=== PATIENT | male | born 1970 | race Caucasian/White ===

== ENCOUNTER 2018-02-02 00:31 | Inpatient (IN) | payer MEDICARE, MEDICAID ==
--- NOTE | 2018-02-02 00:52 | ED Physician Chart ---
ED Chief Complaint/HPI - Patient Information Date Seen:: 02/02/18 Time Seen:: 00:51 Chief Complaint:: Coffee ground emesis History of Present Illness:: 48 yo male with was brought from [facility] to ER for evaluation of coffee ground emesis multiple times today. Patient did not have active vomiting in the ER. Patient's glucose level on arrival was low at 45. About 2 hours later, a repeat finger glucose was 80. ED Review of Systems - Review of Systems General/Constitutional: No fever Skin: Skin lesions Head: No headache Eyes: No pain ENT: No nasal drainage Neck: No neck pain Cardio Vascular: No chest pain GI: Nausea, Vomiting, No hematemesis Musculoskeletal: Bone or joint pain Psychiatric: Depression Neurological: Weakness ED Past Medical History - Past Medical History Past Medical History: HTN, DM, CHF, Asthma/COPD, CVA/TIA, DVT/PE, Other (ETOH ABUSE, AR, PVD, LEFT FOOT ULCER, PNU) Social History: Non Smoker, No Alcohol, No Drug Use Surgical History: other (Right BKA) Psychiatricy History: Depression, Bipolar, Other (Anxiety) Family Medical History - Family Member Mother History Unknown: Yes ED Physical Exam - Physical Examination General/Constitutional: Awake, Alert Other Gen/Cons comments:: Cachectic Head: Atraumatic Eyes: PERRL Other Skin comments:: Left foot decubitus ulcer ENMT: Nasal exam nl Neck: No nuchal rigidity Respiratory: No Wheeze/Rhonchi/Rales Cardio Vascular: RRR, No murmur, gallop, rubs, NL S1 S2 GI: Nondistended Other GI comments:: Epigastric tenderness Extremities: No edema Other Extremities comments:: Right BKA. Left foot decubitus ulcer Neuro/Psych: Alert/oriented (x 2) ED Labs/Radiology/EKG Results - Radiology Results Results: CXR: no focal consolidation KUB: gas patterns in transverse colon and sigmoid colon - EKG Interpretations EKG Time:: 01:02 Rate & Rhythm: 90 bpm, sinus rhythm [place]: normal axis Intervals: Prolonged QT interval ED Assessment - Assessment General Assessment: Hematemesis Hyponatremia Hypokalemia Normocytic anemia Cachexia Hypoglycemia Assessment/Comments:: CBC, CMP, Trop I, BNP, UA CXR, EKG NS 1L IV bolus KCL 40 mEq PO Pantoprazole 40 mg IV Admitted to telemetry ED Septic Shock - . Is Septic Shock (SBP<90, OR Lactate>4 mmol\L) present?: No ED Reassessment (Disposition) - Reassessment Reassessment Condition:: Improved - Patient Disposition Discharge/Transfer:: Acute Care w/in this hosp Admitting Medical Physician:: Joey Lira
[2018-02-02 01:31] LABS: HEMATOCRIT 29.4 % (41.0-60); MEAN CELL VOLUME 90.9 fl (80-99); MEAN CORPUSCULAR HEMOGLOBIN 30.9 pg (26.0-30.0); PLATELET COUNT 414 Th/cmm (150-400); RED BLOOD COUNT 3.23 Mil/cmm (4.30-5.70); WHITE BLOOD COUNT 8.6 Th/cmm (4.8-10.8)
[2018-02-02 01:48] LABS: ALB/GLOB RATIO 1.5 (1.0-1.8); ALBUMIN 3.8 gm/dL (4.2-5.5); ALKALINE PHOSPHATASE 83 U/L (34-104); AMYLASE SERUM 26 U/L (29-103); ANION GAP 15.6 (7.0-16.0); BILIRUBIN,TOTAL 0.3 mg/dL (0.3-1.0); BUN - UREA NITROGEN 12 mg/dL (7-25); CALCIUM SERUM 9.2 mg/dL (8.6-10.3); CARBON DIOXIDE 24.6 mEq/L (21.0-31.0); CHLORIDE 94 mEq/L (98-107); CREATININE - SERUM 1.2 mg/dL (0.7-1.3); GFR AFRICAN-AMERICAN > 60.0 ml/min (>90); GFR NON AFRICAN-AMERICAN > 60.0 ml/min; LIPASE 5 U/L (11-82); POTASSIUM SERUM 3.2 mEq/L (3.5-5.1); SGOT 9 U/L (13-39); SGPT/ALT 8 U/L (7-52); SODIUM SERUM 131 mEq/L (136-145); TOTAL PROTEIN,SERUM 6.3 gm/dL (6.0-8.3)
[2018-02-02] MEDS ORDERED: Sodium Chloride 0.9% 1,000 ML IV ONE (01:58)
[2018-02-02 01:59] LABS: GLUCOSE 45 mg/dL (70-105)
[2018-02-02] MEDS ORDERED: Potassium Chloride 20 mEq ER Tab PO ONE ×2 (02:06→02:14)
[2018-02-02 04:30] LABS: BAND NEUTROPHILE 2 % (0-10); EOSINOPHIL 2 % (0-5); LYMPHOCYTE 6 % (20-50); MONOCYTE 5 % (2-10); NEUTROPHILS 85 % (40-80)
[2018-02-02 04:31] LABS: PLATELET ESTIMATE ADEQUATE (NORMAL)
--- NOTE | 2018-02-02 08:38 | Diagnostic Imaging Report ---
CHEST X-RAY: AP view INDICATION: Shortness of breath COMPARISON: None FINDINGS: Chronic lung changes are seen with probable COPD. There is no focal consolidation or pleural effusions The heart is normal in size. The osseous structures demonstrate no acute abnormalities. IMPRESSION: Chronic lung changes with probable COPD and underlying emphysematous changes. No focal consolidation is identified.
--- NOTE | 2018-02-02 08:43 | Diagnostic Imaging Report ---
KUB single view HISTORY: Emesis COMPARISON: None FINDINGS: There is copious stool throughout the colon. No evidence of gross free air. Nonspecific gas-filled loops of bowel are noted. Pelvic phleboliths are noted. Postsurgical changes of the right femur are partially visualized. IMPRESSION: Copious stool throughout the colon with gas-filled loops of bowel. Please correlate clinically for constipation.
[2018-02-02] MEDS ORDERED: OXYCODONE HCL 10 MG PO PRN (10:11)
[2018-02-02] MEDS ORDERED: Magnesium Hydroxide (MOM) 30 mL UDC PO PRN (10:11)
[2018-02-02] MEDS ORDERED: OXYCODONE HCL 20 MG PO PRN (10:11)
[2018-02-02 11:19] LABS: URINE SOURCE CLEAN C
[2018-02-02] MEDS ORDERED: INSULIN HUMAN REGULAR 100 UNITS/ML UNIT SUBQ SCH (11:30)
[2018-02-02 11:34] LABS: URINE BILIRUBIN SMALL (NEGATIVE); URINE BLOOD TRACE (NEGATIVE); URINE CLARITY CLOUDY (CLEAR); URINE COLOR YELLOW; URINE GLUCOSE (UA) 100 mg/dL (NEGATIVE); URINE KETONE 15 mg/dL (NEGATIVE); URINE MICROSCOPIC INDICATED? YES; URINE NITRATE NEGATIVE (NEGATIVE); URINE PROTEIN TRACE mg/dL (NEGATIVE); URINE UROBILINOGEN 0.2 E.U./dL (0.2 - 1.0)
[2018-02-02 11:35] LABS: URINE LEUKOCYTE ESTERASE SMALL (NEGATIVE)
[2018-02-02 11:36] LABS: URINE EPITHELIAL CELLS FEW /lpf (FEW); URINE WBC 25-50 /hpf (0-5)
[2018-02-02 11:37] LABS: URINE BACTERIA MODERATE /hpf (NONE SEEN)
[2018-02-02] MEDS: Multivitamin Tab PO SCH (11:58)
[2018-02-02] MEDS: Pantoprazole 40 mg/Packet PO SCH (11:59)
[2018-02-02] MEDS: INSULIN ASPART SLIDING SCALE 100 UNITS/ML UNIT SUBQ SCH ×3 (12:24→22:01)
[2018-02-02] MEDS ORDERED: fentaNYL 100 mcg/hr Tdm Patch TD SCH (14:00)
[2018-02-02] MEDS ORDERED: Non-Formulary Item 1 EA (Cranberry Fruit Concentrate [Cranberry] 450 MG) PO SCH (14:00)
[2018-02-02] MEDS: Lidocaine 5% Patch TD SCH (14:33)
[2018-02-02] MEDS ORDERED: MORPHINE SULFATE 10 MG PO SCH (17:00)
[2018-02-02] MEDS: Levofloxacin 750mg/150mL 750 MG/150 ML BAG IV SCH (17:49)
[2018-02-02] MEDS: Sodium Chloride 0.9% 1,000 ML IV SCH (17:52)
[2018-02-02] MEDS: Venelex 60gm Tube TP SCH (18:00)
[2018-02-02 18:54] LABS: A1C % 10.1 % (4.0-6.0)
--- NOTE | 2018-02-02 23:59 | History & Physical ---
ADMIT DATE: 02/02/2018 CHIEF COMPLAINT: Vomiting with questionable coffee-ground materials in the halfway. HISTORY OF PRESENT ILLNESS: The patient is a 48-year-old male admitted from Emergency Room to telemetry floor of [facility] due to multiple complicated medical conditions. The patient has several episodes of small amount of questionable coffee-ground emesis in the halfway; however, the patient's H and H is stable at 10/29.4. Since coming to the Emergency Room, the patient stopped vomiting and only later today has mild nausea. The patient has type 1 diabetes since he was born. He also has coronary heart disease, status post LA and mild diabetic nephropathy, however, the patient refused 1800 ADA cardiac renal diet and he would only eat if its regular diet as I know this patient very well. The patient is status post right BKA in [facility] just a few days ago. He is somewhat depressed with history of mild psychosis and bipolar disorder as well. His UA revealed positive leukocyte esterase, 50 wbc's, and moderate bacteria. Urine culture and blood culture were ordered. Empiric antibiotics started already. The patient's potassium is also low at 3.2, sodium 131, blood sugar only 45 in the Emergency Room. PAST MEDICAL HISTORY: Very poorly controlled diabetes, diabetic nephropathy, coronary heart disease, status post LA x 4, status post CVA x 3 with difficulty walking, COPD, pneumonia, anemia of chronic disease, urinary tract infection, sepsis, left heel diabetic wound. PAST SURGICAL HISTORY: Status post right BKA. NEUROLOGICAL: Unremarkable. LABORATORY DATA: Reviewed as seen from the computer. ASSESSMENT AND PLAN: 1. Status post upper gastrointestinal bleeding: This has stopped and the patient refused n.p.o. and insists on regular diet as I mentioned above. 2. Hypoglycemic episode: The patient has had very brittle diabetes and many endocrine consultation were requested and without any difference. Additionally, the patient is actually very intelligent. He controls how much insulin he needs, which most time works well for him. 3. Urinary tract infection: Urine culture and blood culture was ordered. Empiric antibiotics started, which will be adjusted accordingly. 4. Left heel diabetic wound: Continue wound care and try to control diabetes. 5. Chronic obstructive pulmonary disease: RT protocol ordered. 6. Status post right BKA in [facility]. 7. History of noncompliance: Education provided. 8. Coronary heart disease, status post myocardial infarction x 4. 9. Status post cerebrovascular accident x 3 with difficulty walking. 10. History of mild psychosis and bipolar disorder: Continue medication. 11. Intractable pain/chronic pain syndrome: The patient is on multiple pain medications, which were actually prescribed by the paint maker in the halfway. I pretty much continued the pain medication with some exception of decreasing the dose and frequency. 12. Deep venous thrombosis prophylaxis. 13. Seizure: Continue medication. JOB# [id number]
[2018-02-03 06:06] LABS: HEMATOCRIT 24.6 % (41.0-60); HEMOGLOBIN 8.2 gm/dL (12-16); MEAN CELL VOLUME 89.8 fl (80-99); MEAN CORPUSCULAR HEMOGLOBIN 30.1 pg (26.0-30.0); MEAN CORPUSCULAR HGB CONC 33.5 pg (28.0-36.0); MEAN PLATELET VOLUME 7.2 fl; PLATELET COUNT 299 Th/cmm (150-400); RED BLOOD COUNT 2.74 Mil/cmm (4.30-5.70); RED CELL DISTRIBUTION WIDTH 12.8 % (11.5-20.0); WHITE BLOOD COUNT 4.2 Th/cmm (4.8-10.8)
[2018-02-03] MEDS: Pantoprazole 40 mg/Packet PO SCH (06:42)
[2018-02-03 06:58] LABS: BUN - UREA NITROGEN 10 mg/dL (7-25); CALCIUM SERUM 8.5 mg/dL (8.6-10.3); CARBON DIOXIDE 25.6 mEq/L (21.0-31.0); CHLORIDE 97 mEq/L (98-107); CREATININE - SERUM 1.1 mg/dL (0.7-1.3); GFR AFRICAN-AMERICAN > 60.0 ml/min (>90); GFR NON AFRICAN-AMERICAN > 60.0 ml/min; POTASSIUM SERUM 3.6 mEq/L (3.5-5.1); SODIUM SERUM 133 mEq/L (136-145)
[2018-02-03 07:30] LABS: GLUCOSE 41 mg/dL (70-105)
[2018-02-03] MEDS: INSULIN ASPART SLIDING SCALE 100 UNITS/ML UNIT SUBQ SCH ×4 (07:34→20:56)
[2018-02-03 08:24] LABS: BASOPHIL 1 % (0-3); LYMPHOCYTE 30 % (20-50); MONOCYTE 4 % (2-10); NEUTROPHILS 65 % (40-80)
[2018-02-03 08:25] LABS: PLATELET ESTIMATE ADEQUATE (NORMAL)
[2018-02-03] MEDS: Multivitamin Tab PO SCH (08:40)
[2018-02-03] MEDS: Venelex 60gm Tube TP SCH (08:42)
[2018-02-03] MEDS: Lidocaine 5% Patch TD SCH ×2 (08:44→19:11)
--- NOTE | 2018-02-03 11:20 | Consultation ---
DATE OF CONSULTATION: 02/03/2018 SURGICAL CONSULTATION REFERRING PHYSICIAN: Dr. Lira. REASON FOR CONSULTATION: Follow up on right below knee amputation. Thank you for referring this patient to me. HISTORY OF PRESENT ILLNESS: This is a 48-year-old male who is apparently very poorly compliant on diet. He has diabetes mellitus. He has had a CVA x 3. On 01/2018 he underwent right below knee amputation at [facility]. He is admitted here in addition for followup on GI bleeding. LABORATORY STUDIES: Show the hemoglobin at 8.2. The platelet count is normal. Blood sugar on admission was 271, BUN and creatinine are normal. PHYSICAL EXAMINATION: Now, shows a right below knee amputation stump to be healing well with no evidence of edema or drainage or cellulitis. Continue local wound care and leave this suture for a while before removal. JOB# [id number]
[2018-02-03] MEDS: Levofloxacin 750mg/150mL 750 MG/150 ML BAG IV SCH (16:06)
--- NOTE | 2018-02-04 00:08 | Internal Medicine Prog Note ---
Internal Medicine Subjective - Subjective Service Date: 02/03/18 Patient seen and examined:: without staff Patient is:: asleep Per staff patient has:: no adverse event Internal Medicine Objective - Results Result Diagrams: 02/03/18 04:50 02/03/18 04:50 Recent Labs: Laboratory Last Values WBC 4.2 Th/cmm (4.8-10.8) L 02/03/18 04:50 RBC 2.74 Mil/cmm (4.30-5.70) L 02/03/18 04:50 Hgb 8.2 gm/dL (12-16) L 02/03/18 04:50 Hct 24.6 % (41.0-60) L 02/03/18 04:50 MCV 89.8 fl (80-99) 02/03/18 04:50 MCH 30.1 pg (26.0-30.0) H 02/03/18 04:50 MCHC Differential 33.5 pg (28.0-36.0) 02/03/18 04:50 RDW 12.8 % (11.5-20.0) 02/03/18 04:50 Plt Count 299 Th/cmm (150-400) 02/03/18 04:50 MPV 7.2 fl 02/03/18 04:50 Add Manual Diff YES 02/03/18 04:50 Band Neutrophils % 2 % (0-10) 02/02/18 01:25 Neutrophils (Manual) 65 % (40-80) 02/03/18 04:50 Lymphocytes 30 % (20-50) 02/03/18 04:50 Monocytes 4 % (2-10) 02/03/18 04:50 Eosinophils 2 % (0-5) 02/02/18 01:25 Basophils 1 % (0-3) 02/03/18 04:50 Platelet Estimate ADEQUATE (NORMAL) 02/03/18 04:50 Sodium 133 mEq/L (136-145) L 02/03/18 04:50 Potassium 3.6 mEq/L (3.5-5.1) 02/03/18 04:50 Chloride 97 mEq/L (98-107) L 02/03/18 04:50 Carbon Dioxide 25.6 mEq/L (21.0-31.0) 02/03/18 04:50 Anion Gap 14.0 (7.0-16.0) 02/03/18 04:50 BUN 10 mg/dL (7-25) 02/03/18 04:50 Creatinine 1.1 mg/dL (0.7-1.3) 02/03/18 04:50 Est GFR ( Amer) > 60.0 ml/min (>90) 02/03/18 04:50 Est GFR (Non-Af Amer) > 60.0 ml/min 02/03/18 04:50 BUN/Creatinine Ratio 9.1 02/03/18 04:50 Glucose 41 mg/dL (70-105) L* 02/03/18 04:50 POC Glucose 185 MG/DL (70 - 105) H 02/03/18 20:50 Hemoglobin A1c % 10.1 % (4.0-6.0) H 02/02/18 01:27 Calcium 8.5 mg/dL (8.6-10.3) L 02/03/18 04:50 Total Bilirubin 0.3 mg/dL (0.3-1.0) 02/02/18 01:25 AST 9 U/L (13-39) L 02/02/18 01:25 ALT 8 U/L (7-52) 02/02/18 01:25 Alkaline Phosphatase 83 U/L (34-104) 02/02/18 01:25 Total Protein 6.3 gm/dL (6.0-8.3) 02/02/18 01:25 Albumin 3.8 gm/dL (4.2-5.5) L 02/02/18 01:25 Globulin 2.5 gm/dL 02/02/18 01:25 Albumin/Globulin Ratio 1.5 (1.0-1.8) 02/02/18 01:25 Amylase 26 U/L (29-103) L 02/02/18 01:25 Lipase 5 U/L (11-82) L 02/02/18 01:25 Urine Source CLEAN C 02/02/18 10:25 Urine Color YELLOW 02/02/18 10:25 Urine Clarity CLOUDY (CLEAR) 02/02/18 10:25 Urine pH 6.0 (4.6 - 8.0) 02/02/18 10:25 Ur Specific [place] 1.020 (1.005-1.030) 02/02/18 10:25 Urine Protein TRACE mg/dL (NEGATIVE) 02/02/18 10:25 Urine Glucose (UA) 100 mg/dL (NEGATIVE) H 02/02/18 10:25 Urine Ketones 15 mg/dL (NEGATIVE) H 02/02/18 10:25 Urine Blood TRACE (NEGATIVE) 02/02/18 10:25 Urine Nitrate NEGATIVE (NEGATIVE) 02/02/18 10:25 Urine Bilirubin SMALL (NEGATIVE) H 02/02/18 10:25 Urine Urobilinogen 0.2 E.U./dL (0.2 - 1.0) 02/02/18 10:25 Ur Leukocyte Esterase SMALL (NEGATIVE) H 02/02/18 10:25 Urine RBC 2-5 /hpf (0-5) H 02/02/18 10:25 Urine WBC 25-50 /hpf (0-5) H 02/02/18 10:25 Ur Epithelial Cells FEW /lpf (FEW) 02/02/18 10:25 Urine Bacteria MODERATE /hpf (NONE SEEN) H 02/02/18 10:25 - Physical Exam Vitals and I&O: Vital Signs Temp 98 F 02/03/18 16:00 Pulse 109 02/03/18 22:06 Resp 18 02/03/18 22:06 BP 118/80 02/03/18 16:00 Pulse Ox 99 02/03/18 22:06 Intake & Output 02/03/18 02/03/18 02/04/18 06:59 18:59 06:59 Intake Total 150 350 150 Output Total 600 Balance 150 -250 150 Weight (lbs) 49.895 kg Intake: Intake, IV Amount 150 150 Levofloxacin 750mg/150mL 150 150 750 mg In 150 ml @ 100 mls/hr IV Q24HR [facility] Rx#: [id number] Oral 350 Output: Urine 600 Other: Weight Source Bedscale Active Medications: Current Medications Ascorbic Acid (Vitamin C) 500 mg PO DAILY [facility] Stop: 04/04/18 08:59 Last Admin: 02/03/18 08:40 Dose: 500 mg Bisacodyl (Dulcolax 10 Mg Supp) 10 mg RC DAILY PRN PRN Reason: Constipation Stop: 04/03/18 10:06 Carisoprodol (Soma) 350 mg PO Q8H PRN PRN Reason: MUSCLE SPASM Stop: 04/03/18 10:06 Last Admin: 02/03/18 16:42 Dose: 350 mg [place] Oil/Ugandan Balsam/Trypsin (Venelex) 1 appl TP DAILY [facility] Stop: 04/03/18 17:59 Last Admin: 02/03/18 08:42 Dose: 1 appl Docusate Sodium (Colace) 100 mg PO DAILY [facility] Stop: 04/03/18 13:59 Last Admin: 02/03/18 08:40 Dose: 100 mg Fentanyl (Duragesic 100 Mcg/Hr Tdm Patch) 1 patch TD Q72HR [facility]; Protocol Stop: 04/03/18 13:59 Last Admin: 02/02/18 14:33 Dose: Not Given Folic Acid (Folate) 1 mg PO DAILY [facility] Stop: 04/03/18 11:59 Last Admin: 02/03/18 08:40 Dose: 1 mg Gabapentin (Neurontin) 300 mg PO TID [facility] Stop: 04/03/18 13:59 Last Admin: 02/03/18 20:53 Dose: 300 mg Sodium Chloride (Nacl 0.9%) 1,000 mls @ 70 mls/hr IV .[id number] [facility] Stop: 04/03/18 13:59 Last Admin: 02/02/18 17:52 Dose: 70 mls/hr Levofloxacin (Levaquin Pb) 750 mg in 150 mls @ 100 mls/hr IV Q24HR [facility] Stop: 04/03/18 16:59 Last Infusion: 02/03/18 19:59 Dose: Infused Insulin Aspart (Novolog Insulin Sliding Scale) 0 units SUBQ ACHS [facility]; Protocol Stop: 04/03/18 11:29 Last Admin: 02/03/18 20:56 Dose: 3 units Levetiracetam (Keppra) 500 mg PO BID [facility] Stop: 04/03/18 16:59 Last Admin: 02/03/18 16:34 Dose: 500 mg Lidocaine (Lidoderm 5% Patch) 1 patch TD DAILY [facility] Stop: 04/03/18 13:59 Last Admin: 02/03/18 19:11 Dose: 1 patch Lisinopril (Zestril) 2.5 mg PO DAILY [facility] Stop: 04/04/18 08:59 Last Admin: 02/03/18 08:41 Dose: Not Given Magnesium Hydroxide (Milk Of Magnesia) 30 ml PO DAILY PRN PRN Reason: GI DISTRESS Stop: 04/03/18 10:10 Miscellaneous (Cranberry Fruit Concentrate [Cranberry]) 450 mg PO TID [facility] Stop: 04/03/18 13:59 Last Admin: 02/02/18 15:25 Dose: Not Given Miscellaneous (Magnesium [Magnesium]) 70 mg PO [facility] Stop: 04/03/18 20:59 Miscellaneous (Morphine Sulfate [Morphine Sulfate Er]) 10 mg PO BID [facility] Stop: 04/03/18 16:59 Last Admin: 02/02/18 18:26 Dose: Not Given Miscellaneous (Rosuvastatin Calcium [Rosuvastatin Calcium]) 1 tab PO [facility] Stop: 04/03/18 20:59 Multivitamins/Vitamin C (Theragran) 1 tab PO DAILY [facility] Stop: 04/03/18 11:59 Last Admin: 02/03/18 08:40 Dose: 1 tab Ondansetron HCl (Zofran) 4 mg IV Q4H PRN PRN Reason: Nausea / Vomiting Stop: 04/03/18 19:05 Oxcarbazepine (Trileptal) 300 mg PO BID [facility]; Protocol Stop: 04/03/18 16:59 Last Admin: 02/03/18 16:34 Dose: 300 mg Oxycodone HCl (Oxycontin) 10 mg PO Q6H PRN PRN Reason: Severe Pain Stop: 04/03/18 10:21 Pantoprazole Sodium (Protonix) 40 mg PO QDAC [facility] Stop: 04/03/18 11:39 Last Admin: 02/03/18 06:42 Dose: 40 mg Quetiapine Fumarate (Seroquel) 100 mg PO [facility]; Protocol Stop: 04/03/18 20:59 Last Admin: 02/03/18 20:53 Dose: 100 mg Tamsulosin HCl (Flomax) 0.4 mg PO DAILY [facility] Stop: 04/03/18 12:59 Last Admin: 02/03/18 08:40 Dose: 0.4 mg Trazodone HCl (Desyrel) 50 mg PO [facility]; Protocol Stop: 04/03/18 20:59 Last Admin: 02/03/18 20:53 Dose: 50 mg General: weak HEENT: NC/AT, PERRLA Neck: Supple, No JVD, No LAD Lungs: wheezing, ronchi Cardiovascular: RRR, Normal S1, Normal S2 Abdomen: soft, non-tender, non-distended Extremities: clear, other (s/p rt BKA) Neurological: no change Internal Medicine Assmt/Plan - Assessment Assessment: s/p rt BKA: post operative care. Anemia: repeat CBC in AM s/p UGUB? Left heel diabetix wound: wound care. UTI: empirical ABX. CAD: s/p MIx 4 s/p CVA x 3 OOCDM: SSRI low dose. depression/anxiety h/o mild psychosis. Seizure: continue med. COPD: RT protocol. Nutritional Asmnt/Malnutr-PDOC - Dietary Evaluation Malnutrition Findings (Please click <Entered> for more info): Nutritional Asmnt/Malnutrition Start: 02/03/18 18: 30 Text: Status: Complete Freq: Protocol: Document 02/03/18 18:31 LCHENG (Rec: 02/03/18 18:58 LCHENG [id number]) Nutritional Asmnt/Malnutrition Patient General Information Nutritional Screening High Risk Consult Diagnosis vomiting, possible GI bleed, hypokaliemia Pertinent Medical Hx/Surgical Hx type 1 DM, diabetic nephropathy, CAD, AK, CVA, DVT /PE, ETHOH abuse, left foot ulcer, PNU, right BKA, depression, bipolar, anxiety Subjective Information Pt seen lying in bed at bed at time of visit, awake and alert. Pt appeared skinny, fat wasting. Pt stated he usually does not eat breakfast. Offered different kind of oral supplements to pt, pt did not accept. Pt was not willing to talk more. Current Diet Order/ Nutrition Support NCS, ROLANDA Pertinent Medications colace, folate, novolog insulin, keppra, levaquin, theragran, zofran, protonix, seroquel, nacl 0.9% Pertinent Labs 8/2 Na 133, Cl 97, glucose 41, POC 80-297 8/1 Na 131, K 3.2, Cl 94, glucose 45, POC 80-392, A1c 10 .1 Nutritional Hx/Data Height 1.73 m Height (Calculated Centimeters) 172.7 Current Weight (lbs) 49.895 kg Weight (Calculated Kilograms) 49.9 Weight (Calculated Grams) 40557.2 [place] Body Weight 154 Body Mass Index (BMI) 16.7 Weight Status Underweight GI Symptoms GI Symptoms None Last BM none Difficult in: None Usual diet at home Per H&P pt has been refusing theraputic diet at care facility and only taking regular diet. Skin Integrity/Comment: left foot decubitus ulcer Current %PO Negligible < 25% Estimated Nutritional Goals BEE in Kcals: Using Current wt Calories/Kcals/Kg 30-35 Kcals Calculated 1992-7908 Protein g/k.2-1.4 Protein Calculated 60-70 Fluid: ml 1500-1750ml (1m/kcal) Nutritional Problem 1. Problem Problem altered nutrition related labs Etiology uncontrolled type 1 DM Signs/Symptoms: glucose 41-45, POC 80-392, A1c 10.1 Malnutrition Alert Body Fat Depletion (Severe) Mod to Severe Depletion Muscle Mass (Non-Severe) Mild Depletion Is there a minimum of two criteria Yes selected? Query Text:Check all the applicable criteria. A minimum of two criteria are recommended for diagnosis of either severe or non-severe malnutrition. Malnutrition Related to Morbid Obesity Malnutrition related to morbid obesity No Intervention/Recommendation Comments 1. Continue with NCS ROLANDA diet as ordered. Assist pt to order meals. MD to adjust insulin for optimal glycemic control 2. Monitor PO intake, wt, labs and skin integrity 3. F/U as moderate risk in 3-5 days, 02/06-02/08 Expected Outcomes/Goals Expected Outcomes/Goals 1. PO intake to meet at least 75% of nutritional needs. 2. Wt stability, skin to remain intact, labs to approach WNL.
[2018-02-04] MEDS: Venelex 60gm Tube TP SCH ×2 (04:55→09:18)
[2018-02-04 05:36] LABS: HEMOGLOBIN 8.4 gm/dL (12-16)
[2018-02-04 05:44] LABS: % BASOPHILS 0.6 % (0.0-2.0); % EOSINOPHILS 1.4 % (0.0-5.0); % LYMPHOCYTES 30.9 % (20.0-50.0); % MONOCYTES 6.1 % (2.0-10.0); EOSINOPHILE ABSOLUTE 0.1 Th/cmm (0.1-0.4); HEMATOCRIT 25.1 % (41.0-60); LYMPHOCYTE ABSOLUTE 1.6 Th/cmm (1.5-3.0); MEAN CELL VOLUME 90.7 fl (80-99); MEAN CORPUSCULAR HEMOGLOBIN 30.3 pg (26.0-30.0); MEAN CORPUSCULAR HGB CONC 33.4 pg (28.0-36.0); MEAN PLATELET VOLUME 7.5 fl; MONOCYTE ABSOLUTE 0.3 Th/cmm (0.3-1.0); NEUTROPHILE ABSOLUTE 3.1 Th/cmm (1.8-8.0); PLATELET COUNT 306 Th/cmm (150-400); RED BLOOD COUNT 2.77 Mil/cmm (4.30-5.70); RED CELL DISTRIBUTION WIDTH 12.6 % (11.5-20.0); WHITE BLOOD COUNT 5.1 Th/cmm (4.8-10.8)
--- NOTE | 2018-02-04 06:20 | Consultation ---
DATE OF CONSULTATION: 02/03/2018 ORTHOPEDIC SURGERY CONSULTATION HISTORY OF PRESENT ILLNESS: The patient is a 48-year-old type 1 diabetic, admitted to [facility] via the Emergency Room on 02/02/2018 because of history of hematemesis. He apparently had an amputation on the right below the knee at [facility] and was discharged from there to a fdc facility. It was there that he began with vomiting of probable blood, so he was sent to [facility] Emergency Room and then admitted to the hospital. I was called in orthopedic consultation by the admitting physician regarding his recent amputation. PAST MEDICAL HISTORY: I am not able to get much information directly from the patient. The record indicates he has a prior history of type 1 diabetes, coronary artery disease, history of [place], bipolar disorder with mild psychosis, urinary tract infection, diabetic neuropathy, COPD, history of pneumonia, anemia of chronic disease, sepsis and a diabetic foot ulcer on the left. I inquired of the patient why he had an amputation and he stated he had had multiple fractures on the right leg and they "had to cut it off." He intimated that these fractures were old and chronic, this was not an acute traumatic event. PHYSICAL EXAMINATION: The patient was examined in his hospital room at [facility]. GENERAL: He is thin and cachectic and appears chronically ill and considerably older than his stated age of 48. He is conscious and alert and at times answers questions fairly well. HEENT: The head is atraumatic, normocephalic. EXTREMITIES: Upper extremities unremarkable. Left lower extremity, there is a heel ulcer on the posterolateral corner of the heel measuring 3.5 x 5 cm. There is no exposed bone. On the right, there is a benign appearing below knee amputation stump with a large posterior flap brought around anteriorly. The suture line is dry and it appears to be healing well. IMAGING STUDIES: There are no images of the patient's legs. ORTHOPEDIC DIAGNOSES: 1. Status post right below knee amputation. 2. Diabetic heel ulcer on the left. 3. Status post multiple fractures, right lower extremity - he indicated he has fixation hardware in his femur. ORTHOPEDIC RECOMMENDATIONS: The patient can be on a bed to chair program with assistance. He could have physical therapy and attempt to stand and ambulate with a walker and assistance. He is quite weak and his musculature of the left leg is atrophic and he would probably have difficulty standing or bearing weight without a lot of assistance. He can have Betadine dressing changes on the right BKA stump every other day. [facility] could be contacted and his records obtained -- at least the operative record, history and physical and discharge summary. Sutures are typically left in the BKA stump in a diabetic for approximately 3 weeks and then can be removed if the wound is sufficiently healed. Meanwhile, he also needs decubitus care of the left heel ulcer. I will request x-rays be taken of his right lower extremity to better assess his situation. Thank you for this interesting referral. JOB# [id number]
[2018-02-04] MEDS: Sodium Chloride 0.9% 1,000 ML IV SCH (06:37)
[2018-02-04] MEDS: Pantoprazole 40 mg/Packet PO SCH (08:11)
[2018-02-04] MEDS: INSULIN ASPART SLIDING SCALE 100 UNITS/ML UNIT SUBQ SCH ×4 (08:11→21:57)
[2018-02-04] MEDS: Multivitamin Tab PO SCH (09:17)
[2018-02-04] MEDS: Lidocaine 5% Patch TD SCH (09:22)
--- NOTE | 2018-02-04 09:41 | Diagnostic Imaging Report ---
Right femur 2 views Indication: pain Comparison: Right tib-fib x-rays the same day Findings: There is evidence of previous intramedullary nohelia and screw fixation of proximal femoral fracture. The fracture lines along the intertrochanteric region are faintly seen. No dislocation. Mild degenerative changes of the hip joint are noted. Osteopenia is suspected. Impression: Evidence of previous fracture fixation of the proximal femur. The fracture lines of the intertrochanteric regions are still faintly seen. No evidence of hardware loosening. In the setting of trauma, if clinical symptoms persist and there is continued concern for an occult fracture, follow up exams in 5-7 days is suggested.
--- NOTE | 2018-02-04 09:41 | Diagnostic Imaging Report ---
Right tib-fib 2 views Indication: pain Comparison: Right femur x-rays the same day Findings: Partially visualized femoral fracture fixation hardware is noted. Osteopenia is noted. Below knee amputation is seen along the proximal one third of the tibia and fibula. No x-ray evidence of osteomyelitis. No evidence of an acute fracture. Impression: Below knee amputation. No x-ray evidence of osteomyelitis. osteopenia. Partially visualized postsurgical changes of the femur. In the setting of trauma, if clinical symptoms persist and there is continued concern for an occult fracture, follow up exams in 5-7 days is suggested.
[2018-02-04] MEDS: fentaNYL 100 mcg/hr Tdm Patch TD SCH (11:22)
[2018-02-04] MEDS: Atorvastatin Calcium 10 MG TAB PO SCH ×2 (20:09→21:40)
[2018-02-04] MEDS: Magnesium Chloride EC 64mg Tab PO SCH ×2 (20:09→21:39)
[2018-02-04] MEDS ORDERED: Septra IV Per Pharmacy MC SCH (23:45)
--- NOTE | 2018-02-04 23:53 | Internal Medicine Prog Note ---
Internal Medicine Subjective - Subjective Service Date: 02/04/18 Patient seen and examined:: without staff Patient is:: asleep Per staff patient has:: no adverse event Internal Medicine Objective - Results Result Diagrams: 02/04/18 04:55 02/03/18 04:50 Recent Labs: Laboratory Last Values WBC 5.1 Th/cmm (4.8-10.8) 02/04/18 04:55 RBC 2.77 Mil/cmm (4.30-5.70) L 02/04/18 04:55 Hgb 8.4 gm/dL (12-16) L 02/04/18 04:55 Hct 25.1 % (41.0-60) L 02/04/18 04:55 MCV 90.7 fl (80-99) 02/04/18 04:55 MCH 30.3 pg (26.0-30.0) H 02/04/18 04:55 MCHC Differential 33.4 pg (28.0-36.0) 02/04/18 04:55 RDW 12.6 % (11.5-20.0) 02/04/18 04:55 Plt Count 306 Th/cmm (150-400) 02/04/18 04:55 MPV 7.5 fl 02/04/18 04:55 Add Manual Diff YES 02/03/18 04:50 Neutrophils % 61.0 % (40.0-80.0) 02/04/18 04:55 Band Neutrophils % 2 % (0-10) 02/02/18 01:25 Lymphocytes % 30.9 % (20.0-50.0) 02/04/18 04:55 Monocytes % 6.1 % (2.0-10.0) 02/04/18 04:55 Eosinophils % 1.4 % (0.0-5.0) 02/04/18 04:55 Basophils % 0.6 % (0.0-2.0) 02/04/18 04:55 Neutrophils (Manual) 65 % (40-80) 02/03/18 04:50 Lymphocytes 30 % (20-50) 02/03/18 04:50 Monocytes 4 % (2-10) 02/03/18 04:50 Eosinophils 2 % (0-5) 02/02/18 01:25 Basophils 1 % (0-3) 02/03/18 04:50 Platelet Estimate ADEQUATE (NORMAL) 02/03/18 04:50 Sodium 133 mEq/L (136-145) L 02/03/18 04:50 Potassium 3.6 mEq/L (3.5-5.1) 02/03/18 04:50 Chloride 97 mEq/L (98-107) L 02/03/18 04:50 Carbon Dioxide 25.6 mEq/L (21.0-31.0) 02/03/18 04:50 Anion Gap 14.0 (7.0-16.0) 02/03/18 04:50 BUN 10 mg/dL (7-25) 02/03/18 04:50 Creatinine 1.1 mg/dL (0.7-1.3) 02/03/18 04:50 Est GFR ( Amer) > 60.0 ml/min (>90) 02/03/18 04:50 Est GFR (Non-Af Amer) > 60.0 ml/min 02/03/18 04:50 BUN/Creatinine Ratio 9.1 02/03/18 04:50 Glucose 41 mg/dL (70-105) L* 02/03/18 04:50 POC Glucose 449 MG/DL (70 - 105) H 02/04/18 21:37 Hemoglobin A1c % 10.1 % (4.0-6.0) H 02/02/18 01:27 Calcium 8.5 mg/dL (8.6-10.3) L 02/03/18 04:50 Total Bilirubin 0.3 mg/dL (0.3-1.0) 02/02/18 01:25 AST 9 U/L (13-39) L 02/02/18 01:25 ALT 8 U/L (7-52) 02/02/18 01:25 Alkaline Phosphatase 83 U/L (34-104) 02/02/18 01:25 Total Protein 6.3 gm/dL (6.0-8.3) 02/02/18 01:25 Albumin 3.8 gm/dL (4.2-5.5) L 02/02/18 01:25 Globulin 2.5 gm/dL 02/02/18 01:25 Albumin/Globulin Ratio 1.5 (1.0-1.8) 02/02/18 01:25 Amylase 26 U/L (29-103) L 02/02/18 01:25 Lipase 5 U/L (11-82) L 02/02/18 01:25 Urine Source CLEAN C 02/02/18 10:25 Urine Color YELLOW 02/02/18 10:25 Urine Clarity CLOUDY (CLEAR) 02/02/18 10:25 Urine pH 6.0 (4.6 - 8.0) 02/02/18 10:25 Ur Specific [place] 1.020 (1.005-1.030) 02/02/18 10:25 Urine Protein TRACE mg/dL (NEGATIVE) 02/02/18 10:25 Urine Glucose (UA) 100 mg/dL (NEGATIVE) H 02/02/18 10:25 Urine Ketones 15 mg/dL (NEGATIVE) H 02/02/18 10:25 Urine Blood TRACE (NEGATIVE) 02/02/18 10:25 Urine Nitrate NEGATIVE (NEGATIVE) 02/02/18 10:25 Urine Bilirubin SMALL (NEGATIVE) H 02/02/18 10:25 Urine Urobilinogen 0.2 E.U./dL (0.2 - 1.0) 02/02/18 10:25 Ur Leukocyte Esterase SMALL (NEGATIVE) H 02/02/18 10:25 Urine RBC 2-5 /hpf (0-5) H 02/02/18 10:25 Urine WBC 25-50 /hpf (0-5) H 02/02/18 10:25 Ur Epithelial Cells FEW /lpf (FEW) 02/02/18 10:25 Urine Bacteria MODERATE /hpf (NONE SEEN) H 02/02/18 10:25 - Physical Exam Vitals and I&O: Vital Signs Temp 98.2 F 02/04/18 20:00 Pulse 88 02/04/18 20:00 Resp 18 02/04/18 20:00 BP 127/93 02/04/18 20:00 Pulse Ox 100 02/04/18 20:00 Intake & Output 02/04/18 02/04/18 02/05/18 06:59 18:59 06:59 Intake Total 877 076 5651 Output Total 800 800 Balance -10 -100 1000 Weight (lbs) 49.895 kg 49.895 kg Intake: Intake, IV Amount 150 1000 Levofloxacin 750mg/150mL 150 750 mg In 150 ml @ 100 mls/hr IV Q24HR [facility] Rx#: [id number] Sodium Chloride 0.9% 1, 1000 000 ml @ 70 mls/hr IV . [id number] [facility] Rx#:[id number] Oral 600 700 Other 40 Output: Urine 800 800 Other: # Voids 3 # Bowel Movements 0 1 Weight Source Bedscale Bedscale Active Medications: Current Medications Ascorbic Acid (Vitamin C) 500 mg PO DAILY [facility] Stop: 04/04/18 08:59 Last Admin: 02/04/18 09:17 Dose: 500 mg Atorvastatin Calcium (Lipitor) 20 mg PO HS [facility] Stop: 04/03/18 20:59 Last Admin: 02/04/18 21:40 Dose: 20 mg Bisacodyl (Dulcolax 10 Mg Supp) 10 mg RC DAILY PRN PRN Reason: Constipation Stop: 04/03/18 10:06 Carisoprodol (Soma) 350 mg PO Q8H PRN PRN Reason: MUSCLE SPASM Stop: 04/03/18 10:06 Last Admin: 02/04/18 22:02 Dose: 350 mg [place] Oil/Prydeinig Balsam/Trypsin (Venelex) 1 appl TP DAILY [facility] Stop: 04/03/18 17:59 Last Admin: 02/04/18 09:18 Dose: 1 appl Docusate Sodium (Colace) 100 mg PO DAILY [facility] Stop: 04/03/18 13:59 Last Admin: 02/04/18 09:21 Dose: Not Given Fentanyl (Duragesic 100 Mcg/Hr Tdm Patch) 1 patch TD Q72H [facility] Stop: 04/05/18 10:59 Last Admin: 02/04/18 11:22 Dose: 1 patch Folic Acid (Folate) 1 mg PO DAILY [facility] Stop: 04/03/18 11:59 Last Admin: 02/04/18 09:17 Dose: 1 mg Gabapentin (Neurontin) 300 mg PO TID [facility] Stop: 04/03/18 13:59 Last Admin: 02/04/18 21:40 Dose: 300 mg Sodium Chloride (Nacl 0.9%) 1,000 mls @ 70 mls/hr IV .[id number] [facility] Stop: 04/03/18 13:59 Last Infusion: 02/04/18 22:05 Dose: Infused Levofloxacin (Levaquin Pb) 750 mg in 150 mls @ 100 mls/hr IV Q24HR [facility] Stop: 04/03/18 16:59 Last Infusion: 02/03/18 19:59 Dose: Infused Insulin Aspart (Novolog Insulin Sliding Scale) 0 units SUBQ ACHS [facility]; Protocol Stop: 04/03/18 11:29 Last Admin: 02/04/18 21:57 Dose: 13 units Levetiracetam (Keppra) 500 mg PO BID [facility] Stop: 04/03/18 16:59 Last Admin: 02/04/18 17:41 Dose: 500 mg Lidocaine (Lidoderm 5% Patch) 1 patch TD DAILY [facility] Stop: 04/03/18 13:59 Last Admin: 02/04/18 09:22 Dose: 1 patch Lisinopril (Zestril) 2.5 mg PO DAILY [facility] Stop: 04/04/18 08:59 Last Admin: 02/04/18 09:17 Dose: Not Given Magnesium Chloride (Slow-Mag) 64 ect PO HS [facility] Stop: 04/03/18 20:59 Last Admin: 02/04/18 21:39 Dose: 64 ect Magnesium Hydroxide (Milk Of Magnesia) 30 ml PO DAILY PRN PRN Reason: GI DISTRESS Stop: 04/03/18 10:10 Multivitamins/Vitamin C (Theragran) 1 tab PO DAILY [facility] Stop: 04/03/18 11:59 Last Admin: 02/04/18 09:17 Dose: 1 tab Ondansetron HCl (Zofran) 4 mg IV Q4H PRN PRN Reason: Nausea / Vomiting Stop: 04/03/18 19:05 Oxcarbazepine (Trileptal) 300 mg PO BID [facility]; Protocol Stop: 04/03/18 16:59 Last Admin: 02/04/18 17:41 Dose: 300 mg Oxycodone HCl (Oxycontin) 10 mg PO Q6H PRN PRN Reason: Severe Pain Stop: 04/03/18 10:21 Last Admin: 02/04/18 22:02 Dose: 10 mg Pantoprazole Sodium (Protonix) 40 mg PO QDAC [facility] Stop: 04/03/18 11:39 Last Admin: 02/04/18 08:11 Dose: 40 mg Quetiapine Fumarate (Seroquel) 100 mg PO HS [facility]; Protocol Stop: 04/03/18 20:59 Last Admin: 02/04/18 21:39 Dose: 100 mg Tamsulosin HCl (Flomax) 0.4 mg PO DAILY [facility] Stop: 04/03/18 12:59 Last Admin: 02/04/18 09:16 Dose: 0.4 mg Trazodone HCl (Desyrel) 50 mg PO HS [facility]; Protocol Stop: 04/03/18 20:59 Last Admin: 02/04/18 21:40 Dose: 50 mg Trimethoprim/Sulfamethoxazole (Bactrim Iv Per Pharmacy) 1 ea PRN [facility] Stop: 04/05/18 23:44 Trimethoprim/Sulfamethoxazole (Septra Iv 10mg/Kg/Day (Tmp)) 1 ea PRN [facility] Stop: 04/05/18 23:44 General: weak HEENT: NC/AT, PERRLA Neck: Supple, No JVD, No LAD Lungs: wheezing, ronchi Cardiovascular: RRR, Normal S1, Normal S2 Abdomen: soft, non-tender, non-distended Extremities: clear, other (s/p rt BKA) Neurological: no change Internal Medicine Assmt/Plan - Assessment Assessment: E. Coli UTI: Bactrim IVPB. s/p rt BKA: post operative care. Anemia: repeat CBC in AM s/p UGUB? Left heel diabetix wound: wound care. CAD: s/p MIx 4 s/p CVA x 3 OOCDM: SSRI low dose. depression/anxiety h/o mild psychosis. Seizure: continue med. COPD: RT protocol. Nutritional Asmnt/Malnutr-PDOC - Dietary Evaluation Malnutrition Findings (Please click <Entered> for more info): Nutritional Asmnt/Malnutrition Start: 02/03/18 18: 30 Text: Status: Complete Freq: Protocol: Document 02/03/18 18:31 LCHENG (Rec: 02/03/18 18:58 LCHENG [email or web address]) Nutritional Asmnt/Malnutrition Patient General Information Nutritional Screening High Risk Consult Diagnosis vomiting, possible GI bleed, hypokaliemia Pertinent Medical Hx/Surgical Hx type 1 DM, diabetic nephropathy, CAD, [place], CVA, DVT /PE, ETHOH abuse, left foot ulcer, PNU, right BKA, depression, bipolar, anxiety Subjective Information Pt seen lying in bed at bed at time of visit, awake and alert. Pt appeared skinny, fat wasting. Pt stated he usually does not eat breakfast. Offered different kind of oral supplements to pt, pt did not accept. Pt was not willing to talk more. Current Diet Order/ Nutrition Support NCS, ROLANDA Pertinent Medications colace, folate, novolog insulin, keppra, levaquin, theragran, zofran, protonix, seroquel, nacl 0.9% Pertinent Labs 8/ Na 133, Cl 97, glucose 41, POC 80-297 8/ Na 131, K 3.2, Cl 94, glucose 45, POC 80-392, A1c 10 .1 Nutritional Hx/Data Height 1.73 m Height (Calculated Centimeters) 172.7 Current Weight (lbs) 49.895 kg Weight (Calculated Kilograms) 49.9 Weight (Calculated Grams) 15366.2 [place] Body Weight 154 Body Mass Index (BMI) 16.7 Weight Status Underweight GI Symptoms GI Symptoms None Last BM none Difficult in: None Usual diet at home Per H&P pt has been refusing theraputic diet at care facility and only taking regular diet. Skin Integrity/Comment: left foot decubitus ulcer Current %PO Negligible < 25% Estimated Nutritional Goals BEE in Kcals: Using Current wt Calories/Kcals/Kg 30-35 Kcals Calculated 2756-1943 Protein g/k.2-1.4 Protein Calculated 60-70 Fluid: ml 1500-1750ml (1m/kcal) Nutritional Problem 1. Problem Problem altered nutrition related labs Etiology uncontrolled type 1 DM Signs/Symptoms: glucose 41-45, POC 80-392, A1c 10.1 Malnutrition Alert Body Fat Depletion (Severe) Mod to Severe Depletion Muscle Mass (Non-Severe) Mild Depletion Is there a minimum of two criteria Yes selected? Query Text:Check all the applicable criteria. A minimum of two criteria are recommended for diagnosis of either severe or non-severe malnutrition. Malnutrition Related to Morbid Obesity Malnutrition related to morbid obesity No Intervention/Recommendation Comments 1. Continue with NCS ROLANDA diet as ordered. Assist pt to order meals. MD to adjust insulin for optimal glycemic control 2. Monitor PO intake, wt, labs and skin integrity 3. F/U as moderate risk in 3-5 days, 02/06-02/08 Expected Outcomes/Goals Expected Outcomes/Goals 1. PO intake to meet at least 75% of nutritional needs. 2. Wt stability, skin to remain intact, labs to approach WNL.
[2018-02-05] MEDS: Morphine Sulfate 4 mg/mL 1mL Syr IV PRN ×4 (01:56→20:06)
[2018-02-05] MEDS: Sodium Chloride 0.9% 1,000 ML IV SCH ×2 (05:59→18:42)
[2018-02-05 07:28] LABS: HEMATOCRIT 24.7 % (41.0-60); HEMOGLOBIN 8.3 gm/dL (12-16); MEAN CELL VOLUME 90.2 fl (80-99); MEAN CORPUSCULAR HEMOGLOBIN 30.2 pg (26.0-30.0); MEAN CORPUSCULAR HGB CONC 33.4 pg (28.0-36.0); MEAN PLATELET VOLUME 6.9 fl; PLATELET COUNT 318 Th/cmm (150-400); RED BLOOD COUNT 2.74 Mil/cmm (4.30-5.70); WHITE BLOOD COUNT 4.6 Th/cmm (4.8-10.8)
[2018-02-05 07:37] LABS: % BASOPHILS 0.4 % (0.0-2.0); % EOSINOPHILS 1.6 % (0.0-5.0); % MONOCYTES 5.1 % (2.0-10.0); % NEUTROPHILS 50.9 % (40.0-80.0)
[2018-02-05 07:40] LABS: ALB/GLOB RATIO 1.5 (1.0-1.8); ALBUMIN 3.1 gm/dL (4.2-5.5); ALKALINE PHOSPHATASE 62 U/L (34-104); ANION GAP 9.6 (7.0-16.0); BILIRUBIN,TOTAL 0.3 mg/dL (0.3-1.0); BUN - UREA NITROGEN 19 mg/dL (7-25); CALCIUM SERUM 8.5 mg/dL (8.6-10.3); CARBON DIOXIDE 29.8 mEq/L (21.0-31.0); CHLORIDE 98 mEq/L (98-107); CREATININE - SERUM 1.3 mg/dL (0.7-1.3); EOSINOPHILE ABSOLUTE 0.1 Th/cmm (0.1-0.4); GFR AFRICAN-AMERICAN > 60.0 ml/min (>90); GFR NON AFRICAN-AMERICAN > 60.0 ml/min; GLUCOSE 93 mg/dL (70-105); LYMPHOCYTE ABSOLUTE 1.9 Th/cmm (1.5-3.0); MONOCYTE ABSOLUTE 0.2 Th/cmm (0.3-1.0); NEUTROPHILE ABSOLUTE 2.4 Th/cmm (1.8-8.0); POTASSIUM SERUM 4.4 mEq/L (3.5-5.1); SGOT 10 U/L (13-39); SGPT/ALT 6 U/L (7-52); SODIUM SERUM 133 mEq/L (136-145); TOTAL PROTEIN,SERUM 5.2 gm/dL (6.0-8.3)
[2018-02-05] MEDS: Venelex 60gm Tube TP SCH (08:19)
[2018-02-05] MEDS: Pantoprazole 40 mg/Packet PO SCH ×2 (08:19→08:44)
[2018-02-05] MEDS: Multivitamin Tab PO SCH (08:20)
[2018-02-05] MEDS: INSULIN ASPART SLIDING SCALE 100 UNITS/ML UNIT SUBQ SCH ×4 (08:22→20:07)
[2018-02-05] MEDS: Lidocaine 5% Patch TD SCH (08:40)
[2018-02-05] MEDS ORDERED: DEXTROSE IV SCH (09:00)
[2018-02-05] MEDS ORDERED: TMP IV SCH (09:00)
[2018-02-05] MEDS ORDERED: SULFAMETHOXAZOLE IV SCH (09:00)
[2018-02-05] MEDS: CEFTAZIDIME IV SCH ×2 (12:28→20:05)
[2018-02-05] MEDS: NS 0.9% IV SCH ×2 (12:28→20:05)
--- NOTE | 2018-02-05 13:20 | General Progress Note ---
Subjective - Review of Systems Service Date: 02/05/18 Events since last encounter: Plan: debride left heel ulcer on Wednesday Objective - Results Result Diagrams: 02/05/18 07:15 02/05/18 07:15 Recent Labs: Laboratory Last Values WBC 4.6 Th/cmm (4.8-10.8) L 02/05/18 07:15 RBC 2.74 Mil/cmm (4.30-5.70) L 02/05/18 07:15 Hgb 8.3 gm/dL (12-16) L 02/05/18 07:15 Hct 24.7 % (41.0-60) L 02/05/18 07:15 MCV 90.2 fl (80-99) 02/05/18 07:15 MCH 30.2 pg (26.0-30.0) H 02/05/18 07:15 MCHC Differential 33.4 pg (28.0-36.0) 02/05/18 07:15 RDW 13.0 % (11.5-20.0) 02/05/18 07:15 Plt Count 318 Th/cmm (150-400) 02/05/18 07:15 MPV 6.9 fl 02/05/18 07:15 Add Manual Diff YES 02/03/18 04:50 Neutrophils % 50.9 % (40.0-80.0) 02/05/18 07:15 Band Neutrophils % 2 % (0-10) 02/02/18 01:25 Lymphocytes % 42.0 % (20.0-50.0) 02/05/18 07:15 Monocytes % 5.1 % (2.0-10.0) 02/05/18 07:15 Eosinophils % 1.6 % (0.0-5.0) 02/05/18 07:15 Basophils % 0.4 % (0.0-2.0) 02/05/18 07:15 Neutrophils (Manual) 65 % (40-80) 02/03/18 04:50 Lymphocytes 30 % (20-50) 02/03/18 04:50 Monocytes 4 % (2-10) 02/03/18 04:50 Eosinophils 2 % (0-5) 02/02/18 01:25 Basophils 1 % (0-3) 02/03/18 04:50 Platelet Estimate ADEQUATE (NORMAL) 02/03/18 04:50 Sodium 133 mEq/L (136-145) L 02/05/18 07:15 Potassium 4.4 mEq/L (3.5-5.1) 02/05/18 07:15 Chloride 98 mEq/L (98-107) 02/05/18 07:15 Carbon Dioxide 29.8 mEq/L (21.0-31.0) 02/05/18 07:15 Anion Gap 9.6 (7.0-16.0) 02/05/18 07:15 BUN 19 mg/dL (7-25) 02/05/18 07:15 Creatinine 1.3 mg/dL (0.7-1.3) 02/05/18 07:15 Est GFR ( Amer) > 60.0 ml/min (>90) 02/05/18 07:15 Est GFR (Non-Af Amer) > 60.0 ml/min 02/05/18 07:15 BUN/Creatinine Ratio 14.6 02/05/18 07:15 Glucose 93 mg/dL (70-105) 02/05/18 07:15 POC Glucose 86 MG/DL (70 - 105) 02/05/18 12:26 Hemoglobin A1c % 10.1 % (4.0-6.0) H 02/02/18 01:27 Calcium 8.5 mg/dL (8.6-10.3) L 02/05/18 07:15 Total Bilirubin 0.3 mg/dL (0.3-1.0) 02/05/18 07:15 AST 10 U/L (13-39) L 02/05/18 07:15 ALT 6 U/L (7-52) L 02/05/18 07:15 Alkaline Phosphatase 62 U/L (34-104) 02/05/18 07:15 Total Protein 5.2 gm/dL (6.0-8.3) L 02/05/18 07:15 Albumin 3.1 gm/dL (4.2-5.5) L 02/05/18 07:15 Globulin 2.1 gm/dL 02/05/18 07:15 Albumin/Globulin Ratio 1.5 (1.0-1.8) 02/05/18 07:15 Amylase 26 U/L (29-103) L 02/02/18 01:25 Lipase 5 U/L (11-82) L 02/02/18 01:25 Urine Source CLEAN C 02/02/18 10:25 Urine Color YELLOW 02/02/18 10:25 Urine Clarity CLOUDY (CLEAR) 02/02/18 10:25 Urine pH 6.0 (4.6 - 8.0) 02/02/18 10:25 Ur Specific [place] 1.020 (1.005-1.030) 02/02/18 10:25 Urine Protein TRACE mg/dL (NEGATIVE) 02/02/18 10:25 Urine Glucose (UA) 100 mg/dL (NEGATIVE) H 02/02/18 10:25 Urine Ketones 15 mg/dL (NEGATIVE) H 02/02/18 10:25 Urine Blood TRACE (NEGATIVE) 02/02/18 10:25 Urine Nitrate NEGATIVE (NEGATIVE) 02/02/18 10:25 Urine Bilirubin SMALL (NEGATIVE) H 02/02/18 10:25 Urine Urobilinogen 0.2 E.U./dL (0.2 - 1.0) 02/02/18 10:25 Ur Leukocyte Esterase SMALL (NEGATIVE) H 02/02/18 10:25 Urine RBC 2-5 /hpf (0-5) H 02/02/18 10:25 Urine WBC 25-50 /hpf (0-5) H 02/02/18 10:25 Ur Epithelial Cells FEW /lpf (FEW) 02/02/18 10:25 Urine Bacteria MODERATE /hpf (NONE SEEN) H 02/02/18 10:25 - Physical Exam Vitals and I&O: Vital Signs Temp 97.2 F 02/05/18 12:03 Pulse 79 02/05/18 12:03 Resp 17 02/05/18 12:43 BP 92/68 02/05/18 12:03 Pulse Ox 99 02/05/18 12:03 Intake & Output 02/04/18 02/05/18 02/05/18 18:59 06:59 18:59 Intake Total 700 1560 Output Total 800 1204 Balance -100 356 Weight (lbs) 49.895 kg 49.895 kg Intake: Intake, IV Amount 1000 Sodium Chloride 0.9% 1, 1000 000 ml @ 70 mls/hr IV . [id number] [facility] Rx#:[id number] Oral 700 500 Other 60 Output: Urine 800 1200 Stool 4 Other: # Voids 3 4 # Bowel Movements 1 4 Stool Characteristics Brown Weight Source Bedscale Bedscale Active Medications: Current Medications Ascorbic Acid (Vitamin C) 500 mg PO DAILY [facility] Stop: 04/04/18 08:59 Last Admin: 02/05/18 08:20 Dose: 500 mg Atorvastatin Calcium (Lipitor) 20 mg PO HS [facility] Stop: 04/03/18 20:59 Last Admin: 02/04/18 21:40 Dose: 20 mg Bisacodyl (Dulcolax 10 Mg Supp) 10 mg RC DAILY PRN PRN Reason: Constipation Stop: 04/03/18 10:06 Carisoprodol (Soma) 350 mg PO Q8H PRN PRN Reason: MUSCLE SPASM Stop: 04/03/18 10:06 Last Admin: 02/05/18 05:59 Dose: 350 mg [place] Oil/Cymro Balsam/Trypsin (Venelex) 1 appl TP DAILY [facility] Stop: 04/03/18 17:59 Last Admin: 02/05/18 08:19 Dose: 1 appl Docusate Sodium (Colace) 100 mg PO DAILY [facility] Stop: 04/03/18 13:59 Last Admin: 02/05/18 08:45 Dose: Not Given Fentanyl (Duragesic 100 Mcg/Hr Tdm Patch) 1 patch TD Q72H [facility] Stop: 04/05/18 10:59 Last Admin: 02/04/18 11:22 Dose: 1 patch Folic Acid (Folate) 1 mg PO DAILY [facility] Stop: 04/03/18 11:59 Last Admin: 02/05/18 08:20 Dose: 1 mg Gabapentin (Neurontin) 300 mg PO TID [facility] Stop: 04/03/18 13:59 Last Admin: 02/05/18 13:05 Dose: 300 mg Sodium Chloride (Nacl 0.9%) 1,000 mls @ 70 mls/hr IV .[id number] [facility] Stop: 04/03/18 13:59 Last Admin: 02/05/18 05:59 Dose: 70 mls/hr Ceftazidime 1 gm/ Sodium (Chloride) 50 mls @ 100 mls/hr IV Q8HR [facility] Stop: 04/06/18 12:59 Last Admin: 02/05/18 12:28 Dose: 100 mls/hr Insulin Aspart (Novolog Insulin Sliding Scale) 0 units SUBQ ACHS [facility]; Protocol Stop: 04/03/18 11:29 Last Admin: 02/05/18 11:52 Dose: Not Given Levetiracetam (Keppra) 500 mg PO BID [facility] Stop: 04/03/18 16:59 Last Admin: 02/05/18 08:20 Dose: 500 mg Lidocaine (Lidoderm 5% Patch) 1 patch TD DAILY [facility] Stop: 04/03/18 13:59 Last Admin: 02/05/18 08:40 Dose: 1 patch Lisinopril (Zestril) 2.5 mg PO DAILY [facility] Stop: 04/04/18 08:59 Last Admin: 02/05/18 08:21 Dose: 2.5 mg Magnesium Chloride (Slow-Mag) 64 ect PO HS [facility] Stop: 04/03/18 20:59 Last Admin: 02/04/18 21:39 Dose: 64 ect Magnesium Hydroxide (Milk Of Magnesia) 30 ml PO DAILY PRN PRN Reason: GI DISTRESS Stop: 04/03/18 10:10 Morphine Sulfate (Morphine) 4 mg IV Q4H PRN PRN Reason: Pain (Severe) Stop: 04/06/18 00:01 Last Admin: 02/05/18 08:28 Dose: 4 mg Multivitamins/Vitamin C (Theragran) 1 tab PO DAILY [facility] Stop: 04/03/18 11:59 Last Admin: 02/05/18 08:20 Dose: 1 tab Ondansetron HCl (Zofran) 4 mg IV Q4H PRN PRN Reason: Nausea / Vomiting Stop: 04/03/18 19:05 Oxcarbazepine (Trileptal) 300 mg PO BID [facility]; Protocol Stop: 04/03/18 16:59 Last Admin: 02/05/18 08:20 Dose: 300 mg Pantoprazole Sodium (Protonix) 40 mg PO QDAC [facility] Stop: 04/03/18 11:39 Last Admin: 02/05/18 08:44 Dose: Not Given Quetiapine Fumarate (Seroquel) 100 mg PO HS [facility]; Protocol Stop: 04/03/18 20:59 Last Admin: 02/04/18 21:39 Dose: 100 mg Tamsulosin HCl (Flomax) 0.4 mg PO DAILY [facility] Stop: 04/03/18 12:59 Last Admin: 02/05/18 08:20 Dose: 0.4 mg Trazodone HCl (Desyrel) 50 mg PO HS [facility]; Protocol Stop: 04/03/18 20:59 Last Admin: 02/04/18 21:40 Dose: 50 mg Nutritional Asmnt/Malnutr-PDOC - Dietary Evaluation Malnutrition Findings (Please click <Entered> for more info): Nutritional Asmnt/Malnutrition Start: 02/03/18 18: 30 Text: Status: Complete Freq: Protocol: Document 02/03/18 18:31 LCRAMONG (Rec: 02/03/18 18:58 LCRAMONG [id number]) Nutritional Asmnt/Malnutrition Patient General Information Nutritional Screening High Risk Consult Diagnosis vomiting, possible GI bleed, hypokaliemia Pertinent Medical Hx/Surgical Hx type 1 DM, diabetic nephropathy, CAD, [place], CVA, DVT /PE, ETHOH abuse, left foot ulcer, PNU, right BKA, depression, bipolar, anxiety Subjective Information Pt seen lying in bed at bed at time of visit, awake and alert. Pt appeared skinny, fat wasting. Pt stated he usually does not eat breakfast. Offered different kind of oral supplements to pt, pt did not accept. Pt was not willing to talk more. Current Diet Order/ Nutrition Support NCS, ROLANDA Pertinent Medications colace, folate, novolog insulin, keppra, levaquin, theragran, zofran, protonix, seroquel, nacl 0.9% Pertinent Labs 8/2 Na 133, Cl 97, glucose 41, POC 80-297 8/ Na 131, K 3.2, Cl 94, glucose 45, POC 80-392, A1c 10 .1 Nutritional Hx/Data Height 1.73 m Height (Calculated Centimeters) 172.7 Current Weight (lbs) 49.895 kg Weight (Calculated Kilograms) 49.9 Weight (Calculated Grams) 17531.2 [place] Body Weight 154 Body Mass Index (BMI) 16.7 Weight Status Underweight GI Symptoms GI Symptoms None Last BM none Difficult in: None Usual diet at home Per H&P pt has been refusing theraputic diet at care facility and only taking regular diet. Skin Integrity/Comment: left foot decubitus ulcer Current %PO Negligible < 25% Estimated Nutritional Goals BEE in Kcals: Using Current wt Calories/Kcals/Kg 30-35 Kcals Calculated 1606-1406 Protein g/k.2-1.4 Protein Calculated 60-70 Fluid: ml 1500-1750ml (1m/kcal) Nutritional Problem 1. Problem Problem altered nutrition related labs Etiology uncontrolled type 1 DM Signs/Symptoms: glucose 41-45, POC 80-392, A1c 10.1 Malnutrition Alert Body Fat Depletion (Severe) Mod to Severe Depletion Muscle Mass (Non-Severe) Mild Depletion Is there a minimum of two criteria Yes selected? Query Text:Check all the applicable criteria. A minimum of two criteria are recommended for diagnosis of either severe or non-severe malnutrition. Malnutrition Related to Morbid Obesity Malnutrition related to morbid obesity No Intervention/Recommendation Comments 1. Continue with NCS ROLANDA diet as ordered. Assist pt to order meals. MD to adjust insulin for optimal glycemic control 2. Monitor PO intake, wt, labs and skin integrity 3. F/U as moderate risk in 3-5 days, 02/06-02/08 Expected Outcomes/Goals Expected Outcomes/Goals 1. PO intake to meet at least 75% of nutritional needs. 2. Wt stability, skin to remain intact, labs to approach WNL.
[2018-02-05] MEDS: Magnesium Chloride EC 64mg Tab PO SCH (20:06)
[2018-02-05] MEDS: Atorvastatin Calcium 10 MG TAB PO SCH (20:06)
--- NOTE | 2018-02-05 22:25 | Internal Medicine Prog Note ---
Internal Medicine Subjective - Subjective Service Date: 02/05/18 (pt c/o severe pain.) Patient seen and examined:: without staff Patient is:: asleep Per staff patient has:: no adverse event Internal Medicine Objective - Results Result Diagrams: 02/05/18 07:15 02/05/18 07:15 Recent Labs: Laboratory Last Values WBC 4.6 Th/cmm (4.8-10.8) L 02/05/18 07:15 RBC 2.74 Mil/cmm (4.30-5.70) L 02/05/18 07:15 Hgb 8.3 gm/dL (12-16) L 02/05/18 07:15 Hct 24.7 % (41.0-60) L 02/05/18 07:15 MCV 90.2 fl (80-99) 02/05/18 07:15 MCH 30.2 pg (26.0-30.0) H 02/05/18 07:15 MCHC Differential 33.4 pg (28.0-36.0) 02/05/18 07:15 RDW 13.0 % (11.5-20.0) 02/05/18 07:15 Plt Count 318 Th/cmm (150-400) 02/05/18 07:15 MPV 6.9 fl 02/05/18 07:15 Add Manual Diff YES 02/03/18 04:50 Neutrophils % 50.9 % (40.0-80.0) 02/05/18 07:15 Band Neutrophils % 2 % (0-10) 02/02/18 01:25 Lymphocytes % 42.0 % (20.0-50.0) 02/05/18 07:15 Monocytes % 5.1 % (2.0-10.0) 02/05/18 07:15 Eosinophils % 1.6 % (0.0-5.0) 02/05/18 07:15 Basophils % 0.4 % (0.0-2.0) 02/05/18 07:15 Neutrophils (Manual) 65 % (40-80) 02/03/18 04:50 Lymphocytes 30 % (20-50) 02/03/18 04:50 Monocytes 4 % (2-10) 02/03/18 04:50 Eosinophils 2 % (0-5) 02/02/18 01:25 Basophils 1 % (0-3) 02/03/18 04:50 Platelet Estimate ADEQUATE (NORMAL) 02/03/18 04:50 Sodium 133 mEq/L (136-145) L 02/05/18 07:15 Potassium 4.4 mEq/L (3.5-5.1) 02/05/18 07:15 Chloride 98 mEq/L (98-107) 02/05/18 07:15 Carbon Dioxide 29.8 mEq/L (21.0-31.0) 02/05/18 07:15 Anion Gap 9.6 (7.0-16.0) 02/05/18 07:15 BUN 19 mg/dL (7-25) 02/05/18 07:15 Creatinine 1.3 mg/dL (0.7-1.3) 02/05/18 07:15 Est GFR ( Amer) > 60.0 ml/min (>90) 02/05/18 07:15 Est GFR (Non-Af Amer) > 60.0 ml/min 02/05/18 07:15 BUN/Creatinine Ratio 14.6 02/05/18 07:15 Glucose 93 mg/dL (70-105) 02/05/18 07:15 POC Glucose 394 MG/DL (70 - 105) H 02/05/18 19:59 Hemoglobin A1c % 10.1 % (4.0-6.0) H 02/02/18 01:27 Calcium 8.5 mg/dL (8.6-10.3) L 02/05/18 07:15 Total Bilirubin 0.3 mg/dL (0.3-1.0) 02/05/18 07:15 AST 10 U/L (13-39) L 02/05/18 07:15 ALT 6 U/L (7-52) L 02/05/18 07:15 Alkaline Phosphatase 62 U/L (34-104) 02/05/18 07:15 Total Protein 5.2 gm/dL (6.0-8.3) L 02/05/18 07:15 Albumin 3.1 gm/dL (4.2-5.5) L 02/05/18 07:15 Globulin 2.1 gm/dL 02/05/18 07:15 Albumin/Globulin Ratio 1.5 (1.0-1.8) 02/05/18 07:15 Amylase 26 U/L (29-103) L 02/02/18 01:25 Lipase 5 U/L (11-82) L 02/02/18 01:25 Urine Source CLEAN C 02/02/18 10:25 Urine Color YELLOW 02/02/18 10:25 Urine Clarity CLOUDY (CLEAR) 02/02/18 10:25 Urine pH 6.0 (4.6 - 8.0) 02/02/18 10:25 Ur Specific [place] 1.020 (1.005-1.030) 02/02/18 10:25 Urine Protein TRACE mg/dL (NEGATIVE) 02/02/18 10:25 Urine Glucose (UA) 100 mg/dL (NEGATIVE) H 02/02/18 10:25 Urine Ketones 15 mg/dL (NEGATIVE) H 02/02/18 10:25 Urine Blood TRACE (NEGATIVE) 02/02/18 10:25 Urine Nitrate NEGATIVE (NEGATIVE) 02/02/18 10:25 Urine Bilirubin SMALL (NEGATIVE) H 02/02/18 10:25 Urine Urobilinogen 0.2 E.U./dL (0.2 - 1.0) 02/02/18 10:25 Ur Leukocyte Esterase SMALL (NEGATIVE) H 02/02/18 10:25 Urine RBC 2-5 /hpf (0-5) H 02/02/18 10:25 Urine WBC 25-50 /hpf (0-5) H 02/02/18 10:25 Ur Epithelial Cells FEW /lpf (FEW) 02/02/18 10:25 Urine Bacteria MODERATE /hpf (NONE SEEN) H 02/02/18 10:25 - Physical Exam Vitals and I&O: Vital Signs Temp 97.8 F 02/05/18 20:00 Pulse 82 02/05/18 20:00 Resp 18 02/05/18 20:00 BP 115/82 02/05/18 20:00 Pulse Ox 98 02/05/18 20:00 Intake & Output 02/05/18 02/05/18 02/06/18 06:59 18:59 06:59 Intake Total 1560 940.167 Output Total 1204 Balance 356 940.167 Weight (lbs) 49.895 kg Intake: Intake, IV Amount 1000 940.167 Sodium Chloride 0.9% 1, 1000 890.167 000 ml @ 70 mls/hr IV . [id number] [facility] Rx#:[id number] cefTAZidime 1 gm In 50 Sodium Chloride 0.9% 50 ml @ 100 mls/hr IV Q8HR [facility] Rx#:[id number] Oral 500 Other 60 Output: Urine 1200 Stool 4 Other: # Voids 4 # Bowel Movements 4 Stool Characteristics Brown Weight Source Bedscale Active Medications: Current Medications Ascorbic Acid (Vitamin C) 500 mg PO DAILY [facility] Stop: 04/04/18 08:59 Last Admin: 02/05/18 08:20 Dose: 500 mg Atorvastatin Calcium (Lipitor) 20 mg PO HS [facility] Stop: 04/03/18 20:59 Last Admin: 02/05/18 20:06 Dose: 20 mg Bisacodyl (Dulcolax 10 Mg Supp) 10 mg RC DAILY PRN PRN Reason: Constipation Stop: 04/03/18 10:06 Carisoprodol (Soma) 350 mg PO Q8H PRN PRN Reason: MUSCLE SPASM Stop: 04/03/18 10:06 Last Admin: 02/05/18 05:59 Dose: 350 mg [place] Oil/[place] Balsam/Trypsin (Venelex) 1 appl TP DAILY [facility] Stop: 04/03/18 17:59 Last Admin: 02/05/18 08:19 Dose: 1 appl Docusate Sodium (Colace) 100 mg PO DAILY [facility] Stop: 04/03/18 13:59 Last Admin: 02/05/18 08:45 Dose: Not Given Fentanyl (Duragesic 100 Mcg/Hr Tdm Patch) 1 patch TD Q72H [facility] Stop: 04/05/18 10:59 Last Admin: 02/04/18 11:22 Dose: 1 patch Folic Acid (Folate) 1 mg PO DAILY [facility] Stop: 04/03/18 11:59 Last Admin: 02/05/18 08:20 Dose: 1 mg Gabapentin (Neurontin) 300 mg PO TID [facility] Stop: 04/03/18 13:59 Last Admin: 02/05/18 20:06 Dose: 300 mg Sodium Chloride (Nacl 0.9%) 1,000 mls @ 70 mls/hr IV .[id number] [facility] Stop: 04/03/18 13:59 Last Admin: 02/05/18 18:42 Dose: 70 mls/hr Ceftazidime 1 gm/ Sodium (Chloride) 50 mls @ 100 mls/hr IV Q8HR [facility] Stop: 04/06/18 12:59 Last Admin: 02/05/18 20:05 Dose: 100 mls/hr Insulin Aspart (Novolog Insulin Sliding Scale) 0 units SUBQ ACHS [facility]; Protocol Stop: 04/03/18 11:29 Last Admin: 02/05/18 20:07 Dose: 11 units Levetiracetam (Keppra) 500 mg PO BID [facility] Stop: 04/03/18 16:59 Last Admin: 02/05/18 16:46 Dose: 500 mg Lidocaine (Lidoderm 5% Patch) 1 patch TD DAILY [facility] Stop: 04/03/18 13:59 Last Admin: 02/05/18 08:40 Dose: 1 patch Lisinopril (Zestril) 2.5 mg PO DAILY [facility] Stop: 04/04/18 08:59 Last Admin: 02/05/18 08:21 Dose: 2.5 mg Magnesium Chloride (Slow-Mag) 64 ect PO [facility] Stop: 04/03/18 20:59 Last Admin: 02/05/18 20:06 Dose: 64 ect Magnesium Hydroxide (Milk Of Magnesia) 30 ml PO DAILY PRN PRN Reason: GI DISTRESS Stop: 04/03/18 10:10 Morphine Sulfate (Morphine) 4 mg IV Q4H PRN PRN Reason: Pain (Severe) Stop: 04/06/18 00:01 Last Admin: 02/05/18 20:06 Dose: 4 mg Multivitamins/Vitamin C (Theragran) 1 tab PO DAILY [facility] Stop: 04/03/18 11:59 Last Admin: 02/05/18 08:20 Dose: 1 tab Ondansetron HCl (Zofran) 4 mg IV Q4H PRN PRN Reason: Nausea / Vomiting Stop: 04/03/18 19:05 Oxcarbazepine (Trileptal) 300 mg PO BID [facility]; Protocol Stop: 04/03/18 16:59 Last Admin: 02/05/18 16:46 Dose: 300 mg Pantoprazole Sodium (Protonix) 40 mg PO QDAC [facility] Stop: 04/03/18 11:39 Last Admin: 02/05/18 08:44 Dose: Not Given Quetiapine Fumarate (Seroquel) 100 mg PO HS [facility]; Protocol Stop: 04/03/18 20:59 Last Admin: 02/05/18 20:06 Dose: 100 mg Tamsulosin HCl (Flomax) 0.4 mg PO DAILY [facility] Stop: 04/03/18 12:59 Last Admin: 02/05/18 08:20 Dose: 0.4 mg Trazodone HCl (Desyrel) 50 mg PO HS [facility]; Protocol Stop: 04/03/18 20:59 Last Admin: 02/05/18 20:06 Dose: 50 mg General: weak HEENT: NC/AT, PERRLA Neck: Supple, No JVD, No LAD Lungs: wheezing, ronchi Cardiovascular: RRR, Normal S1, Normal S2 Abdomen: soft, non-tender, non-distended Extremities: clear, other (s/p rt BKA) Neurological: no change Internal Medicine Assmt/Plan - Assessment Assessment: E. Coli UTI: Fortaz 1gm IVPB q8; dced Bactrim as it is on the list of allergy, despite the fact that he used it before without allergic reaction. Intractable pain/chronic pain syndrome: adjusting pain meds. s/p rt BKA: post operative care. Anemia: repeat CBC in AM s/p UGUB? Left heel diabetix wound: wound care. CAD: s/p MIx 4 s/p CVA x 3 OOCDM: SSRI low dose. depression/anxiety h/o mild psychosis. Seizure: continue med. COPD: RT protocol. Nutritional Asmnt/Malnutr-PDOC - Dietary Evaluation Malnutrition Findings (Please click <Entered> for more info): Nutritional Asmnt/Malnutrition Start: 02/03/18 18: 30 Text: Status: Complete Freq: Protocol: Document 02/03/18 18:31 LCHENG (Rec: 02/03/18 18:58 LCHENG [email or web address]) Nutritional Asmnt/Malnutrition Patient General Information Nutritional Screening High Risk Consult Diagnosis vomiting, possible GI bleed, hypokaliemia Pertinent Medical Hx/Surgical Hx type 1 DM, diabetic nephropathy, CAD, PR, CVA, DVT /PE, ETHOH abuse, left foot ulcer, PNU, right BKA, depression, bipolar, anxiety Subjective Information Pt seen lying in bed at bed at time of visit, awake and alert. Pt appeared skinny, fat wasting. Pt stated he usually does not eat breakfast. Offered different kind of oral supplements to pt, pt did not accept. Pt was not willing to talk more. Current Diet Order/ Nutrition Support NCS, ROLANDA Pertinent Medications colace, folate, novolog insulin, keppra, levaquin, theragran, zofran, protonix, seroquel, nacl 0.9% Pertinent Labs 8/ Na 133, Cl 97, glucose 41, POC 80-297 8/ Na 131, K 3.2, Cl 94, glucose 45, POC 80-392, A1c 10 .1 Nutritional Hx/Data Height 1.73 m Height (Calculated Centimeters) 172.7 Current Weight (lbs) 49.895 kg Weight (Calculated Kilograms) 49.9 Weight (Calculated Grams) 65291.2 [place] Body Weight 154 Body Mass Index (BMI) 16.7 Weight Status Underweight GI Symptoms GI Symptoms None Last BM none Difficult in: None Usual diet at home Per H&P pt has been refusing theraputic diet at care facility and only taking regular diet. Skin Integrity/Comment: left foot decubitus ulcer Current %PO Negligible < 25% Estimated Nutritional Goals BEE in Kcals: Using Current wt Calories/Kcals/Kg 30-35 Kcals Calculated 9165-1820 Protein g/k.2-1.4 Protein Calculated 60-70 Fluid: ml 1500-1750ml (1m/kcal) Nutritional Problem 1. Problem Problem altered nutrition related labs Etiology uncontrolled type 1 DM Signs/Symptoms: glucose 41-45, POC 80-392, A1c 10.1 Malnutrition Alert Body Fat Depletion (Severe) Mod to Severe Depletion Muscle Mass (Non-Severe) Mild Depletion Is there a minimum of two criteria Yes selected? Query Text:Check all the applicable criteria. A minimum of two criteria are recommended for diagnosis of either severe or non-severe malnutrition. Malnutrition Related to Morbid Obesity Malnutrition related to morbid obesity No Intervention/Recommendation Comments 1. Continue with NCS ROLANDA diet as ordered. Assist pt to order meals. MD to adjust insulin for optimal glycemic control 2. Monitor PO intake, wt, labs and skin integrity 3. F/U as moderate risk in 3-5 days, 02/06-02/08 Expected Outcomes/Goals Expected Outcomes/Goals 1. PO intake to meet at least 75% of nutritional needs. 2. Wt stability, skin to remain intact, labs to approach WNL.
[2018-02-06] MEDS ORDERED: D5-0.45NS 1,000 ML IV SCH
[2018-02-06] MEDS: Morphine Sulfate 4 mg/mL 1mL Syr IV PRN ×3 (02:13→14:29)
[2018-02-06] MEDS: NS 0.9% IV SCH ×3 (05:31→20:34)
[2018-02-06] MEDS: CEFTAZIDIME IV SCH ×3 (05:31→20:34)
[2018-02-06] MEDS: Pantoprazole 40 mg/Packet PO SCH ×2 (06:40→06:42)
[2018-02-06] MEDS: INSULIN ASPART SLIDING SCALE 100 UNITS/ML UNIT SUBQ SCH ×4 (06:40→20:45)
[2018-02-06] MEDS: Multivitamin Tab PO SCH (08:15)
[2018-02-06] MEDS: Lidocaine 5% Patch TD SCH (08:16)
[2018-02-06] MEDS: Venelex 60gm Tube TP SCH (08:17)
[2018-02-06] MEDS: Sodium Chloride 0.9% 1,000 ML IV SCH (10:00)
--- NOTE | 2018-02-06 10:36 | General Progress Note ---
Subjective - Review of Systems Service Date: 02/06/18 Events since last encounter: for excisional debridement left heel tomorrow Objective - Results Result Diagrams: 02/05/18 07:15 02/05/18 07:15 Recent Labs: Laboratory Last Values WBC 4.6 Th/cmm (4.8-10.8) L 02/05/18 07:15 RBC 2.74 Mil/cmm (4.30-5.70) L 02/05/18 07:15 Hgb 8.3 gm/dL (12-16) L 02/05/18 07:15 Hct 24.7 % (41.0-60) L 02/05/18 07:15 MCV 90.2 fl (80-99) 02/05/18 07:15 MCH 30.2 pg (26.0-30.0) H 02/05/18 07:15 MCHC Differential 33.4 pg (28.0-36.0) 02/05/18 07:15 RDW 13.0 % (11.5-20.0) 02/05/18 07:15 Plt Count 318 Th/cmm (150-400) 02/05/18 07:15 MPV 6.9 fl 02/05/18 07:15 Add Manual Diff YES 02/03/18 04:50 Neutrophils % 50.9 % (40.0-80.0) 02/05/18 07:15 Band Neutrophils % 2 % (0-10) 02/02/18 01:25 Lymphocytes % 42.0 % (20.0-50.0) 02/05/18 07:15 Monocytes % 5.1 % (2.0-10.0) 02/05/18 07:15 Eosinophils % 1.6 % (0.0-5.0) 02/05/18 07:15 Basophils % 0.4 % (0.0-2.0) 02/05/18 07:15 Neutrophils (Manual) 65 % (40-80) 02/03/18 04:50 Lymphocytes 30 % (20-50) 02/03/18 04:50 Monocytes 4 % (2-10) 02/03/18 04:50 Eosinophils 2 % (0-5) 02/02/18 01:25 Basophils 1 % (0-3) 02/03/18 04:50 Platelet Estimate ADEQUATE (NORMAL) 02/03/18 04:50 Sodium 133 mEq/L (136-145) L 02/05/18 07:15 Potassium 4.4 mEq/L (3.5-5.1) 02/05/18 07:15 Chloride 98 mEq/L (98-107) 02/05/18 07:15 Carbon Dioxide 29.8 mEq/L (21.0-31.0) 02/05/18 07:15 Anion Gap 9.6 (7.0-16.0) 02/05/18 07:15 BUN 19 mg/dL (7-25) 02/05/18 07:15 Creatinine 1.3 mg/dL (0.7-1.3) 02/05/18 07:15 Est GFR ( Amer) > 60.0 ml/min (>90) 02/05/18 07:15 Est GFR (Non-Af Amer) > 60.0 ml/min 02/05/18 07:15 BUN/Creatinine Ratio 14.6 02/05/18 07:15 Glucose 93 mg/dL (70-105) 02/05/18 07:15 POC Glucose 343 MG/DL (70 - 105) H 02/06/18 06:03 Hemoglobin A1c % 10.1 % (4.0-6.0) H 02/02/18 01:27 Calcium 8.5 mg/dL (8.6-10.3) L 02/05/18 07:15 Total Bilirubin 0.3 mg/dL (0.3-1.0) 02/05/18 07:15 AST 10 U/L (13-39) L 02/05/18 07:15 ALT 6 U/L (7-52) L 02/05/18 07:15 Alkaline Phosphatase 62 U/L (34-104) 02/05/18 07:15 Total Protein 5.2 gm/dL (6.0-8.3) L 02/05/18 07:15 Albumin 3.1 gm/dL (4.2-5.5) L 02/05/18 07:15 Globulin 2.1 gm/dL 02/05/18 07:15 Albumin/Globulin Ratio 1.5 (1.0-1.8) 02/05/18 07:15 Amylase 26 U/L (29-103) L 02/02/18 01:25 Lipase 5 U/L (11-82) L 02/02/18 01:25 Urine Source CLEAN C 02/02/18 10:25 Urine Color YELLOW 02/02/18 10:25 Urine Clarity CLOUDY (CLEAR) 02/02/18 10:25 Urine pH 6.0 (4.6 - 8.0) 02/02/18 10:25 Ur Specific [place] 1.020 (1.005-1.030) 02/02/18 10:25 Urine Protein TRACE mg/dL (NEGATIVE) 02/02/18 10:25 Urine Glucose (UA) 100 mg/dL (NEGATIVE) H 02/02/18 10:25 Urine Ketones 15 mg/dL (NEGATIVE) H 02/02/18 10:25 Urine Blood TRACE (NEGATIVE) 02/02/18 10:25 Urine Nitrate NEGATIVE (NEGATIVE) 02/02/18 10:25 Urine Bilirubin SMALL (NEGATIVE) H 02/02/18 10:25 Urine Urobilinogen 0.2 E.U./dL (0.2 - 1.0) 02/02/18 10:25 Ur Leukocyte Esterase SMALL (NEGATIVE) H 02/02/18 10:25 Urine RBC 2-5 /hpf (0-5) H 02/02/18 10:25 Urine WBC 25-50 /hpf (0-5) H 02/02/18 10:25 Ur Epithelial Cells FEW /lpf (FEW) 02/02/18 10:25 Urine Bacteria MODERATE /hpf (NONE SEEN) H 02/02/18 10:25 - Physical Exam Vitals and I&O: Vital Signs Temp 97.4 F 02/06/18 08:00 Pulse 79 02/06/18 08:15 Resp 20 02/06/18 08:00 BP 102/69 02/06/18 08:15 Pulse Ox 100 02/06/18 08:00 Intake & Output 02/05/18 02/06/18 02/06/18 18:59 06:59 18:59 Intake Total 940.278 648 4140 Output Total 3 Balance 940.916 397 6288 Weight (lbs) 49.442 kg Intake: Intake, IV Amount 940.719 675 2951 Sodium Chloride 0.9% 1, 224.551 6769 000 ml @ 70 mls/hr IV . [id number] [facility] Rx#:[id number] cefTAZidime 1 gm In 50 100 Sodium Chloride 0.9% 50 ml @ 100 mls/hr IV Q8HR [facility] Rx#:[id number] Oral 560 Output: Stool 3 Other: # Voids 1,450 Stool Characteristics Brown Soft Soft Liquid Liquid Brown Brown Weight Source Bedscale Active Medications: Current Medications Ascorbic Acid (Vitamin C) 500 mg PO DAILY [facility] Stop: 04/04/18 08:59 Last Admin: 02/06/18 08:15 Dose: 500 mg Atorvastatin Calcium (Lipitor) 20 mg PO HS [facility] Stop: 04/03/18 20:59 Last Admin: 02/05/18 20:06 Dose: 20 mg Bisacodyl (Dulcolax 10 Mg Supp) 10 mg RC DAILY PRN PRN Reason: Constipation Stop: 04/03/18 10:06 Carisoprodol (Soma) 350 mg PO Q8H PRN PRN Reason: MUSCLE SPASM Stop: 04/03/18 10:06 Last Admin: 02/06/18 03:21 Dose: 350 mg [place] Oil/[place] Balsam/Trypsin (Venelex) 1 appl TP DAILY [facility] Stop: 04/03/18 17:59 Last Admin: 02/06/18 08:17 Dose: 1 appl Docusate Sodium (Colace) 100 mg PO DAILY [facility] Stop: 04/03/18 13:59 Last Admin: 02/06/18 08:18 Dose: Not Given Fentanyl (Duragesic 100 Mcg/Hr Tdm Patch) 1 patch TD Q72H [facility] Stop: 04/05/18 10:59 Last Admin: 02/04/18 11:22 Dose: 1 patch Folic Acid (Folate) 1 mg PO DAILY [facility] Stop: 04/03/18 11:59 Last Admin: 02/06/18 08:16 Dose: 1 mg Gabapentin (Neurontin) 300 mg PO TID [facility] Stop: 04/03/18 13:59 Last Admin: 02/06/18 08:16 Dose: 300 mg Sodium Chloride (Nacl 0.9%) 1,000 mls @ 70 mls/hr IV .[id number] [facility] Stop: 04/03/18 13:59 Last Admin: 02/06/18 10:00 Dose: 70 mls/hr Ceftazidime 1 gm/ Sodium (Chloride) 50 mls @ 100 mls/hr IV Q8HR [facility] Stop: 04/06/18 12:59 Last Infusion: 02/06/18 06:01 Dose: Infused Insulin Aspart (Novolog Insulin Sliding Scale) 0 units SUBQ ACHS [facility]; Protocol Stop: 04/03/18 11:29 Last Admin: 02/06/18 06:40 Dose: 9 units Levetiracetam (Keppra) 500 mg PO BID [facility] Stop: 04/03/18 16:59 Last Admin: 02/06/18 08:15 Dose: 500 mg Lidocaine (Lidoderm 5% Patch) 1 patch TD DAILY [facility] Stop: 04/03/18 13:59 Last Admin: 02/06/18 08:16 Dose: 1 patch Lisinopril (Zestril) 2.5 mg PO DAILY [facility] Stop: 04/04/18 08:59 Last Admin: 02/06/18 08:15 Dose: 2.5 mg Magnesium Chloride (Slow-Mag) 64 ect PO HS [facility] Stop: 04/03/18 20:59 Last Admin: 02/05/18 20:06 Dose: 64 ect Magnesium Hydroxide (Milk Of Magnesia) 30 ml PO DAILY PRN PRN Reason: GI DISTRESS Stop: 04/03/18 10:10 Metronidazole (Flagyl) 250 mg PO Q6H [facility] Stop: 04/06/18 22:59 Last Admin: 02/06/18 05:30 Dose: 250 mg Morphine Sulfate (Morphine) 4 mg IV Q4H PRN PRN Reason: Pain (Severe) Stop: 04/06/18 00:01 Last Admin: 02/06/18 08:14 Dose: 4 mg Multivitamins/Vitamin C (Theragran) 1 tab PO DAILY [facility] Stop: 04/03/18 11:59 Last Admin: 02/06/18 08:15 Dose: 1 tab Ondansetron HCl (Zofran) 4 mg IV Q4H PRN PRN Reason: Nausea / Vomiting Stop: 04/03/18 19:05 Oxcarbazepine (Trileptal) 300 mg PO BID [facility]; Protocol Stop: 04/03/18 16:59 Last Admin: 02/06/18 08:15 Dose: 300 mg Pantoprazole Sodium (Protonix) 40 mg PO QDAC [facility] Stop: 04/03/18 11:39 Last Admin: 02/06/18 06:42 Dose: Not Given Quetiapine Fumarate (Seroquel) 100 mg PO HS [facility]; Protocol Stop: 04/03/18 20:59 Last Admin: 02/05/18 20:06 Dose: 100 mg Tamsulosin HCl (Flomax) 0.4 mg PO DAILY [facility] Stop: 04/03/18 12:59 Last Admin: 02/06/18 08:15 Dose: 0.4 mg Trazodone HCl (Desyrel) 50 mg PO HS [facility]; Protocol Stop: 04/03/18 20:59 Last Admin: 02/05/18 20:06 Dose: 50 mg Nutritional Asmnt/Malnutr-PDOC - Dietary Evaluation Malnutrition Findings (Please click <Entered> for more info): Nutritional Asmnt/Malnutrition Start: 02/03/18 18: 30 Text: Status: Complete Freq: Protocol: Document 02/03/18 18:31 LCHENG (Rec: 02/03/18 18:58 LCHENG [email or web address]) Nutritional Asmnt/Malnutrition Patient General Information Nutritional Screening High Risk Consult Diagnosis vomiting, possible GI bleed, hypokaliemia Pertinent Medical Hx/Surgical Hx type 1 DM, diabetic nephropathy, CAD, NM, CVA, DVT /PE, ETHOH abuse, left foot ulcer, PNU, right BKA, depression, bipolar, anxiety Subjective Information Pt seen lying in bed at bed at time of visit, awake and alert. Pt appeared skinny, fat wasting. Pt stated he usually does not eat breakfast. Offered different kind of oral supplements to pt, pt did not accept. Pt was not willing to talk more. Current Diet Order/ Nutrition Support NCS, ROLANDA Pertinent Medications colace, folate, novolog insulin, keppra, levaquin, theragran, zofran, protonix, seroquel, nacl 0.9% Pertinent Labs 8/2 Na 133, Cl 97, glucose 41, POC 80-297 8/1 Na 131, K 3.2, Cl 94, glucose 45, POC 80-392, A1c 10 .1 Nutritional Hx/Data Height 1.73 m Height (Calculated Centimeters) 172.7 Current Weight (lbs) 49.895 kg Weight (Calculated Kilograms) 49.9 Weight (Calculated Grams) 28876.2 [place] Body Weight 154 Body Mass Index (BMI) 16.7 Weight Status Underweight GI Symptoms GI Symptoms None Last BM none Difficult in: None Usual diet at home Per H&P pt has been refusing theraputic diet at care facility and only taking regular diet. Skin Integrity/Comment: left foot decubitus ulcer Current %PO Negligible < 25% Estimated Nutritional Goals BEE in Kcals: Using Current wt Calories/Kcals/Kg 30-35 Kcals Calculated 4389-1110 Protein g/k.2-1.4 Protein Calculated 60-70 Fluid: ml 1500-1750ml (1m/kcal) Nutritional Problem 1. Problem Problem altered nutrition related labs Etiology uncontrolled type 1 DM Signs/Symptoms: glucose 41-45, POC 80-392, A1c 10.1 Malnutrition Alert Body Fat Depletion (Severe) Mod to Severe Depletion Muscle Mass (Non-Severe) Mild Depletion Is there a minimum of two criteria Yes selected? Query Text:Check all the applicable criteria. A minimum of two criteria are recommended for diagnosis of either severe or non-severe malnutrition. Malnutrition Related to Morbid Obesity Malnutrition related to morbid obesity No Intervention/Recommendation Comments 1. Continue with NCS ROLANDA diet as ordered. Assist pt to order meals. MD to adjust insulin for optimal glycemic control 2. Monitor PO intake, wt, labs and skin integrity 3. F/U as moderate risk in 3-5 days, 02/06-02/08 Expected Outcomes/Goals Expected Outcomes/Goals 1. PO intake to meet at least 75% of nutritional needs. 2. Wt stability, skin to remain intact, labs to approach WNL.
[2018-02-06] MEDS: HYDROmorphone 2 mg/mL 1mL Vial IVP PRN ×2 (18:11→22:20)
[2018-02-06] MEDS: Atorvastatin Calcium 10 MG TAB PO SCH (20:32)
[2018-02-06] MEDS: Magnesium Chloride EC 64mg Tab PO SCH (20:33)
[2018-02-07] MEDS ORDERED: D5-0.45NS 1,000 ML IV SCH
[2018-02-07] MEDS: HYDROmorphone 2 mg/mL 1mL Vial IVP PRN ×5 (02:39→17:28)
[2018-02-07] MEDS: NS 0.9% IV SCH ×2 (06:01→13:12)
[2018-02-07] MEDS: CEFTAZIDIME IV SCH ×2 (06:01→13:12)
[2018-02-07 06:49] LABS: INR 0.96 (0.5-1.4)
[2018-02-07] MEDS: INSULIN ASPART SLIDING SCALE 100 UNITS/ML UNIT SUBQ SCH ×3 (06:53→17:40)
[2018-02-07] MEDS: Pantoprazole 40 mg/Packet PO SCH (07:43)
[2018-02-07] MEDS ORDERED: Propofol **SURGERY USE ONLY** 20 ML IV ONE (08:03)
[2018-02-07] MEDS ORDERED: LIDOCAINE 1% ONE (08:03)
[2018-02-07] MEDS: Venelex 60gm Tube TP SCH (08:33)
[2018-02-07] MEDS: Multivitamin Tab PO SCH (08:34)
[2018-02-07] MEDS: Lidocaine 5% Patch TD SCH (08:34)
[2018-02-07] MEDS ORDERED: Probiotic Screen MC PRN (09:14)
--- NOTE | 2018-02-07 09:16 | Operative Report ---
DATE OF SURGERY: 02/07/2018 PREOPERATIVE DIAGNOSES: 1. Stage III left heel decubitus ulcer. 2. Status post right below knee amputation. 3. Diabetes mellitus with poor control. 4. Coronary artery disease. 5. Seizure disorder. POSTOPERATIVE DIAGNOSES: 1. Stage III left heel decubitus ulcer. 2. Status post right below knee amputation. 3. Diabetes mellitus with poor control. 4. Coronary artery disease. 5. Seizure disorder. OPERATION DONE: 1. Excisional debridement, left heel ulcer. 2. Removal of sutures, right below knee amputation stump. SURGEON: Rylan Li M.D. ANESTHESIA: General. ANESTHESIOLOGIST: Dr. Landeros. ESTIMATED BLOOD LOSS: None. DESCRIPTION OF PROCEDURE: The patient was given general anesthesia. The left foot was prepped with Betadine, draped in appropriate manner. A knife was used to debride the ulcer including all necrotic tissues. Following satisfactory hemostasis, Santyl ointment was applied and dressings. The right below knee amputation stump suture were removed. The patient is about a month post amputation done at [facility]. The patient tolerated the procedure well. JOB# [id number]
[2018-02-07] MEDS: fentaNYL 100 mcg/hr Tdm Patch TD SCH (10:12)
--- NOTE | 2018-02-07 11:17 | Internal Medicine Prog Note ---
Internal Medicine Subjective - Subjective Service Date: 02/06/18 (late entry due to internet problem at home) Patient seen and examined:: without staff Patient is:: asleep Per staff patient has:: no adverse event Internal Medicine Objective - Results Result Diagrams: 02/05/18 07:15 02/05/18 07:15 Recent Labs: Laboratory Last Values WBC 4.6 Th/cmm (4.8-10.8) L 02/05/18 07:15 RBC 2.74 Mil/cmm (4.30-5.70) L 02/05/18 07:15 Hgb 8.3 gm/dL (12-16) L 02/05/18 07:15 Hct 24.7 % (41.0-60) L 02/05/18 07:15 MCV 90.2 fl (80-99) 02/05/18 07:15 MCH 30.2 pg (26.0-30.0) H 02/05/18 07:15 MCHC Differential 33.4 pg (28.0-36.0) 02/05/18 07:15 RDW 13.0 % (11.5-20.0) 02/05/18 07:15 Plt Count 318 Th/cmm (150-400) 02/05/18 07:15 MPV 6.9 fl 02/05/18 07:15 Add Manual Diff YES 02/03/18 04:50 Neutrophils % 50.9 % (40.0-80.0) 02/05/18 07:15 Band Neutrophils % 2 % (0-10) 02/02/18 01:25 Lymphocytes % 42.0 % (20.0-50.0) 02/05/18 07:15 Monocytes % 5.1 % (2.0-10.0) 02/05/18 07:15 Eosinophils % 1.6 % (0.0-5.0) 02/05/18 07:15 Basophils % 0.4 % (0.0-2.0) 02/05/18 07:15 Neutrophils (Manual) 65 % (40-80) 02/03/18 04:50 Lymphocytes 30 % (20-50) 02/03/18 04:50 Monocytes 4 % (2-10) 02/03/18 04:50 Eosinophils 2 % (0-5) 02/02/18 01:25 Basophils 1 % (0-3) 02/03/18 04:50 Platelet Estimate ADEQUATE (NORMAL) 02/03/18 04:50 PT 10.0 SECONDS (9.5-11.5) 02/07/18 06:05 INR 0.96 (0.5-1.4) 02/07/18 06:05 PTT (Actin FS) 25.6 SECONDS (26.0-38.0) L 02/07/18 06:05 Sodium 133 mEq/L (136-145) L 02/05/18 07:15 Potassium 4.4 mEq/L (3.5-5.1) 02/05/18 07:15 Chloride 98 mEq/L (98-107) 02/05/18 07:15 Carbon Dioxide 29.8 mEq/L (21.0-31.0) 02/05/18 07:15 Anion Gap 9.6 (7.0-16.0) 02/05/18 07:15 BUN 19 mg/dL (7-25) 02/05/18 07:15 Creatinine 1.3 mg/dL (0.7-1.3) 02/05/18 07:15 Est GFR ( Amer) > 60.0 ml/min (>90) 02/05/18 07:15 Est GFR (Non-Af Amer) > 60.0 ml/min 02/05/18 07:15 BUN/Creatinine Ratio 14.6 02/05/18 07:15 Glucose 93 mg/dL (70-105) 02/05/18 07:15 POC Glucose 383 MG/DL (70 - 105) H 02/06/18 18:09 Hemoglobin A1c % 10.1 % (4.0-6.0) H 02/02/18 01:27 Calcium 8.5 mg/dL (8.6-10.3) L 02/05/18 07:15 Total Bilirubin 0.3 mg/dL (0.3-1.0) 02/05/18 07:15 AST 10 U/L (13-39) L 02/05/18 07:15 ALT 6 U/L (7-52) L 02/05/18 07:15 Alkaline Phosphatase 62 U/L (34-104) 02/05/18 07:15 Total Protein 5.2 gm/dL (6.0-8.3) L 02/05/18 07:15 Albumin 3.1 gm/dL (4.2-5.5) L 02/05/18 07:15 Globulin 2.1 gm/dL 02/05/18 07:15 Albumin/Globulin Ratio 1.5 (1.0-1.8) 02/05/18 07:15 Amylase 26 U/L (29-103) L 02/02/18 01:25 Lipase 5 U/L (11-82) L 02/02/18 01:25 Urine Source CLEAN C 02/02/18 10:25 Urine Color YELLOW 02/02/18 10:25 Urine Clarity CLOUDY (CLEAR) 02/02/18 10:25 Urine pH 6.0 (4.6 - 8.0) 02/02/18 10:25 Ur Specific [place] 1.020 (1.005-1.030) 02/02/18 10:25 Urine Protein TRACE mg/dL (NEGATIVE) 02/02/18 10:25 Urine Glucose (UA) 100 mg/dL (NEGATIVE) H 02/02/18 10:25 Urine Ketones 15 mg/dL (NEGATIVE) H 02/02/18 10:25 Urine Blood TRACE (NEGATIVE) 02/02/18 10:25 Urine Nitrate NEGATIVE (NEGATIVE) 02/02/18 10:25 Urine Bilirubin SMALL (NEGATIVE) H 02/02/18 10:25 Urine Urobilinogen 0.2 E.U./dL (0.2 - 1.0) 02/02/18 10:25 Ur Leukocyte Esterase SMALL (NEGATIVE) H 02/02/18 10:25 Urine RBC 2-5 /hpf (0-5) H 02/02/18 10:25 Urine WBC 25-50 /hpf (0-5) H 02/02/18 10:25 Ur Epithelial Cells FEW /lpf (FEW) 02/02/18 10:25 Urine Bacteria MODERATE /hpf (NONE SEEN) H 02/02/18 10:25 - Physical Exam Vitals and I&O: Vital Signs Temp 97 F 02/07/18 07:00 Pulse 73 02/07/18 07:00 Resp 20 02/07/18 08:00 BP 90/50 02/07/18 03:00 Pulse Ox 99 02/07/18 07:00 Intake & Output 02/06/18 02/07/1802/07/18 18:59 06:59 18:59 Intake Total 2049 498.333 Balance 2049 498.333 Weight (lbs) 49.442 kg 49.442 kg 49.895 kg Intake: Intake, IV Amount 1050 98.333 Sodium Chloride 0.9% 1, 1000 000 ml @ 70 mls/hr IV . [id number] [facility] Rx#:[id number] cefTAZidime 1 gm In 50 98.333 Sodium Chloride 0.9% 50 ml @ 100 mls/hr IV Q8HR [facility] Rx#:[id number] Oral 1000 400 Other: # Voids 3 4 # Bowel Movements 2 3 Stool Characteristics Soft Soft Soft Liquid Liquid Liquid Brown Brown Weight Source Bedscale Bedscale Bedscale Active Medications: Current Medications Ascorbic Acid (Vitamin C) 500 mg PO DAILY [facility] Stop: 04/04/18 08:59 Last Admin: 02/07/18 08:33 Dose: Not Given Atorvastatin Calcium (Lipitor) 20 mg PO HS [facility] Stop: 04/03/18 20:59 Last Admin: 02/06/18 20:32 Dose: 20 mg Bisacodyl (Dulcolax 10 Mg Supp) 10 mg RC DAILY PRN PRN Reason: Constipation Stop: 04/03/18 10:06 Carisoprodol (Soma) 350 mg PO Q8H PRN PRN Reason: MUSCLE SPASM Stop: 04/03/18 10:06 Last Admin: 02/06/18 03:21 Dose: 350 mg [place] Oil/[place] Balsam/Trypsin (Venelex) 1 appl TP DAILY [facility] Stop: 04/03/18 17:59 Last Admin: 02/07/18 08:33 Dose: Not Given Docusate Sodium (Colace) 100 mg PO DAILY [facility] Stop: 04/03/18 13:59 Last Admin: 02/07/18 08:33 Dose: Not Given Fentanyl (Duragesic 100 Mcg/Hr Tdm Patch) 1 patch TD Q72H [facility] Stop: 04/05/18 10:59 Last Admin: 02/07/18 10:12 Dose: 1 patch Folic Acid (Folate) 1 mg PO DAILY [facility] Stop: 04/03/18 11:59 Last Admin: 02/07/18 08:33 Dose: Not Given Gabapentin (Neurontin) 300 mg PO TID [facility] Stop: 04/03/18 13:59 Last Admin: 02/07/18 08:34 Dose: Not Given Hydromorphone HCl (Dilaudid) 2 mg IVP Q4HR PRN PRN Reason: Severe Pain Stop: 04/07/18 15:39 Last Admin: 02/07/18 10:12 Dose: 2 mg Sodium Chloride (Nacl 0.9%) 1,000 mls @ 70 mls/hr IV .[id number] [facility] Stop: 04/03/18 13:59 Last Admin: 02/06/18 10:00 Dose: 70 mls/hr Ceftazidime 1 gm/ Sodium (Chloride) 50 mls @ 100 mls/hr IV Q8HR [facility] Stop: 04/06/18 12:59 Last Infusion: 02/07/18 06:30 Dose: 100 mls/hr Dextrose/Sodium Chloride (D5-0.45ns) 1,000 mls @ 50 mls/hr IV .Q20H [facility] Stop: 04/08/18 00:00 Last Admin: 02/07/18 01:00 Dose: 50 mls/hr Insulin Aspart (Novolog Insulin Sliding Scale) 0 units SUBQ ACHS [facility]; Protocol Stop: 04/03/18 11:29 Last Admin: 02/07/18 06:53 Dose: Not Given Lactobacillus Rhamnosus (Culturelle 15b) 1 each PO DAILY [facility] Stop: 04/08/18 13:59 Levetiracetam (Keppra) 500 mg PO BID [facility] Stop: 04/03/18 16:59 Last Admin: 02/07/18 08:34 Dose: Not Given Lidocaine (Lidoderm 5% Patch) 1 patch TD DAILY [facility] Stop: 04/03/18 13:59 Last Admin: 02/07/18 08:34 Dose: Not Given Lisinopril (Zestril) 2.5 mg PO DAILY [facility] Stop: 04/04/18 08:59 Last Admin: 02/07/18 08:34 Dose: Not Given Magnesium Chloride (Slow-Mag) 64 ect PO HS [facility] Stop: 04/03/18 20:59 Last Admin: 02/06/18 20:33 Dose: 1 ect Magnesium Hydroxide (Milk Of Magnesia) 30 ml PO DAILY PRN PRN Reason: GI DISTRESS Stop: 04/03/18 10:10 Metronidazole (Flagyl) 250 mg PO Q6H [facility] Stop: 04/06/18 22:59 Last Admin: 02/07/18 06:52 Dose: Not Given Miscellaneous (Probiotic Screen) 1 ea MC PRN PRN PRN Reason: PROTOCOL Stop: 04/08/18 09:13 Multivitamins/Vitamin C (Theragran) 1 tab PO DAILY [facility] Stop: 04/03/18 11:59 Last Admin: 02/07/18 08:34 Dose: Not Given Ondansetron HCl (Zofran) 4 mg IV Q4H PRN PRN Reason: Nausea / Vomiting Stop: 04/03/18 19:05 Oxcarbazepine (Trileptal) 300 mg PO BID [facility]; Protocol Stop: 04/03/18 16:59 Last Admin: 02/07/18 08:34 Dose: Not Given Pantoprazole Sodium (Protonix) 40 mg PO QDAC [facility] Stop: 04/03/18 11:39 Last Admin: 02/07/18 07:43 Dose: Not Given Quetiapine Fumarate (Seroquel) 100 mg PO HS [facility]; Protocol Stop: 04/03/18 20:59 Last Admin: 02/06/18 20:33 Dose: 100 mg Tamsulosin HCl (Flomax) 0.4 mg PO DAILY [facility] Stop: 04/03/18 12:59 Last Admin: 02/07/18 08:35 Dose: Not Given Trazodone HCl (Desyrel) 50 mg PO HS [facility]; Protocol Stop: 04/03/18 20:59 Last Admin: 02/06/18 20:32 Dose: 50 mg General: weak HEENT: NC/AT, PERRLA Neck: Supple, No JVD, No LAD Lungs: wheezing, ronchi Cardiovascular: RRR, Normal S1, Normal S2 Abdomen: soft, non-tender, non-distended Extremities: clear, other (s/p rt BKA) Neurological: no change Internal Medicine Assmt/Plan - Assessment Assessment: Stage 3 left heel diabetic wound: wound care and surgical debridment planned tomorrow. E. Coli UTI: Fortaz 1gm IVPB q8; dced Bactrim as it is on the list of allergy, despite the fact that he used it before without allergic reaction. Intractable pain/chronic pain syndrome: adjusting pain meds. s/p rt BKA: post operative care. Anemia: repeat CBC in AM s/p UGUB? CAD: s/p MIx 4 s/p CVA x 3 OOCDM: SSRI low dose. depression/anxiety h/o mild psychosis. Seizure: continue med. COPD: RT protocol. Nutritional Asmnt/Malnutr-PDOC - Dietary Evaluation Malnutrition Findings (Please click <Entered> for more info): Nutritional Asmnt/Malnutrition Start: 02/03/18 18: 30 Text: Status: Complete Freq: Protocol: Document 02/03/18 18:31 LCHENG (Rec: 02/03/18 18:58 HENG [id number]) Nutritional Asmnt/Malnutrition Patient General Information Nutritional Screening High Risk Consult Diagnosis vomiting, possible GI bleed, hypokaliemia Pertinent Medical Hx/Surgical Hx type 1 DM, diabetic nephropathy, CAD, IL, CVA, DVT /PE, ETHOH abuse, left foot ulcer, PNU, right BKA, depression, bipolar, anxiety Subjective Information Pt seen lying in bed at bed at time of visit, awake and alert. Pt appeared skinny, fat wasting. Pt stated he usually does not eat breakfast. Offered different kind of oral supplements to pt, pt did not accept. Pt was not willing to talk more. Current Diet Order/ Nutrition Support NCS, ROLANDA Pertinent Medications colace, folate, novolog insulin, keppra, levaquin, theragran, zofran, protonix, seroquel, nacl 0.9% Pertinent Labs 8/2 Na 133, Cl 97, glucose 41, POC 80-297 8/1 Na 131, K 3.2, Cl 94, glucose 45, POC 80-392, A1c 10 .1 Nutritional Hx/Data Height 1.73 m Height (Calculated Centimeters) 172.7 Current Weight (lbs) 49.895 kg Weight (Calculated Kilograms) 49.9 Weight (Calculated Grams) 27134.2 [place] Body Weight 154 Body Mass Index (BMI) 16.7 Weight Status Underweight GI Symptoms GI Symptoms None Last BM none Difficult in: None Usual diet at home Per H&P pt has been refusing theraputic diet at care facility and only taking regular diet. Skin Integrity/Comment: left foot decubitus ulcer Current %PO Negligible < 25% Estimated Nutritional Goals BEE in Kcals: Using Current wt Calories/Kcals/Kg 30-35 Kcals Calculated 7173-0150 Protein g/k.2-1.4 Protein Calculated 60-70 Fluid: ml 1500-1750ml (1m/kcal) Nutritional Problem 1. Problem Problem altered nutrition related labs Etiology uncontrolled type 1 DM Signs/Symptoms: glucose 41-45, POC 80-392, A1c 10.1 Malnutrition Alert Body Fat Depletion (Severe) Mod to Severe Depletion Muscle Mass (Non-Severe) Mild Depletion Is there a minimum of two criteria Yes selected? Query Text:Check all the applicable criteria. A minimum of two criteria are recommended for diagnosis of either severe or non-severe malnutrition. Malnutrition Related to Morbid Obesity Malnutrition related to morbid obesity No Intervention/Recommendation Comments 1. Continue with NCS ROLANDA diet as ordered. Assist pt to order meals. MD to adjust insulin for optimal glycemic control 2. Monitor PO intake, wt, labs and skin integrity 3. F/U as moderate risk in 3-5 days, 02/06-02/08 Expected Outcomes/Goals Expected Outcomes/Goals 1. PO intake to meet at least 75% of nutritional needs. 2. Wt stability, skin to remain intact, labs to approach WNL.
[2018-02-07] MEDS ORDERED: Maalox 30 mL Cup PO PRN (13:33)
[2018-02-07] MEDS ORDERED: Lactobacillus Rhamnosus GG 15 Billion CFU CAP.SPRINK PO SCH (14:00)
--- NOTE | 2018-02-08 00:40 | Discharge Summary ---
DATE OF DISCHARGE: 02/07/2018 FINAL DIAGNOSES: 1. Stage III left heel diabetic wound and received surgical debridement today before discharge. 2. Multidrug resistant E. coli urinary tract infection on IVPB antibiotics. 3. Status post hypoglycemic episodes. 4. Out of control diabetes. 5. Status post questionable upper GI bleeding, stabilized. 6. Intractable pain/chronic pain syndrome: This is multifactorial with pain medication adjusted. 7. Status post right BKA. 8. Coronary artery disease, status post OH x 4. 9. Status post CVA. 10. COPD. 11. Seizure control. HOSPITAL COURSE: The patient is a 48-year-old male admitted due to questionable upper GI bleeding. The patient also has stage III left heel diabetic wound, status post surgical debridement today prior to discharge. His UA grew E. coli with multidrug resistant and antibiotics were adjusted accordingly. The patient is also anemic due to chronic disease. The patient's condition stabilized. Per his request, he is [place] [facility]. DISCHARGE CONDITION: Stable. DISPOSITION: [facility] [place] [place]. DISCHARGE MEDICATION: Continue medication from here. DIET: Supposed to be 1800 ADA cardiac, renal diet; however, the patient is very noncompliant, who would not eat that at all. He will only eat if it is a regular diet and activity, bed rest. Follow up with in [place]. JOB# [id number]
== END 2018-02-07 20:30 | DRG 622 ==
LOC: ER 00:31 → TELE 06:15 → MSI 02-07 18:08
PROVIDERS: ADMIT Internal Medicine; ATTEND Internal Medicine
PROC: 0JBR0ZZ Excision of Left Foot Subcutaneous Tissue and Fascia, Open Approach (ICD-10-PCS; principal; 2018-02-07)
DX: E10.621 Type 1 diabetes mellitus with foot ulcer (principal); L89.623 Pressure ulcer of left heel, stage 3; K92.0 Hematemesis; Z68.1 Body mass index [BMI] 19.9 or less, adult; N39.0 Urinary tract infection, site not specified; E87.1 Hypo-osmolality and hyponatremia; R64 Cachexia; K92.2 Gastrointestinal hemorrhage, unspecified; J44.9 Chronic obstructive pulmonary disease, unspecified; I25.10 Atherosclerotic heart disease of native coronary artery without angina pectoris; F29 Unspecified psychosis not due to a substance or known physiological condition; E87.6 Hypokalemia; I11.0 Hypertensive heart disease with heart failure; G40.909 Epilepsy, unspecified, not intractable, without status epilepticus; I50.9 Heart failure, unspecified; I25.2 Old myocardial infarction; E10.51 Type 1 diabetes mellitus with diabetic peripheral angiopathy without gangrene; E10.21 Type 1 diabetes mellitus with diabetic nephropathy; E10.649 Type 1 diabetes mellitus with hypoglycemia without coma; F31.9 Bipolar disorder, unspecified; D63.8 Anemia in other chronic diseases classified elsewhere; G89.4 Chronic pain syndrome; B96.20 Unspecified Escherichia coli [E. coli] as the cause of diseases classified elsewhere; Z91.14 Patient's other noncompliance with medication regimen; Z86.73 Personal history of transient ischemic attack (TIA), and cerebral infarction without residual deficits; Z86.718 Personal history of other venous thrombosis and embolism; Z89.511 Acquired absence of right leg below knee; Z16.24 Resistance to multiple antibiotics
CPT/HCPCS: 36415-UA; 71045-TC; 73590-TC-RT; 74000-TC; 80048-TC; 80053-TC; 81001-TC; 82150-TC; 82948-90; 83036-90; 83690-TC; 85007-TC; 85025-TC; 85610-TC; 87086-90; 90799; 93005; 94760; 96374; C9113; J0713; J1170; J1815; J1956; J2704; J7030; Z7610

== ENCOUNTER 2018-05-07 22:11 | Inpatient (IN) | payer MEDICARE, MEDICAID ==
--- NOTE | 2018-05-07 22:53 | ED Physician Chart ---
ED Chief Complaint/HPI - Patient Information Date Seen:: 05/07/18 Time Seen:: 22:26 Chief Complaint:: DIARRHEA FOR TWO WEEKS History of Present Illness:: THIS IS A CHRONICALLY ILL 48 YR OLD MALE WHO WAS SENT HERE FROM THE RETIREMENT TO EVALUATE HIS DIARRHEA FOR TWO WEEKS. THE PATIENT DENIES VOMITING AND FEVER. Allergies:: Allergies Allergy/AdvReac Type Severity Reaction Status Date / Time acetaminophen [From Tylenol] Allergy Verified 05/07/18 22:24 adhesive Allergy Verified 05/07/18 22:24 cephalexin Allergy Verified 05/07/18 22:24 egg Allergy Verified 05/07/18 22:24 ketorolac [From Toradol] Allergy Verified 05/07/18 22:24 latex Allergy Verified 05/07/18 22:24 Latex, Natural Rubber Allergy Verified 05/07/18 22:24 milk Allergy Verified 05/07/18 22:24 Penicillins Allergy Verified 05/07/18 22:24 pepper (genus Capsicum) Allergy Verified 05/07/18 22:24 Sulfa (Sulfonamide Allergy Verified 05/07/18 22:24 Antibiotics) sulfamethoxazole Allergy Verified 05/07/18 22:24 sumatriptan Allergy Verified 05/07/18 22:24 vancomycin Allergy Verified 05/07/18 22:24 walnut Allergy Verified 05/07/18 22:24 Vitals:: Vital Signs - 8 hr 05/07/18 22:15 Temp 98.2 F HR 88 RR 18 BP 110/84 O2 Sat % 100 Historian:: Patient, EMS, Medical Records Review:: Nurse's Note Reviewed, Old Chart Reviewed, Transfer documents Reviewed ED Review of Systems - Review of Systems General/Constitutional: No fever, No chills, No weight loss, No weakness, No diaphoresis, No edema, No loss of appetite Skin: No skin lesions, No rash, No bruising Head: No headache, No light-headedness Eyes: No loss of vision, No pain, No diplopia ENT: No earache, No nasal drainage, No sore throat, No tinnitus Neck: No neck pain, No swelling, No thyromegaly, No stiffness, No mass noted Cardio Vascular: No chest pain, No palpitations, No PND, No orthopnea, No edema Pulmonary: No SOB, No cough, No sputum, No wheezing GI: No nausea, No vomiting, Diarrhea, No pain, No melena, No hematochezia, No constipation, No hematemesis G/U: No dysuria, No frequency, No hematuria Musculoskeletal: No bone or joint pain, No back pain, No muscle pain Endocrine: No polyuria, No polydipsia Psychiatric: No prior psych history, No depression, No anxiety, No suicidal ideation Hematopoietic: No bruising, No lymphadenopathy Allergic/Immuno: No urticaria, No angioedema Neurological: No syncope, No focal symptoms, No weakness, No paresthesia, No headache, No seizure, No dizziness, No confusion, No vertigo ED Past Medical History - Past Medical History Obtainable: Yes Past Medical History: HTN, DM, CAD, CHF, Asthma/COPD, CVA/TIA, DVT/PE, Other ( ALCOHOL ABUSE) Family History: None Social History: Non Smoker, No Alcohol, No Drug Use, Care Facility Surgical History: other (BKA, AND LEFT FOOT SURGERY) Psychiatricy History: Depression, Bipolar Family Medical History - Family Member Mother History Unknown: Yes ED Physical Exam - Physical Examination General/Constitutional: Awake, Well-developed, well-nourished (POORLY NOURISHED , LETHARGIC), Alert, No distress, GCS 15, Non-toxic appearing, Ambulatory Head: Atraumatic Eyes: Lids, conjuctiva normal, PERRL, EOMI Skin: Nl inspection, No rash, No skin lesions, No ecchymosis, Well hydrated, No lymphadenopathy ENMT: External ears, nose nl, Nasal exam nl, Lips, teeth, gums nl Neck: Nontender, Full ROM w/o pain, No JVD, No nuchal rigidity, No bruit, No mass, No stridor Respiratory: Nl effort/Exclusion, Clear to Auscultation, No Wheeze/Rhonchi/Rales Cardio Vascular: RRR, No murmur, gallop, rubs, NL S1 S2 GI: No tenderness/rebounding/guarding, No organomegaly, No hernia, Normal BS's, Nondistended, No mass/bruits, No McBurney tenderness : No CVA tenderness Extremities: No tenderness or effusion, Full ROM, normal strength in all extremities, No edema, Normal digits & nails Other Extremities comments:: THERE IS A RIGHT BKA AND AN FOOT ULCER ON THE LEFT FOOT. Neuro/Psych: Alert/oriented, DTR's symmetric, Normal sensory exam, Normal motor strength, Judgement/insight normal, Mood normal, Normal gait, No focal deficits Misc: Normal back, No paraspinal tenderness ED Labs/Radiology/EKG Results - EKG Interpretations EKG Time:: 22:20 Rate & Rhythm: RATE= 87 SINUS, [place]: RIGHT AXIS ED Assessment - Assessment General Assessment: DIARRHEA ED Septic Shock - . Is Septic Shock (SBP<90, OR Lactate>4 mmol\L) present?: No - <6hrs of presentation: Vital Signs: Vital Signs - 8 hr 05/07/18 22:15 Temp 98.2 F HR 88 RR 18 BP 110/84 O2 Sat % 100
[2018-05-07 22:57] LABS: % BASOPHILS 0.6 % (0.0-2.0); % EOSINOPHILS 0.8 % (0.0-5.0); % LYMPHOCYTES 13.3 % (20.0-50.0); % MONOCYTES 2.4 % (2.0-10.0); % NEUTROPHILS 82.9 % (40.0-80.0); EOSINOPHILE ABSOLUTE 0.1 Th/cmm (0.1-0.4); HEMATOCRIT 31.7 % (41.0-60); HEMOGLOBIN 10.6 gm/dL (12-16); LYMPHOCYTE ABSOLUTE 0.9 Th/cmm (1.5-3.0); MEAN CELL VOLUME 96.8 fl (80-99); MEAN CORPUSCULAR HEMOGLOBIN 32.3 pg (26.0-30.0); MEAN CORPUSCULAR HGB CONC 33.3 pg (28.0-36.0); MEAN PLATELET VOLUME 8.2 fl; MONOCYTE ABSOLUTE 0.2 Th/cmm (0.3-1.0); NEUTROPHILE ABSOLUTE 5.9 Th/cmm (1.8-8.0); PLATELET COUNT 228 Th/cmm (150-400); RED BLOOD COUNT 3.28 Mil/cmm (4.30-5.70); RED CELL DISTRIBUTION WIDTH 13.2 % (11.5-20.0); WHITE BLOOD COUNT 7.1 Th/cmm (4.8-10.8)
[2018-05-07] MEDS ORDERED: Sodium Chloride 0.45% 500 ML IV ONE (23:02)
[2018-05-07] MEDS ORDERED: Dicyclomine 10 mg Cap PO STA (23:04)
[2018-05-07 23:05] LABS: URINE SOURCE CLEAN C
[2018-05-07] MEDS ORDERED: Dicyclomine 10 mg Cap ONE (23:07)
[2018-05-07 23:08] LABS: URINE BILIRUBIN NEGATIVE (NEGATIVE); URINE BLOOD NEGATIVE (NEGATIVE); URINE GLUCOSE (UA) >=1000 mg/dL (NEGATIVE); URINE KETONE NEGATIVE (NEGATIVE); URINE LEUKOCYTE ESTERASE NEGATIVE (NEGATIVE); URINE MICROSCOPIC INDICATED? YES; URINE NITRATE NEGATIVE (NEGATIVE); URINE PROTEIN NEGATIVE (NEGATIVE); URINE UROBILINOGEN 0.2 E.U./dL (0.2 - 1.0)
[2018-05-07 23:12] LABS: URINE BACTERIA OCCASIONAL /hpf (NONE SEEN); URINE CLARITY CLEAR (CLEAR); URINE COLOR YELLOW; URINE EPITHELIAL CELLS OCCASIONAL /lpf (FEW); URINE RBC NONE SEEN /hpf (0-5); URINE WBC 0-2 /hpf (0-5)
[2018-05-07 23:14] LABS: ALB/GLOB RATIO 1.4 (1.0-1.8); ALKALINE PHOSPHATASE 147 U/L (34-104); AMYLASE SERUM 18 U/L (29-103); ANION GAP 17.7 (7.0-16.0); BILIRUBIN,TOTAL 0.4 mg/dL (0.3-1.0); BUN - UREA NITROGEN 23 mg/dL (7-25); CALCIUM SERUM 8.8 mg/dL (8.6-10.3); CARBON DIOXIDE 23.1 mEq/L (21.0-31.0); CHLORIDE 87 mEq/L (98-107); CREATININE - SERUM 1.4 mg/dL (0.7-1.3); GFR AFRICAN-AMERICAN > 60.0 ml/min (>90); LIPASE 12 U/L (11-82); POTASSIUM SERUM 3.8 mEq/L (3.5-5.1); SGOT 22 U/L (13-39); SGPT/ALT 35 U/L (7-52); SODIUM SERUM 124 mEq/L (136-145); TOTAL PROTEIN,SERUM 6.8 gm/dL (6.0-8.3)
[2018-05-07 23:22] LABS: GLUCOSE 678 mg/dL (70-105)
[2018-05-07] MEDS ORDERED: Potassium Chloride Elixir 20 mEq /15 mL UDC PO ONE (23:22)
[2018-05-07] MEDS ORDERED: INSULIN HUMAN REGULAR 100 UNITS/ML UNIT SUBQ ONE (23:23)
[2018-05-07] MEDS ORDERED: Potassium Chloride 20 mEq ER Tab PO ONE (23:31)
[2018-05-07] MEDS ORDERED: INSULIN HUMAN REGULAR 100 UNITS/ML UNIT ONE (23:34)
[2018-05-07] MEDS ORDERED: Potassium Chloride Elixir 20 mEq /15 mL UDC ONE (23:39)
[2018-05-07] MEDS ORDERED: fentaNYL 100 mcg/hr Tdm Patch TD SCH (23:45)
[2018-05-07] MEDS ORDERED: Magnesium Hydroxide (MOM) 30 mL UDC PO PRN (23:53)
[2018-05-08 01:29] VITALS: BP 105/76
[2018-05-08] MEDS: HYDROmorphone 2 mg/mL 1mL Vial IVP PRN ×6 (01:55→23:01)
[2018-05-08] MEDS: Sodium Chloride 0.9% 1,000 ML IV SCH ×2 (01:55→13:21)
[2018-05-08] MEDS: INSULIN ASPART SLIDING SCALE 100 UNITS/ML UNIT SUBQ SCH ×4 (06:29→21:14)
[2018-05-08] MEDS: Lactobacillus Rhamnosus GG 15 Billion CFU CAP.SPRINK PO SCH (08:20)
[2018-05-08] MEDS: Pantoprazole 40 mg/Packet PO SCH (08:20)
[2018-05-08] MEDS: Multivitamin Tab PO SCH (08:21)
[2018-05-08] MEDS: Lidocaine 5% Patch TD SCH (08:22)
[2018-05-08] MEDS ORDERED: NUT TX GLUC INTOLER LAC FR SOY PO SCH (09:00)
[2018-05-08] MEDS ORDERED: Non-Formulary Item 1 EA (Amino Acids/Protein Hydrolys [Pro-Stat Sugar Free Liquid] 30 ML) PO SCH (09:00)
[2018-05-08] MEDS: Atorvastatin Calcium 10 MG TAB PO SCH (20:58)
[2018-05-08] MEDS: Magnesium Chloride EC 64mg Tab PO SCH (20:58)
[2018-05-08] MEDS ORDERED: MAGNESIUM 64 MG PO SCH (21:00)
--- NOTE | 2018-05-08 23:49 | Internal Medicine Prog Note ---
Internal Medicine Subjective - Subjective Service Date: 05/08/18 Patient seen and examined:: without staff Patient is:: awake, verbal, in bed Patient Complaints of:: congestion Per staff patient has:: no adverse event Internal Medicine Objective - Results Result Diagrams: 05/07/18 22:45 05/07/18 22:45 Recent Labs: Laboratory Last Values WBC 7.1 Th/cmm (4.8-10.8) 05/07/18 22:45 RBC 3.28 Mil/cmm (4.30-5.70) L 05/07/18 22:45 Hgb 10.6 gm/dL (12-16) L 05/07/18 22:45 Hct 31.7 % (41.0-60) L 05/07/18 22:45 MCV 96.8 fl (80-99) 05/07/18 22:45 MCH 32.3 pg (26.0-30.0) H 05/07/18 22:45 MCHC Differential 33.3 pg (28.0-36.0) 05/07/18 22:45 RDW 13.2 % (11.5-20.0) 05/07/18 22:45 Plt Count 228 Th/cmm (150-400) 05/07/18 22:45 MPV 8.2 fl 05/07/18 22:45 Neutrophils % 82.9 % (40.0-80.0) H 05/07/18 22:45 Lymphocytes % 13.3 % (20.0-50.0) L 05/07/18 22:45 Monocytes % 2.4 % (2.0-10.0) 05/07/18 22:45 Eosinophils % 0.8 % (0.0-5.0) 05/07/18 22:45 Basophils % 0.6 % (0.0-2.0) 05/07/18 22:45 Sodium 124 mEq/L (136-145) L 05/07/18 22:45 Potassium 3.8 mEq/L (3.5-5.1) 05/07/18 22:45 Chloride 87 mEq/L (98-107) L 05/07/18 22:45 Carbon Dioxide 23.1 mEq/L (21.0-31.0) 05/07/18 22:45 Anion Gap 17.7 (7.0-16.0) H 05/07/18 22:45 BUN 23 mg/dL (7-25) 05/07/18 22:45 Creatinine 1.4 mg/dL (0.7-1.3) H 05/07/18 22:45 Est GFR ( Amer) > 60.0 ml/min (>90) 05/07/18 22:45 Est GFR (Non-Af Amer) 58.0 ml/min 05/07/18 22:45 BUN/Creatinine Ratio 16.4 05/07/18 22:45 Glucose 678 mg/dL (70-105) H* 05/07/18 22:45 POC Glucose 196 MG/DL (70 - 105) H 05/08/18 21:10 Calcium 8.8 mg/dL (8.6-10.3) 05/07/18 22:45 Total Bilirubin 0.4 mg/dL (0.3-1.0) 05/07/18 22:45 AST 22 U/L (13-39) 05/07/18 22:45 ALT 35 U/L (7-52) 05/07/18 22:45 Alkaline Phosphatase 147 U/L (34-104) H 05/07/18 22:45 Troponin I < 0.01 ng/mL (0.01-0.05) L 05/07/18 22:45 Total Protein 6.8 gm/dL (6.0-8.3) 05/07/18 22:45 Albumin 4.0 gm/dL (4.2-5.5) L 05/07/18 22:45 Globulin 2.8 gm/dL 05/07/18 22:45 Albumin/Globulin Ratio 1.4 (1.0-1.8) 05/07/18 22:45 Amylase 18 U/L (29-103) L 05/07/18 22:45 Lipase 12 U/L (11-82) 05/07/18 22:45 TSH 1.21 uIU/ml (0.34-5.60) 05/07/18 22:45 Urine Source CLEAN C 05/07/18 22:44 Urine Color YELLOW 05/07/18 22:44 Urine Clarity CLEAR (CLEAR) 05/07/18 22:44 Urine pH 6.0 (4.6 - 8.0) 05/07/18 22:44 Ur Specific [place] <= 1.005 (1.005-1.030) 05/07/18 22:44 Urine Protein NEGATIVE mg/dL (NEGATIVE) 05/07/18 22:44 Urine Glucose (UA) >=1000 mg/dL (NEGATIVE) H 05/07/18 22:44 Urine Ketones NEGATIVE mg/dL (NEGATIVE) 05/07/18 22:44 Urine Blood NEGATIVE (NEGATIVE) 05/07/18 22:44 Urine Nitrate NEGATIVE (NEGATIVE) 05/07/18 22:44 Urine Bilirubin NEGATIVE (NEGATIVE) 05/07/18 22:44 Urine Urobilinogen 0.2 E.U./dL (0.2 - 1.0) 05/07/18 22:44 Ur Leukocyte Esterase NEGATIVE (NEGATIVE) 05/07/18 22:44 Urine RBC NONE SEEN /hpf (0-5) 05/07/18 22:44 Urine WBC 0-2 /hpf (0-5) 05/07/18 22:44 Ur Epithelial Cells OCCASIONAL /lpf (FEW) 05/07/18 22:44 Urine Bacteria OCCASIONAL /hpf (NONE SEEN) 05/07/18 22:44 - Physical Exam Vitals and I&O: Vital Signs Temp 99.2 F 05/08/18 20:00 Pulse 85 05/08/18 20:00 Resp 18 05/08/18 20:00 BP 148/103 05/08/18 20:00 Pulse Ox 97 05/08/18 20:00 Intake & Output 05/08/18 05/08/18 05/09/18 06:59 18:59 06:59 Intake Total 2194.667 Balance 2194.667 Weight (lbs) 48.081 kg Intake: Intake, IV Amount 994.667 Sodium Chloride 0.9% 1, 994.667 000 ml @ 80 mls/hr IV . [id number] [facility] Rx#:[id number] Oral 1200 Other: # Voids 4 # Bowel Movements 1 Weight Source Bedscale Active Medications: Current Medications Acetaminophen (Tylenol) 650 mg PO Q6HR PRN PRN Reason: Pain or Fever >101 Stop: 07/06/18 23:52 Ascorbic Acid (Vitamin C) 500 mg PO DAILY [facility] Stop: 07/07/18 08:59 Last Admin: 11/04/18 08:20 Dose: 500 mg Aspirin (Ecotrin) 81 mg PO DAILY [facility] Stop: 07/07/18 08:59 Last Admin: 05/08/18 08:20 Dose: 81 mg Atorvastatin Calcium (Lipitor) 20 mg PO HS [facility] Stop: 07/07/18 20:59 Last Admin: 05/08/18 20:58 Dose: 20 mg Bisacodyl (Dulcolax 10 Mg Supp) 10 mg RC DAILY PRN PRN Reason: Constipation Stop: 07/06/18 23:52 Carisoprodol (Soma) 350 mg PO Q8HR PRN PRN Reason: MUSCLE SPASM Stop: 07/06/18 23:52 Last Admin: 05/08/18 03:51 Dose: 350 mg Docusate Sodium (Colace) 100 mg PO DAILY [facility] Stop: 07/07/18 08:59 Last Admin: 05/08/18 08:24 Dose: Not Given Fentanyl (Duragesic 100 Mcg/Hr Tdm Patch) patch TD Q72HR [facility]; Protocol Stop: 07/06/18 23:44 Folic Acid (Folate) 1 mg PO DAILY [facility] Stop: 07/07/18 08:59 Last Admin: 05/08/18 08:20 Dose: 1 mg Gabapentin (Neurontin) 600 mg PO TID [facility] Stop: 07/07/18 08:59 Last Admin: 05/08/18 20:58 Dose: 600 mg Hydromorphone HCl (Dilaudid) 2 mg IVP Q4HR PRN PRN Reason: Severe Pain Stop: 07/06/18 23:58 Last Admin: 05/08/18 23:01 Dose: 2 mg Sodium Chloride (Nacl 0.9%) 1,000 mls @ 80 mls/hr IV .[id number] [facility] Stop: 07/06/18 23:44 Last Admin: 05/08/18 13:21 Dose: 80 mls/hr Insulin Aspart (Novolog Insulin Sliding Scale) 0 units SUBQ ACHS [facility]; Protocol Stop: 07/07/18 07:29 Last Admin: 05/08/18 21:14 Dose: Not Given Lactobacillus Rhamnosus (Culturelle 15b) 1 each PO DAILY [facility] Stop: 07/07/18 08:59 Last Admin: 05/08/18 08:20 Dose: 1 each Levetiracetam (Keppra) 500 mg PO BID [facility] Stop: 07/07/18 08:59 Last Admin: 05/08/18 16:31 Dose: 500 mg Lidocaine (Lidoderm 5% Patch) 1 patch TD DAILY [facility] Stop: 07/07/18 08:59 Last Admin: 05/08/18 08:22 Dose: 1 patch Lisinopril (Zestril) 2.5 mg PO DAILY [facility] Stop: 07/07/18 08:59 Last Admin: 05/08/18 08:22 Dose: Not Given Loperamide HCl (Imodium) 2 mg PO DAILY PRN PRN Reason: Diarrhea Stop: 07/06/18 23:52 Magnesium Chloride (Slow-Mag) 1 ect PO HS [facility] Stop: 07/07/18 20:59 Last Admin: 05/08/18 20:58 Dose: 1 ect Magnesium Hydroxide (Milk Of Magnesia) 30 ml PO DAILY PRN PRN Reason: GI DISTRESS Stop: 07/06/18 23:52 Multivitamins/Vitamin C (Theragran) 1 tab PO DAILY [facility] Stop: 07/07/18 08:59 Last Admin: 05/08/18 08:21 Dose: 1 tab Nitroglycerin (Nitrostat) 0.4 mg SL UD [facility] Stop: 07/07/18 08:59 Last Admin: 05/08/18 08:35 Dose: Not Given Oxcarbazepine (Trileptal) 300 mg PO BID [facility]; Protocol Stop: 07/07/18 08:59 Last Admin: 05/08/18 16:31 Dose: 300 mg Pantoprazole Sodium (Protonix) 40 mg PO QDAC [facility] Stop: 07/07/18 07:29 Last Admin: 05/08/18 08:20 Dose: 40 mg Quetiapine Fumarate (Seroquel) 100 mg PO [facility]; Protocol Stop: 07/07/18 20:59 Last Admin: 05/08/18 20:59 Dose: 100 mg Tamsulosin HCl (Flomax) 0.4 mg PO DAILY [facility] Stop: 07/07/18 08:59 Last Admin: 05/08/18 08:20 Dose: 0.4 mg Trazodone HCl (Desyrel) 50 mg PO [facility]; Protocol Stop: 07/07/18 20:59 Last Admin: 05/08/18 20:59 Dose: 50 mg General: weak, lethargic, congested, thin HEENT: NC/AT, PERRLA, EOMI, anicteric sclerae Neck: Supple, No JVD, No thyromegaly, No LAD Lungs: CTAB Cardiovascular: RRR, Normal S1, Normal S2 Abdomen: soft, non-tender, non-distended, positive bowel sound Extremities: other (s/p rt BKA) Neurological: no change - Procedures Procedures: Procedures Procedure Code Date EXCISION OF L FOOT SUBCU/FASCIA, OPEN APPROACH [id number] 02/02/18 Internal Medicine Assmt/Plan - Assessment Assessment: OOC DM: diet control has been very difficult; adjusting meds as needed. Hyponatremia: IVF NS; repeat BMP in AM. Chronic pain syndrome: multifactorial and adjusting pain meds as needed. s/p rt BKA recently. COPD: RT protocol. CAD: s/p ID x4 CHF: due to multiplr ID s/p CVA x 4
--- NOTE | 2018-05-09 00:55 | History & Physical ---
ADMIT DATE: 05/08/2018 CHIEF COMPLAINT: Blood sugar over 600 and severe weakness and pain. HISTORY OF PRESENT ILLNESS: The patient is a 48-year-old male admitted from Emergency Room to telemetry floor of [facility] due to multiple complicated medical conditions. The patient's blood sugar was around 600 in the detention. In the Emergency Room, blood sugar was 678. Sodium 124, BUN 23, creatinine 1.4. Troponin less than 0.01. The patient also complains of pain in multiple joints. PAST MEDICAL HISTORY: Out of control diabetes, COPD, pneumonia, coronary heart disease, post myocardial infarction x 4, status post CVA x 5, status post right BKA and left heel diabetic wound, noncompliance, anemia, urinary tract infection, mild psychosis. PAST SURGICAL HISTORY: Status post recent right BKA. MEDICATIONS: See medication reconciliation list. ALLERGIES: MULTIPLE, but the patient did receive a lot of medications that were listed as allergy without apparent allergic reaction. PHYSICAL EXAMINATION: HEENT: Normocephalic, atraumatic. Pupils equal, round, react to light and accommodation. CHEST: Symmetrical lungs. Few wheezing appreciated. CARDIAC: Normal sinus rhythm. S1, S2. ABDOMEN: Benign, soft, nontender. EXTREMITIES: Status post right BKA. Left foot dorsalis pedis 1+. There is still some left heel diabetic wound. NEUROLOGICAL: Unremarkable. LABORATORY DATA: Reviewed as seen from the computer. ASSESSMENT AND PLAN: 1. Out of control diabetes: This is a very complicated issues as the patient has very brittle diabetes and he is noncompliant with diet (the patient will only eat regular diet and he will not eat 1800 ADA cardiac renal diet at all). 2. Severe hyponatremia: This is probably pseudohyponatremia due to out of control diabetes. Normal saline 80 mL per hour was ordered. We will repeat BMP in the morning and I too expect this to improve. 3. Diabetic nephropathy: Try to avoid nephrotoxic medications if possible. 4. Status post right BKA. 5. Chronic obstructive pulmonary disease: RT protocol. 6. Status post myocardial infarction multiple times with congestive heart failure, mildly. 7. Status post cerebrovascular accident with difficulty walking. 8. Chronic pain syndrome: This has been going on for a long time and the patient's medication were prescribed by the pain specialist who goes to the detention. JOB# [id number]
[2018-05-09] MEDS: HYDROmorphone 2 mg/mL 1mL Vial IVP PRN ×6 (03:08→23:01)
[2018-05-09] MEDS: Sodium Chloride 0.9% 1,000 ML IV SCH ×2 (03:22→13:29)
[2018-05-09 04:56] LABS: % BASOPHILS 1.4 % (0.0-2.0); % EOSINOPHILS 1.8 % (0.0-5.0); % LYMPHOCYTES 27.6 % (20.0-50.0); % MONOCYTES 6.3 % (2.0-10.0); % NEUTROPHILS 62.9 % (40.0-80.0); BASOPHILE ABSOLUTE 0.1 Th/cumm (0-0.2); EOSINOPHILE ABSOLUTE 0.1 Th/cmm (0.1-0.4); HEMOGLOBIN 9.5 gm/dL (12-16); LYMPHOCYTE ABSOLUTE 1.4 Th/cmm (1.5-3.0); MEAN CELL VOLUME 96.6 fl (80-99); MEAN CORPUSCULAR HEMOGLOBIN 31.7 pg (26.0-30.0); MEAN CORPUSCULAR HGB CONC 32.8 pg (28.0-36.0); MONOCYTE ABSOLUTE 0.3 Th/cmm (0.3-1.0); NEUTROPHILE ABSOLUTE 3.3 Th/cmm (1.8-8.0); PLATELET COUNT 218 Th/cmm (150-400); RED BLOOD COUNT 3.01 Mil/cmm (4.30-5.70); RED CELL DISTRIBUTION WIDTH 13.5 % (11.5-20.0); WHITE BLOOD COUNT 5.2 Th/cmm (4.8-10.8)
[2018-05-09 05:18] LABS: BUN - UREA NITROGEN 24 mg/dL (7-25); CALCIUM SERUM 8.1 mg/dL (8.6-10.3); CARBON DIOXIDE 23.2 mEq/L (21.0-31.0); CHLORIDE 95 mEq/L (98-107); CREATININE - SERUM 1.2 mg/dL (0.7-1.3); GFR AFRICAN-AMERICAN > 60.0 ml/min (>90); GFR NON AFRICAN-AMERICAN > 60.0 ml/min; MAGNESIUM 1.7 mg/dL (1.9-2.7); POTASSIUM SERUM 5.2 mEq/L (3.5-5.1); SODIUM SERUM 127 mEq/L (136-145)
[2018-05-09 05:27] LABS: GLUCOSE 558 mg/dL (70-105)
[2018-05-09] MEDS: Pantoprazole 40 mg/Packet PO SCH (07:00)
[2018-05-09] MEDS: INSULIN ASPART SLIDING SCALE 100 UNITS/ML UNIT SUBQ SCH ×4 (07:24→22:18)
[2018-05-09] MEDS: Lidocaine 5% Patch TD SCH (08:54)
[2018-05-09] MEDS: Lactobacillus Rhamnosus GG 15 Billion CFU CAP.SPRINK PO SCH (09:07)
[2018-05-09] MEDS: Multivitamin Tab PO SCH (09:09)
[2018-05-09] MEDS ORDERED: fentaNYL 100 mcg/hr Tdm Patch TD SCH (10:00)
[2018-05-09] MEDS: Venelex 60gm Tube TP SCH (15:19)
--- NOTE | 2018-05-09 19:31 | Internal Medicine Prog Note ---
Internal Medicine Subjective - Subjective Service Date: 05/09/18 Patient seen and examined:: without staff Patient is:: awake, verbal, in bed Patient Complaints of:: congestion Per staff patient has:: no adverse event Internal Medicine Objective - Results Result Diagrams: 05/09/18 04:40 05/09/18 04:40 Recent Labs: Laboratory Last Values WBC 5.2 Th/cmm (4.8-10.8) 05/09/18 04:40 RBC 3.01 Mil/cmm (4.30-5.70) L 05/09/18 04:40 Hgb 9.5 gm/dL (12-16) L 05/09/18 04:40 Hct 29.0 % (41.0-60) L 05/09/18 04:40 MCV 96.6 fl (80-99) 05/09/18 04:40 MCH 31.7 pg (26.0-30.0) H 05/09/18 04:40 MCHC Differential 32.8 pg (28.0-36.0) 05/09/18 04:40 RDW 13.5 % (11.5-20.0) 05/09/18 04:40 Plt Count 218 Th/cmm (150-400) 05/09/18 04:40 MPV 8.0 fl 05/09/18 04:40 Neutrophils % 62.9 % (40.0-80.0) 05/09/18 04:40 Lymphocytes % 27.6 % (20.0-50.0) 05/09/18 04:40 Monocytes % 6.3 % (2.0-10.0) 05/09/18 04:40 Eosinophils % 1.8 % (0.0-5.0) 05/09/18 04:40 Basophils % 1.4 % (0.0-2.0) 05/09/18 04:40 Sodium 127 mEq/L (136-145) L 05/09/18 04:40 Potassium 5.2 mEq/L (3.5-5.1) H 05/09/18 04:40 Chloride 95 mEq/L (98-107) L 05/09/18 04:40 Carbon Dioxide 23.2 mEq/L (21.0-31.0) 05/09/18 04:40 Anion Gap 14.0 (7.0-16.0) 05/09/18 04:40 BUN 24 mg/dL (7-25) 05/09/18 04:40 Creatinine 1.2 mg/dL (0.7-1.3) 05/09/18 04:40 Est GFR ( Amer) > 60.0 ml/min (>90) 05/09/18 04:40 Est GFR (Non-Af Amer) > 60.0 ml/min 05/09/18 04:40 BUN/Creatinine Ratio 20.0 05/09/18 04:40 Glucose 558 mg/dL (70-105) H* 05/09/18 04:40 POC Glucose 207 MG/DL (70 - 105) H 05/09/18 16:53 Calcium 8.1 mg/dL (8.6-10.3) L 05/09/18 04:40 Magnesium 1.7 mg/dL (1.9-2.7) L 05/09/18 04:40 Total Bilirubin 0.4 mg/dL (0.3-1.0) 05/07/18 22:45 AST 22 U/L (13-39) 05/07/18 22:45 ALT 35 U/L (7-52) 05/07/18 22:45 Alkaline Phosphatase 147 U/L (34-104) H 05/07/18 22:45 Troponin I < 0.01 ng/mL (0.01-0.05) L 05/07/18 22:45 Total Protein 6.8 gm/dL (6.0-8.3) 05/07/18 22:45 Albumin 4.0 gm/dL (4.2-5.5) L 05/07/18 22:45 Globulin 2.8 gm/dL 05/07/18 22:45 Albumin/Globulin Ratio 1.4 (1.0-1.8) 05/07/18 22:45 Amylase 18 U/L (29-103) L 05/07/18 22:45 Lipase 12 U/L (11-82) 05/07/18 22:45 TSH 1.21 uIU/ml (0.34-5.60) 05/07/18 22:45 Urine Source CLEAN C 05/07/18 22:44 Urine Color YELLOW 05/07/18 22:44 Urine Clarity CLEAR (CLEAR) 05/07/18 22:44 Urine pH 6.0 (4.6 - 8.0) 05/07/18 22:44 Ur Specific [place] <= 1.005 (1.005-1.030) 05/07/18 22:44 Urine Protein NEGATIVE mg/dL (NEGATIVE) 05/07/18 22:44 Urine Glucose (UA) >=1000 mg/dL (NEGATIVE) H 05/07/18 22:44 Urine Ketones NEGATIVE mg/dL (NEGATIVE) 05/07/18 22:44 Urine Blood NEGATIVE (NEGATIVE) 05/07/18 22:44 Urine Nitrate NEGATIVE (NEGATIVE) 05/07/18 22:44 Urine Bilirubin NEGATIVE (NEGATIVE) 05/07/18 22:44 Urine Urobilinogen 0.2 E.U./dL (0.2 - 1.0) 05/07/18 22:44 Ur Leukocyte Esterase NEGATIVE (NEGATIVE) 05/07/18 22:44 Urine RBC NONE SEEN /hpf (0-5) 05/07/18 22:44 Urine WBC 0-2 /hpf (0-5) 05/07/18 22:44 Ur Epithelial Cells OCCASIONAL /lpf (FEW) 05/07/18 22:44 Urine Bacteria OCCASIONAL /hpf (NONE SEEN) 05/07/18 22:44 - Physical Exam Vitals and I&O: Vital Signs Temp 99.1 F 05/09/18 15:41 Pulse 87 05/09/18 15:41 Resp 18 05/09/18 18:56 BP 111/81 05/09/18 15:41 Pulse Ox 95 05/09/18 15:41 Intake & Output 05/09/18 05/09/18 05/10/18 06:59 18:59 06:59 Intake Total 3575.789 4588.667 Output Total 700 Balance 1210.667 498.667 Weight (lbs) 54.839 kg Intake: Intake, IV Amount 1210.667 598.667 Sodium Chloride 0.9% 1, 1210.667 598.667 000 ml @ 80 mls/hr IV . [id number] [facility] Rx#:[id number] Oral 600 Output: Urine 700 Stool 0 Other: # Voids 3 Stool Characteristics Liquid Weight Source Bedscale Active Medications: Current Medications Acetaminophen (Tylenol) 650 mg PO Q6HR PRN PRN Reason: Pain or Fever >101 Stop: 07/06/18 23:52 Ascorbic Acid (Vitamin C) 500 mg PO DAILY [facility] Stop: 07/07/18 08:59 Last Admin: 05/09/18 09:09 Dose: 500 mg Aspirin (Ecotrin) 81 mg PO DAILY [facility] Stop: 07/07/18 08:59 Last Admin: 05/09/18 09:09 Dose: 81 mg Atorvastatin Calcium (Lipitor) 20 mg PO HS [facility] Stop: 07/07/18 20:59 Last Admin: 05/08/18 20:58 Dose: 20 mg Bisacodyl (Dulcolax 10 Mg Supp) 10 mg RC DAILY PRN PRN Reason: Constipation Stop: 07/06/18 23:52 Carisoprodol (Soma) 350 mg PO Q8HR PRN PRN Reason: MUSCLE SPASM Stop: 07/06/18 23:52 Last Admin: 05/09/18 15:40 Dose: 350 mg [place] Oil/Tajik Balsam/Trypsin (Venelex) 1 appl TP DAILY [facility] Stop: 07/08/18 12:59 Last Admin: 05/09/18 15:19 Dose: 1 appl Docusate Sodium (Colace) 100 mg PO DAILY [facility] Stop: 07/07/18 08:59 Last Admin: 05/09/18 08:42 Dose: Not Given Fentanyl (Duragesic 100 Mcg/Hr Tdm Patch) 1 patch TD Q72HR [facility]; Protocol Stop: 07/08/18 09:59 Last Admin: 05/09/18 09:02 Dose: 1 patch Folic Acid (Folate) 1 mg PO DAILY [facility] Stop: 07/07/18 08:59 Last Admin: 05/09/18 09:09 Dose: 1 mg Gabapentin (Neurontin) 600 mg PO TID [facility] Stop: 07/07/18 08:59 Last Admin: 05/09/18 15:20 Dose: 600 mg Hydromorphone HCl (Dilaudid) 2 mg IVP Q3H PRN PRN Reason: Severe Pain Stop: 07/06/18 23:58 Sodium Chloride (Nacl 0.9%) 1,000 mls @ 80 mls/hr IV .[id number] [facility] Stop: 07/06/18 23:44 Last Admin: 05/09/18 13:29 Dose: 80 mls/hr Magnesium Sulfate (Magnesium Sulfate Premix) 2 gm in 50 mls @ 25 mls/hr IV X1 ONE Stop: 05/09/18 21:27 Insulin Aspart (Novolog Insulin Sliding Scale) 0 units SUBQ ACHS [facility]; Protocol Stop: 07/07/18 07:29 Last Admin: 05/09/18 17:02 Dose: 5 units Lactobacillus Rhamnosus (Culturelle 15b) 1 each PO DAILY [facility] Stop: 07/07/18 08:59 Last Admin: 05/09/18 09:07 Dose: 1 each Levetiracetam (Keppra) 500 mg PO BID [facility] Stop: 07/07/18 08:59 Last Admin: 05/09/18 17:01 Dose: 500 mg Lidocaine (Lidoderm 5% Patch) 1 patch TD DAILY [facility] Stop: 07/07/18 08:59 Last Admin: 05/09/18 08:54 Dose: 1 patch Lisinopril (Zestril) 2.5 mg PO DAILY [facility] Stop: 07/07/18 08:59 Last Admin: 05/09/18 09:08 Dose: 2.5 mg Loperamide HCl (Imodium) 2 mg PO DAILY PRN PRN Reason: Diarrhea Stop: 07/06/18 23:52 Lorazepam (Ativan) 0.5 mg IVP Q6HR PRN; Protocol PRN Reason: Anxiety Stop: 07/08/18 00:02 Magnesium Chloride (Slow-Mag) 1 ect PO HS [facility] Stop: 07/07/18 20:59 Last Admin: 05/08/18 20:58 Dose: 1 ect Magnesium Hydroxide (Milk Of Magnesia) 30 ml PO DAILY PRN PRN Reason: GI DISTRESS Stop: 07/06/18 23:52 Metronidazole (Flagyl) 500 mg PO QID [facility] Stop: 07/08/18 16:59 Last Admin: 05/09/18 17:01 Dose: 500 mg Multivitamins/Vitamin C (Theragran) 1 tab PO DAILY [facility] Stop: 07/07/18 08:59 Last Admin: 05/09/18 09:09 Dose: 1 tab Nitroglycerin (Nitrostat) 0.4 mg SL UD [facility] Stop: 07/07/18 08:59 Last Admin: 05/09/18 08:43 Dose: Not Given Oxcarbazepine (Trileptal) 300 mg PO BID [facility]; Protocol Stop: 07/07/18 08:59 Last Admin: 05/09/18 17:01 Dose: 300 mg Pantoprazole Sodium (Protonix) 40 mg PO QDAC [facility] Stop: 07/07/18 07:29 Last Admin: 05/09/18 07:00 Dose: Not Given Quetiapine Fumarate (Seroquel) 100 mg PO HS [facility]; Protocol Stop: 07/07/18 20:59 Last Admin: 05/08/18 20:59 Dose: 100 mg Tamsulosin HCl (Flomax) 0.4 mg PO DAILY [facility] Stop: 07/07/18 08:59 Last Admin: 05/09/18 09:09 Dose: 0.4 mg Trazodone HCl (Desyrel) 50 mg PO HS [facility]; Protocol Stop: 07/07/18 20:59 Last Admin: 05/08/18 20:59 Dose: 50 mg General: weak, lethargic, congested, thin HEENT: NC/AT, PERRLA, EOMI, anicteric sclerae Neck: Supple, No JVD, No thyromegaly, No LAD Lungs: CTAB Cardiovascular: RRR, Normal S1, Normal S2 Abdomen: soft, non-tender, non-distended, positive bowel sound Extremities: other (s/p rt BKA) Neurological: no change - Procedures Procedures: Procedures Procedure Code Date EXCISION OF L FOOT SUBCU/FASCIA, OPEN APPROACH [id number] 02/02/18 Internal Medicine Assmt/Plan - Assessment Assessment: C. Diff colitis: flagyl 500mg po qid. Hypomagnesium: 2gm Mag sulfate IVPB over 2 h x 1. Intractable pain: adjusting pain med. OOC DM: diet control has been very difficult; adjusting meds as needed. Hyponatremia: IVF NS; repeat BMP in AM. Chronic pain syndrome: multifactorial and adjusting pain meds as needed. s/p rt BKA recently. COPD: RT protocol. CAD: s/p [place] x4 CHF: due to multiplr IL s/p CVA x 4 Nutritional Asmnt/Malnutr-PDOC - Dietary Evaluation Malnutrition Findings (Please click <Entered> for more info): Nutritional Asmnt/Malnutrition Start: 05/09/18 13: 46 Text: Status: Complete Freq: Protocol: Document 05/09/18 13:46 JIM (Rec: 05/09/18 14:21 [email or web address]) Nutritional Asmnt/Malnutrition Patient General Information Nutritional Screening High Risk Consult Diagnosis Uncontrolled Diabetes Mellitus , Electrolyte Imbalance Pertinent Medical Hx/Surgical Hx HTN, DM, CAD, CHF, asthma/COPD , CVA/TIA, DVT/PE, alcohol abuse, depression, bipolar, pneumonia, s/p right bka and left heel diabetic wound, anemia, UTI, mild psychosis, noncompliance (per MD note: pt will not follow 1800 ADA diet at all) Subjective Information Received diet consult for high bs and pt requested consult. Pt states he does not tolerate or digest egg, milk, and cheese well. Pt states he can' t have black pepper or walnuts /pecans. For food preferences, pt states he prefers to have roast beef, mashed potatoes, and gravy for his meals and does not like fish, Mrs. Dash, or breaded foods at all. Spoke wtih RADHA Kelly RN stated only sugar substitute in diet order added in comments. Pt is also not compliance to insulin regimen. Per EMR, PO intake 100% x 3 meals yesterday 05/08. Current Diet Order/ Nutrition Support Low Na 2 gm, NCS Pertinent Medications Vit C, lipitor, dulcolax, colace, novolog, culturelle, imodium, Slow-Mag, MOM, theragran, protonix, seroquel, Nacl 0.9% Pertinent Labs 05/09: Na 127, K 5.2, Cl 95, glucose 558, POC 237-478, Ca 8 .1, Mg 1.7 05/08: POC 78-488 Nutritional Hx/Data Height 1.73 m Height (Calculated Centimeters) 172.7 Current Weight (lbs) 54.839 kg Weight (Calculated Kilograms) 54.8 Weight (Calculated Grams) 05788.3 Artemas Body Weight 145 lb (adj wt for rt BKA) / BMI: 19.6 adj for BKA Body Mass Index (BMI) 18.3 Weight Status Approriate GI Symptoms GI Symptoms Diarrhea Last BM 05/08 x 2 Difficult in: None Skin Integrity/Comment: s/p right BKA, abrasion to upper anterior abdomen, skin tear to left posterior ankle, pressure area to posterior buttocks, aggie 15 Estimated Nutritional Goals BEE in Kcals: Using Current wt Calories/Kcals/Kg 25-30 Kcals Calculated 4834-0321 Protein: Using Current wt Protein g/k-1.2 Protein Calculated 55-66g Fluid: ml 7214-0238 (1 ml/kcal) Nutritional Problem 1. Problem Problem Altered nutrition related lab values Etiology uncontrolled DM and electrolyte imbalance Signs/Symptoms: Na 127, K 5.2, Cl 95, glucose 558, POC 237-478, Ca 8.1, Mg 1 .7 Malnutrition Alert Is there a minimum of two criteria No selected? Query Text:Check all the applicable criteria. A minimum of two criteria are recommended for diagnosis of either severe or non-severe malnutrition. Malnutrition Related to Morbid Obesity Malnutrition related to morbid obesity No Intervention/Recommendation Comments 1. Consider d/c low Na 2 gm diet if pt's blood pressure WNL 2. Consider starting CCHO 45 gm diet if pt's willing to comply. Will attampt to provide diabetic education to pt. 3. Monitor PO intake, wt, labs and skin integrity 4. F/U as high risk in 2-3 days, 05/11-05/12 Expected Outcomes/Goals Expected Outcomes/Goals 1. PO intake to meet at least 75% of all meals 2. Wt stability, skin integrity to improve, and nutrition related labs to approach normal limits Reviewed by Claribel Anand RD
[2018-05-09] MEDS ORDERED: Mag Sulfate 2gm/50mL Premix 2 GM/50 ML BAG IV ONE (19:45)
[2018-05-09] MEDS: Magnesium Chloride EC 64mg Tab PO SCH (21:00)
[2018-05-09] MEDS: Atorvastatin Calcium 10 MG TAB PO SCH (21:01)
[2018-05-10] MEDS: Sodium Chloride 0.9% 1,000 ML IV SCH ×2 (03:31→16:10)
[2018-05-10] MEDS: HYDROmorphone 2 mg/mL 1mL Vial IVP PRN ×7 (03:49→21:55)
[2018-05-10] MEDS: INSULIN ASPART SLIDING SCALE 100 UNITS/ML UNIT SUBQ SCH ×4 (06:49→21:30)
--- NOTE | 2018-05-10 08:19 | Diagnostic Imaging Report ---
CHEST X-RAY: AP view INDICATION: Shortness of breath COMPARISON: 02/02/2018 FINDINGS: There is no focal consolidation or pleural effusions The heart is normal in size. The osseous structures demonstrate no acute abnormalities. There is metallic density projecting along the mid neck region possibly overlying clothing material, correlate clinically. IMPRESSION: No focal airspace consolidation identified. There is suggestion of COPD changes. There is metallic density seen projecting along the mid thoracic region, possibly the clothing material. Please correlate clinically to rule out ingested substance.
[2018-05-10 08:20] LABS: % BASOPHILS 1.2 % (0.0-2.0); % LYMPHOCYTES 27.3 % (20.0-50.0); % MONOCYTES 5.7 % (2.0-10.0); % NEUTROPHILS 63.8 % (40.0-80.0); BASOPHILE ABSOLUTE 0.1 Th/cumm (0-0.2); EOSINOPHILE ABSOLUTE 0.1 Th/cmm (0.1-0.4); HEMATOCRIT 29.1 % (41.0-60); HEMOGLOBIN 9.9 gm/dL (12-16); LYMPHOCYTE ABSOLUTE 1.5 Th/cmm (1.5-3.0); MEAN CELL VOLUME 95.9 fl (80-99); MEAN CORPUSCULAR HEMOGLOBIN 32.7 pg (26.0-30.0); MEAN PLATELET VOLUME 7.5 fl; MONOCYTE ABSOLUTE 0.3 Th/cmm (0.3-1.0); NEUTROPHILE ABSOLUTE 3.4 Th/cmm (1.8-8.0); PLATELET COUNT 226 Th/cmm (150-400); RED BLOOD COUNT 3.04 Mil/cmm (4.30-5.70); WHITE BLOOD COUNT 5.4 Th/cmm (4.8-10.8)
[2018-05-10] MEDS: Pantoprazole 40 mg/Packet PO SCH (08:28)
[2018-05-10 08:44] LABS: ALB/GLOB RATIO 1.6 (1.0-1.8); ALBUMIN 3.4 gm/dL (4.2-5.5); ALKALINE PHOSPHATASE 109 U/L (34-104); ANION GAP 14.8 (7.0-16.0); BILIRUBIN,TOTAL 0.3 mg/dL (0.3-1.0); BUN - UREA NITROGEN 22 mg/dL (7-25); CALCIUM SERUM 8.3 mg/dL (8.6-10.3); CARBON DIOXIDE 24.1 mEq/L (21.0-31.0); CHLORIDE 97 mEq/L (98-107); CREATININE - SERUM 1.2 mg/dL (0.7-1.3); GFR AFRICAN-AMERICAN > 60.0 ml/min (>90); GFR NON AFRICAN-AMERICAN > 60.0 ml/min; GLUCOSE 359 mg/dL (70-105); MAGNESIUM 2.1 mg/dL (1.9-2.7); POTASSIUM SERUM 3.9 mEq/L (3.5-5.1); SGOT 20 U/L (13-39); SGPT/ALT 23 U/L (7-52); SODIUM SERUM 132 mEq/L (136-145); TOTAL PROTEIN,SERUM 5.6 gm/dL (6.0-8.3)
[2018-05-10] MEDS: Lidocaine 5% Patch TD SCH (09:43)
[2018-05-10] MEDS: Venelex 60gm Tube TP SCH (09:44)
[2018-05-10] MEDS: Lactobacillus Rhamnosus GG 15 Billion CFU CAP.SPRINK PO SCH (09:45)
[2018-05-10] MEDS: Multivitamin Tab PO SCH (09:45)
--- NOTE | 2018-05-10 20:03 | Internal Medicine Prog Note ---
Internal Medicine Subjective - Subjective Service Date: 05/10/18 Patient seen and examined:: without staff Patient is:: awake, verbal, in bed Patient Complaints of:: congestion Per staff patient has:: no adverse event Internal Medicine Objective - Results Result Diagrams: 05/10/18 08:00 05/10/18 08:00 Recent Labs: Laboratory Last Values WBC 5.4 Th/cmm (4.8-10.8) 05/10/18 08:00 RBC 3.04 Mil/cmm (4.30-5.70) L 05/10/18 08:00 Hgb 9.9 gm/dL (12-16) L 05/10/18 08:00 Hct 29.1 % (41.0-60) L 05/10/18 08:00 MCV 95.9 fl (80-99) 05/10/18 08:00 MCH 32.7 pg (26.0-30.0) H 05/10/18 08:00 MCHC Differential 34.0 pg (28.0-36.0) 05/10/18 08:00 RDW 13.0 % (11.5-20.0) 05/10/18 08:00 Plt Count 226 Th/cmm (150-400) 05/10/18 08:00 MPV 7.5 fl 05/10/18 08:00 Neutrophils % 63.8 % (40.0-80.0) 05/10/18 08:00 Lymphocytes % 27.3 % (20.0-50.0) 05/10/18 08:00 Monocytes % 5.7 % (2.0-10.0) 05/10/18 08:00 Eosinophils % 2.0 % (0.0-5.0) 05/10/18 08:00 Basophils % 1.2 % (0.0-2.0) 05/10/18 08:00 Sodium 132 mEq/L (136-145) L 05/10/18 08:00 Potassium 3.9 mEq/L (3.5-5.1) 05/10/18 08:00 Chloride 97 mEq/L (98-107) L 05/10/18 08:00 Carbon Dioxide 24.1 mEq/L (21.0-31.0) 05/10/18 08:00 Anion Gap 14.8 (7.0-16.0) 05/10/18 08:00 BUN 22 mg/dL (7-25) 05/10/18 08:00 Creatinine 1.2 mg/dL (0.7-1.3) 05/10/18 08:00 Est GFR ( Amer) > 60.0 ml/min (>90) 05/10/18 08:00 Est GFR (Non-Af Amer) > 60.0 ml/min 05/10/18 08:00 BUN/Creatinine Ratio 18.3 05/10/18 08:00 Glucose 359 mg/dL (70-105) H 05/10/18 08:00 POC Glucose 207 MG/DL (70 - 105) H 05/10/18 16:32 Calcium 8.3 mg/dL (8.6-10.3) L 05/10/18 08:00 Magnesium 2.1 mg/dL (1.9-2.7) 05/10/18 08:00 Total Bilirubin 0.3 mg/dL (0.3-1.0) 05/10/18 08:00 AST 20 U/L (13-39) 05/10/18 08:00 ALT 23 U/L (7-52) 05/10/18 08:00 Alkaline Phosphatase 109 U/L (34-104) H 05/10/18 08:00 Troponin I < 0.01 ng/mL (0.01-0.05) L 05/07/18 22:45 Total Protein 5.6 gm/dL (6.0-8.3) L 05/10/18 08:00 Albumin 3.4 gm/dL (4.2-5.5) L 05/10/18 08:00 Globulin 2.2 gm/dL 05/10/18 08:00 Albumin/Globulin Ratio 1.6 (1.0-1.8) 05/10/18 08:00 Amylase 18 U/L (29-103) L 05/07/18 22:45 Lipase 12 U/L (11-82) 05/07/18 22:45 TSH 1.21 uIU/ml (0.34-5.60) 05/07/18 22:45 Urine Source CLEAN C 05/07/18 22:44 Urine Color YELLOW 05/07/18 22:44 Urine Clarity CLEAR (CLEAR) 05/07/18 22:44 Urine pH 6.0 (4.6 - 8.0) 05/07/18 22:44 Ur Specific [place] <= 1.005 (1.005-1.030) 05/07/18 22:44 Urine Protein NEGATIVE mg/dL (NEGATIVE) 05/07/18 22:44 Urine Glucose (UA) >=1000 mg/dL (NEGATIVE) H 05/07/18 22:44 Urine Ketones NEGATIVE mg/dL (NEGATIVE) 05/07/18 22:44 Urine Blood NEGATIVE (NEGATIVE) 05/07/18 22:44 Urine Nitrate NEGATIVE (NEGATIVE) 05/07/18 22:44 Urine Bilirubin NEGATIVE (NEGATIVE) 05/07/18 22:44 Urine Urobilinogen 0.2 E.U./dL (0.2 - 1.0) 05/07/18 22:44 Ur Leukocyte Esterase NEGATIVE (NEGATIVE) 05/07/18 22:44 Urine RBC NONE SEEN /hpf (0-5) 05/07/18 22:44 Urine WBC 0-2 /hpf (0-5) 05/07/18 22:44 Ur Epithelial Cells OCCASIONAL /lpf (FEW) 05/07/18 22:44 Urine Bacteria OCCASIONAL /hpf (NONE SEEN) 05/07/18 22:44 - Physical Exam Vitals and I&O: Vital Signs Temp 97.9 F 05/10/18 18:08 Pulse 83 05/10/18 18:08 Resp 18 05/10/18 18:08 BP 101/74 05/10/18 18:08 Pulse Ox 98 05/10/18 18:08 Intake & Output 05/10/18 05/10/18 05/11/18 06:59 18:59 06:59 Intake Total 1000 1880 Output Total 600 950 Balance 400 930 Weight (lbs) 44.906 kg 44.906 kg Intake: Intake, IV Amount 1000 1000 Sodium Chloride 0.9% 1, 1000 1000 000 ml @ 80 mls/hr IV . [id number] [facility] Rx#:[id number] Oral 880 Output: Urine 600 950 Other: # Bowel Movements 1 Stool Characteristics Liquid Liquid Weight Source Bedscale Bedscale Active Medications: Current Medications Ascorbic Acid (Vitamin C) 500 mg PO DAILY [facility] Stop: 07/07/18 08:59 Last Admin: 05/10/18 09:45 Dose: 500 mg Aspirin (Ecotrin) 81 mg PO DAILY [facility] Stop: 07/07/18 08:59 Last Admin: 05/10/18 09:45 Dose: 81 mg Atorvastatin Calcium (Lipitor) 20 mg PO HS [facility] Stop: 07/07/18 20:59 Last Admin: 05/09/18 21:01 Dose: 20 mg Bisacodyl (Dulcolax 10 Mg Supp) 10 mg RC DAILY PRN PRN Reason: Constipation Stop: 07/06/18 23:52 Carisoprodol (Soma) 350 mg PO Q8HR PRN PRN Reason: MUSCLE SPASM Stop: 07/06/18 23:52 Last Admin: 05/10/18 16:03 Dose: 350 mg [place] Oil/[place] Balsam/Trypsin (Venelex) 1 appl TP DAILY [facility] Stop: 07/08/18 12:59 Last Admin: 05/10/18 09:44 Dose: 1 appl Docusate Sodium (Colace) 100 mg PO DAILY [facility] Stop: 07/07/18 08:59 Last Admin: 05/10/18 09:46 Dose: Not Given Fentanyl (Duragesic 100 Mcg/Hr Tdm Patch) 1 patch TD Q72HR [facility]; Protocol Stop: 07/08/18 09:59 Last Admin: 05/09/18 09:02 Dose: 1 patch Folic Acid (Folate) 1 mg PO DAILY [facility] Stop: 07/07/18 08:59 Last Admin: 05/10/18 09:45 Dose: 1 mg Gabapentin (Neurontin) 600 mg PO TID [facility] Stop: 07/07/18 08:59 Last Admin: 05/10/18 13:20 Dose: 600 mg Hydromorphone HCl (Dilaudid) 2 mg IVP Q3H PRN PRN Reason: Severe Pain 8-10 Stop: 07/06/18 23:58 Last Admin: 05/10/18 18:45 Dose: 2 mg Sodium Chloride (Nacl 0.9%) 1,000 mls @ 80 mls/hr IV .[id number] [facility] Stop: 07/06/18 23:44 Last Admin: 05/10/18 16:10 Dose: 80 mls/hr Insulin Aspart (Novolog Insulin Sliding Scale) 0 units SUBQ ACHS [facility]; Protocol Stop: 07/07/18 07:29 Last Admin: 05/10/18 17:40 Dose: 5 units Lactobacillus Rhamnosus (Culturelle 15b) 1 each PO DAILY [facility] Stop: 07/07/18 08:59 Last Admin: 05/10/18 09:45 Dose: 1 each Levetiracetam (Keppra) 500 mg PO BID [facility] Stop: 07/07/18 08:59 Last Admin: 05/10/18 16:03 Dose: 500 mg Lidocaine (Lidoderm 5% Patch) 1 patch TD DAILY [facility] Stop: 07/07/18 08:59 Last Admin: 05/10/18 09:43 Dose: 1 patch Lisinopril (Zestril) 2.5 mg PO DAILY [facility] Stop: 07/07/18 08:59 Last Admin: 05/10/18 09:46 Dose: Not Given Loperamide HCl (Imodium) 2 mg PO DAILY PRN PRN Reason: Diarrhea Stop: 07/06/18 23:52 Lorazepam (Ativan) 0.5 mg IVP Q6HR PRN; Protocol PRN Reason: Anxiety Stop: 07/08/18 00:02 Last Admin: 05/10/18 16:10 Dose: 0.5 mg Magnesium Chloride (Slow-Mag) 1 ect PO HS [facility] Stop: 07/07/18 20:59 Last Admin: 05/09/18 21:00 Dose: 1 ect Magnesium Hydroxide (Milk Of Magnesia) 30 ml PO DAILY PRN PRN Reason: GI DISTRESS Stop: 07/06/18 23:52 Metronidazole (Flagyl) 500 mg PO QID [facility] Stop: 07/08/18 16:59 Last Admin: 05/10/18 16:03 Dose: 500 mg Multivitamins/Vitamin C (Theragran) 1 tab PO DAILY [facility] Stop: 07/07/18 08:59 Last Admin: 05/10/18 09:45 Dose: 1 tab Nitroglycerin (Nitrostat) 0.4 mg SL UD [facility] Stop: 07/07/18 08:59 Last Admin: 05/10/18 08:32 Dose: Not Given Oxcarbazepine (Trileptal) 300 mg PO BID [facility]; Protocol Stop: 07/07/18 08:59 Last Admin: 05/10/18 16:03 Dose: 300 mg Pantoprazole Sodium (Protonix) 40 mg PO QDAC [facility] Stop: 07/07/18 07:29 Last Admin: 05/10/18 08:28 Dose: Not Given Quetiapine Fumarate (Seroquel) 100 mg PO HS [facility]; Protocol Stop: 07/07/18 20:59 Last Admin: 05/09/18 21:03 Dose: 100 mg Tamsulosin HCl (Flomax) 0.4 mg PO DAILY [facility] Stop: 07/07/18 08:59 Last Admin: 05/10/18 09:45 Dose: 0.4 mg Trazodone HCl (Desyrel) 50 mg PO HS [facility]; Protocol Stop: 07/07/18 20:59 Last Admin: 05/09/18 21:07 Dose: 50 mg General: weak, lethargic, congested, thin HEENT: NC/AT, PERRLA, EOMI, anicteric sclerae Neck: Supple, No JVD, No thyromegaly, No LAD Lungs: CTAB Cardiovascular: RRR, Normal S1, Normal S2 Abdomen: soft, non-tender, non-distended, positive bowel sound Extremities: other (s/p rt BKA) Neurological: no change - Procedures Procedures: Procedures Procedure Code Date EXCISION OF L FOOT SUBCU/FASCIA, OPEN APPROACH [id number] 02/02/18 Internal Medicine Assmt/Plan - Assessment Assessment: OOC DM: diet control has been very difficult; adjusting meds as needed. C. Diff colitis: flagyl 500mg po qid. Hypomagnesium: 2gm Mag sulfate IVPB over 2 h x 1. Intractable pain: adjusting pain med. Hyponatremia: IVF NS; repeat BMP in AM. Chronic pain syndrome: multifactorial and adjusting pain meds as needed. s/p rt BKA recently. COPD: RT protocol. CAD: s/p NM x4 CHF: due to multiplr NM s/p CVA x 4 Nutritional Asmnt/Malnutr-PDOC - Dietary Evaluation Malnutrition Findings (Please click <Entered> for more info): Nutritional Asmnt/Malnutrition Start: 05/09/18 13: 46 Text: Status: Complete Freq: Protocol: Document 05/09/18 13:46 JIM (Rec: 05/09/18 14:21 [email or web address]) Nutritional Asmnt/Malnutrition Patient General Information Nutritional Screening High Risk Consult Diagnosis Uncontrolled Diabetes Mellitus , Electrolyte Imbalance Pertinent Medical Hx/Surgical Hx HTN, DM, CAD, CHF, asthma/COPD , CVA/TIA, DVT/PE, alcohol abuse, depression, bipolar, pneumonia, s/p right bka and left heel diabetic wound, anemia, UTI, mild psychosis, noncompliance (per MD note: pt will not follow 1800 ADA diet at all) Subjective Information Received diet consult for high bs and pt requested consult. Pt states he does not tolerate or digest egg, milk, and cheese well. Pt states he can' t have black pepper or walnuts /pecans. For food preferences, pt states he prefers to have roast beef, mashed potatoes, and gravy for his meals and does not like fish, Mrs. Tierney, or breaded foods at all. Spoke wtih RADHA Kelly RN stated only sugar substitute in diet order added in comments. Pt is also not compliance to insulin regimen. Per EMR, PO intake 100% x 3 meals yesterday 05/08. Current Diet Order/ Nutrition Support Low Na 2 gm, NCS Pertinent Medications Vit C, lipitor, dulcolax, colace, novolog, culturelle, imodium, Slow-Mag, MOM, theragran, protonix, seroquel, Nacl 0.9% Pertinent Labs 05/09: Na 127, K 5.2, Cl 95, glucose 558, POC 237-478, Ca 8 .1, Mg 1.7 05/08: POC 78-488 Nutritional Hx/Data Height 1.73 m Height (Calculated Centimeters) 172.7 Current Weight (lbs) 54.839 kg Weight (Calculated Kilograms) 54.8 Weight (Calculated Grams) 06537.3 [place] Body Weight 145 lb (adj wt for rt BKA) / BMI: 19.6 adj for BKA Body Mass Index (BMI) 18.3 Weight Status Approriate GI Symptoms GI Symptoms Diarrhea Last BM 05/08 x 2 Difficult in: None Skin Integrity/Comment: s/p right BKA, abrasion to upper anterior abdomen, skin tear to left posterior ankle, pressure area to posterior buttocks, aggie 15 Estimated Nutritional Goals BEE in Kcals: Using Current wt Calories/Kcals/Kg 25-30 Kcals Calculated 9660-2390 Protein: Using Current wt Protein g/k-1.2 Protein Calculated 55-66g Fluid: ml 9760-3614 (1 ml/kcal) Nutritional Problem 1. Problem Problem Altered nutrition related lab values Etiology uncontrolled DM and electrolyte imbalance Signs/Symptoms: Na 127, K 5.2, Cl 95, glucose 558, POC 237-478, Ca 8.1, Mg 1 .7 Malnutrition Alert Is there a minimum of two criteria No selected? Query Text:Check all the applicable criteria. A minimum of two criteria are recommended for diagnosis of either severe or non-severe malnutrition. Malnutrition Related to Morbid Obesity Malnutrition related to morbid obesity No Intervention/Recommendation Comments 1. Consider d/c low Na 2 gm diet if pt's blood pressure WNL 2. Consider starting CCHO 45 gm diet if pt's willing to comply. Will attampt to provide diabetic education to pt. 3. Monitor PO intake, wt, labs and skin integrity 4. F/U as high risk in 2-3 days, 05/11-05/12 Expected Outcomes/Goals Expected Outcomes/Goals 1. PO intake to meet at least 75% of all meals 2. Wt stability, skin integrity to improve, and nutrition related labs to approach normal limits Reviewed by Claribel Anand RD
[2018-05-10] MEDS: Atorvastatin Calcium 10 MG TAB PO SCH (21:35)
[2018-05-10] MEDS: Magnesium Chloride EC 64mg Tab PO SCH (21:36)
[2018-05-11] MEDS: HYDROmorphone 2 mg/mL 1mL Vial IVP PRN ×3 (00:55→09:26)
[2018-05-11] MEDS: Sodium Chloride 0.9% 1,000 ML IV SCH (04:17)
[2018-05-11] MEDS: INSULIN ASPART SLIDING SCALE 100 UNITS/ML UNIT SUBQ SCH (07:34)
[2018-05-11] MEDS: Multivitamin Tab PO SCH (09:24)
[2018-05-11] MEDS: Pantoprazole 40 mg/Packet PO SCH (09:24)
[2018-05-11] MEDS: Lactobacillus Rhamnosus GG 15 Billion CFU CAP.SPRINK PO SCH (09:24)
[2018-05-11] MEDS: Venelex 60gm Tube TP SCH (10:39)
[2018-05-11] MEDS: Lidocaine 5% Patch TD SCH (10:39)
--- NOTE | 2018-05-19 15:48 | Discharge Summary ---
DATE OF DISCHARGE: 05/11/2018 FINAL DIAGNOSES: 1. Out of control diabetes, improved. 2. Noncompliance, improved. 3. Diabetic nephropathy. 4. Status post right BKA. 5. Chronic obstructive pulmonary disease, improved. 6. Coronary artery disease, status post myocardial infarction. 7. Chronic pain syndrome, improved. HOSPITAL COURSE: The patient is a 48-year-old male admitted due to out of control diabetes with blood sugar over 600. This was mostly due to patient's dietary noncompliance as he will not eat unless regular diet. The patient also has had severe hyponatremia with IV fluids, normal saline. His hyponatremia improved. The patient also received RT protocol for COPD exacerbation. He also has severe intractable pain from chronic pain syndrome exacerbation. The patient's medication was adjusted and he tolerated well. [facility] DISCHARGE CONDITION: Stable. DISPOSITION: Regular care. DISCHARGE MEDICATIONS: Continue medication from here. DIET: Supposed to be 1800 ADA cardiac, renal diet, but the patient only eats regular diet. ACTIVITY: As tolerated. FOLLOWUP: One week. JOB# [id number]
== END 2018-05-11 11:15 | DRG 371 ==
LOC: ER 22:11 → TELE 23:35 → MSI 05-10 19:51
PROVIDERS: ADMIT Internal Medicine; ATTEND Internal Medicine
DX: A04.72 Enterocolitis due to Clostridium difficile, not specified as recurrent (principal); E11.00 Type 2 diabetes mellitus with hyperosmolarity without nonketotic hyperglycemic-hyperosmolar coma (NKHHC); E87.1 Hypo-osmolality and hyponatremia; R64 Cachexia; E11.21 Type 2 diabetes mellitus with diabetic nephropathy; I25.2 Old myocardial infarction; I50.9 Heart failure, unspecified; G89.4 Chronic pain syndrome; E83.42 Hypomagnesemia; J44.9 Chronic obstructive pulmonary disease, unspecified; E87.8 Other disorders of electrolyte and fluid balance, not elsewhere classified; F31.9 Bipolar disorder, unspecified; I11.0 Hypertensive heart disease with heart failure; I25.10 Atherosclerotic heart disease of native coronary artery without angina pectoris; Z86.718 Personal history of other venous thrombosis and embolism; Z86.711 Personal history of pulmonary embolism; Z89.519 Acquired absence of unspecified leg below knee; Z86.73 Personal history of transient ischemic attack (TIA), and cerebral infarction without residual deficits; Z91.011 Allergy to milk products; Z91.018 Allergy to other foods; Z88.0 Allergy status to penicillin; Z88.2 Allergy status to sulfonamides; Z88.8 Allergy status to other drugs, medicaments and biological substances; Z91.012 Allergy to eggs; Z91.040 Latex allergy status; Z89.511 Acquired absence of right leg below knee
CPT/HCPCS: 36415-UA; 71045-TC; 80048-TC; 80053-TC; 81001-TC; 82150-TC; 82947-TC; 82948-90; 83036-90; 83690-TC; 83735-TC; 84443-TC; 84484-TC; 85025-TC; 87230-TC; 93005; 94760; 96374; J1170; J1815; J2060; J3475; J7030; J7042; Z7610

== ENCOUNTER 2018-06-22 03:19 | Inpatient (IN) | payer MEDICARE, MEDICAID ==
[2018-06-22] MEDS ORDERED: Sodium Chloride 0.9% 1,000 ML IV ONE ×2 (03:37→06:16)
[2018-06-22 04:19] LABS: BASOPHILE ABSOLUTE 0.1 Th/cumm (0-0.2); HEMATOCRIT 29.6 % (41.0-60); HEMOGLOBIN 10.1 gm/dL (12-16); LYMPHOCYTE ABSOLUTE 1.3 Th/cmm (1.5-3.0); MEAN CELL VOLUME 95.5 fl (80-99); MEAN CORPUSCULAR HEMOGLOBIN 32.6 pg (26.0-30.0); MEAN CORPUSCULAR HGB CONC 34.1 pg (28.0-36.0); MEAN PLATELET VOLUME 7.4 fl; MONOCYTE ABSOLUTE 0.6 Th/cmm (0.3-1.0); PLATELET COUNT 259 Th/cmm (150-400)
[2018-06-22] MEDS ORDERED: Levofloxacin 750mg/150mL 750 MG/150 ML BAG IV ONE ×2 (04:28→04:30)
[2018-06-22 06:02] LABS: URINE BILIRUBIN NEGATIVE (NEGATIVE); URINE BLOOD NEGATIVE (NEGATIVE); URINE GLUCOSE (UA) >=1000 mg/dL (NEGATIVE); URINE KETONE NEGATIVE (NEGATIVE); URINE LEUKOCYTE ESTERASE NEGATIVE (NEGATIVE); URINE MICROSCOPIC INDICATED? YES; URINE NITRATE NEGATIVE (NEGATIVE); URINE PH 5.5 (4.6 - 8.0); URINE PROTEIN NEGATIVE (NEGATIVE); URINE SOURCE RANDOM; URINE UROBILINOGEN 0.2 E.U./dL (0.2 - 1.0)
--- NOTE | 2018-06-22 06:13 | ED Physician Chart ---
ED Chief Complaint/HPI - Patient Information Date Seen:: 06/22/18 Time Seen:: 03:30 Chief Complaint:: Abdominal pain History of Present Illness:: 48 yo male with history of chronic pain syndrome, DM II and diabetic kidney disease was brought by ambulance from [facility] to ER for evaluation of abdominal pain for one day. EMS also noticed fever 103.5 of the patient. The patient had right BKA and a stage III pressure ulcer at left heel. Patient asked for Dilaudid for fever. Allergies:: Allergies Allergy/AdvReac Type Severity Reaction Status Date / Time acetaminophen [From Tylenol] Allergy Verified 05/07/18 22:24 adhesive Allergy Verified 05/07/18 22:24 cephalexin Allergy Verified 05/07/18 22:24 egg Allergy Verified 05/07/18 22:24 ketorolac [From Toradol] Allergy Verified 05/07/18 22:24 latex Allergy Verified 05/07/18 22:24 Latex, Natural Rubber Allergy Verified 05/07/18 22:24 milk Allergy Verified 05/07/18 22:24 Penicillins Allergy Verified 05/07/18 22:24 pepper (genus Capsicum) Allergy Verified 05/07/18 22:24 Sulfa (Sulfonamide Allergy Verified 05/07/18 22:24 Antibiotics) sulfamethoxazole Allergy Verified 05/07/18 22:24 sumatriptan Allergy Verified 05/07/18 22:24 vancomycin Allergy Verified 05/07/18 22:24 walnut Allergy Verified 05/07/18 22:24 Vitals:: Vital Signs - 8 hr 06/22/18 06/22/18 06/22/18 03:20 05:01 05:19 Temp 102.5 F 101.1 F HR 115 114 110 RR 13 18 12 BP 89/61 100/49 100/64 O2 Sat % 97 100 97 ED Review of Systems - Review of Systems General/Constitutional: Fever Skin: Skin lesions Head: No headache Eyes: No pain ENT: No nasal drainage Neck: No neck pain Pulmonary: No SOB GI: No nausea, No vomiting, Pain Musculoskeletal: Bone or joint pain Neurological: No focal symptoms ED Past Medical History - Past Medical History Past Medical History: DM, CAD, CVA/TIA, Other (Chronic pain syndrome) Social History: Smoker, Alcohol, Illicit Drug Use Surgical History: other (right below the knee amputation, right hip surgery) Psychiatricy History: Depression, Bipolar Family Medical History - Family Member Mother History Unknown: Yes ED Physical Exam - Physical Examination General/Constitutional: Awake, Alert Head: Atraumatic Eyes: PERRL, EOMI ENMT: Nasal exam nl Neck: No nuchal rigidity Respiratory: Nl effort/Exclusion, No Wheeze/Rhonchi/Rales Cardio Vascular: RRR, No murmur, gallop, rubs, NL S1 S2 Other GI comments:: Diffuse tenderness, soft, no rebounding Other Extremities comments:: Right below the knee amputation, left heel stage 3 pressure ulcer Neuro/Psych: Alert/oriented ED Labs/Radiology/EKG Results - Lab Results Results: Laboratory Tests 06/22/18 03:55 WBC 21.0 H* D RBC 3.10 L Hgb 10.1 L Hct 29.6 L MCV 95.5 MCH 32.6 H MCHC Differential 34.1 RDW 13.0 Plt Count 259 MPV 7.4 Add Manual Diff YES Laboratory Last Values WBC 21.0 Th/cmm (4.8-10.8) H* D 06/22/18 03:55 RBC 3.10 Mil/cmm (4.30-5.70) L 06/22/18 03:55 Hgb 10.1 gm/dL (12-16) L 06/22/18 03:55 Hct 29.6 % (41.0-60) L 06/22/18 03:55 MCV 95.5 fl (80-99) 06/22/18 03:55 MCH 32.6 pg (26.0-30.0) H 06/22/18 03:55 MCHC Differential 34.1 pg (28.0-36.0) 06/22/18 03:55 RDW 13.0 % (11.5-20.0) 06/22/18 03:55 Plt Count 259 Th/cmm (150-400) 06/22/18 03:55 MPV 7.4 fl 06/22/18 03:55 Add Manual Diff YES 06/22/18 03:55 Band Neutrophils % 4 % (0-10) 06/22/18 03:55 Neutrophils (Manual) 83 % (40-80) H 06/22/18 03:55 Lymphocytes 10 % (20-50) L 06/22/18 03:55 Monocytes 3 % (2-10) 06/22/18 03:55 POC Glucose 231 MG/DL (70 - 105) H 06/22/18 06:39 Urine Source RANDOM 06/22/18 04:10 Urine Color STRAW 06/22/18 04:10 Urine Clarity CLEAR (CLEAR) 06/22/18 04:10 Urine pH 5.5 (4.6 - 8.0) 06/22/18 04:10 Ur Specific [place] 1.010 (1.005-1.030) 06/22/18 04:10 Urine Protein NEGATIVE mg/dL (NEGATIVE) 06/22/18 04:10 Urine Glucose (UA) >=1000 mg/dL (NEGATIVE) H 06/22/18 04:10 Urine Ketones NEGATIVE mg/dL (NEGATIVE) 06/22/18 04:10 Urine Blood NEGATIVE (NEGATIVE) 06/22/18 04:10 Urine Nitrate NEGATIVE (NEGATIVE) 06/22/18 04:10 Urine Bilirubin NEGATIVE (NEGATIVE) 06/22/18 04:10 Urine Urobilinogen 0.2 E.U./dL (0.2 - 1.0) 06/22/18 04:10 Ur Leukocyte Esterase NEGATIVE (NEGATIVE) 06/22/18 04:10 Urine RBC NONE SEEN /hpf (0-5) 06/22/18 04:10 Urine WBC 0-2 /hpf (0-5) 06/22/18 04:10 Ur Epithelial Cells NONE SEEN /lpf (FEW) 06/22/18 04:10 Urine Bacteria NONE SEEN /hpf (NONE SEEN) 06/22/18 04:10 - Radiology Results Results: CT abdomen/pelvis wo contrast: left renal calculi, mild asymmetric right proximal ureteral thickening. Small hiatal hernia. Fluid within the rectum and parts of the colon, correlate for diarrheal illness. - EKG Interpretations EKG Time:: 06:30 Rate & Rhythm: 103 bpm, sinus tachycardia Intervals: Borderline prolonged QT interval Comments:: Nonspecific ST, T wave changes. Abnormal EKG ED Assessment - Assessment General Assessment: Sepsis Leukocytosis Elevated Troponin Abdominal pain DM II Diabetic kidney disease Left heel pressure ulcer, stage 3 Right BKA Assessment/Comments:: CBC, CMP, lipase, amylase, UA CT abdomen/pelvis wo contrast NS 2L IV bolus Levoflaxacin 750mg IV ED Septic Shock - . Is Septic Shock (SBP<90, OR Lactate>4 mmol\L) present?: No - <6hrs of presentation: Vital Signs: Vital Signs - 8 hr 06/22/18 06/22/18 06/22/18 03:20 05:01 05:19 Temp 102.5 F 101.1 F HR 115 114 110 RR 13 18 12 BP 89/61 100/49 100/64 O2 Sat % 97 100 97 ED Reassessment (Disposition) - Reassessment Reassessment:: Dr. Oliver assumed care at 07:00 Reassessment Condition:: Improved
[2018-06-22 06:28] LABS: URINE CLARITY CLEAR (CLEAR); URINE COLOR STRAW
[2018-06-22 06:34] LABS: URINE EPITHELIAL CELLS NONE SEEN /lpf (FEW); URINE RBC NONE SEEN /hpf (0-5); URINE WBC 0-2 /hpf (0-5)
[2018-06-22 06:35] LABS: URINE BACTERIA NONE SEEN /hpf (NONE SEEN)
[2018-06-22 06:58] LABS: BAND NEUTROPHILE 4 % (0-10); LYMPHOCYTE 10 % (20-50); MONOCYTE 3 % (2-10); NEUTROPHILS 83 % (40-80)
[2018-06-22 07:18] LABS: INR 0.98 (0.5-1.4); PROTHROMBIN TIME (TEST) 10.2 SECONDS (9.5-11.5)
[2018-06-22 07:38] LABS: ALB/GLOB RATIO 1.4 (1.0-1.8); ALBUMIN 3.7 gm/dL (4.2-5.5); ALKALINE PHOSPHATASE 124 U/L (34-104); AMYLASE SERUM 16 U/L (29-103); BILIRUBIN,TOTAL 0.3 mg/dL (0.3-1.0); BUN - UREA NITROGEN 28 mg/dL (7-25); CALCIUM SERUM 9.1 mg/dL (8.6-10.3); CARBON DIOXIDE 26.1 mEq/L (21.0-31.0); CHLORIDE 97 mEq/L (98-107); CREATININE - SERUM 1.5 mg/dL (0.7-1.3); GFR AFRICAN-AMERICAN > 60.0 ml/min (>90); GFR NON AFRICAN-AMERICAN 53.5 ml/min; GLUCOSE 132 mg/dL (70-105); POTASSIUM SERUM 4.1 mEq/L (3.5-5.1); SGOT 47 U/L (13-39); SGPT/ALT 61 U/L (7-52); SODIUM SERUM 133 mEq/L (136-145); TOTAL PROTEIN,SERUM 6.3 gm/dL (6.0-8.3)
[2018-06-22 07:43] LABS: LIPASE < 3 U/L (11-82)
--- NOTE | 2018-06-22 09:09 | Diagnostic Imaging Report ---
CHEST X-RAY: AP view INDICATION: Shortness of breath COMPARISON: Chest x-ray 05/09/2018 FINDINGS: Faint increased bibasal densities are noted. Minimal mild Chronic changes are noted. There is probable minimal left-sided lateral pleural thickening. Heart size is normal. Degenerative changes spine are noted with scoliosis. IMPRESSION: Faint increased bibasal densities are noted which may be due to atelectasis or infiltrate. Clinical correlation and follow-up is needed.
[2018-06-22] MEDS ORDERED: Magnesium Hydroxide (MOM) 30 mL UDC PO PRN (09:18)
[2018-06-22] MEDS ORDERED: Aspirin 325 mg EC PO ONE (09:20)
[2018-06-22] MEDS ORDERED: Aspirin 81mg Chewable Tab ONE (09:29)
--- NOTE | 2018-06-22 09:38 | Diagnostic Imaging Report ---
CT abdomen and pelvis without intravenous contrast Indication: Abdominal pain Comparison: None, Technique: Axial images were obtained from the lung bases to the bilateral proximal femurs without IV contrast. Coronal reconstructions were made. total DLP: 450, [id number] FINDINGS: Hypoventilatory and atelectatic changes of the lungs are noted. Evaluation of the solid organs is limited due to lack of IV contrast. No evidence of focal hepatic lesions. No focal splenic lesions. Assessment of the pancreas is limited due to body habitus and gas distended bowel loops. Pancreatic gland atrophy is noted. No discrete focal lesions. No focal adrenal lesions. Small hiatal hernia is noted. Nonspecific bilateral perinephric inflammatory changes are noted. Inferior pole left renal calculi are noted measuring up to 5 mm. There is mild right hydronephrosis and right hydroureter with mild surrounding inflammatory changes. There is a distended urinary bladder. Note that punctate stones of the right distal ureter cannot be excluded. Urinary bladder wall thickening is noted. Multiple gas and fluid-filled loops of bowel are noted. The appendix is not well-visualized. Trace free fluid is seen within the pelvis. No free air. Postsurgical changes of right femur partially visualized. There 5 mm sclerotic density of the left iliac bone, probably a bone island. Osteopenia is noted. IMPRESSION: Mild right hydronephrosis and mild right perinephric and periureteral inflammatory changes. Note tiny stones at the right distal ureter cannot be excluded. There is also distended urinary bladder with mild urinary bladder wall thickening. There may be superimposed infectious/inflammatory process and possible pyelonephritis. Please correlate clinically Nonobstructive left renal calculi. Generalized gas and fluid-filled loops of bowel nonspecific and may be due to underlying inflammatory process. Trace free fluid in the pelvis. Small hiatal hernia Postsurgical changes of right femur.
[2018-06-22] MEDS: INSULIN ASPART SLIDING SCALE 100 UNITS/ML UNIT SUBQ SCH ×3 (12:15→21:02)
[2018-06-22 12:21] LABS: AMPHETAMINE URINE NEGATIVE (NEGATIVE); BARBITURATES URINE NEGATIVE (NEGATIVE); BENZODIAZEPINES QUAL URINE NEGATIVE (NEGATIVE); CANNABINOID THC POSITIVE (NEGATIVE); COCAINE METABOLITE QUAL URINE NEGATIVE (NEGATIVE); METHADONE URINE NEGATIVE (NEGATIVE); METHAMPHETAMINES QUAL URINE NEGATIVE (NEGATIVE); OPIATES (MORPHINE) QUAL. URINE POSITIVE (NEGATIVE); PHENCYCLIDINE (PCP) URINE NEGATIVE (NEGATIVE); TRICYCLICS (TCA) QUAL. URINE POSITIVE (NEGATIVE)
[2018-06-22] MEDS ORDERED: Non-Formulary Item 1 EA (Amino Acids/Protein Hydrolys [Pro-Stat Sugar Free Liquid] 30 ML) PO SCH (14:00)
[2018-06-22 14:40] VITALS: BP 119/86
[2018-06-22] MEDS: HYDROmorphone 2 mg/mL 1mL Vial IVP PRN ×3 (16:20→22:30)
[2018-06-22] MEDS: Levofloxacin 500mg/100mL 500 MG/100 ML BAG IV SCH (17:15)
[2018-06-22] MEDS: Magnesium Chloride EC 64mg Tab PO SCH (21:12)
[2018-06-22] MEDS: Atorvastatin Calcium 10 MG TAB PO SCH (21:13)
[2018-06-22] MEDS: Linezolid 600mg/300mL 600 MG/300 ML BAG IV SCH (21:14)
--- NOTE | 2018-06-22 22:07 | Consultation ---
DATE OF CONSULTATION: 06/22/2018 HISTORY OF PRESENT ILLNESS: The patient is a 48-year-old male with history of chronic pain syndrome, diabetes type 2, diabetic kidney disease, was brought in by ambulance from [facility] facility to the ER for evaluation of abdominal pain for 1 day. Time fever of 103.5, has a history of right BKA and thus stage 3 pressure ulcer at the left heel is painful and tender and says that the pain radiates to his calf area. PAST MEDICAL HISTORY: Diabetes, coronary artery disease, CVA, TIA, and chronic pain syndrome. SOCIAL HISTORY: Smoker, alcohol and illicit drug use. PAST SURGICAL HISTORY: Right [id number]-hbqd amputation, right hip surgery, depression, and bipolar disease. ALLERGIES: 1. ACETAMINOPHEN. 2. ADHESIVE, 3. CEPHALEXIN. 4. EGG. 5. KETOROLAC. 6. LATEX. His BMI is 18, he is 53 kilograms. PHYSICAL EXAMINATION: VITAL SIGNS: He is afebrile. Vital signs otherwise stable. Last blood pressure 93/57, heart rate of 69. HEENT AND NECK: Within normal limits. GENERAL: He is awake, follows commands, in no acute distress. HEENT: He has no JVD, neck mass, lymphadenopathy or carotid bruits. CHEST: Clear to auscultation bilaterally. CARDIOVASCULAR: Regular rate. ABDOMEN: Soft, nontender, nondistended. EXTREMITIES: He has a right atuia-jwg-ljjd amputation stump, which is well healed. His left leg is warm. He has about a 3 x 3 cm area of denuded skin, a stage 3 decubitus ulcer with some cellulitis around the site. There is some yellow slough and ischemic areas, some fluctuance of the wound, but no drainage when expressed. There is 1 cm rim of cellulitis around this site that is unstageable at this time. He does have palpable pedal pulse 1+, dorsalis pedis pulse. LABORATORY DATA: Show white blood cell count 21, H and H is 10 and 29.6, platelet count 259. He has 4 bands which is normal at 83, left shift, neutrophils. PT, INR, PTT normal. Sodium is 133, chloride is 97, BUN and creatinine 28 and 1.5, glucose 132. His AST, ALT, alkaline phosphatase have been elevated, troponin levels are high 0.08. BNP is 366. Positive opiates. Positive tricyclics and positive cannabinoids, marijuana. MEDICATIONS: He is on Tylenol, Lipitor, Dulcolax, Soma, Klonopin, gabapentin, hydromorphone for pain, insulin, Keppra, Levaquin, linezolid, Protonix, and Flomax. Aspirin has been stopped. IMAGING: CT abdomen and pelvis done on admission 06/22/2018 shows mild right hydronephrosis and mild right perinephric and periureteral inflammatory changes. No tiny stones at the right distal ureter cannot be excluded, distended urinary bladder with mild urinary bladder wall thickening, there may be superimposed infectious inflammatory process and possible pyelonephritis, nonobstructive left renal calculi, generalized gas and fluid filled loops of bowel, nonspecific and may be due to underlying inflammatory process. Trace free fluid in the pelvis, small hiatal hernia, post-surgical changes of right femur. The chest x-ray shows faint increased bibasilar densities are noted, which may be due to atelectasis or infiltrate. Clinical correlation followups as needed. IMPRESSION AND PLAN: The patient with abdominal pain, initially his abdominal pain has resolved. CT abdomen and pelvis revealed no obvious GI inflammatory process, but he may have some urologic findings as described above. He has a significant leukocytosis, but is afebrile at this time. Concerned that the left heel decubiti wound with cellulitis may be a source of the patient's sepsis. I have offered a surgical debridement of this wound as is unstageable at this time as there is yellow slough and ischemic changes. The patient may have a component of osteomyelitis here as well. The patient agrees to the procedure. Also, of consideration is the patient has urologic findings with hydronephrosis and some thickening of the bladder. It may have urinary tract infection findings as well too. The patient is on IV antibiotics, continue this. Plan for debridement tomorrow late afternoon night. JOB# [id number]
--- NOTE | 2018-06-23 01:09 | History & Physical ---
ADMIT DATE: 06/22/2018 CHIEF COMPLAINT: Right-sided abdominal and flank pain. HISTORY OF PRESENT ILLNESS: The patient is a 48-year-old male admitted from Emergency Room to telemetry floor of [facility] due to multiple complex medical conditions. The patient was complaining of right-sided abdominal and right flank pain in the [facility]. He also had some fever and diarrhea. In the Emergency Room, the patient's white count is elevated significantly to 21,000. An abdominal and pelvic CT scan revealed mild right hydronephrosis and mild right perinephric and periureteral inflammatory changes. There is also distended urinary bladder. Urology consultation requested and appreciated. A chest x-ray revealed probable bilateral basal infiltrate versus atelectasis. Dhillon culture was ordered and empiric antibiotics started. Infectious disease consultation also requested and appreciated. The patient complained of severe pain. Of mention, the patient does have chronic pain syndrome, but now it appears the pain is worse than his baseline. PAST MEDICAL HISTORY: Out of control diabetes, diabetic nephropathy, anemia, urinary tract infection, sepsis, COPD, pneumonia, status post CVA, coronary heart disease. PAST SURGICAL HISTORY: Status post recent right BKA. MEDICATIONS: See medication reconciliation list. ALLERGIES: MULTIPLE; HOWEVER, THE PATIENT DID TAKE SOME OF THE MEDICATION WITHOUT ANY SIDE EFFECT. FAMILY HISTORY: Noncontributory. SOCIAL HISTORY: The patient is not or , longer without any children, and the only family is a sister with some contact sometimes. The patient smoked before, still smoking occasionally. Denies alcohol or IV drug abuse. REVIEW OF SYSTEMS: As per HPI. PHYSICAL EXAMINATION GENERAL: Well-developed, cachectic male, in no acute distress. SKIN: There is left heel diabetic wound. HEENT: Normocephalic, atraumatic. Pupils equal, round, reactive to light and accommodation. CHEST: Symmetrical. LUNGS: Few rhonchi appreciated. CARDIAC: Normal sinus rhythm. S1, S2. ABDOMEN: Benign, soft, nontender. EXTREMITIES: No clubbing, cyanosis, status post right BKA. NEUROLOGICAL: Unremarkable. LABORATORY DATA: Reviewed as mentioned above. ASSESSMENT AND PLAN: 1. Early sepsis: Dhillon culture ordered. Empiric antibiotics started, which will be adjusted accordingly. 2. Possible early pneumonia: IV antibiotics started, which will be adjusted accordingly. 3. Marked leukocytosis, multifactorial. Dhillon culture pending. 4. Possible pyelonephritis, ureteral stone: Urology consultation requested and appreciated. 5. Left heel diabetic wound: Continue wound care. 6. Out of control diabetes: This has been very difficult to control, which is partially due to patient noncompliance with diet. The patient will not eat 1800 ADA cardiac and renal diet as he is supposed to. He will only eat regular diet. 7. Status post cerebrovascular accident. 8. Status post recent right BKA. JOB# [id number]
[2018-06-23] MEDS: HYDROmorphone 2 mg/mL 1mL Vial IVP PRN ×8 (01:35→22:39)
--- NOTE | 2018-06-23 02:57 | Consultation ---
DATE OF CONSULTATION: 06/22/2018 INFECTIOUS DISEASE CONSULTATION REFERRING PHYSICIAN: Joey Lira MD (Nancy). REASON FOR CONSULTATION: Left heel foot ulcer, infected. Sepsis. HISTORY OF PRESENT ILLNESS: The patient is a 48-year-old male with a past medical history of diabetes mellitus type 2, COPD, pneumonia, coronary artery disease, myocardial infarction x 4, status post CVA x 5, status post right BKA and left heel diabetic wound, which was debrided in 02/2018, by Dr. Li, noncompliance, anemia, urinary tract infection, mild psychosis, brought into the ER for fever and chills, it was associated with cough and increase in WBC count. The patient was found to have on initial evaluation, the patient's temperature was 102.5 degree Fahrenheit and WBC count was 21,000. Levofloxacin IV was given in the ER and the patient was admitted for further evaluation and management. ID consult was called for antibiotic management. PAST MEDICAL HISTORY: Includes as mentioned above, diabetes mellitus type 2, uncontrolled, COPD, pneumonia, coronary artery disease, post-myocardial infarction x 4, status post CVA x 5, status post right BKA and left heel diabetic wound debrided in 02/2018 Dr. Li, noncompliance, anemia, UTI and mild psychosis. PAST SURGICAL HISTORY: Includes right BKA and debridement of the left heel diabetic ulcer. MEDICATIONS: As per medication reconciliation sheet. Antibiotic mcbride, the patient received Levaquin only. ALLERGIES: THE PATIENT IS ALLERGIC TO MULTIPLE MEDICATIONS include VANCOMYCIN, WALNUT, SUMATRIPTAN, SULFA, PAPER, PENICILLIN, MILK, LATEX, CEPHALEXIN AND ACETAMINOPHEN. MEDICATIONS: Per medication reconciliation sheet. SOCIAL HISTORY: The patient has history of smoking, alcohol, and drug use. PAST SURGICAL HISTORY: Includes right below knee amputation, right hip surgery and the left heel wound debridement. PSYCHIATRIC HISTORY: Bipolar and depression. REVIEW OF SYSTEMS: GENERAL: The patient has fever, chills and generalized weakness. HEENT: No diplopia, no photophobia, no sore throat. RESPIRATORY: No cough, no shortness of breath. CARDIOVASCULAR: No chest pain. GASTROINTESTINAL: No nausea, no vomiting, no diarrhea, and no constipation. GENITOURINARY: No dysuria. NEUROLOGIC: No headache, no dizziness, no focal weakness. The patient is slow to respond. MUSCULOSKELETAL: The patient had right BKA and left heel ulcer with erythema and pain. PHYSICAL EXAMINATION: VITAL SIGNS: Shows temperature is 98.6 degrees Fahrenheit, pulse 82, respiration 18, blood pressure 93/57. GENERAL: The patient is comfortable, lying in the bed, not in acute distress. HEENT: Head is normocephalic, atraumatic. Oral cavity moist, pink tongue. Eyes: Pallor is present, no icterus. PERRLA, EOMI. NECK: Supple, no JVD, no bruit. Trachea midline. CHEST: Bilateral breath sounds. No crackles or wheezing. HEART: S1, S2 within normal limits. Regular rhythm. No murmur, no gallop. ABDOMEN: Soft, nontender, nondistended. Bowel sounds present. EXTREMITIES: No cyanosis, no clubbing, no edema. The patient has right BKA and left heel has stage IV ulcer with maceration of the wound and surrounding tissues. There is significant erythema and tenderness surrounding the large ulcer. The redness has extended to the left lower leg posteriorly and hindfoot. LABORATORY DATA: Current lab shows WBC count 21,000, hemoglobin 10.1, hematocrit 29.6, platelets are 259,000. Neutrophil 83%. Sodium is 133, potassium 4.1, chloride 97, bicarbonate is 26, BUN is 28, creatinine 1.5, and glucose is 132. Troponin 0.09 and 0.08, AST ____, ALT is 61, alkaline phosphatase is 124. Urinalysis is negative, negative leukoesterase. Drug screen is positive for opiates, tricyclics and cannabinoids. CT scan of the abdomen and pelvis has revealed right-sided hydronephrosis with a possible mild right hydronephrosis and mild right-sided perinephric and periureteral inflammatory changes, tiny stones at the right distal ureter cannot be excluded. There is also distended urinary bladder with mild urinary bladder wall thickening. Superimposed infection, inflammatory process and possible pyelonephritis. Generalized gas and fluid filled bowel, nonspecific. There is free fluid in the pelvis. RADIOLOGY DATA: Chest x-ray shows questionable atelectasis versus infiltrate in the bases. IMPRESSION: 1. Sepsis. 2. Left heel diabetic wound with a left heel cellulitis. 3. Possible pneumonia. 4. Right-sided pyelonephritis complicated by right-sided hydronephrosis and possible obstructing stone. 5. Diabetes mellitus type 2. 6. Noncompliance. 7. Coronary artery disease with [place] 4 times. 8. History of CVA x 5. 9. Right BKA. 10. Anemia. 11. Psychosis, 12. Depression. 13. Bipolar disorder. RECOMMENDATION AND PLAN: We will start the patient on Zyvox and Levaquin. Surgical consultation with Dr. Mckenzie was called for the debridement. Check 3-phase bone scan, ESR, CRP and wound culture, follow the blood cultures and also consider calling Urology consultation for right-sided hydronephrosis, hydroureter and pyelonephritis. Thank you, Dr. Lira, for involving me in taking care of this patient. JOB# [id number] DANIEL
[2018-06-23] MEDS: INSULIN ASPART SLIDING SCALE 100 UNITS/ML UNIT SUBQ SCH ×4 (06:59→21:04)
[2018-06-23 07:28] LABS: % BASOPHILS 1.3 % (0.0-2.0); % EOSINOPHILS 1.4 % (0.0-5.0); % LYMPHOCYTES 11.1 % (20.0-50.0); % MONOCYTES 4.6 % (2.0-10.0); % NEUTROPHILS 81.6 % (40.0-80.0); BASOPHILE ABSOLUTE 0.2 Th/cumm (0-0.2); EOSINOPHILE ABSOLUTE 0.2 Th/cmm (0.1-0.4); HEMATOCRIT 26.2 % (41.0-60); HEMOGLOBIN 8.6 gm/dL (12-16); LYMPHOCYTE ABSOLUTE 1.4 Th/cmm (1.5-3.0); MEAN CELL VOLUME 96.9 fl (80-99); MEAN CORPUSCULAR HEMOGLOBIN 31.7 pg (26.0-30.0); MEAN CORPUSCULAR HGB CONC 32.8 pg (28.0-36.0); MONOCYTE ABSOLUTE 0.6 Th/cmm (0.3-1.0); NEUTROPHILE ABSOLUTE 10.1 Th/cmm (1.8-8.0); PLATELET COUNT 255 Th/cmm (150-400); RED CELL DISTRIBUTION WIDTH 13.4 % (11.5-20.0); WHITE BLOOD COUNT 12.5 Th/cmm (4.8-10.8)
[2018-06-23 08:19] LABS: ALB/GLOB RATIO 1.4 (1.0-1.8); ALBUMIN 3.1 gm/dL (4.2-5.5); ALKALINE PHOSPHATASE 125 U/L (34-104); ANION GAP 12.5 (7.0-16.0); BILIRUBIN,TOTAL 0.3 mg/dL (0.3-1.0); BUN - UREA NITROGEN 23 mg/dL (7-25); CALCIUM SERUM 8.5 mg/dL (8.6-10.3); CARBON DIOXIDE 23.9 mEq/L (21.0-31.0); CHLORIDE 97 mEq/L (98-107); CREATININE - SERUM 1.2 mg/dL (0.7-1.3); GFR AFRICAN-AMERICAN > 60.0 ml/min (>90); GFR NON AFRICAN-AMERICAN > 60.0 ml/min; GLUCOSE 388 mg/dL (70-105); POTASSIUM SERUM 4.4 mEq/L (3.5-5.1); SGOT 37 U/L (13-39); SGPT/ALT 45 U/L (7-52); SODIUM SERUM 129 mEq/L (136-145); TOTAL PROTEIN,SERUM 5.3 gm/dL (6.0-8.3)
[2018-06-23] MEDS ORDERED: FENTANYL TD SCH (09:00)
[2018-06-23] MEDS: Lactobacillus Rhamnosus GG 15 Billion CFU CAP.SPRINK PO SCH (09:07)
[2018-06-23] MEDS: Linezolid 600mg/300mL 600 MG/300 ML BAG IV SCH ×2 (09:08→21:14)
[2018-06-23] MEDS: Pantoprazole 40 mg EC Tab PO SCH (09:09)
[2018-06-23] MEDS: Multivitamin Tab PO SCH (09:10)
[2018-06-23] MEDS ORDERED: fentaNYL 25 mcg/hr Tdm Patch TD SCH (10:00)
[2018-06-23] MEDS: Venelex 60gm Tube TP SCH (10:44)
[2018-06-23] MEDS: Lidocaine 5% Patch TD SCH (12:04)
--- NOTE | 2018-06-23 12:55 | Infectious Disease Prog Note ---
Infectious Disease Subjective - Review of Systems Service Date: 06/23/18 Subjective: There is no new change, no fever. Infectious Disease Objective - Results Result Diagrams: 06/23/18 06:42 06/23/18 06:42 Recent Labs: Laboratory Last Values WBC 12.5 Th/cmm (4.8-10.8) H 06/23/18 06:42 RBC 2.70 Mil/cmm (4.30-5.70) L 06/23/18 06:42 Hgb 8.6 gm/dL (12-16) L 06/23/18 06:42 Hct 26.2 % (41.0-60) L 06/23/18 06:42 MCV 96.9 fl (80-99) 06/23/18 06:42 MCH 31.7 pg (26.0-30.0) H 06/23/18 06:42 MCHC Differential 32.8 pg (28.0-36.0) 06/23/18 06:42 RDW 13.4 % (11.5-20.0) 06/23/18 06:42 Plt Count 255 Th/cmm (150-400) 06/23/18 06:42 MPV 8.0 fl 06/23/18 06:42 Add Manual Diff YES 06/22/18 03:55 Neutrophils % 81.6 % (40.0-80.0) H 06/23/18 06:42 Band Neutrophils % 4 % (0-10) 06/22/18 03:55 Lymphocytes % 11.1 % (20.0-50.0) L 06/23/18 06:42 Monocytes % 4.6 % (2.0-10.0) 06/23/18 06:42 Eosinophils % 1.4 % (0.0-5.0) 06/23/18 06:42 Basophils % 1.3 % (0.0-2.0) 06/23/18 06:42 Neutrophils (Manual) 83 % (40-80) H 06/22/18 03:55 Lymphocytes 10 % (20-50) L 06/22/18 03:55 Monocytes 3 % (2-10) 06/22/18 03:55 ESR 60 mm/hr (0-20) H 06/23/18 06:42 PT 10.2 SECONDS (9.5-11.5) 06/22/18 03:55 INR 0.98 (0.5-1.4) 06/22/18 03:55 PTT (Actin FS) 27.7 SECONDS (26.0-38.0) 06/22/18 03:55 Sodium 129 mEq/L (136-145) L 06/23/18 06:42 Potassium 4.4 mEq/L (3.5-5.1) 06/23/18 06:42 Chloride 97 mEq/L (98-107) L 06/23/18 06:42 Carbon Dioxide 23.9 mEq/L (21.0-31.0) 06/23/18 06:42 Anion Gap 12.5 (7.0-16.0) 06/23/18 06:42 BUN 23 mg/dL (7-25) 06/23/18 06:42 Creatinine 1.2 mg/dL (0.7-1.3) 06/23/18 06:42 Est GFR ( Amer) > 60.0 ml/min (>90) 06/23/18 06:42 Est GFR (Non-Af Amer) > 60.0 ml/min 06/23/18 06:42 BUN/Creatinine Ratio 19.2 06/23/18 06:42 Glucose 388 mg/dL (70-105) H 06/23/18 06:42 POC Glucose 311 MG/DL (70 - 105) H 06/23/18 11:59 Whole Bld Lactic Acid 0.59 mmol/L (0.60-1.99) L 06/22/18 17:03 Calcium 8.5 mg/dL (8.6-10.3) L 06/23/18 06:42 Total Bilirubin 0.3 mg/dL (0.3-1.0) 06/23/18 06:42 AST 37 U/L (13-39) 06/23/18 06:42 ALT 45 U/L (7-52) 06/23/18 06:42 Alkaline Phosphatase 125 U/L (34-104) H 06/23/18 06:42 Troponin I 0.07 ng/mL (0.01-0.05) H* D 06/22/18 09:37 C-Reactive Protein 7.3 mg/dL (0.0-0.9) H 06/23/18 06:42 B-Natriuretic Peptide 366.0 pg/mL (5.0-100.0) H 06/22/18 03:55 Total Protein 5.3 gm/dL (6.0-8.3) L 06/23/18 06:42 Albumin 3.1 gm/dL (4.2-5.5) L 06/23/18 06:42 Globulin 2.2 gm/dL 06/23/18 06:42 Albumin/Globulin Ratio 1.4 (1.0-1.8) 06/23/18 06:42 Amylase 16 U/L (29-103) L 06/22/18 03:55 Lipase < 3 U/L (11-82) L 06/22/18 03:55 Urine Source RANDOM 06/22/18 04:10 Urine Color STRAW 06/22/18 04:10 Urine Clarity CLEAR (CLEAR) 06/22/18 04:10 Urine pH 5.5 (4.6 - 8.0) 06/22/18 04:10 Ur Specific [place] 1.010 (1.005-1.030) 06/22/18 04:10 Urine Protein NEGATIVE mg/dL (NEGATIVE) 06/22/18 04:10 Urine Glucose (UA) >=1000 mg/dL (NEGATIVE) H 06/22/18 04:10 Urine Ketones NEGATIVE mg/dL (NEGATIVE) 06/22/18 04:10 Urine Blood NEGATIVE (NEGATIVE) 06/22/18 04:10 Urine Nitrate NEGATIVE (NEGATIVE) 06/22/18 04:10 Urine Bilirubin NEGATIVE (NEGATIVE) 06/22/18 04:10 Urine Urobilinogen 0.2 E.U./dL (0.2 - 1.0) 06/22/18 04:10 Ur Leukocyte Esterase NEGATIVE (NEGATIVE) 06/22/18 04:10 Urine RBC NONE SEEN /hpf (0-5) 06/22/18 04:10 Urine WBC 0-2 /hpf (0-5) 06/22/18 04:10 Ur Epithelial Cells NONE SEEN /lpf (FEW) 06/22/18 04:10 Urine Bacteria NONE SEEN /hpf (NONE SEEN) 06/22/18 04:10 Urine Opiates Screen POSITIVE (NEGATIVE) H 06/22/18 04:40 Urine Methadone Screen NEGATIVE (NEGATIVE) 06/22/18 04:40 Ur Barbiturates Screen NEGATIVE (NEGATIVE) 06/22/18 04:40 Ur Tricyclics Screen POSITIVE (NEGATIVE) H 06/22/18 04:40 Ur Phencyclidine Scrn NEGATIVE (NEGATIVE) 06/22/18 04:40 Amphetamines Screen NEGATIVE (NEGATIVE) 06/22/18 04:40 U Methamphetamines Scrn NEGATIVE (NEGATIVE) 06/22/18 04:40 U Benzodiazepines Scrn NEGATIVE (NEGATIVE) 06/22/18 04:40 U Cocaine Metab Screen NEGATIVE (NEGATIVE) 06/22/18 04:40 U Cannabinoids Screen POSITIVE (NEGATIVE) H 06/22/18 04:40 - Physical Exam Vitals and I&O: Vital Signs Temp 98.7 F 06/23/18 12:03 Pulse 77 06/23/18 12:03 Resp 18 06/23/18 12:03 BP 133/79 06/23/18 12:03 Pulse Ox 100 06/23/18 12:03 Intake & Output 06/22/18 06/23/18 06/23/18 18:59 06:59 18:59 Intake Total 900 200 Output Total 450 Balance 450 200 Weight (lbs) 53.977 kg 56.387 kg 56.472 kg Intake: Intake, IV Amount 300 Linezolid 600mg/300mL 600 300 mg In 300 ml @ 300 mls/ hr IV Q12HR [facility] Rx#: [id number] Oral 600 200 Output: Urine 450 Other: # Bowel Movements 0 Stool Characteristics Soft Soft Soft Weight Source Bedscale Bedscale Bedscale Active Medications: Current Medications Acetaminophen (Tylenol) 650 mg PO Q6H PRN PRN Reason: Pain or Fever >101F Stop: 08/21/18 09:15 Atorvastatin Calcium (Lipitor) 20 mg PO HS [facility] Stop: 08/21/18 20:59 Last Admin: 06/22/18 21:13 Dose: 20 mg Bisacodyl (Dulcolax 10 Mg Supp) 10 mg RC DAILY PRN PRN Reason: Constipation Stop: 08/21/18 09:15 Carisoprodol (Soma) 350 mg PO Q8H PRN PRN Reason: Pain(Moderate)-muscle relaxant Stop: 08/21/18 09:15 [place] Oil/[place]estinian Balsam/Trypsin (Venelex) 1 appl TP DAILY [facility] Stop: 08/22/18 08:59 Last Admin: 06/23/18 10:44 Dose: Not Given Clonazepam (Klonopin) 0.5 mg PO Q8H PRN; Protocol PRN Reason: Anxiety Stop: 08/21/18 09:15 Docusate Sodium (Colace) 100 mg PO DAILY [facility] Stop: 08/22/18 08:59 Last Admin: 06/23/18 09:06 Dose: Not Given Fentanyl (Duragesic 25 Mcg/Hr Tdm Patch) 1 patch TD Q72H [facility] Stop: 08/22/18 09:59 Last Admin: 06/23/18 10:17 Dose: 1 patch Folic Acid (Folate) 1 mg PO DAILY [facility] Stop: 08/22/18 08:59 Last Admin: 06/23/18 09:06 Dose: Not Given Gabapentin (Neurontin) 600 mg PO TID [facility] Stop: 08/21/18 13:59 Last Admin: 06/23/18 09:05 Dose: 600 mg Hydromorphone HCl (Dilaudid) 2 mg IVP Q3H PRN PRN Reason: Severe Pain Stop: 08/21/18 15:59 Last Admin: 06/23/18 10:42 Dose: 2 mg Linezolid (Zyvox) 600 mg in 300 mls @ 300 mls/hr IV Q12HR [facility] Stop: 08/21/18 20:59 Last Admin: 06/23/18 09:08 Dose: 300 mls/hr Levofloxacin (Levaquin Pb) 500 mg in 100 mls @ 100 mls/hr IV Q24HR [facility] Stop: 08/21/18 16:59 Last Admin: 06/22/18 17:15 Dose: 100 mls/hr Insulin Aspart (Novolog Insulin Sliding Scale) 0 units SUBQ ACHS [facility]; Protocol Stop: 08/21/18 11:29 Last Admin: 06/23/18 12:05 Dose: 7 units Lactobacillus Rhamnosus (Culturelle 15b) 1 each PO DAILY [facility] Stop: 08/22/18 08:59 Last Admin: 06/23/18 09:07 Dose: Not Given Levetiracetam (Keppra) 500 mg PO Q12H [facility] Stop: 08/21/18 09:29 Last Admin: 06/23/18 09:09 Dose: Not Given Lidocaine (Lidoderm 5% Patch) 1 patch TD DAILY [facility] Stop: 08/22/18 08:59 Last Admin: 06/23/18 12:04 Dose: 1 patch Lisinopril (Zestril) 2.5 mg PO DAILY [facility] Stop: 08/22/18 08:59 Last Admin: 06/23/18 09:09 Dose: Not Given Loperamide HCl (Imodium) 2 mg PO DAILY PRN PRN Reason: Diarrhea Stop: 08/21/18 09:15 Magnesium Chloride (Slow-Mag) 64 ect PO HS [facility] Stop: 08/21/18 20:59 Last Admin: 06/22/18 21:12 Dose: 64 ect Magnesium Hydroxide (Milk Of Magnesia) 30 ml PO DAILY PRN PRN Reason: Constipation Stop: 08/21/18 09:17 Multivitamins/Vitamin C (Theragran) 1 tab PO DAILY [facility] Stop: 08/22/18 08:59 Last Admin: 06/23/18 09:10 Dose: Not Given Nitroglycerin (Nitrostat) 0.4 mg SL Q5MIN PRN PRN Reason: Chest Pain Stop: 08/21/18 09:17 Oxcarbazepine (Trileptal) 300 mg PO BID [facility]; Protocol Stop: 08/21/18 16:59 Last Admin: 06/23/18 09:06 Dose: 300 mg Pantoprazole Sodium (Protonix) 40 mg PO DAILY [facility] Stop: 08/22/18 08:59 Last Admin: 06/23/18 09:09 Dose: 40 mg Quetiapine Fumarate (Seroquel) 100 mg PO HS [facility]; Protocol Stop: 08/21/18 20:59 Last Admin: 06/22/18 23:15 Dose: 100 mg Tamsulosin HCl (Flomax) 0.4 mg PO HS [facility] Stop: 08/21/18 20:59 Last Admin: 06/22/18 21:11 Dose: 0.4 mg Trazodone HCl (Desyrel) 100 mg PO HS PRN; Protocol PRN Reason: Insomnia Stop: 08/22/18 20:59 General: no acute distress, well developed, well nourished HEENT: atraumatic, normocephalic, PERRLA, EOMI Neck: supple, no thyromegaly Cardiovascular: S1S2, regular Lungs: clear to auscultation bilaterally, clear to percussion Abdomen: soft, no tender, no distended Extremities: other (right BKA, Left heel wound ), no cyanosis, no clubbing, no edema Neurological: awake, alert, oriented Skin: intact - Procedures Procedures: Procedures Procedure Code Date EXCISION OF L FOOT SUBCU/FASCIA, OPEN APPROACH [id number] 02/02/18 Infectious Disease Assmt/Plan - Assessment Assessment: 1. Sepsis. 2. Left heel diabetic wound with a left heel cellulitis. 3. Possible pneumonia. 4. Right-sided pyelonephritis complicated by right-sided hydronephrosis and possible obstructing stone. 5. Diabetes mellitus type 2. 6. Noncompliance. 7. Coronary artery disease with [place] 4 times. 8. History of CVA x 5. 9. Right BKA. 10. Anemia. 11. Psychosis, 12. Depression. 13. Bipolar disorder. - Plan Plan: Continue same treatment. Antibiotics: Zyvox and levaquin. Wound care. Urology consultation, may be considered.
--- NOTE | 2018-06-23 14:18 | Diagnostic Imaging Report ---
Radionuclide 3 phase bone scan left foot HISTORY: Osteomyelitis 25.4 mCi technetium MDP using the exam. Initial perfusion and subsequent blood pool and delayed images obtained. Initial perfusion images are unremarkable with no abnormal foci or regions of increased activity. Blood pool images are also unremarkable. On delayed images, focal increased activity involves the posterior aspect of the calcaneus. In the absence of any significant abnormal plain radiographic findings or abnormal changes on the earlier perfusion and blood pool images, the finding is of questionable significance. If needed, an MRI exam may provide additional assessment and evaluation. IMPRESSION: 1. Increased activity involving the posterior aspect of the calcaneus in the lateral projection. In the absence of abnormal plain radiographic findings and absence of abnormal changes on earlier perfusion/flow images and blood pool images, the finding is of questionable significance. If needed, an MRI examination would provide additional characterization and assessment. No other focal abnormalities.
[2018-06-23] MEDS: Levofloxacin 500mg/100mL 500 MG/100 ML BAG IV SCH (16:49)
[2018-06-23] MEDS: Magnesium Chloride EC 64mg Tab PO SCH (20:50)
[2018-06-23] MEDS: Atorvastatin Calcium 10 MG TAB PO SCH (20:50)
--- NOTE | 2018-06-23 22:41 | Consultation ---
DATE OF CONSULTATION: NEUROLOGY CONSULTATION REASON FOR CONSULTATION: Seen for stone disease as well as mild hydronephrosis. HISTORY OF PRESENT ILLNESS: This is a 48-year-old gentleman with multiple medical problems and was a resident of a long-term care facility. He gives me a history of having had kidney stones for many, many years and codes a number of 47 stones so far. He then said that he had 2 or 3 lithotripsy procedures, during one of them 37 stones were removed. He is not able to describe these in more details and claims these were done up in [facility]. At this time, he came in for fever, diarrhea, abdominal pain, and worsening of his irritable bowel syndrome. He additionally claims that he does have the pain from the stone and that he recognizes it from past experiences although he is not able to differentiate the quality of pain from the irritable bowel versus stone. He has been using a significant amount of pain medication since admission and he is asking for lithotripsy to treat the present stones, even though they seem to be very small and not very impressive on the x-rays. MEDICAL HISTORY: Significant for, 1. Stone disease of many years duration. 2. 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 3. History of stroke more than once. 4. History of COPD with pneumonia. 5. History of coronary artery disease. 6. History of urinary tract infection and need for intermittent Snyder catheterization or in and out catheterization. SURGICAL HISTORY: Right below-knee amputation. HOME MEDICATIONS: Fentanyl patch, Tylenol, aspirin, Lipitor, Dulcolax, carisoprodol, Klonopin, folic acid, stool softeners, gabapentin, hydromorphone or Dilaudid, insulin, lactobacillus, Keppra, lisinopril, Imodium, magnesium supplement, vitamins, Trileptal, Protonix, Seroquel, and Flomax. ALLERGIES: TYLENOL, KEFLEX, EGG, TORADOL, LATEX AND SEVERAL OTHERS. REVIEW OF SYSTEMS: He did have diarrhea and abdominal pain on admission. No chest pain. Apparently he had some coughing. No shortness of breath or sore throat. Denied headache or seizures. He reported fever to 103 and also reported chronic ulcer in the left heel. PHYSICAL EXAMINATION: GENERAL: On exam, he is awake and alert, seems to be addicted to pain medication. VITAL SIGNS: Temperature 98.4, heart rate 87, blood pressure 125/69. HEAD AND NECK: Normocephalic. Trachea central. Pupils equal and reactive. No jaundice. Thyroid and lymph nodes not palpable. Carotid bruit absent. CHEST: Symmetrical. LUNGS: Clear. No rales or rhonchi. HEART: Sounds normal in sinus rhythm, no murmur. ABDOMEN: Soft, nonspecific tenderness, generalized not conclusive or impressive. No guarding or rigidity. EXTREMITIES: Right below-knee amputation and left heel ulcer. NEUROLOGIC: Generalized left-sided weakness. LABORATORY DATA: White count 21 on admission and today 12.5, hemoglobin 8.6, platelets adequate. PT, PTT are normal. Sodium 129, chloride 97, BUN 23, creatinine 1.2, glucose is very high at 322, 311, 388 and 345. Liver functions unremarkable. Urinalysis completely normal except glucose and urine toxicology positive for opiates, tricyclics and cannabis. Blood cultures negative. Urine culture, no growth as well and a CT of the abdomen and pelvis shows mild right hydronephrosis and perinephric stranding and tiny stones at the right distal ureter, but not definitively. Bladder is distended with wall thickening. He has also nonobstructive left renal calculi, number and size is not described, but the biggest one is 5 mm. IMPRESSION: 1. Possible right lower ureteral stones with mild hydronephrosis. Recommend review of CT with the radiologist to determine the size and number of stones in the ureter, meanwhile attempt hydration and expulsive therapy. May require an ureteroscopy or stent placement if we can document presence of the stones definitively. 2. Brittle diabetes. 3. Left heel ulcer, scheduled for debridement tomorrow. 4. Chronic pain syndrome and opioid and other pain medication addiction. 5. History of stroke and possibly neurogenic bladder leading to frequent urinary tract infections and possibly need for adequate bladder drainage. 6. History of irritable bowel syndrome. JOB# [id number]
[2018-06-24] MEDS: HYDROmorphone 2 mg/mL 1mL Vial IVP PRN ×8 (01:38→23:06)
[2018-06-24] MEDS: INSULIN ASPART SLIDING SCALE 100 UNITS/ML UNIT SUBQ SCH ×4 (06:29→21:30)
--- NOTE | 2018-06-24 08:54 | Diagnostic Imaging Report ---
Left foot (3 views) HISTORY: Swelling, correlation with radionuclide bone scan Generalized osteopenia. No acute abnormalities. No fractures. No plain radiographic evidence of osteomyelitis. Joint spaces appear maintained. Vascular calcification noted. IMPRESSION: 1. No acute abnormalities
[2018-06-24] MEDS: Linezolid 600mg/300mL 600 MG/300 ML BAG IV SCH ×2 (09:16→20:38)
[2018-06-24] MEDS: Lidocaine 5% Patch TD SCH (09:17)
[2018-06-24 09:23] LABS: INR 0.88 (0.5-1.4); PROTHROMBIN TIME (TEST) 9.3 SECONDS (9.5-11.5)
[2018-06-24] MEDS: Venelex 60gm Tube TP SCH (10:36)
[2018-06-24] MEDS ORDERED: fentaNYL Citrate 100 mcg/2mL Vial ONE (10:43)
[2018-06-24] MEDS ORDERED: Propofol **SURGERY USE ONLY** 20 ML IV ONE (10:44)
[2018-06-24] MEDS: Lactobacillus Rhamnosus GG 15 Billion CFU CAP.SPRINK PO SCH (12:07)
[2018-06-24] MEDS: Multivitamin Tab PO SCH (12:07)
[2018-06-24] MEDS: Pantoprazole 40 mg EC Tab PO SCH (12:07)
--- NOTE | 2018-06-24 16:30 | Operative Report ---
DATE OF SURGERY: 06/24/2018 ENDING TIME: 11:30 a.m. PREOPERATIVE DIAGNOSIS: Left heel gangrene infected decubitus ulcer. POSTOPERATIVE DIAGNOSIS: Left heel gangrene infected decubitus ulcer. OPERATION PERFORMED: Sharp excisional debridement of 4 x 5 cm left heel decubitus ulcer gangrene infection involving skin and subcutaneous tissue. SPECIMENS: Debris. ANESTHESIA: MAC and local anesthesia. ANESTHESIOLOGIST: Dr. Krystyna Herrera. ESTIMATED BLOOD LOSS: 10 mL. SURGEON: Daniel Mckenzie M.D. EBD SPECIAL EDUCATION TEACHER: None. PROSTHETIC DEVICES: None. COMPLICATIONS: None. DESCRIPTION OF PROCEDURE: After confirming patient identification and procedure to be done, the patient was placed in supine position. The patient administered IV sedation. The left heel area and left lower leg were then prepped and draped in usual sterile fashion. Timeout was performed. Local anesthesia was then administered. After confirming anesthesia, a sharp excisional debridement was performed with the scalpel, Metzenbaum scissors, and cutting mode of cautery. The gangrenous areas were then cleaned away as well as infected areas down to healthy viable tissue. This was down to the level of skin and subcutaneous tissue. The wound was then cauterized for hemostasis. Dressings were applied. The patient tolerated the procedure well. JOB# [id number]
[2018-06-24] MEDS: Atorvastatin Calcium 10 MG TAB PO SCH (20:24)
[2018-06-24] MEDS: Magnesium Chloride EC 64mg Tab PO SCH (20:26)
--- NOTE | 2018-06-24 23:56 | Progress Notes ---
DATE: SUBJECTIVE: The patient had his debridement done. He continues to have right-sided abdominal pain and demands uninterrupted pain medications, once again confirming my suspicion that he is definitely addicted to narcotics. OBJECTIVE: VITAL SIGNS: His temperature is 97.6, heart rate 89, blood pressure 135/85. ABDOMEN: Soft, nondistended. Right flank tender to percussion. EXTREMITIES: Right-sided below knee amputation and left-sided, post-surgical. CARDIOVASCULAR: Heart sounds, sinus rhythm. LABORATORY DATA: Glucose 298, then 494 and then 225. IMPRESSION: 1. Right ureteral stones by CT scan, not very well defined. The patient does have symptoms and may require a stent or a CT with contrast. I will wait some more time and see if this improves with conservative treatment. 2. History of bilateral stone disease, stable. 3. History of chronic pain syndrome, drug addiction and fibromyalgia. 4. History of previous stroke and coronary artery disease, no change. JOB# [id number]
[2018-06-25] MEDS: HYDROmorphone 2 mg/mL 1mL Vial IVP PRN ×6 (03:42→18:30)
[2018-06-25] MEDS: INSULIN ASPART SLIDING SCALE 100 UNITS/ML UNIT SUBQ SCH ×3 (06:32→16:53)
--- NOTE | 2018-06-25 07:24 | Progress Notes ---
DATE: 06/25/2018 INFECTIOUS DISEASE PROGRESS NOTE: SUBJECTIVE: The patient has debridement of the left ____ performed and the procedure went uneventful. A 3-phase bone scan also suggested osteomyelitis of calcaneum. Otherwise, the patient has no fever. OBJECTIVE: VITAL SIGNS: Current vital signs shows temperature is 97.6, pulse 89, respirations 18, blood pressure 135/85. GENERAL: The patient is comfortable lying in bed, in no acute distress. HEENT: Head is normocephalic, atraumatic. Oral cavity moist, pink tongue. Eyes: Pallor is present, no icterus. PERRLA, EOMI. NECK: Supple, no JVD, no carotid bruit. Trachea midline. CHEST: Bilateral breath sounds. No crackles or wheezing. HEART: S1, S2 within normal limits. Regular rhythm. No murmur, no gallop. ABDOMEN: Soft, nontender, nondistended. Bowel sounds present. EXTREMITIES: No cyanosis, no clubbing, no edema. NEUROLOGIC: The patient has left heel ulcer. LABORATORY DATA: Current lab shows WBC count is 12,500, hemoglobin 8.6, hematocrit 26.2, platelets are 255,000, neutrophils 82%. Sodium is 129, potassium 4.4., chloride 97, bicarbonate is 24, BUN is 23, creatinine 1.2 and glucose is 388. Blood culture grew gram-positive cocci in clusters and wound culture grew MRSA and Streptococcus group B. Recommend to continue same treatment. Continue antibiotics Zyvox and Levaquin. ASSESSMENT: 1. Staphylococcal sepsis secondary to left heel osteomyelitis to the left heel cellulitis and osteomyelitis. 2. Left heel cellulitis wound and osteomyelitis. 3. Pneumonia. 4. Right side pyelonephritis, complicated right-sided hydronephrosis, possible obstructive stone. 5. Diabetes mellitus type 2. 6. Noncompliance. 7. Coronary artery disease with NM 4 times. 8. History of cerebrovascular accident. 9. Right below knee amputation. 10. Anemia. 11. Psychosis. 12. Depression. 13. Bipolar disorder. RECOMMENDATIONS AND PLAN: Continue same treatment. Antibiotic mcbirde, continue Zyvox and Levaquin at this time. Wound care. When there is no intervention offered and transferred the patient to [facility] for 6 weeks of IV antibiotic. JOB# [id number]
[2018-06-25] MEDS: Venelex 60gm Tube TP SCH (08:16)
[2018-06-25] MEDS: Lidocaine 5% Patch TD SCH (08:16)
[2018-06-25] MEDS: Linezolid 600mg/300mL 600 MG/300 ML BAG IV SCH (08:17)
[2018-06-25] MEDS: Pantoprazole 40 mg EC Tab PO SCH (08:20)
[2018-06-25] MEDS: Lactobacillus Rhamnosus GG 15 Billion CFU CAP.SPRINK PO SCH (08:21)
[2018-06-25] MEDS: Multivitamin Tab PO SCH (08:22)
--- NOTE | 2018-06-29 16:47 | Pathology Report ---
[id number] Collection Date: 06/24/2018 Surgeon: Dr. Jaswinder Mckenzie. Specimen Description: Debrided tissue, left heel decubitus ulcer. Gross Description: Received in formalin are multiple thin strips of cortes-pink skin with areas of grayish discoloration, ranging from 0.5 to 1.7 cm in greatest dimension. Mail Agent sections are submitted in 1 cassette. Microscopic Description: The histologic sections show superficial strips of skin with areas of acute on chronic inflammation consisting of increased numbers of lymphocytes and plasma cells. Areas of necrosis are identified consistent with debrided tissue. Diagnosis: Superficial skin showing necrotic changes consistent with debrided tissue, left heel decubitus ulcer. [facility]# [id number]
== END 2018-06-25 20:28 | DRG 853 ==
LOC: ER 03:19 → TELE 09:52
PROVIDERS: ADMIT Internal Medicine; ATTEND Internal Medicine
PROC: 0JBR0ZZ Excision of Left Foot Subcutaneous Tissue and Fascia, Open Approach (ICD-10-PCS; principal; 2018-06-24)
DX: A41.2 Sepsis due to unspecified staphylococcus (principal); L89.623 Pressure ulcer of left heel, stage 3; J18.9 Pneumonia, unspecified organism; E87.1 Hypo-osmolality and hyponatremia; J44.0 Chronic obstructive pulmonary disease with (acute) lower respiratory infection; L03.116 Cellulitis of left lower limb; N13.6 Pyonephrosis; M86.172 Other acute osteomyelitis, left ankle and foot; I25.10 Atherosclerotic heart disease of native coronary artery without angina pectoris; D64.9 Anemia, unspecified; E86.0 Dehydration; G89.4 Chronic pain syndrome; E11.22 Type 2 diabetes mellitus with diabetic chronic kidney disease; N18.9 Chronic kidney disease, unspecified; F17.210 Nicotine dependence, cigarettes, uncomplicated; F31.9 Bipolar disorder, unspecified; F29 Unspecified psychosis not due to a substance or known physiological condition; E11.21 Type 2 diabetes mellitus with diabetic nephropathy; E11.69 Type 2 diabetes mellitus with other specified complication; I25.2 Old myocardial infarction; Z88.1 Allergy status to other antibiotic agents; Z91.14 Patient's other noncompliance with medication regimen; Z91.012 Allergy to eggs; Z91.040 Latex allergy status; Z91.011 Allergy to milk products; Z89.511 Acquired absence of right leg below knee; Z86.73 Personal history of transient ischemic attack (TIA), and cerebral infarction without residual deficits; Z91.018 Allergy to other foods; Z88.0 Allergy status to penicillin; Z88.2 Allergy status to sulfonamides; Z88.8 Allergy status to other drugs, medicaments and biological substances; Z91.048 Other nonmedicinal substance allergy status
CPT/HCPCS: 36415-UA; 71045-TC; 73630-TC-LT; 78315-TC; 80053-TC; 80307; 81001-TC; 82150-TC; 82948-90; 83036-90; 83605; 83690-TC; 83880-TC; 84484-TC; 85007-TC; 85025-TC; 85610-TC; 85652-TC; 86141-TC; 87070-90; 87086-90; 93005; A9503; J1170; J1815; J1956; J2020; J2704; J3010; V2790; Z7610

== ENCOUNTER 2018-07-25 00:05 | Inpatient (IN) | payer MEDICARE, MEDICAID ==
[2018-07-25 00:50] LABS: URINE SOURCE CATH
[2018-07-25 00:53] LABS: % BASOPHILS 1.2 % (0.0-2.0); % EOSINOPHILS 2.2 % (0.0-5.0); % LYMPHOCYTES 18.3 % (20.0-50.0); % MONOCYTES 6.6 % (2.0-10.0); % NEUTROPHILS 71.7 % (40.0-80.0); BASOPHILE ABSOLUTE 0.1 Th/cumm (0-0.2); EOSINOPHILE ABSOLUTE 0.2 Th/cmm (0.1-0.4); HEMATOCRIT 24.6 % (41.0-60); HEMOGLOBIN 8.5 gm/dL (12-16); LYMPHOCYTE ABSOLUTE 1.3 Th/cmm (1.5-3.0); MEAN CELL VOLUME 94.4 fl (80-99); MEAN CORPUSCULAR HEMOGLOBIN 32.5 pg (26.0-30.0); MEAN CORPUSCULAR HGB CONC 34.5 pg (28.0-36.0); MEAN PLATELET VOLUME 7.2 fl; MONOCYTE ABSOLUTE 0.5 Th/cmm (0.3-1.0); PLATELET COUNT 367 Th/cmm (150-400); RED CELL DISTRIBUTION WIDTH 13.6 % (11.5-20.0); WHITE BLOOD COUNT 7.1 Th/cmm (4.8-10.8)
--- NOTE | 2018-07-25 00:54 | ED Physician Chart ---
ED Chief Complaint/HPI - Patient Information Date Seen:: 07/25/18 Time Seen:: 00:49 Chief Complaint:: fall rt shoulder pain History of Present Illness:: 48 yr old male rt [facility] here for evaluation Allergies:: Allergies Allergy/AdvReac Type Severity Reaction Status Date / Time acetaminophen [From Tylenol] Allergy Verified 05/07/18 22:24 adhesive Allergy Verified 05/07/18 22:24 cephalexin Allergy Verified 05/07/18 22:24 egg Allergy Verified 05/07/18 22:24 ketorolac [From Toradol] Allergy Verified 05/07/18 22:24 latex Allergy Verified 05/07/18 22:24 Latex, Natural Rubber Allergy Verified 05/07/18 22:24 milk Allergy Verified 05/07/18 22:24 Penicillins Allergy Verified 05/07/18 22:24 pepper (genus Capsicum) Allergy Verified 05/07/18 22:24 Sulfa (Sulfonamide Allergy Verified 05/07/18 22:24 Antibiotics) sulfamethoxazole Allergy Verified 05/07/18 22:24 sumatriptan Allergy Verified 05/07/18 22:24 vancomycin Allergy Verified 05/07/18 22:24 walnut Allergy Verified 05/07/18 22:24 Vitals:: Vital Signs - 8 hr 07/25/18 00:10 Temp 98.3 F HR 92 RR 17 BP 142/96 O2 Sat % 95 ED Review of Systems - Review of Systems General/Constitutional: No fever, No chills, No weight loss, No weakness, No diaphoresis, No edema, No loss of appetite Skin: No skin lesions, No rash, No bruising Head: No headache, No light-headedness Eyes: No loss of vision, No pain, No diplopia ENT: No earache, No nasal drainage, No sore throat, No tinnitus Neck: No neck pain, No swelling, No thyromegaly, No stiffness, No mass noted Cardio Vascular: No chest pain, No palpitations, No PND, No orthopnea, No edema Pulmonary: No SOB, No cough, No sputum, No wheezing GI: No nausea, No vomiting, No diarrhea, No pain, No melena, No hematochezia, No constipation, No hematemesis G/U: No dysuria, No frequency, No hematuria Musculoskeletal: Bone or joint pain, Other (rt bka) Endocrine: No polyuria, No polydipsia Psychiatric: No prior psych history, No depression, No anxiety, No suicidal ideation Hematopoietic: No bruising, No lymphadenopathy Allergic/Immuno: No urticaria, No angioedema Neurological: No syncope, No focal symptoms, No weakness, No paresthesia, No headache, No seizure, No dizziness, No confusion, No vertigo ED Past Medical History - Past Medical History Past Medical History: HTN, DM, CAD, Asthma/COPD, Seizures, Other (DM,SEIZURE BIPOLAR DEPRESSION COPD TX GI BLEED MRSA L HEEL WOUND POLY NEUROPATHY CHRONIC PAIN RT BKA) Family Medical History - Family Member Mother History Unknown: Yes ED Physical Exam - Physical Examination Other Extremities comments:: RT BKA ED Assessment - Assessment General Assessment: FALL RT SHOULDER PAIN ED Septic Shock - . Is Septic Shock (SBP<90, OR Lactate>4 mmol\L) present?: No - <6hrs of presentation: Vital Signs: Vital Signs - 8 hr 07/25/18 00:10 Temp 98.3 F HR 92 RR 17 BP 142/96 O2 Sat % 95 ED Reassessment (Disposition) - Diagnosis Diagnosis:: FALL RT SHOULDEER PAIN
[2018-07-25 00:59] LABS: URINE BILIRUBIN NEGATIVE (NEGATIVE); URINE BLOOD NEGATIVE (NEGATIVE); URINE GLUCOSE (UA) >=1000 mg/dL (NEGATIVE); URINE KETONE NEGATIVE (NEGATIVE); URINE LEUKOCYTE ESTERASE NEGATIVE (NEGATIVE); URINE MICROSCOPIC INDICATED? YES; URINE NITRATE NEGATIVE (NEGATIVE); URINE PROTEIN TRACE mg/dL (NEGATIVE); URINE UROBILINOGEN 0.2 E.U./dL (0.2 - 1.0)
[2018-07-25 01:08] LABS: INR 0.93 (0.5-1.4); PROTHROMBIN TIME (TEST) 9.7 SECONDS (9.5-11.5)
[2018-07-25 01:09] LABS: URINE CLARITY CLEAR (CLEAR); URINE COLOR YELLOW
[2018-07-25 01:11] LABS: ALB/GLOB RATIO 1.8 (1.0-1.8); ALBUMIN 3.7 gm/dL (4.2-5.5); ALKALINE PHOSPHATASE 75 U/L (34-104); ANION GAP 14.7 (7.0-16.0); BILIRUBIN,TOTAL 0.3 mg/dL (0.3-1.0); BUN - UREA NITROGEN 24 mg/dL (7-25); CALCIUM SERUM 8.5 mg/dL (8.6-10.3); CARBON DIOXIDE 26.2 mEq/L (21.0-31.0); CHLORIDE 96 mEq/L (98-107); CREATININE - SERUM 1.4 mg/dL (0.7-1.3); GFR AFRICAN-AMERICAN > 60.0 ml/min (>90); GLUCOSE 351 mg/dL (70-105); POTASSIUM SERUM 4.9 mEq/L (3.5-5.1); SGOT 15 U/L (13-39); SGPT/ALT 13 U/L (7-52); SODIUM SERUM 132 mEq/L (136-145); TOTAL PROTEIN,SERUM 5.8 gm/dL (6.0-8.3)
[2018-07-25 01:21] LABS: URINE BACTERIA OCCASIONAL /hpf (NONE SEEN); URINE EPITHELIAL CELLS OCCASIONAL /lpf (FEW); URINE RBC NONE SEEN /hpf (0-5); URINE WBC 0-2 /hpf (0-5)
[2018-07-25] MEDS: HYDROmorphone 2 mg/mL 1mL Vial IVP PRN ×7 (01:50→22:44)
[2018-07-25 02:26] VITALS: BP 144/90
--- NOTE | 2018-07-25 09:13 | Diagnostic Imaging Report ---
Right shoulder (3 views) HISTORY: Pain, trauma There is a mildly displaced impacted fracture through the right humeral neck. No dislocation. IMPRESSION: Mildly displaced impacted right humeral neck fracture
--- NOTE | 2018-07-25 09:14 | Diagnostic Imaging Report ---
Right clavicle (2 views) HISTORY: Pain, trauma No focal or acute bony abnormalities involve the right clavicle. The acromioclavicular joint is normal. There is deformity about the right humeral neck consistent with a fracture (see separate right shoulder 4). IMPRESSION: 1. No focal abnormality seen within the right clavicle 2. Deformity right humeral neck consistent with a fracture (see separate right shoulder report).
[2018-07-25] MEDS ORDERED: GLUCAGON HCl 1 MG KIT SUBQ PRN (11:17)
[2018-07-25] MEDS ORDERED: Magnesium Hydroxide (MOM) 30 mL UDC PO PRN (11:20)
[2018-07-25] MEDS: INSULIN ASPART SLIDING SCALE 100 UNITS/ML UNIT SUBQ SCH ×3 (12:43→21:52)
[2018-07-25] MEDS ORDERED: INSULIN ASPART, RECOMBINANT 100 UNITS/ML SUBQ SCH (14:00)
[2018-07-25] MEDS: NUT TX IMPAIRED DIGEST FXN PO SCH (19:45)
[2018-07-25] MEDS: metroNIDAZOLE 500mg/NS 100mL 500 MG/100 ML BAG IV SCH (21:54)
[2018-07-25] MEDS: Magnesium Chloride EC 64mg Tab PO SCH (22:13)
[2018-07-25] MEDS: Insulin Detemir 100 units/mL 10mL Vial SUBQ SCH (23:01)
--- NOTE | 2018-07-26 00:24 | History & Physical ---
ADMIT DATE: 07/25/2018 CHIEF COMPLAINT: Fell with severe right shoulder pain. HISTORY OF PRESENT ILLNESS: The patient is a 48-year-old male admitted from Emergency Room due to multiple complicated medical conditions. The patient fell in the snf due to severe weakness. He experienced severe right shoulder and right proximal humeral area pain. X-ray was done, which revealed displaced impacted right femoral neck fracture. Orthopedic consultation was requested and greatly appreciated. Additionally, the patient was having severe diarrhea, nausea, vomiting. I ordered to collect stool for C. diff and empirically start the patient on Flagyl 500 mg p.o. every 6 hours. As the patient also has severe vomiting, Zofran helps somewhat. The patient's blood sugar was over 500 (540). As I mentioned, the patient has had a very brittle diabetes since he was a child. He is also very noncompliant with diet and he would only eat regular diet. I had tried many times to convince him to eat a right diet, which should be 1800 ADA cardiac, renal diet, but the patient would not eat unless it is regular diet. His sodium is low at 132. The patient is also anemic with hemoglobin 8.5, hematocrit 24. PAST MEDICAL HISTORY: Including COPD, pneumonia, coronary heart disease, status post UT x 4, congestive heart failure ____, status post CVA x 5, urinary tract infection, sepsis, anemia, out of control diabetes and peripheral vascular disease, left heel diabetic wound. PAST SURGICAL HISTORY: Status post right BKA and multiple left heel wound debridement. MEDICATIONS: See medication reconciliation list. ALLERGIES: Multiple. FAMILY HISTORY: Noncontributory. SOCIAL HISTORY: The patient is not without any children. He does have a mother and a sister in [facility]. The patient smoked before, still smoking moderately. Denies alcohol or IV drug use. REVIEW OF SYSTEMS: As per HPI. PHYSICAL EXAMINATION: GENERAL: Well-developed, cachectic male in no acute distress. SKIN: There is diabetic wound in the left heel. VITAL SIGNS: Basically stable. HEENT: Normocephalic, atraumatic. Pupils equal, round, react to light and accommodation. CHEST: Symmetrical lungs. Few wheezing appreciated. CARDIAC: Normal sinus rhythm, S1, S2. ABDOMEN: Benign, soft, nontender. EXTREMITIES: Status post right BKA. NEUROLOGICAL: Unremarkable. LABORATORY DATA: Reviewed as mentioned above and as seen from the computer. ASSESSMENT AND PLAN: 1. Status post fall with nondisplaced fracture in the right proximal humeral area: Orthopedic consultation requested and greatly appreciated. 2. Out of control diabetes: This has been very difficult to control and we will closely monitor. 3. Intractable pain/chronic pain syndrome exacerbation: This is partially worsened by the fall which resulted in fracture. 4. Severe diarrhea: I have ordered to rule out Clostridium difficile colitis. In the meanwhile, start the patient on Flagyl 500 mg p.o. every 6 hours. 5. Severe nausea, vomiting: Zofran p.r.n. 6. Anemia: Probably due to anemia of chronic disease. We will repeat CBC in the morning. 7. Chronic obstructive pulmonary disease: RT protocol. 8. Coronary heart disease status post UT x 4. 9. Status post cerebrovascular accident. 10. Left heel diabetic wound: Continue wound care and try to control diabetes. 10. Status post right below-knee amputation. 11. DVT prophylaxis. JOB# [id number]
[2018-07-26] MEDS: metroNIDAZOLE 500mg/NS 100mL 500 MG/100 ML BAG IV SCH ×4 (00:26→17:41)
[2018-07-26] MEDS: HYDROmorphone 2 mg/mL 1mL Vial IVP PRN ×7 (02:11→21:31)
--- NOTE | 2018-07-26 04:10 | Consultation ---
DATE OF CONSULTATION: 07/25/2018 HISTORY OF PRESENT ILLNESS: The patient is a 48-year-old man admitted to [facility] via the Emergency Room on 07/25/2018 because of an injury to his right shoulder. The patient who has a right BK amputee, stated he has difficulty with balance and getting around and falls at times. He fell today and injured his shoulder. X-rays taken in the Emergency Room at [facility] show a fracture of the neck of the right humerus with slight angulation. PAST MEDICAL HISTORY: The patient denies previous injury or problems with his right shoulder. He carries diagnoses of diabetes mellitus, polyneuropathy, chronic pain syndrome, GI bleed, hypertension, coronary artery disease, myocardial infarction, seizures, asthma, COPD, bipolar disorder and depression, history of MRSA, left heel. ADDITIONAL PAST HISTORY: The patient stated he had a [id number] amputation on the right at [facility] in 01/2018. PHYSICAL EXAMINATION: The patient was examined in his hospital room at [facility]. The right shoulder slightly swollen, painful and tender. Active motion, minimal and painful. Passively, I can range it 25% -- I did not go farther because of the presence of the fracture, neurovascular of the upper extremities within normal limits. Lower extremities: There is a below-knee amputation on the right. The stump was in good shape with no skin breakdown or ulcers. Left lower extremity unremarkable. IMAGING STUDIES: I viewed x-rays in the PACS, right shoulder, two views, there is a fracture of the surgical neck of the right humerus with slight angulation in one of the views. No displacement or separation of the fracture fragments. ORTHOPEDIC DIAGNOSES: 1. Fracture surgical neck, right humerus. 2. Status post right BKA. 3. Diabetes, neuropathy and additional medical diagnoses as above. RECOMMENDATIONS: The patient could be fitted with a shoulder immobilizer to be applied loosely allowing slight movement of the shoulder rather than strapping it tightly against his side. He cannot be moved or lifted by his right arm. He cannot place pressure on the arm and has been using a walker or crutches. Follow up x-rays of the shoulder 10-14 days should be done if the fracture significantly angulates or displaces, we would consider surgery with internal fixation. Thank you for this interesting referral. [facility]# [id number]
[2018-07-26 06:19] LABS: % BASOPHILS 1.1 % (0.0-2.0); % EOSINOPHILS 0.6 % (0.0-5.0); % LYMPHOCYTES 21.9 % (20.0-50.0); % MONOCYTES 9.3 % (2.0-10.0); % NEUTROPHILS 67.1 % (40.0-80.0); BASOPHILE ABSOLUTE 0.1 Th/cumm (0-0.2); HEMATOCRIT 27.4 % (41.0-60); HEMOGLOBIN 9.2 gm/dL (12-16); LYMPHOCYTE ABSOLUTE 1.5 Th/cmm (1.5-3.0); MEAN CELL VOLUME 94.9 fl (80-99); MEAN CORPUSCULAR HEMOGLOBIN 31.8 pg (26.0-30.0); MEAN CORPUSCULAR HGB CONC 33.5 pg (28.0-36.0); MEAN PLATELET VOLUME 7.8 fl; MONOCYTE ABSOLUTE 0.7 Th/cmm (0.3-1.0); NEUTROPHILE ABSOLUTE 4.7 Th/cmm (1.8-8.0); PLATELET COUNT 399 Th/cmm (150-400); RED BLOOD COUNT 2.89 Mil/cmm (4.30-5.70); RED CELL DISTRIBUTION WIDTH 13.6 % (11.5-20.0)
[2018-07-26 06:39] LABS: ANION GAP 12.7 (7.0-16.0); BUN - UREA NITROGEN 22 mg/dL (7-25); CALCIUM SERUM 9.2 mg/dL (8.6-10.3); CARBON DIOXIDE 28.8 mEq/L (21.0-31.0); CHLORIDE 96 mEq/L (98-107); CREATININE - SERUM 1.2 mg/dL (0.7-1.3); GFR AFRICAN-AMERICAN > 60.0 ml/min (>90); GFR NON AFRICAN-AMERICAN > 60.0 ml/min; POTASSIUM SERUM 4.5 mEq/L (3.5-5.1); SODIUM SERUM 133 mEq/L (136-145)
[2018-07-26 06:50] LABS: GLUCOSE 47 mg/dL (70-105)
[2018-07-26] MEDS ORDERED: Dextrose 50% 50 mL Abboject IVP ONE (08:13)
[2018-07-26] MEDS: INSULIN ASPART SLIDING SCALE 100 UNITS/ML UNIT SUBQ SCH ×4 (08:22→20:43)
[2018-07-26] MEDS: D5-0.9%NS 1,000 ML IV SCH (08:30)
[2018-07-26] MEDS: Lactobacillus Rhamnosus GG 15 Billion CFU CAP.SPRINK PO SCH (09:12)
[2018-07-26] MEDS: Multivitamin Tab PO SCH (09:13)
[2018-07-26] MEDS: Pantoprazole 40 mg EC Tab PO SCH (09:18)
[2018-07-26] MEDS: NUT TX IMPAIRED DIGEST FXN PO SCH (09:36)
[2018-07-26] MEDS: Insulin Detemir 100 units/mL 10mL Vial SUBQ SCH (20:46)
[2018-07-26] MEDS: Magnesium Chloride EC 64mg Tab PO SCH (20:46)
--- NOTE | 2018-07-26 22:22 | Internal Medicine Prog Note ---
Internal Medicine Subjective - Subjective Service Date: 07/26/18 Patient seen and examined:: without staff Patient is:: awake, interactive, in bed Patient Complaints of:: congestion, vomitting, diarrhea Per staff patient has:: no adverse event Internal Medicine Objective - Results Result Diagrams: 07/26/18 05:45 07/26/18 05:45 Recent Labs: Laboratory Last Values WBC 7.0 Th/cmm (4.8-10.8) 07/26/18 05:45 RBC 2.89 Mil/cmm (4.30-5.70) L 07/26/18 05:45 Hgb 9.2 gm/dL (12-16) L 07/26/18 05:45 Hct 27.4 % (41.0-60) L 07/26/18 05:45 MCV 94.9 fl (80-99) 07/26/18 05:45 MCH 31.8 pg (26.0-30.0) H 07/26/18 05:45 MCHC Differential 33.5 pg (28.0-36.0) 07/26/18 05:45 RDW 13.6 % (11.5-20.0) 07/26/18 05:45 Plt Count 399 Th/cmm (150-400) 07/26/18 05:45 MPV 7.8 fl 07/26/18 05:45 Neutrophils % 67.1 % (40.0-80.0) 07/26/18 05:45 Lymphocytes % 21.9 % (20.0-50.0) 07/26/18 05:45 Monocytes % 9.3 % (2.0-10.0) 07/26/18 05:45 Eosinophils % 0.6 % (0.0-5.0) 07/26/18 05:45 Basophils % 1.1 % (0.0-2.0) 07/26/18 05:45 PT 9.7 SECONDS (9.5-11.5) 07/25/18 00:40 INR 0.93 (0.5-1.4) 07/25/18 00:40 PTT (Actin FS) 22.9 SECONDS (26.0-38.0) L 07/25/18 00:40 Sodium 133 mEq/L (136-145) L 07/26/18 05:45 Potassium 4.5 mEq/L (3.5-5.1) 07/26/18 05:45 Chloride 96 mEq/L (98-107) L 07/26/18 05:45 Carbon Dioxide 28.8 mEq/L (21.0-31.0) 07/26/18 05:45 Anion Gap 12.7 (7.0-16.0) 07/26/18 05:45 BUN 22 mg/dL (7-25) 07/26/18 05:45 Creatinine 1.2 mg/dL (0.7-1.3) 07/26/18 05:45 Est GFR ( Amer) > 60.0 ml/min (>90) 07/26/18 05:45 Est GFR (Non-Af Amer) > 60.0 ml/min 07/26/18 05:45 BUN/Creatinine Ratio 18.3 07/26/18 05:45 Glucose 47 mg/dL (70-105) L* 07/26/18 05:45 POC Glucose 135 MG/DL (70 - 105) H 07/26/18 20:42 Calcium 9.2 mg/dL (8.6-10.3) 07/26/18 05:45 Total Bilirubin 0.3 mg/dL (0.3-1.0) 07/25/18 00:40 AST 15 U/L (13-39) 07/25/18 00:40 ALT 13 U/L (7-52) 07/25/18 00:40 Alkaline Phosphatase 75 U/L (34-104) 07/25/18 00:40 Troponin I 0.01 ng/mL (0.01-0.05) 07/25/18 00:40 Total Protein 5.8 gm/dL (6.0-8.3) L 07/25/18 00:40 Albumin 3.7 gm/dL (4.2-5.5) L 07/25/18 00:40 Globulin 2.1 gm/dL 07/25/18 00:40 Albumin/Globulin Ratio 1.8 (1.0-1.8) 07/25/18 00:40 Urine Source CATH 07/25/18 00:40 Urine Color YELLOW 07/25/18 00:40 Urine Clarity CLEAR (CLEAR) 07/25/18 00:40 Urine pH 6.0 (4.6 - 8.0) 07/25/18 00:40 Ur Specific [place] 1.010 (1.005-1.030) 07/25/18 00:40 Urine Protein TRACE mg/dL (NEGATIVE) 07/25/18 00:40 Urine Glucose (UA) >=1000 mg/dL (NEGATIVE) H 07/25/18 00:40 Urine Ketones NEGATIVE mg/dL (NEGATIVE) 07/25/18 00:40 Urine Blood NEGATIVE (NEGATIVE) 07/25/18 00:40 Urine Nitrate NEGATIVE (NEGATIVE) 07/25/18 00:40 Urine Bilirubin NEGATIVE (NEGATIVE) 07/25/18 00:40 Urine Urobilinogen 0.2 E.U./dL (0.2 - 1.0) 07/25/18 00:40 Ur Leukocyte Esterase NEGATIVE (NEGATIVE) 07/25/18 00:40 Urine RBC NONE SEEN /hpf (0-5) 07/25/18 00:40 Urine WBC 0-2 /hpf (0-5) 07/25/18 00:40 Ur Epithelial Cells OCCASIONAL /lpf (FEW) 07/25/18 00:40 Urine Bacteria OCCASIONAL /hpf (NONE SEEN) 07/25/18 00:40 - Physical Exam Vitals and I&O: Vital Signs Temp 98.7 F 07/26/18 20:00 Pulse 85 07/26/18 20:00 Resp 20 07/26/18 20:00 BP 168/98 07/26/18 20:00 Pulse Ox 95 07/26/18 20:00 Intake & Output 07/26/18 07/26/18 07/27/18 06:59 18:59 06:59 Intake Total 920 500 Output Total 200 900 Balance 720 -400 Weight (lbs) 51.936 kg 51.71 kg Intake: Intake, IV Amount 200 200 metroNIDAZOLE 500mg/NS 200 200 100mL 500 mg In 100 ml @ 100 mls/hr IV Q6HR [facility] Rx #:[id number] Oral 720 300 Output: Urine 200 900 Other: # Voids 0 # Bowel Movements 0 Weight Source Bedscale Bedscale Active Medications: Current Medications Acetaminophen (Tylenol) 650 mg PO Q6H PRN PRN Reason: Pain or Fever >101 Stop: 09/23/18 11:16 Bisacodyl (Dulcolax 10 Mg Supp) 10 mg RC DAILY PRN PRN Reason: Constipation Stop: 09/23/18 11:16 Carisoprodol (Soma) 350 mg PO Q8H PRN PRN Reason: MUSCLE RELAXANT Stop: 09/23/18 11:16 Clonazepam (Klonopin) 0.5 mg PO Q8H PRN; Protocol PRN Reason: Anxiety Stop: 09/23/18 11:16 Docusate Sodium (Colace) 100 mg PO DAILY [facility] Stop: 09/24/18 08:59 Last Admin: 07/26/18 09:13 Dose: Not Given Folic Acid (Folate) 1 mg PO DAILY [facility] Stop: 09/24/18 08:59 Last Admin: 07/26/18 09:13 Dose: 1 mg Gabapentin (Neurontin) 600 mg PO TID [facility] Stop: 09/23/18 13:59 Last Admin: 07/26/18 20:45 Dose: Not Given Glucagon (Glucagen) 1 mg SUBQ PRN PRN PRN Reason: BS BELOW 60 & NOT TOLERATE PO Hydromorphone HCl (Dilaudid) 2 mg IVP Q3H PRN PRN Reason: Pain (Severe) Stop: 09/23/18 01:14 Last Admin: 07/26/18 21:31 Dose: 2 mg Metronidazole (Flagyl) 500 mg in 100 mls @ 100 mls/hr IV Q6HR [facility] Stop: 09/23/18 19:59 Last Admin: 07/26/18 17:41 Dose: 100 mls/hr Dextrose/Sodium Chloride (D5-0.9%Ns) 1,000 mls @ 60 mls/hr IV .[id number] [facility] Stop: 09/24/18 08:29 Last Admin: 07/26/18 08:30 Dose: 60 mls/hr Insulin Aspart (Novolog Insulin Sliding Scale) 0 units SUBQ ACHS [facility]; Protocol Stop: 09/23/18 11:29 Last Admin: 07/26/18 20:43 Dose: Not Given Insulin Detemir (Levemir Insulin) 6 units SUBQ HS [facility]; Protocol Stop: 09/23/18 20:59 Last Admin: 07/26/18 20:46 Dose: Not Given Lactobacillus Rhamnosus (Culturelle 15b) 1 each PO DAILY [facility] Stop: 09/24/18 08:59 Last Admin: 07/26/18 09:12 Dose: 1 each Levetiracetam (Keppra) 500 mg PO Q12H [facility] Stop: 09/23/18 11:29 Last Admin: 07/26/18 10:51 Dose: Not Given Lisinopril (Zestril) 2.5 mg PO DAILY [facility] Stop: 09/24/18 08:59 Last Admin: 07/26/18 09:11 Dose: 2.5 mg Loperamide HCl (Imodium) 2 mg PO DAILY PRN PRN Reason: Diarrhea Stop: 09/23/18 11:19 Magnesium Chloride (Slow-Mag) 64 ect PO HS [facility] Stop: 09/23/18 20:59 Last Admin: 07/26/18 20:46 Dose: Not Given Magnesium Hydroxide (Milk Of Magnesia) 30 ml PO DAILY PRN PRN Reason: Constipation Stop: 09/23/18 11:19 Multivitamins/Vitamin C (Theragran) 1 tab PO DAILY [facility] Stop: 09/24/18 08:59 Last Admin: 07/26/18 09:13 Dose: 1 tab Nitroglycerin (Nitrostat) 0.4 mg SL Q5MIN PRN PRN Reason: Chest Pain Stop: 09/23/18 11:19 Ondansetron HCl (Zofran) 4 mg IV Q4H PRN PRN Reason: Nausea / Vomiting Stop: 09/23/18 13:30 Last Admin: 07/26/18 21:36 Dose: 4 mg Oxcarbazepine (Trileptal) 300 mg PO BID [facility]; Protocol Stop: 09/23/18 16:59 Pantoprazole Sodium (Protonix) 40 mg PO DAILY [facility] Stop: 09/24/18 08:59 Last Admin: 07/26/18 09:18 Dose: 40 mg Quetiapine Fumarate (Seroquel) 100 mg PO HS [facility]; Protocol Stop: 09/23/18 20:59 Tamsulosin HCl (Flomax) 0.4 mg PO HS [facility] Stop: 09/23/18 20:59 Last Admin: 07/26/18 20:46 Dose: Not Given Trazodone HCl (Desyrel) 100 mg PO HS PRN; Protocol PRN Reason: Insomnia Stop: 09/23/18 11:20 General: weak, lethargic, congested HEENT: PERRLA, EOMI Neck: Supple, No JVD, No thyromegaly Lungs: wheezing Abdomen: soft, non-distended - Procedures Procedures: Procedures Procedure Code Date EXCISION OF L FOOT SUBCU/FASCIA, OPEN APPROACH [id number] 06/22/18 Internal Medicine Assmt/Plan - Assessment Assessment: Severe N&V: Zofranprn Diarrhea: r/oed c. diff. dc flagyl. Hypoglycemic episodes: partly due to above; IVF D%NS s/p Fall: rt proximal humeral fracture. COPD: RT CAD: s/p SD Seizure: close monitoring. Intractable pain/chronic pain syndrome exacerbation: adjusting pain med. Nutritional Asmnt/Malnutr-PDOC - Dietary Evaluation Malnutrition Findings (Please click <Entered> for more info): Nutritional Asmnt/Malnutrition Start: 07/25/18 15: 07 Text: Status: Active Freq: Protocol: Document 07/25/18 15:09 [email or web address] (Rec: 07/25/18 15:24 [email or web address]) Nutritional Asmnt/Malnutrition Patient General Information Nutritional Screening High Risk Diagnosis intractable shoulder pain, possible right shoulder Pertinent Medical Hx/Surgical Hx HTN, DM, asthma/COPD, CAD, seizures, RT BKA Subjective Information Pt was resting in bed, alert, but did not want to speak with RD at time of visit. Elevated glucose 351 noted. Current Diet Order/ Nutrition Support CCHO, cardiac, ensure clear BID Pertinent Medications colace, folate, glucagen, novolog, levemir, culturelle, slow-mag, theragran, protonix, seroquel Pertinent Labs Na 132, Cl 96, cr 1.4, glucose 351, ca 8.5, POC 404-540 Nutritional Hx/Data Height 1.73 m Height (Calculated Centimeters) 172.7 Current Weight (lbs) 50.802 kg Weight (Calculated Kilograms) 50.8 Weight (Calculated Grams) 05425.3 [place] Body Weight 154 Body Mass Index (BMI) 17.0 Weight Status Underweight GI Symptoms GI Symptoms None Last BM 07/25 Difficult in: None Skin Integrity/Comment: right BKA, left foot ulceration Estimated Nutritional Goals BEE in Kcals: Using Current wt Calories/Kcals/Kg 30-35 Kcals Calculated 3868-1195 Protein: Using Current wt Protein g/k.2 Protein Calculated 61 Fluid: ml 2504-3162 (1ml/kcal) Nutritional Problem 1. Problem Problem altered nutrition related labs Etiology hyperglycemia Signs/Symptoms: glucose 351, POC 404-540 Malnutrition Alert Is there a minimum of two criteria No selected? Query Text:Check all the applicable criteria. A minimum of two criteria are recommended for diagnosis of either severe or non-severe malnutrition. Malnutrition Related to Morbid Obesity Malnutrition related to morbid obesity No Intervention/Recommendation Comments 1. Continue with CCHO, cardiac diet with ensure clear BID as ordered. Will adjust protein needs after wound assessed. 2. MD to adjust insulin regimen for optimal glycemic control 2. Monitor PO intake, wt, labs and skin integrity 3. F/U as high risk in 2-3 days Expected Outcomes/Goals Expected Outcomes/Goals 1. PO intake to meet at least 75% of nutritional needs. 2. Wt stability, skin to remain intact, labs to approach WNL. Reviewed by Claribel Anand RD
[2018-07-27] MEDS: HYDROmorphone 2 mg/mL 1mL Vial IVP PRN ×8 (00:35→21:49)
[2018-07-27] MEDS: D5-0.9%NS 1,000 ML IV SCH (03:24)
[2018-07-27 06:42] LABS: ANION GAP 16.5 (7.0-16.0); BUN - UREA NITROGEN 16 mg/dL (7-25); CALCIUM SERUM 9.1 mg/dL (8.6-10.3); CARBON DIOXIDE 22.5 mEq/L (21.0-31.0); CHLORIDE 96 mEq/L (98-107); CREATININE - SERUM 1.1 mg/dL (0.7-1.3); GFR AFRICAN-AMERICAN > 60.0 ml/min (>90); GFR NON AFRICAN-AMERICAN > 60.0 ml/min; GLUCOSE 402 mg/dL (70-105); SODIUM SERUM 130 mEq/L (136-145)
[2018-07-27] MEDS: INSULIN ASPART SLIDING SCALE 100 UNITS/ML UNIT SUBQ SCH ×4 (06:49→20:48)
[2018-07-27 07:38] LABS: % BASOPHILS 0.9 % (0.0-2.0); % EOSINOPHILS 0.9 % (0.0-5.0); % LYMPHOCYTES 10.3 % (20.0-50.0); % MONOCYTES 2.8 % (2.0-10.0); % NEUTROPHILS 85.1 % (40.0-80.0); BASOPHILE ABSOLUTE 0.1 Th/cumm (0-0.2); EOSINOPHILE ABSOLUTE 0.1 Th/cmm (0.1-0.4); HEMATOCRIT 31.6 % (41.0-60); HEMOGLOBIN 10.4 gm/dL (12-16); LYMPHOCYTE ABSOLUTE 0.7 Th/cmm (1.5-3.0); MEAN CELL VOLUME 95.4 fl (80-99); MEAN CORPUSCULAR HEMOGLOBIN 31.6 pg (26.0-30.0); MEAN CORPUSCULAR HGB CONC 33.1 pg (28.0-36.0); MEAN PLATELET VOLUME 7.5 fl; MONOCYTE ABSOLUTE 0.2 Th/cmm (0.3-1.0); NEUTROPHILE ABSOLUTE 5.3 Th/cmm (1.8-8.0); PLATELET COUNT 356 Th/cmm (150-400); RED BLOOD COUNT 3.31 Mil/cmm (4.30-5.70); RED CELL DISTRIBUTION WIDTH 13.6 % (11.5-20.0); WHITE BLOOD COUNT 6.4 Th/cmm (4.8-10.8)
[2018-07-27] MEDS: Lactobacillus Rhamnosus GG 15 Billion CFU CAP.SPRINK PO SCH (09:29)
[2018-07-27] MEDS: Multivitamin Tab PO SCH (09:29)
[2018-07-27] MEDS: Pantoprazole 40 mg EC Tab PO SCH (09:29)
[2018-07-27] MEDS: Sodium Chloride 0.9% 1,000 ML IV SCH (17:18)
[2018-07-27] MEDS: Insulin Detemir 100 units/mL 10mL Vial SUBQ SCH (20:42)
[2018-07-27] MEDS: Magnesium Chloride EC 64mg Tab PO SCH (20:45)
[2018-07-28] MEDS: HYDROmorphone 2 mg/mL 1mL Vial IVP PRN ×6 (00:57→20:50)
[2018-07-28] MEDS: INSULIN ASPART SLIDING SCALE 100 UNITS/ML UNIT SUBQ SCH ×4 (06:47→21:08)
[2018-07-28 06:49] LABS: % EOSINOPHILS 2.6 % (0.0-5.0); % LYMPHOCYTES 26.6 % (20.0-50.0); % MONOCYTES 9.6 % (2.0-10.0); % NEUTROPHILS 60.2 % (40.0-80.0); BASOPHILE ABSOLUTE 0.1 Th/cumm (0-0.2); EOSINOPHILE ABSOLUTE 0.2 Th/cmm (0.1-0.4); HEMATOCRIT 26.4 % (41.0-60); HEMOGLOBIN 8.8 gm/dL (12-16); LYMPHOCYTE ABSOLUTE 1.8 Th/cmm (1.5-3.0); MEAN CELL VOLUME 94.6 fl (80-99); MEAN CORPUSCULAR HEMOGLOBIN 31.6 pg (26.0-30.0); MEAN CORPUSCULAR HGB CONC 33.4 pg (28.0-36.0); MEAN PLATELET VOLUME 7.6 fl; MONOCYTE ABSOLUTE 0.6 Th/cmm (0.3-1.0); PLATELET COUNT 358 Th/cmm (150-400); RED BLOOD COUNT 2.79 Mil/cmm (4.30-5.70); RED CELL DISTRIBUTION WIDTH 13.4 % (11.5-20.0); WHITE BLOOD COUNT 6.7 Th/cmm (4.8-10.8)
[2018-07-28 06:55] LABS: ALB/GLOB RATIO 1.8 (1.0-1.8); ALBUMIN 3.6 gm/dL (4.2-5.5); ALKALINE PHOSPHATASE 73 U/L (34-104); ANION GAP 13.3 (7.0-16.0); BILIRUBIN,TOTAL 0.5 mg/dL (0.3-1.0); BUN - UREA NITROGEN 15 mg/dL (7-25); CALCIUM SERUM 8.9 mg/dL (8.6-10.3); CARBON DIOXIDE 26.4 mEq/L (21.0-31.0); CHLORIDE 94 mEq/L (98-107); GFR AFRICAN-AMERICAN > 60.0 ml/min (>90); GFR NON AFRICAN-AMERICAN > 60.0 ml/min; POTASSIUM SERUM 4.7 mEq/L (3.5-5.1); SGOT 13 U/L (13-39); SGPT/ALT 10 U/L (7-52); SODIUM SERUM 129 mEq/L (136-145); TOTAL PROTEIN,SERUM 5.6 gm/dL (6.0-8.3)
[2018-07-28 07:02] LABS: GLUCOSE 229 mg/dL (70-105)
[2018-07-28] MEDS: Lactobacillus Rhamnosus GG 15 Billion CFU CAP.SPRINK PO SCH (08:43)
[2018-07-28] MEDS: Pantoprazole 40 mg EC Tab PO SCH (08:43)
[2018-07-28] MEDS: Multivitamin Tab PO SCH (08:43)
--- NOTE | 2018-07-28 09:18 | Internal Medicine Prog Note ---
Internal Medicine Subjective - Subjective Service Date: 07/28/18 Patient seen and examined:: without staff Patient is:: awake, interactive, in bed Patient Complaints of:: congestion, vomitting, diarrhea Per staff patient has:: no adverse event Internal Medicine Objective - Results Result Diagrams: 07/28/18 06:00 07/28/18 06:00 Recent Labs: Laboratory Last Values WBC 6.7 Th/cmm (4.8-10.8) 07/28/18 06:00 RBC 2.79 Mil/cmm (4.30-5.70) L 07/28/18 06:00 Hgb 8.8 gm/dL (12-16) L 07/28/18 06:00 Hct 26.4 % (41.0-60) L D 07/28/18 06:00 MCV 94.6 fl (80-99) 07/28/18 06:00 MCH 31.6 pg (26.0-30.0) H 07/28/18 06:00 MCHC Differential 33.4 pg (28.0-36.0) 07/28/18 06:00 RDW 13.4 % (11.5-20.0) 07/28/18 06:00 Plt Count 358 Th/cmm (150-400) 07/28/18 06:00 MPV 7.6 fl 07/28/18 06:00 Neutrophils % 60.2 % (40.0-80.0) 07/28/18 06:00 Lymphocytes % 26.6 % (20.0-50.0) 07/28/18 06:00 Monocytes % 9.6 % (2.0-10.0) 07/28/18 06:00 Eosinophils % 2.6 % (0.0-5.0) 07/28/18 06:00 Basophils % 1.0 % (0.0-2.0) 07/28/18 06:00 PT 9.7 SECONDS (9.5-11.5) 07/25/18 00:40 INR 0.93 (0.5-1.4) 07/25/18 00:40 PTT (Actin FS) 22.9 SECONDS (26.0-38.0) L 07/25/18 00:40 Sodium 129 mEq/L (136-145) L 07/28/18 06:00 Potassium 4.7 mEq/L (3.5-5.1) 07/28/18 06:00 Chloride 94 mEq/L (98-107) L 07/28/18 06:00 Carbon Dioxide 26.4 mEq/L (21.0-31.0) 07/28/18 06:00 Anion Gap 13.3 (7.0-16.0) 07/28/18 06:00 BUN 15 mg/dL (7-25) 07/28/18 06:00 Creatinine 1.0 mg/dL (0.7-1.3) 07/28/18 06:00 Est GFR ( Amer) > 60.0 ml/min (>90) 07/28/18 06:00 Est GFR (Non-Af Amer) > 60.0 ml/min 07/28/18 06:00 BUN/Creatinine Ratio 15.0 07/28/18 06:00 Glucose 229 mg/dL (70-105) H D 07/28/18 06:00 POC Glucose 281 MG/DL (70 - 105) H 07/28/18 06:31 Calcium 8.9 mg/dL (8.6-10.3) 07/28/18 06:00 Total Bilirubin 0.5 mg/dL (0.3-1.0) 07/28/18 06:00 AST 13 U/L (13-39) 07/28/18 06:00 ALT 10 U/L (7-52) 07/28/18 06:00 Alkaline Phosphatase 73 U/L (34-104) 07/28/18 06:00 Troponin I 0.01 ng/mL (0.01-0.05) 07/25/18 00:40 Total Protein 5.6 gm/dL (6.0-8.3) L 07/28/18 06:00 Albumin 3.6 gm/dL (4.2-5.5) L 07/28/18 06:00 Globulin 2.0 gm/dL 07/28/18 06:00 Albumin/Globulin Ratio 1.8 (1.0-1.8) 07/28/18 06:00 Urine Source CATH 07/25/18 00:40 Urine Color YELLOW 07/25/18 00:40 Urine Clarity CLEAR (CLEAR) 07/25/18 00:40 Urine pH 6.0 (4.6 - 8.0) 07/25/18 00:40 Ur Specific [place] 1.010 (1.005-1.030) 07/25/18 00:40 Urine Protein TRACE mg/dL (NEGATIVE) 07/25/18 00:40 Urine Glucose (UA) >=1000 mg/dL (NEGATIVE) H 07/25/18 00:40 Urine Ketones NEGATIVE mg/dL (NEGATIVE) 07/25/18 00:40 Urine Blood NEGATIVE (NEGATIVE) 07/25/18 00:40 Urine Nitrate NEGATIVE (NEGATIVE) 07/25/18 00:40 Urine Bilirubin NEGATIVE (NEGATIVE) 07/25/18 00:40 Urine Urobilinogen 0.2 E.U./dL (0.2 - 1.0) 07/25/18 00:40 Ur Leukocyte Esterase NEGATIVE (NEGATIVE) 07/25/18 00:40 Urine RBC NONE SEEN /hpf (0-5) 07/25/18 00:40 Urine WBC 0-2 /hpf (0-5) 07/25/18 00:40 Ur Epithelial Cells OCCASIONAL /lpf (FEW) 07/25/18 00:40 Urine Bacteria OCCASIONAL /hpf (NONE SEEN) 07/25/18 00:40 - Physical Exam Vitals and I&O: Vital Signs Temp 98.0 F 07/28/18 08:00 Pulse 95 07/28/18 08:43 Resp 18 07/28/18 08:00 BP 136/89 07/28/18 08:43 Pulse Ox 100 07/28/18 08:00 Intake & Output 07/27/18 07/28/18 07/28/18 18:59 06:59 18:59 Intake Total 600 Output Total 1200 350 Balance -600 -350 Weight (lbs) 47.627 kg 52.707 kg Intake: Oral 600 Output: Urine 1200 350 Other: # Bowel Movements 0 0 Weight Source Bedscale Bedscale Active Medications: Current Medications Acetaminophen (Tylenol) 650 mg PO Q6H PRN PRN Reason: Pain or Fever >101 Stop: 09/23/18 11:16 Amlodipine Besylate (Norvasc) 10 mg PO DAILY PRN PRN Reason: SBP ABOVE 160 Stop: 09/25/18 08:59 Last Admin: 07/26/18 23:52 Dose: 10 mg Bisacodyl (Dulcolax 10 Mg Supp) 10 mg RC DAILY PRN PRN Reason: Constipation Stop: 09/23/18 11:16 Carisoprodol (Soma) 350 mg PO Q8H PRN PRN Reason: MUSCLE RELAXANT Stop: 09/23/18 11:16 Clonazepam (Klonopin) 0.5 mg PO Q8H PRN; Protocol PRN Reason: Anxiety Stop: 09/23/18 11:16 Docusate Sodium (Colace) 100 mg PO DAILY [facility] Stop: 09/24/18 08:59 Last Admin: 07/28/18 08:44 Dose: Not Given Folic Acid (Folate) 1 mg PO DAILY [facility] Stop: 09/24/18 08:59 Last Admin: 07/28/18 08:43 Dose: 1 mg Gabapentin (Neurontin) 600 mg PO TID [facility] Stop: 09/23/18 13:59 Last Admin: 07/28/18 08:43 Dose: 600 mg Glucagon (Glucagen) 1 mg SUBQ PRN PRN PRN Reason: BS BELOW 60 & NOT TOLERATE PO Hydromorphone HCl (Dilaudid) 2 mg IVP Q3H PRN PRN Reason: Pain (Severe) Stop: 09/23/18 01:14 Last Admin: 07/28/18 06:36 Dose: 2 mg Sodium Chloride (Nacl 0.9%) 1,000 mls @ 60 mls/hr IV .[id number] [facility] Stop: 09/25/18 16:37 Last Admin: 07/27/18 17:18 Dose: 60 mls/hr Insulin Aspart (Novolog Insulin Sliding Scale) 0 units SUBQ ACHS [facility]; Protocol Stop: 09/23/18 11:29 Last Admin: 07/28/18 06:47 Dose: 3 units Insulin Detemir (Levemir Insulin) 6 units SUBQ HS [facility]; Protocol Stop: 09/23/18 20:59 Last Admin: 07/27/18 20:42 Dose: Not Given Lactobacillus Rhamnosus (Culturelle 15b) 1 each PO DAILY [facility] Stop: 09/24/18 08:59 Last Admin: 07/28/18 08:43 Dose: 1 each Levetiracetam (Keppra) 500 mg PO Q12H [facility] Stop: 09/23/18 11:29 Last Admin: 07/28/18 00:28 Dose: Not Given Lisinopril (Zestril) 2.5 mg PO DAILY [facility] Stop: 09/24/18 08:59 Last Admin: 07/28/18 08:43 Dose: 2.5 mg Loperamide HCl (Imodium) 2 mg PO DAILY PRN PRN Reason: Diarrhea Stop: 09/23/18 11:19 Magnesium Chloride (Slow-Mag) 64 ect PO HS [facility] Stop: 09/23/18 20:59 Last Admin: 07/27/18 20:45 Dose: 64 ect Magnesium Hydroxide (Milk Of Magnesia) 30 ml PO DAILY PRN PRN Reason: Constipation Stop: 09/23/18 11:19 Multivitamins/Vitamin C (Theragran) 1 tab PO DAILY [facility] Stop: 09/24/18 08:59 Last Admin: 07/28/18 08:43 Dose: 1 tab Nitroglycerin (Nitrostat) 0.4 mg SL Q5MIN PRN PRN Reason: Chest Pain Stop: 09/23/18 11:19 Ondansetron HCl (Zofran) 4 mg IV Q4H PRN PRN Reason: Nausea / Vomiting Stop: 09/23/18 13:30 Last Admin: 07/28/18 06:38 Dose: 4 mg Oxcarbazepine (Trileptal) 300 mg PO BID [facility]; Protocol Stop: 09/23/18 16:59 Last Admin: 07/28/18 08:44 Dose: 300 mg Pantoprazole Sodium (Protonix) 40 mg PO DAILY [facility] Stop: 09/24/18 08:59 Last Admin: 07/28/18 08:43 Dose: 40 mg Quetiapine Fumarate (Seroquel) 100 mg PO HS [facility]; Protocol Stop: 09/23/18 20:59 Tamsulosin HCl (Flomax) 0.4 mg PO HS [facility] Stop: 09/23/18 20:59 Last Admin: 07/27/18 20:45 Dose: 0.4 mg Trazodone HCl (Desyrel) 100 mg PO HS PRN; Protocol PRN Reason: Insomnia Stop: 09/23/18 11:20 General: weak, lethargic, congested HEENT: PERRLA, EOMI Neck: Supple, No JVD, No thyromegaly Lungs: wheezing Abdomen: soft, non-distended - Procedures Procedures: Procedures Procedure Code Date EXCISION OF L FOOT SUBCU/FASCIA, OPEN APPROACH [id number] 06/22/18 Internal Medicine Assmt/Plan - Assessment Assessment: Intractable pain/chronic pain syndrome exacerbation: understandable and multifactorial. adjusting pain med. Severe N&V: change to Reglan. Diarrhea: r/oed c. diff. dc flagyl. Hypoglycemic episodes: partly due to above; IVF D%NS s/p Fall: rt proximal humeral fracture. COPD: RT CAD: s/p [place] Seizure: close monitoring. Nutritional Asmnt/Malnutr-PDOC - Dietary Evaluation Malnutrition Findings (Please click <Entered> for more info): Nutritional Asmnt/Malnutrition Start: 07/25/18 15: 07 Text: Status: Active Freq: Protocol: Document 07/25/18 15:09 [email or web address] (Rec: 07/25/18 15:24 [email or web address]) Nutritional Asmnt/Malnutrition Patient General Information Nutritional Screening High Risk Diagnosis intractable shoulder pain, possible right shoulder Pertinent Medical Hx/Surgical Hx HTN, DM, asthma/COPD, CAD, seizures, RT BKA Subjective Information Pt was resting in bed, alert, but did not want to speak with RD at time of visit. Elevated glucose 351 noted. Current Diet Order/ Nutrition Support CCHO, cardiac, ensure clear BID Pertinent Medications colace, folate, glucagen, novolog, levemir, culturelle, slow-mag, theragran, protonix, seroquel Pertinent Labs Na 132, Cl 96, cr 1.4, glucose 351, ca 8.5, POC 404-540 Nutritional Hx/Data Height 1.73 m Height (Calculated Centimeters) 172.7 Current Weight (lbs) 50.802 kg Weight (Calculated Kilograms) 50.8 Weight (Calculated Grams) 62949.3 [place] Body Weight 154 Body Mass Index (BMI) 17.0 Weight Status Underweight GI Symptoms GI Symptoms None Last BM 07/25 Difficult in: None Skin Integrity/Comment: right BKA, left foot ulceration Estimated Nutritional Goals BEE in Kcals: Using Current wt Calories/Kcals/Kg 30-35 Kcals Calculated 7527-3987 Protein: Using Current wt Protein g/k.2 Protein Calculated 61 Fluid: ml 7920-6254 (1ml/kcal) Nutritional Problem 1. Problem Problem altered nutrition related labs Etiology hyperglycemia Signs/Symptoms: glucose 351, POC 404-540 Malnutrition Alert Is there a minimum of two criteria No selected? Query Text:Check all the applicable criteria. A minimum of two criteria are recommended for diagnosis of either severe or non-severe malnutrition. Malnutrition Related to Morbid Obesity Malnutrition related to morbid obesity No Intervention/Recommendation Comments 1. Continue with CCHO, cardiac diet with ensure clear BID as ordered. Will adjust protein needs after wound assessed. 2. MD to adjust insulin regimen for optimal glycemic control 2. Monitor PO intake, wt, labs and skin integrity 3. F/U as high risk in 2-3 days Expected Outcomes/Goals Expected Outcomes/Goals 1. PO intake to meet at least 75% of nutritional needs. 2. Wt stability, skin to remain intact, labs to approach WNL. Reviewed by Claribel Anand RD
[2018-07-28] MEDS ORDERED: HYDROmorphone 2 mg/mL 1mL Vial IM ONE (11:08)
[2018-07-28] MEDS: Sodium Chloride 0.9% 1,000 ML IV SCH (12:26)
[2018-07-28] MEDS: Venelex 60gm Tube TP SCH (17:35)
[2018-07-28] MEDS: Insulin Detemir 100 units/mL 10mL Vial SUBQ SCH (23:25)
[2018-07-28] MEDS: Magnesium Chloride EC 64mg Tab PO SCH (23:25)
[2018-07-29] MEDS: HYDROmorphone 2 mg/mL 1mL Vial IVP PRN ×7 (05:05→23:33)
[2018-07-29] MEDS: INSULIN ASPART SLIDING SCALE 100 UNITS/ML UNIT SUBQ SCH ×4 (06:33→20:52)
[2018-07-29] MEDS: Pantoprazole 40 mg EC Tab PO SCH (08:23)
[2018-07-29] MEDS: Lactobacillus Rhamnosus GG 15 Billion CFU CAP.SPRINK PO SCH (08:24)
[2018-07-29] MEDS: Multivitamin Tab PO SCH ×2 (08:24→08:30)
[2018-07-29] MEDS: Venelex 60gm Tube TP SCH (08:25)
[2018-07-29] MEDS: Magnesium Chloride EC 64mg Tab PO SCH ×2 (20:49→21:00)
[2018-07-29] MEDS: Insulin Detemir 100 units/mL 10mL Vial SUBQ SCH (20:53)
[2018-07-29] MEDS: Sodium Chloride 0.9% 1,000 ML IV SCH (22:13)
[2018-07-30] MEDS: HYDROmorphone 2 mg/mL 1mL Vial IVP PRN ×7 (02:54→23:46)
[2018-07-30] MEDS: Pantoprazole 40 mg EC Tab PO SCH (08:34)
[2018-07-30] MEDS: Venelex 60gm Tube TP SCH (08:34)
[2018-07-30] MEDS: INSULIN ASPART SLIDING SCALE 100 UNITS/ML UNIT SUBQ SCH ×4 (08:36→21:01)
[2018-07-30] MEDS: Multivitamin Tab PO SCH (08:41)
[2018-07-30] MEDS: Lactobacillus Rhamnosus GG 15 Billion CFU CAP.SPRINK PO SCH (08:41)
[2018-07-30] MEDS: Sodium Chloride 0.9% 1,000 ML IV SCH (14:59)
[2018-07-30] MEDS: Metoclopramide 5 mg/mL 2mL Vial IVP PRN (18:02)
--- NOTE | 2018-07-30 18:47 | Consultation ---
DATE OF CONSULTATION: 07/30/2018 TIME OF CONSULTAION: 08:24 a.m. HISTORY OF PRESENT ILLNESS: The patient is a 48-year-old male admitted from the ER due to multiple complicated medical conditions, fell in the shelter due to severe weakness, experienced severe right shoulder and right proximal humerus area pain. X-ray was done, which revealed displaced impacted right femoral neck fracture. Orthopedic consultation was requested. Severe diarrhea, nausea, vomiting; stool C. diff sent for excessive vomiting. PAST MEDICAL HISTORY: COPD, pneumonia, coronary artery disease, status post CT x 4, congestive heart failure, status post CVA x 5, UTI infection, sepsis, anemia, diabetes, peripheral vascular disease, left heel diabetic wound. Surgical consultation regarding the left heel. The patient has a history of right below-knee amputation. REVIEW OF SYSTEMS: Denies any chest pain, shortness of breath at this time or urinary type symptoms. He denies any pain to his left heel at this point. ALLERGIES: ACETAMINOPHEN, ADHESIVE, CEPHALEXIN, EGGS, KETOROLAC, LATEX. PHYSICAL EXAMINATION: VITAL SIGNS: He is 51 kilograms. BMI 17.3. He is afebrile, vital signs stable. GENERAL: He is awake, follows commands, in no acute distress. CHEST: Clear to auscultation bilaterally. CARDIOVASCULAR: Regular rate. ABDOMEN: Soft, nontender, nondistended. EXTREMITIES: His left heel wound, he has a 1 x 2 cm superficial ulcer, which is clean, dry and intact. His foot is warm. I do not feel any obvious pedal pulses. PERTINENT LABORATORY DATA: His last white blood cell count 6.7, H and H is 8.8 and 26, and platelet count is 358. His coags are essentially normal. His Chem-7 is fairly unremarkable as well too. Sodium is 129 yesterday, chloride 94, glucose 229, lactic acid level 0.59. He has had no leg x-rays. IMPRESSION/PLAN: Stable healing left heel wound, superficial, clean and dry. No debridement required. Recommend routine wound care followup. No debridement required. JOB# [id number]
[2018-07-30] MEDS: Magnesium Chloride EC 64mg Tab PO SCH (21:00)
[2018-07-30] MEDS: Insulin Detemir 100 units/mL 10mL Vial SUBQ SCH (21:05)
[2018-07-31] MEDS: HYDROmorphone 2 mg/mL 1mL Vial IVP PRN ×7 (03:26→21:52)
[2018-07-31] MEDS: INSULIN ASPART SLIDING SCALE 100 UNITS/ML UNIT SUBQ SCH ×4 (07:58→21:08)
[2018-07-31] MEDS: Sodium Chloride 0.9% 1,000 ML IV SCH ×2 (08:01→21:56)
[2018-07-31] MEDS: Pantoprazole 40 mg EC Tab PO SCH (08:14)
[2018-07-31] MEDS: Venelex 60gm Tube TP SCH (08:22)
[2018-07-31] MEDS: Lactobacillus Rhamnosus GG 15 Billion CFU CAP.SPRINK PO SCH (10:15)
[2018-07-31] MEDS: Multivitamin Tab PO SCH (10:16)
[2018-07-31] MEDS: Magnesium Chloride EC 64mg Tab PO SCH (21:07)
[2018-07-31] MEDS: Insulin Detemir 100 units/mL 10mL Vial SUBQ SCH (21:08)
--- NOTE | 2018-07-31 22:55 | Internal Medicine Prog Note ---
Internal Medicine Subjective - Subjective Service Date: 07/31/18 Patient seen and examined:: without staff Patient is:: awake, interactive, in bed Patient Complaints of:: congestion, vomitting, diarrhea Per staff patient has:: no adverse event Internal Medicine Objective - Results Result Diagrams: 07/28/18 06:00 07/28/18 06:00 Recent Labs: Laboratory Last Values WBC 6.7 Th/cmm (4.8-10.8) 07/28/18 06:00 RBC 2.79 Mil/cmm (4.30-5.70) L 07/28/18 06:00 Hgb 8.8 gm/dL (12-16) L 07/28/18 06:00 Hct 26.4 % (41.0-60) L D 07/28/18 06:00 MCV 94.6 fl (80-99) 07/28/18 06:00 MCH 31.6 pg (26.0-30.0) H 07/28/18 06:00 MCHC Differential 33.4 pg (28.0-36.0) 07/28/18 06:00 RDW 13.4 % (11.5-20.0) 07/28/18 06:00 Plt Count 358 Th/cmm (150-400) 07/28/18 06:00 MPV 7.6 fl 07/28/18 06:00 Neutrophils % 60.2 % (40.0-80.0) 07/28/18 06:00 Lymphocytes % 26.6 % (20.0-50.0) 07/28/18 06:00 Monocytes % 9.6 % (2.0-10.0) 07/28/18 06:00 Eosinophils % 2.6 % (0.0-5.0) 07/28/18 06:00 Basophils % 1.0 % (0.0-2.0) 07/28/18 06:00 PT 9.7 SECONDS (9.5-11.5) 07/25/18 00:40 INR 0.93 (0.5-1.4) 07/25/18 00:40 PTT (Actin FS) 22.9 SECONDS (26.0-38.0) L 07/25/18 00:40 Sodium 129 mEq/L (136-145) L 07/28/18 06:00 Potassium 4.7 mEq/L (3.5-5.1) 07/28/18 06:00 Chloride 94 mEq/L (98-107) L 07/28/18 06:00 Carbon Dioxide 26.4 mEq/L (21.0-31.0) 07/28/18 06:00 Anion Gap 13.3 (7.0-16.0) 07/28/18 06:00 BUN 15 mg/dL (7-25) 07/28/18 06:00 Creatinine 1.0 mg/dL (0.7-1.3) 07/28/18 06:00 Est GFR ( Amer) > 60.0 ml/min (>90) 07/28/18 06:00 Est GFR (Non-Af Amer) > 60.0 ml/min 07/28/18 06:00 BUN/Creatinine Ratio 15.0 07/28/18 06:00 Glucose 229 mg/dL (70-105) H D 07/28/18 06:00 POC Glucose 168 MG/DL (70 - 105) H 07/31/18 20:07 Calcium 8.9 mg/dL (8.6-10.3) 07/28/18 06:00 Total Bilirubin 0.5 mg/dL (0.3-1.0) 07/28/18 06:00 AST 13 U/L (13-39) 07/28/18 06:00 ALT 10 U/L (7-52) 07/28/18 06:00 Alkaline Phosphatase 73 U/L (34-104) 07/28/18 06:00 Troponin I 0.01 ng/mL (0.01-0.05) 07/25/18 00:40 Total Protein 5.6 gm/dL (6.0-8.3) L 07/28/18 06:00 Albumin 3.6 gm/dL (4.2-5.5) L 07/28/18 06:00 Globulin 2.0 gm/dL 07/28/18 06:00 Albumin/Globulin Ratio 1.8 (1.0-1.8) 07/28/18 06:00 Urine Source CATH 07/25/18 00:40 Urine Color YELLOW 07/25/18 00:40 Urine Clarity CLEAR (CLEAR) 07/25/18 00:40 Urine pH 6.0 (4.6 - 8.0) 07/25/18 00:40 Ur Specific [place] 1.010 (1.005-1.030) 07/25/18 00:40 Urine Protein TRACE mg/dL (NEGATIVE) 07/25/18 00:40 Urine Glucose (UA) >=1000 mg/dL (NEGATIVE) H 07/25/18 00:40 Urine Ketones NEGATIVE mg/dL (NEGATIVE) 07/25/18 00:40 Urine Blood NEGATIVE (NEGATIVE) 07/25/18 00:40 Urine Nitrate NEGATIVE (NEGATIVE) 07/25/18 00:40 Urine Bilirubin NEGATIVE (NEGATIVE) 07/25/18 00:40 Urine Urobilinogen 0.2 E.U./dL (0.2 - 1.0) 07/25/18 00:40 Ur Leukocyte Esterase NEGATIVE (NEGATIVE) 07/25/18 00:40 Urine RBC NONE SEEN /hpf (0-5) 07/25/18 00:40 Urine WBC 0-2 /hpf (0-5) 07/25/18 00:40 Ur Epithelial Cells OCCASIONAL /lpf (FEW) 07/25/18 00:40 Urine Bacteria OCCASIONAL /hpf (NONE SEEN) 07/25/18 00:40 - Physical Exam Vitals and I&O: Vital Signs Temp 98.5 F 07/31/18 20:00 Pulse 83 07/31/18 20:00 Resp 17 07/31/18 20:00 BP 131/69 07/31/18 20:00 Pulse Ox 98 07/31/18 20:00 Intake & Output 07/31/18 07/31/18 08/01/18 06:59 18:59 06:59 Intake Total 1000 1835 Output Total 1600 Balance 1000 235 Weight (lbs) 54.431 kg 54.431 kg Intake: Intake, IV Amount 1000 835 Sodium Chloride 0.9% 1, 1000 835 000 ml @ 60 mls/hr IV . [id number] [facility] Rx#:[id number] Oral 1000 Output: Urine 1600 Other: Weight Source Bedscale Bedscale Active Medications: Current Medications Acetaminophen (Tylenol) 650 mg PO Q6H PRN PRN Reason: Pain or Fever >101 Stop: 09/23/18 11:16 Amlodipine Besylate (Norvasc) 10 mg PO DAILY PRN PRN Reason: SBP ABOVE 160 Stop: 09/25/18 08:59 Last Admin: 07/26/18 23:52 Dose: 10 mg Bisacodyl (Dulcolax 10 Mg Supp) 10 mg RC DAILY PRN PRN Reason: Constipation Stop: 09/23/18 11:16 Carisoprodol (Soma) 350 mg PO Q8H PRN PRN Reason: MUSCLE RELAXANT Stop: 09/23/18 11:16 [place] Oil/[place] Balsam/Trypsin (Venelex) 1 appl TP DAILY [facility] Stop: 09/26/18 15:44 Last Admin: 07/31/18 08:22 Dose: 1 appl Clonazepam (Klonopin) 0.5 mg PO Q8H PRN; Protocol PRN Reason: Anxiety Stop: 09/23/18 11:16 Last Admin: 07/30/18 15:16 Dose: 0.5 mg Docusate Sodium (Colace) 100 mg PO DAILY [facility] Stop: 09/24/18 08:59 Last Admin: 07/31/18 10:15 Dose: Not Given Folic Acid (Folate) 1 mg PO DAILY [facility] Stop: 09/24/18 08:59 Last Admin: 07/31/18 08:14 Dose: 1 mg Gabapentin (Neurontin) 600 mg PO TID [facility] Stop: 09/23/18 13:59 Last Admin: 07/31/18 21:06 Dose: 600 mg Glucagon (Glucagen) 1 mg SUBQ PRN PRN PRN Reason: BS BELOW 60 & NOT TOLERATE PO Hydromorphone HCl (Dilaudid) 2 mg IVP Q3H PRN PRN Reason: Pain (Severe) Stop: 09/23/18 01:14 Last Admin: 07/31/18 21:52 Dose: 2 mg Sodium Chloride (Nacl 0.9%) 1,000 mls @ 60 mls/hr IV .[id number] [facility] Stop: 09/25/18 16:37 Last Admin: 07/31/18 21:56 Dose: 60 mls/hr Insulin Aspart (Novolog Insulin Sliding Scale) 0 units SUBQ ACHS [facility]; Protocol Stop: 09/23/18 11:29 Last Admin: 07/31/18 21:08 Dose: Not Given Insulin Detemir (Levemir Insulin) 6 units SUBQ HS [facility]; Protocol Stop: 09/23/18 20:59 Last Admin: 07/31/18 21:08 Dose: Not Given Lactobacillus Rhamnosus (Culturelle 15b) 1 each PO DAILY [facility] Stop: 09/24/18 08:59 Last Admin: 07/31/18 10:15 Dose: Not Given Levetiracetam (Keppra) 500 mg PO Q12H [facility] Stop: 09/23/18 11:29 Last Admin: 07/31/18 11:41 Dose: Not Given Lisinopril (Zestril) 2.5 mg PO DAILY [facility] Stop: 09/24/18 08:59 Last Admin: 07/31/18 08:14 Dose: 2.5 mg Loperamide HCl (Imodium) 2 mg PO Q6HR PRN PRN Reason: Diarrhea Stop: 09/29/18 16:06 Last Admin: 07/31/18 18:52 Dose: 2 mg Magnesium Chloride (Slow-Mag) 64 ect PO [facility] Stop: 09/23/18 20:59 Last Admin: 07/31/18 21:07 Dose: Not Given Magnesium Hydroxide (Milk Of Magnesia) 30 ml PO DAILY PRN PRN Reason: Constipation Stop: 09/23/18 11:19 Metoclopramide HCl (Reglan) 10 mg IVP Q8HR PRN PRN Reason: Nausea / Vomiting Stop: 09/26/18 09:21 Last Admin: 07/30/18 18:02 Dose: 10 mg Multivitamins/Vitamin C (Theragran) 1 tab PO DAILY [facility] Stop: 09/24/18 08:59 Last Admin: 07/31/18 10:16 Dose: Not Given Nitroglycerin (Nitrostat) 0.4 mg SL Q5MIN PRN PRN Reason: Chest Pain Stop: 09/23/18 11:19 Oxcarbazepine (Trileptal) 300 mg PO BID [facility]; Protocol Stop: 09/23/18 16:59 Last Admin: 07/31/18 16:02 Dose: 300 mg Pantoprazole Sodium (Protonix) 40 mg PO DAILY [facility] Stop: 09/24/18 08:59 Last Admin: 07/31/18 08:14 Dose: 40 mg Quetiapine Fumarate (Seroquel) 100 mg PO [facility]; Protocol Stop: 09/23/18 20:59 Last Admin: 07/31/18 21:06 Dose: 100 mg Tamsulosin HCl (Flomax) 0.4 mg PO HS [facility] Stop: 09/23/18 20:59 Last Admin: 07/31/18 21:07 Dose: 0.4 mg Trazodone HCl (Desyrel) 100 mg PO HS PRN; Protocol PRN Reason: Insomnia Stop: 09/23/18 11:20 Last Admin: 07/31/18 21:07 Dose: 100 mg General: weak, lethargic, congested HEENT: PERRLA, EOMI Neck: Supple, No JVD, No thyromegaly Lungs: wheezing Abdomen: soft, non-distended - Procedures Procedures: Procedures Procedure Code Date EXCISION OF L FOOT SUBCU/FASCIA, OPEN APPROACH [id number] 06/22/18 Internal Medicine Assmt/Plan - Assessment Assessment: Severe diarrhea today: stool for C. Diff; GI consult. Intractable pain/chronic pain syndrome exacerbation: understandable and multifactorial. adjusting pain med. Severe N&V: change to Reglan. Hypoglycemic episodes: partly due to above; IVF D%NS s/p Fall: rt proximal humeral fracture. COPD: RT CAD: s/p CT Seizure: close monitoring. Nutritional Asmnt/Malnutr-PDOC - Dietary Evaluation Malnutrition Findings (Please click <Entered> for more info): Nutritional Asmnt/Malnutrition Start: 07/25/18 15: 07 Text: Status: Complete Freq: Protocol: Document 07/25/18 15:09 [email or web address] (Rec: 07/25/18 15:24 [email or web address]) Nutritional Asmnt/Malnutrition Patient General Information Nutritional Screening High Risk Diagnosis intractable shoulder pain, possible right shoulder Pertinent Medical Hx/Surgical Hx HTN, DM, asthma/COPD, CAD, seizures, RT BKA Subjective Information Pt was resting in bed, alert, but did not want to speak with RD at time of visit. Elevated glucose 351 noted. Current Diet Order/ Nutrition Support CCHO, cardiac, ensure clear BID Pertinent Medications colace, folate, glucagen, novolog, levemir, culturelle, slow-mag, theragran, protonix, seroquel Pertinent Labs Na 132, Cl 96, cr 1.4, glucose 351, ca 8.5, POC [phone] Nutritional Hx/Data Height 1.73 m Height (Calculated Centimeters) 172.7 Current Weight (lbs) 50.802 kg Weight (Calculated Kilograms) 50.8 Weight (Calculated Grams) 58083.3 [place] Body Weight 154 Body Mass Index (BMI) 17.0 Weight Status Underweight GI Symptoms GI Symptoms None Last BM 07/25 Difficult in: None Skin Integrity/Comment: right BKA, left foot ulceration Estimated Nutritional Goals BEE in Kcals: Using Current wt Calories/Kcals/Kg 30-35 Kcals Calculated 6267-4378 Protein: Using Current wt Protein g/k.2 Protein Calculated 61 Fluid: ml 1129-2912 (1ml/kcal) Nutritional Problem 1. Problem Problem altered nutrition related labs Etiology hyperglycemia Signs/Symptoms: glucose 351, POC [phone] Malnutrition Alert Is there a minimum of two criteria No selected? Query Text:Check all the applicable criteria. A minimum of two criteria are recommended for diagnosis of either severe or non-severe malnutrition. Malnutrition Related to Morbid Obesity Malnutrition related to morbid obesity No Intervention/Recommendation Comments 1. Continue with CCHO, cardiac diet with ensure clear BID as ordered. Will adjust protein needs after wound assessed. 2. MD to adjust insulin regimen for optimal glycemic control 2. Monitor PO intake, wt, labs and skin integrity 3. F/U as high risk in 2-3 days Expected Outcomes/Goals Expected Outcomes/Goals 1. PO intake to meet at least 75% of nutritional needs. 2. Wt stability, skin to remain intact, labs to approach WNL. Reviewed by Claribel Anand RD
[2018-08-01] MEDS: HYDROmorphone 2 mg/mL 1mL Vial IVP PRN ×8 (00:53→22:54)
[2018-08-01] MEDS: INSULIN ASPART SLIDING SCALE 100 UNITS/ML UNIT SUBQ SCH ×4 (06:49→20:30)
[2018-08-01 07:55] LABS: BUN - UREA NITROGEN 19 mg/dL (7-25); CALCIUM SERUM 8.2 mg/dL (8.6-10.3); CARBON DIOXIDE 17.5 mEq/L (21.0-31.0); CHLORIDE 104 mEq/L (98-107); CREATININE - SERUM 1.1 mg/dL (0.7-1.3); GFR AFRICAN-AMERICAN > 60.0 ml/min (>90); GFR NON AFRICAN-AMERICAN > 60.0 ml/min; POTASSIUM SERUM 5.5 mEq/L (3.5-5.1); SODIUM SERUM 129 mEq/L (136-145)
[2018-08-01 08:01] LABS: % BASOPHILS 1.5 % (0.0-2.0); % EOSINOPHILS 5.7 % (0.0-5.0); % LYMPHOCYTES 31.7 % (20.0-50.0); % NEUTROPHILS 54.1 % (40.0-80.0); BASOPHILE ABSOLUTE 0.1 Th/cumm (0-0.2); EOSINOPHILE ABSOLUTE 0.2 Th/cmm (0.1-0.4); HEMATOCRIT 27.8 % (41.0-60); LYMPHOCYTE ABSOLUTE 1.2 Th/cmm (1.5-3.0); MEAN CELL VOLUME 96.4 fl (80-99); MEAN CORPUSCULAR HEMOGLOBIN 31.3 pg (26.0-30.0); MEAN CORPUSCULAR HGB CONC 32.5 pg (28.0-36.0); MEAN PLATELET VOLUME 7.7 fl; MONOCYTE ABSOLUTE 0.3 Th/cmm (0.3-1.0); PLATELET COUNT 281 Th/cmm (150-400); RED BLOOD COUNT 2.88 Mil/cmm (4.30-5.70)
[2018-08-01 08:04] LABS: GLUCOSE 599 mg/dL (70-105)
[2018-08-01 08:19] LABS: WHITE BLOOD COUNT 3.8 Th/cmm (4.8-10.8)
[2018-08-01] MEDS: Multivitamin Tab PO SCH ×2 (08:41→19:30)
[2018-08-01] MEDS: Lactobacillus Rhamnosus GG 15 Billion CFU CAP.SPRINK PO SCH ×2 (08:42→19:28)
[2018-08-01] MEDS: Pantoprazole 40 mg EC Tab PO SCH ×2 (08:42→19:31)
[2018-08-01] MEDS: Venelex 60gm Tube TP SCH (08:43)
[2018-08-01] MEDS: Metoclopramide 5 mg/mL 2mL Vial IVP PRN (08:51)
[2018-08-01] MEDS: Sodium Chloride 0.9% 1,000 ML IV SCH (18:55)
--- NOTE | 2018-08-01 21:38 | Internal Medicine Prog Note ---
Internal Medicine Subjective - Subjective Service Date: 08/01/18 Patient seen and examined:: without staff Patient is:: awake, interactive, in bed Patient Complaints of:: congestion, vomitting, diarrhea Per staff patient has:: no adverse event Internal Medicine Objective - Results Result Diagrams: 08/01/18 07:15 08/01/18 07:15 Recent Labs: Laboratory Last Values WBC 3.8 Th/cmm (4.8-10.8) L 08/01/18 07:15 RBC 2.88 Mil/cmm (4.30-5.70) L 08/01/18 07:15 Hgb 9.0 gm/dL (12-16) L 08/01/18 07:15 Hct 27.8 % (41.0-60) L 08/01/18 07:15 MCV 96.4 fl (80-99) 08/01/18 07:15 MCH 31.3 pg (26.0-30.0) H 08/01/18 07:15 MCHC Differential 32.5 pg (28.0-36.0) 08/01/18 07:15 RDW 14.0 % (11.5-20.0) 08/01/18 07:15 Plt Count 281 Th/cmm (150-400) 08/01/18 07:15 MPV 7.7 fl 08/01/18 07:15 Neutrophils % 54.1 % (40.0-80.0) 08/01/18 07:15 Lymphocytes % 31.7 % (20.0-50.0) 08/01/18 07:15 Monocytes % 7.0 % (2.0-10.0) 08/01/18 07:15 Eosinophils % 5.7 % (0.0-5.0) H 08/01/18 07:15 Basophils % 1.5 % (0.0-2.0) 08/01/18 07:15 PT 9.7 SECONDS (9.5-11.5) 07/25/18 00:40 INR 0.93 (0.5-1.4) 07/25/18 00:40 PTT (Actin FS) 22.9 SECONDS (26.0-38.0) L 07/25/18 00:40 Sodium 129 mEq/L (136-145) L 08/01/18 07:15 Potassium 5.5 mEq/L (3.5-5.1) H 08/01/18 07:15 Chloride 104 mEq/L (98-107) 08/01/18 07:15 Carbon Dioxide 17.5 mEq/L (21.0-31.0) L 08/01/18 07:15 Anion Gap 13.0 (7.0-16.0) 08/01/18 07:15 BUN 19 mg/dL (7-25) 08/01/18 07:15 Creatinine 1.1 mg/dL (0.7-1.3) 08/01/18 07:15 Est GFR ( Amer) > 60.0 ml/min (>90) 08/01/18 07:15 Est GFR (Non-Af Amer) > 60.0 ml/min 08/01/18 07:15 BUN/Creatinine Ratio 17.3 08/01/18 07:15 Glucose 599 mg/dL (70-105) H* 08/01/18 07:15 POC Glucose 189 MG/DL (70 - 105) H 08/01/18 20:16 Calcium 8.2 mg/dL (8.6-10.3) L 08/01/18 07:15 Total Bilirubin 0.5 mg/dL (0.3-1.0) 07/28/18 06:00 AST 13 U/L (13-39) 07/28/18 06:00 ALT 10 U/L (7-52) 07/28/18 06:00 Alkaline Phosphatase 73 U/L (34-104) 07/28/18 06:00 Troponin I 0.01 ng/mL (0.01-0.05) 07/25/18 00:40 Total Protein 5.6 gm/dL (6.0-8.3) L 07/28/18 06:00 Albumin 3.6 gm/dL (4.2-5.5) L 07/28/18 06:00 Globulin 2.0 gm/dL 07/28/18 06:00 Albumin/Globulin Ratio 1.8 (1.0-1.8) 07/28/18 06:00 Urine Source CATH 07/25/18 00:40 Urine Color YELLOW 07/25/18 00:40 Urine Clarity CLEAR (CLEAR) 07/25/18 00:40 Urine pH 6.0 (4.6 - 8.0) 07/25/18 00:40 Ur Specific [place] 1.010 (1.005-1.030) 07/25/18 00:40 Urine Protein TRACE mg/dL (NEGATIVE) 07/25/18 00:40 Urine Glucose (UA) >=1000 mg/dL (NEGATIVE) H 07/25/18 00:40 Urine Ketones NEGATIVE mg/dL (NEGATIVE) 07/25/18 00:40 Urine Blood NEGATIVE (NEGATIVE) 07/25/18 00:40 Urine Nitrate NEGATIVE (NEGATIVE) 07/25/18 00:40 Urine Bilirubin NEGATIVE (NEGATIVE) 07/25/18 00:40 Urine Urobilinogen 0.2 E.U./dL (0.2 - 1.0) 07/25/18 00:40 Ur Leukocyte Esterase NEGATIVE (NEGATIVE) 07/25/18 00:40 Urine RBC NONE SEEN /hpf (0-5) 07/25/18 00:40 Urine WBC 0-2 /hpf (0-5) 07/25/18 00:40 Ur Epithelial Cells OCCASIONAL /lpf (FEW) 07/25/18 00:40 Urine Bacteria OCCASIONAL /hpf (NONE SEEN) 07/25/18 00:40 - Physical Exam Vitals and I&O: Vital Signs Temp 97.4 F 08/01/18 20:00 Pulse 92 08/01/18 20:00 Resp 19 08/01/18 20:00 BP 163/88 08/01/18 20:00 Pulse Ox 100 08/01/18 20:00 Intake & Output 08/01/18 08/01/18 08/02/18 06:59 18:59 06:59 Intake Total 1835 1500 Output Total 1600 Balance 235 1500 Weight (lbs) 54.431 kg 54.431 kg Intake: Intake, IV Amount 835 1000 Sodium Chloride 0.9% 1, 835 1000 000 ml @ 60 mls/hr IV . [id number] [facility] Rx#:[id number] Oral 1000 500 Output: Urine 1600 Other: # Voids 3 # Bowel Movements 3 Stool Characteristics Liquid Liquid Brown Brown Weight Source Bedscale Bedscale Active Medications: Current Medications Acetaminophen (Tylenol) 650 mg PO Q6H PRN PRN Reason: Pain or Fever >101 Stop: 09/23/18 11:16 Amlodipine Besylate (Norvasc) 10 mg PO DAILY PRN PRN Reason: SBP ABOVE 160 Stop: 09/25/18 08:59 Last Admin: 07/26/18 23:52 Dose: 10 mg Lipase/Protease/Amylase (Zenpep 5,000 U) 1 cap PO TIDWM [facility] Stop: 09/30/18 16:59 Last Admin: 08/01/18 16:37 Dose: 1 cap Bisacodyl (Dulcolax 10 Mg Supp) 10 mg RC DAILY PRN PRN Reason: Constipation Stop: 09/23/18 11:16 Carisoprodol (Soma) 350 mg PO Q8H PRN PRN Reason: MUSCLE RELAXANT Stop: 09/23/18 11:16 [place] Oil/[place] Balsam/Trypsin (Venelex) 1 appl TP DAILY [facility] Stop: 09/26/18 15:44 Last Admin: 08/01/18 08:43 Dose: 1 appl Clonazepam (Klonopin) 0.5 mg PO Q8H PRN; Protocol PRN Reason: Anxiety Stop: 09/23/18 11:16 Last Admin: 08/01/18 20:32 Dose: 0.5 mg Docusate Sodium (Colace) 100 mg PO DAILY [facility] Stop: 09/24/18 08:59 Last Admin: 08/01/18 08:42 Dose: 100 mg Folic Acid (Folate) 1 mg PO DAILY [facility] Stop: 09/24/18 08:59 Last Admin: 08/01/18 08:42 Dose: 1 mg Gabapentin (Neurontin) 600 mg PO TID [facility] Stop: 09/23/18 13:59 Last Admin: 08/01/18 20:32 Dose: 600 mg Glucagon (Glucagen) 1 mg SUBQ PRN PRN PRN Reason: BS BELOW 60 & NOT TOLERATE PO Hydromorphone HCl (Dilaudid) 2 mg IVP Q3H PRN PRN Reason: Pain (Severe) Stop: 09/23/18 01:14 Last Admin: 08/01/18 19:51 Dose: 2 mg Sodium Chloride (Nacl 0.9%) 1,000 mls @ 60 mls/hr IV .[id number] [facility] Stop: 09/25/18 16:37 Last Admin: 08/01/18 18:55 Dose: 60 mls/hr Insulin Aspart (Novolog Insulin Sliding Scale) 0 units SUBQ ACHS [facility]; Protocol Stop: 09/23/18 11:29 Last Admin: 08/01/18 20:30 Dose: 3 units Insulin Detemir (Levemir Insulin) 6 units SUBQ HS [facility]; Protocol Stop: 09/23/18 20:59 Last Admin: 07/31/18 21:08 Dose: Not Given Lactobacillus Rhamnosus (Culturelle 15b) 1 each PO DAILY [facility] Stop: 09/24/18 08:59 Last Admin: 08/01/18 19:28 Dose: Not Given Levetiracetam (Keppra) 500 mg PO Q12H [facility] Stop: 09/23/18 11:29 Last Admin: 08/01/18 11:27 Dose: Not Given Lisinopril (Zestril) 2.5 mg PO DAILY [facility] Stop: 09/24/18 08:59 Last Admin: 08/01/18 19:30 Dose: Not Given Loperamide HCl (Imodium) 2 mg PO Q6HR PRN PRN Reason: Diarrhea Stop: 09/29/18 16:06 Last Admin: 08/01/18 16:43 Dose: 2 mg Magnesium Chloride (Slow-Mag) 64 ect PO [facility] Stop: 09/23/18 20:59 Last Admin: 07/31/18 21:07 Dose: Not Given Magnesium Hydroxide (Milk Of Magnesia) 30 ml PO DAILY PRN PRN Reason: Constipation Stop: 09/23/18 11:19 Metoclopramide HCl (Reglan) 10 mg IVP Q8HR PRN PRN Reason: Nausea / Vomiting Stop: 09/26/18 09:21 Last Admin: 08/01/18 08:51 Dose: 10 mg Multivitamins/Vitamin C (Theragran) 1 tab PO DAILY [facility] Stop: 09/24/18 08:59 Last Admin: 08/01/18 19:30 Dose: Not Given Nitroglycerin (Nitrostat) 0.4 mg SL Q5MIN PRN PRN Reason: Chest Pain Stop: 09/23/18 11:19 Oxcarbazepine (Trileptal) 300 mg PO BID [facility]; Protocol Stop: 09/23/18 16:59 Last Admin: 08/01/18 16:37 Dose: 300 mg Pantoprazole Sodium (Protonix) 40 mg PO DAILY [facility] Stop: 09/24/18 08:59 Last Admin: 08/01/18 19:31 Dose: Not Given Quetiapine Fumarate (Seroquel) 100 mg PO HS [facility]; Protocol Stop: 09/23/18 20:59 Last Admin: 08/01/18 20:33 Dose: 100 mg Rifaximin (Xifaxan) 550 mg PO TID [facility] Stop: 09/30/18 20:59 Last Admin: 08/01/18 20:31 Dose: 550 mg Sodium Polystyrene Sulfonate (Kayexalate) 45 gm PO X1 ONE Stop: 08/01/18 21:35 Tamsulosin HCl (Flomax) 0.4 mg PO HS [facility] Stop: 09/23/18 20:59 Last Admin: 07/31/18 21:07 Dose: 0.4 mg Trazodone HCl (Desyrel) 100 mg PO HS PRN; Protocol PRN Reason: Insomnia Stop: 09/23/18 11:20 Last Admin: 08/01/18 20:32 Dose: 100 mg General: weak, lethargic, congested HEENT: PERRLA, EOMI Neck: Supple, No JVD, No thyromegaly Lungs: wheezing Abdomen: soft, non-distended - Procedures Procedures: Procedures Procedure Code Date EXCISION OF L FOOT SUBCU/FASCIA, OPEN APPROACH [id number] 06/22/18 Internal Medicine Assmt/Plan - Assessment Assessment: Leukopenia? repeat cbc Ar[place]. Hyperkalemia: 45gm Kayexalate po x1 now. OOC DM: pt is noncompliant with diet. Severe diarrhea today: stool for C. Diff; GI consult. Intractable pain/chronic pain syndrome exacerbation: understandable and multifactorial. adjusting pain med. Severe N&V: change to Reglan. s/p Fall: rt proximal humeral fracture. COPD: RT CAD: s/p [place] Seizure: close monitoring. Nutritional Asmnt/Malnutr-PDOC - Dietary Evaluation Malnutrition Findings (Please click <Entered> for more info): Nutritional Asmnt/Malnutrition Start: 07/25/18 15: 07 Text: Status: Complete Freq: Protocol: Document 07/25/18 15:09 [email or web address] (Rec: 07/25/18 15:24 [email or web address]) Nutritional Asmnt/Malnutrition Patient General Information Nutritional Screening High Risk Diagnosis intractable shoulder pain, possible right shoulder Pertinent Medical Hx/Surgical Hx HTN, DM, asthma/COPD, CAD, seizures, RT BKA Subjective Information Pt was resting in bed, alert, but did not want to speak with RD at time of visit. Elevated glucose 351 noted. Current Diet Order/ Nutrition Support CCHO, cardiac, ensure clear BID Pertinent Medications colace, folate, glucagen, novolog, levemir, culturelle, slow-mag, theragran, protonix, seroquel Pertinent Labs Na 132, Cl 96, cr 1.4, glucose 351, ca 8.5, POC 404-540 Nutritional Hx/Data Height 1.73 m Height (Calculated Centimeters) 172.7 Current Weight (lbs) 50.802 kg Weight (Calculated Kilograms) 50.8 Weight (Calculated Grams) 71813.3 [place] Body Weight 154 Body Mass Index (BMI) 17.0 Weight Status Underweight GI Symptoms GI Symptoms None Last BM 07/25 Difficult in: None Skin Integrity/Comment: right BKA, left foot ulceration Estimated Nutritional Goals BEE in Kcals: Using Current wt Calories/Kcals/Kg 30-35 Kcals Calculated 4891-1358 Protein: Using Current wt Protein g/k.2 Protein Calculated 61 Fluid: ml 9607-6216 (1ml/kcal) Nutritional Problem 1. Problem Problem altered nutrition related labs Etiology hyperglycemia Signs/Symptoms: glucose 351, POC 404-540 Malnutrition Alert Is there a minimum of two criteria No selected? Query Text:Check all the applicable criteria. A minimum of two criteria are recommended for diagnosis of either severe or non-severe malnutrition. Malnutrition Related to Morbid Obesity Malnutrition related to morbid obesity No Intervention/Recommendation Comments 1. Continue with CCHO, cardiac diet with ensure clear BID as ordered. Will adjust protein needs after wound assessed. 2. MD to adjust insulin regimen for optimal glycemic control 2. Monitor PO intake, wt, labs and skin integrity 3. F/U as high risk in 2-3 days Expected Outcomes/Goals Expected Outcomes/Goals 1. PO intake to meet at least 75% of nutritional needs. 2. Wt stability, skin to remain intact, labs to approach WNL. Reviewed by Claribel Anand RD
[2018-08-01] MEDS: Magnesium Chloride EC 64mg Tab PO SCH (21:54)
[2018-08-01] MEDS: Insulin Detemir 100 units/mL 10mL Vial SUBQ SCH (21:54)
[2018-08-02] MEDS: HYDROmorphone 2 mg/mL 1mL Vial IVP PRN ×6 (01:56→20:01)
[2018-08-02 06:46] LABS: % BASOPHILS 1.3 % (0.0-2.0); % EOSINOPHILS 4.2 % (0.0-5.0); % LYMPHOCYTES 25.9 % (20.0-50.0); % MONOCYTES 6.1 % (2.0-10.0); % NEUTROPHILS 62.5 % (40.0-80.0); BASOPHILE ABSOLUTE 0.1 Th/cumm (0-0.2); EOSINOPHILE ABSOLUTE 0.3 Th/cmm (0.1-0.4); HEMATOCRIT 25.3 % (41.0-60); HEMOGLOBIN 8.4 gm/dL (12-16); LYMPHOCYTE ABSOLUTE 1.7 Th/cmm (1.5-3.0); MEAN CELL VOLUME 95.8 fl (80-99); MEAN CORPUSCULAR HEMOGLOBIN 31.8 pg (26.0-30.0); MEAN CORPUSCULAR HGB CONC 33.1 pg (28.0-36.0); MEAN PLATELET VOLUME 7.9 fl; MONOCYTE ABSOLUTE 0.4 Th/cmm (0.3-1.0); NEUTROPHILE ABSOLUTE 4.1 Th/cmm (1.8-8.0); PLATELET COUNT 268 Th/cmm (150-400); RED BLOOD COUNT 2.64 Mil/cmm (4.30-5.70); RED CELL DISTRIBUTION WIDTH 14.3 % (11.5-20.0); WHITE BLOOD COUNT 6.6 Th/cmm (4.8-10.8)
[2018-08-02] MEDS: INSULIN ASPART SLIDING SCALE 100 UNITS/ML UNIT SUBQ SCH ×4 (06:51→20:33)
[2018-08-02 07:02] LABS: ANION GAP 10.7 (7.0-16.0); BUN - UREA NITROGEN 23 mg/dL (7-25); CARBON DIOXIDE 18.7 mEq/L (21.0-31.0); CHLORIDE 110 mEq/L (98-107); CREATININE - SERUM 1.2 mg/dL (0.7-1.3); GFR AFRICAN-AMERICAN > 60.0 ml/min (>90); GFR NON AFRICAN-AMERICAN > 60.0 ml/min; SODIUM SERUM 133 mEq/L (136-145)
[2018-08-02 07:29] LABS: GLUCOSE 300 mg/dL (70-105); POTASSIUM SERUM 6.4 mEq/L (3.5-5.1)
--- NOTE | 2018-08-02 08:05 | Diagnostic Imaging Report ---
CT scan abdomen and pelvis without intravenous contrast HISTORY: Diarrhea, pain Total DLP equals 456 CTDI equals 8.4 Axial sections were obtained from the xiphoid process down to the pubic symphysis. The liver appears somewhat increased in size. No focal lesions. The spleen appears normal. There is a distended debris filled stomach. No focal abnormalities seen within the pancreas. No focal renal lesions on the right side. 2 calculi noted in the lower medullary region of the left kidney. The largest measures proximally 4 mm. No hydronephrosis. Evaluation of the bowel limited due to the absence of oral/bowel contrast. There appears to be mild generalized small bowel dilatation which is predominantly fluid-filled. No significant colonic dilatation. Evaluation of the bowel wall limited. Minimal ascites is noted. Evaluation of the pelvis demonstrates a contracted urinary bladder with an indwelling catheter. No abnormal soft tissue masses are seen. Surgical changes noted about the right hip. IMPRESSION: 1. Somewhat limited exam due to the absence of oral/bowel contrast. 2. Small amount of ascites 3. Multiple loops of slightly dilated fluid-filled small bowel. Finding should be correlated clinically. 3. Distended debris-filled stomach 4. Nonobstructing left renal calculi 5. Small bilateral pleural effusions
[2018-08-02] MEDS: Multivitamin Tab PO SCH (08:48)
[2018-08-02] MEDS: Lactobacillus Rhamnosus GG 15 Billion CFU CAP.SPRINK PO SCH (08:49)
[2018-08-02] MEDS: Pantoprazole 40 mg EC Tab PO SCH (08:49)
[2018-08-02] MEDS: Sodium Chloride 0.9% 1,000 ML IV SCH (13:12)
[2018-08-02] MEDS: Venelex 60gm Tube TP SCH ×2 (13:14→13:21)
--- NOTE | 2018-08-02 13:59 | GI Progress Note ---
Subjective - Review of Systems Subjective: STILL HAS DIARRHEA Objective - Results Result Diagrams: 08/02/18 05:05 08/02/18 05:05 Recent Labs: Laboratory Last Values WBC 6.6 Th/cmm (4.8-10.8) 08/02/18 05:05 RBC 2.64 Mil/cmm (4.30-5.70) L 08/02/18 05:05 Hgb 8.4 gm/dL (12-16) L 08/02/18 05:05 Hct 25.3 % (41.0-60) L 08/02/18 05:05 MCV 95.8 fl (80-99) 08/02/18 05:05 MCH 31.8 pg (26.0-30.0) H 08/02/18 05:05 MCHC Differential 33.1 pg (28.0-36.0) 08/02/18 05:05 RDW 14.3 % (11.5-20.0) 08/02/18 05:05 Plt Count 268 Th/cmm (150-400) 08/02/18 05:05 MPV 7.9 fl 08/02/18 05:05 Neutrophils % 62.5 % (40.0-80.0) 08/02/18 05:05 Lymphocytes % 25.9 % (20.0-50.0) 08/02/18 05:05 Monocytes % 6.1 % (2.0-10.0) 08/02/18 05:05 Eosinophils % 4.2 % (0.0-5.0) 08/02/18 05:05 Basophils % 1.3 % (0.0-2.0) 08/02/18 05:05 PT 9.7 SECONDS (9.5-11.5) 07/25/18 00:40 INR 0.93 (0.5-1.4) 07/25/18 00:40 PTT (Actin FS) 22.9 SECONDS (26.0-38.0) L 07/25/18 00:40 Sodium 133 mEq/L (136-145) L 08/02/18 05:05 Potassium 6.4 mEq/L (3.5-5.1) H* 08/02/18 05:05 Chloride 110 mEq/L (98-107) H 08/02/18 05:05 Carbon Dioxide 18.7 mEq/L (21.0-31.0) L 08/02/18 05:05 Anion Gap 10.7 (7.0-16.0) 08/02/18 05:05 BUN 23 mg/dL (7-25) 08/02/18 05:05 Creatinine 1.2 mg/dL (0.7-1.3) 08/02/18 05:05 Est GFR ( Amer) > 60.0 ml/min (>90) 08/02/18 05:05 Est GFR (Non-Af Amer) > 60.0 ml/min 08/02/18 05:05 BUN/Creatinine Ratio 19.2 08/02/18 05:05 Glucose 300 mg/dL (70-105) H D 08/02/18 05:05 POC Glucose 160 MG/DL (70 - 105) H 08/02/18 11:19 Calcium 8.0 mg/dL (8.6-10.3) L 08/02/18 05:05 Total Bilirubin 0.5 mg/dL (0.3-1.0) 07/28/18 06:00 AST 13 U/L (13-39) 07/28/18 06:00 ALT 10 U/L (7-52) 07/28/18 06:00 Alkaline Phosphatase 73 U/L (34-104) 07/28/18 06:00 Troponin I 0.01 ng/mL (0.01-0.05) 07/25/18 00:40 Total Protein 5.6 gm/dL (6.0-8.3) L 07/28/18 06:00 Albumin 3.6 gm/dL (4.2-5.5) L 07/28/18 06:00 Globulin 2.0 gm/dL 07/28/18 06:00 Albumin/Globulin Ratio 1.8 (1.0-1.8) 07/28/18 06:00 Urine Source CATH 07/25/18 00:40 Urine Color YELLOW 07/25/18 00:40 Urine Clarity CLEAR (CLEAR) 07/25/18 00:40 Urine pH 6.0 (4.6 - 8.0) 07/25/18 00:40 Ur Specific [place] 1.010 (1.005-1.030) 07/25/18 00:40 Urine Protein TRACE mg/dL (NEGATIVE) 07/25/18 00:40 Urine Glucose (UA) >=1000 mg/dL (NEGATIVE) H 07/25/18 00:40 Urine Ketones NEGATIVE mg/dL (NEGATIVE) 07/25/18 00:40 Urine Blood NEGATIVE (NEGATIVE) 07/25/18 00:40 Urine Nitrate NEGATIVE (NEGATIVE) 07/25/18 00:40 Urine Bilirubin NEGATIVE (NEGATIVE) 07/25/18 00:40 Urine Urobilinogen 0.2 E.U./dL (0.2 - 1.0) 07/25/18 00:40 Ur Leukocyte Esterase NEGATIVE (NEGATIVE) 07/25/18 00:40 Urine RBC NONE SEEN /hpf (0-5) 07/25/18 00:40 Urine WBC 0-2 /hpf (0-5) 07/25/18 00:40 Ur Epithelial Cells OCCASIONAL /lpf (FEW) 07/25/18 00:40 Urine Bacteria OCCASIONAL /hpf (NONE SEEN) 07/25/18 00:40 - Physical Exam Vitals and I&O: Vital Signs Temp 98.7 F 08/02/18 12:00 Pulse 87 08/02/18 12:00 Resp 18 08/02/18 12:00 BP 125/75 08/02/18 12:00 Pulse Ox 98 08/02/18 12:00 Intake & Output 08/01/18 08/02/18 08/02/18 18:59 06:59 18:59 Intake Total 9591 405 1683 Output Total 950 Balance 1500 -650 1000 Weight (lbs) 54.431 kg 54.431 kg Intake: Intake, IV Amount 1000 1000 Sodium Chloride 0.9% 1, 1000 1000 000 ml @ 60 mls/hr IV . [id number] [facility] Rx#:[id number] Oral 500 300 Output: Urine 950 Other: # Voids 3 # Bowel Movements 3 Stool Characteristics Liquid Liquid Liquid Brown Brown Brown Weight Source Bedscale Bedscale Active Medications: Current Medications Acetaminophen (Tylenol) 650 mg PO Q6H PRN PRN Reason: Pain or Fever >101 Stop: 09/23/18 11:16 Amlodipine Besylate (Norvasc) 10 mg PO DAILY PRN PRN Reason: SBP ABOVE 160 Stop: 09/25/18 08:59 Last Admin: 07/26/18 23:52 Dose: 10 mg Lipase/Protease/Amylase (Zenpep 5,000 U) 1 cap PO TIDWM [facility] Stop: 09/30/18 16:59 Last Admin: 08/02/18 12:13 Dose: 1 cap Bisacodyl (Dulcolax 10 Mg Supp) 10 mg RC DAILY PRN PRN Reason: Constipation Stop: 09/23/18 11:16 Carisoprodol (Soma) 350 mg PO Q8H PRN PRN Reason: MUSCLE RELAXANT Stop: 09/23/18 11:16 [place] Oil/[place] Balsam/Trypsin (Venelex) 1 appl TP DAILY [facility] Stop: 09/26/18 15:44 Last Admin: 08/02/18 13:14 Dose: Not Given Clonazepam (Klonopin) 0.5 mg PO Q8H PRN; Protocol PRN Reason: Anxiety Stop: 09/23/18 11:16 Last Admin: 08/02/18 09:06 Dose: 0.5 mg Docusate Sodium (Colace) 100 mg PO DAILY [facility] Stop: 09/24/18 08:59 Last Admin: 08/02/18 12:17 Dose: Not Given Folic Acid (Folate) 1 mg PO DAILY [facility] Stop: 09/24/18 08:59 Last Admin: 08/02/18 08:47 Dose: 1 mg Gabapentin (Neurontin) 600 mg PO TID [facility] Stop: 09/23/18 13:59 Last Admin: 08/02/18 13:13 Dose: Not Given Glucagon (Glucagen) 1 mg SUBQ PRN PRN PRN Reason: BS BELOW 60 & NOT TOLERATE PO Hydromorphone HCl (Dilaudid) 2 mg IVP Q3H PRN PRN Reason: Pain (Severe) Stop: 09/23/18 01:14 Last Admin: 08/02/18 12:13 Dose: 2 mg Sodium Chloride (Nacl 0.9%) 1,000 mls @ 60 mls/hr IV .[id number] [facility] Stop: 09/25/18 16:37 Last Admin: 08/02/18 13:12 Dose: 60 mls/hr Insulin Aspart (Novolog Insulin Sliding Scale) 0 units SUBQ ACHS [facility]; Protocol Stop: 09/23/18 11:29 Last Admin: 08/02/18 12:15 Dose: 3 units Insulin Detemir (Levemir Insulin) 6 units SUBQ HS [facility]; Protocol Stop: 09/23/18 20:59 Last Admin: 08/01/18 21:54 Dose: Not Given Lactobacillus Rhamnosus (Culturelle 15b) 1 each PO DAILY [facility] Stop: 09/24/18 08:59 Last Admin: 08/02/18 08:49 Dose: 1 each Levetiracetam (Keppra) 500 mg PO Q12H [facility] Stop: 09/23/18 11:29 Last Admin: 08/02/18 12:17 Dose: Not Given Lisinopril (Zestril) 2.5 mg PO DAILY [facility] Stop: 09/24/18 08:59 Last Admin: 08/02/18 08:45 Dose: 2.5 mg Loperamide HCl (Imodium) 2 mg PO Q6HR PRN PRN Reason: Diarrhea Stop: 09/29/18 16:06 Last Admin: 08/01/18 16:43 Dose: 2 mg Magnesium Chloride (Slow-Mag) 64 ect PO [facility] Stop: 09/23/18 20:59 Last Admin: 08/01/18 21:54 Dose: Not Given Magnesium Hydroxide (Milk Of Magnesia) 30 ml PO DAILY PRN PRN Reason: Constipation Stop: 09/23/18 11:19 Metoclopramide HCl (Reglan) 10 mg IVP Q8HR PRN PRN Reason: Nausea / Vomiting Stop: 09/26/18 09:21 Last Admin: 08/01/18 08:51 Dose: 10 mg Multivitamins/Vitamin C (Theragran) 1 tab PO DAILY [facility] Stop: 09/24/18 08:59 Last Admin: 08/02/18 08:48 Dose: 1 tab Nitroglycerin (Nitrostat) 0.4 mg SL Q5MIN PRN PRN Reason: Chest Pain Stop: 09/23/18 11:19 Oxcarbazepine (Trileptal) 300 mg PO BID [facility]; Protocol Stop: 09/23/18 16:59 Last Admin: 08/02/18 08:47 Dose: 300 mg Pantoprazole Sodium (Protonix) 40 mg PO DAILY [facility] Stop: 09/24/18 08:59 Last Admin: 08/02/18 08:49 Dose: 40 mg Quetiapine Fumarate (Seroquel) 100 mg PO [facility]; Protocol Stop: 09/23/18 20:59 Last Admin: 08/01/18 20:33 Dose: 100 mg Rifaximin (Xifaxan) 550 mg PO TID [facility] Stop: 09/30/18 20:59 Last Admin: 08/02/18 08:48 Dose: 550 mg Tamsulosin HCl (Flomax) 0.4 mg PO HS [facility] Stop: 09/23/18 20:59 Last Admin: 08/01/18 21:54 Dose: Not Given Trazodone HCl (Desyrel) 100 mg PO HS PRN; Protocol PRN Reason: Insomnia Stop: 09/23/18 11:20 Last Admin: 08/01/18 20:32 Dose: 100 mg - Procedures Procedures: Procedures Procedure Code Date EXCISION OF L FOOT SUBCU/FASCIA, OPEN APPROACH [id number] 06/22/18 Assessment/Plan - Assessment Assessment: 48 YO MALE WITH CHRONIC DIARRHEA CT SHOWED FLUID IN THE SMALL BOWEL CDIFF NEG 1.CONT SUPP CARE 2.COLO TOMORROW
--- NOTE | 2018-08-02 16:16 | Consultation ---
DATE OF CONSULTATION: 08/01/2018 INPATIENT GASTROENTEROLOGY CONSULTATION REFERRING PHYSICIAN: Dr. Lira. REASON FOR CONSULTATION: Diarrhea. HISTORY OF PRESENT ILLNESS: This is a 48-year-old male with chronic diarrhea, IBS. The patient states that his diarrhea has gotten worse and therefore he had to come to the hospital. He had a C. diff of the stool that was negative. He has lower abdominal pain. Denies any melena or hematochezia. PAST MEDICAL HISTORY: Diabetes, osteoporosis, rheumatoid arthritis. PAST SURGICAL HISTORY: Right BKA. FAMILY HISTORY: Noncontributory. SOCIAL HISTORY: Denies tobacco, alcohol or drug usage. ALLERGIES: TYLENOL, KEFLEX, KETOROLAC, LATEX, EGGS. CURRENT MEDICATIONS: Tylenol, Norvasc, Dulcolax, Soma, castor oil, Klonopin, Colace, folic acid, gabapentin, Dilaudid, insulin, Keppra, Zestril, Imodium, Slow-Mag, milk of magnesia, Reglan, Nitrostat, Trileptal, Protonix, Seroquel, Flomax, Desyrel. REVIEW OF SYSTEMS: Ten point review of system was performed and the pertinent positives are diabetes or diarrhea. All systems were otherwise negative. PHYSICAL EXAMINATION: VITAL SIGNS: Temperature 97.3, breathing 18, pulse of 81, blood pressure 132/71, satting 98%. GENERAL: In no apparent distress. EYES: Anicteric. Normal conjunctivae. HEENT: Normocephalic, atraumatic. Moist mucous membranes. NECK: Soft, supple. CHEST: Clear. No effort. CARDIOVASCULAR: Regular rate and rhythm. ABDOMEN: Soft, nondistended, tender lower abdomen. No rebound or guarding. SKIN: Warm, dry. EXTREMITIES: No cyanosis. LABORATORY DATA: Show white count 3.8, hemoglobin 9, platelets of 281. Creatinine 1.1. IMPRESSION: This is a 48-year-old male with chronic diarrhea, change in bowel habits. Cause could be from underlying diabetes, also could be from his underlying IBS. Other things to consider could be pancreatic exocrine insufficiency, infectious colitis versus inflammatory bowel disease versus medication effect. PLAN: 1. Check CT abdomen and pelvis. 2. May need a colonoscopy. 3. Trial of Xifaxan for IBS-D. 4. Viberzi can be attempted in some cases with IBS-D, however, that medication is not available here. 5. May try some pancreatic enzymes. Thank you for allowing me to participate. Please call me with any questions. JOB# [id number]
[2018-08-02] MEDS: Metoclopramide 5 mg/mL 2mL Vial IVP PRN (20:41)
--- NOTE | 2018-08-02 20:46 | Internal Medicine Prog Note ---
Internal Medicine Subjective - Subjective Service Date: 08/02/18 Patient seen and examined:: without staff Patient is:: awake, interactive, in bed Patient Complaints of:: congestion, vomitting, diarrhea Per staff patient has:: no adverse event Internal Medicine Objective - Results Result Diagrams: 08/02/18 05:05 08/02/18 05:05 Recent Labs: Laboratory Last Values WBC 6.6 Th/cmm (4.8-10.8) 08/02/18 05:05 RBC 2.64 Mil/cmm (4.30-5.70) L 08/02/18 05:05 Hgb 8.4 gm/dL (12-16) L 08/02/18 05:05 Hct 25.3 % (41.0-60) L 08/02/18 05:05 MCV 95.8 fl (80-99) 08/02/18 05:05 MCH 31.8 pg (26.0-30.0) H 08/02/18 05:05 MCHC Differential 33.1 pg (28.0-36.0) 08/02/18 05:05 RDW 14.3 % (11.5-20.0) 08/02/18 05:05 Plt Count 268 Th/cmm (150-400) 08/02/18 05:05 MPV 7.9 fl 08/02/18 05:05 Neutrophils % 62.5 % (40.0-80.0) 08/02/18 05:05 Lymphocytes % 25.9 % (20.0-50.0) 08/02/18 05:05 Monocytes % 6.1 % (2.0-10.0) 08/02/18 05:05 Eosinophils % 4.2 % (0.0-5.0) 08/02/18 05:05 Basophils % 1.3 % (0.0-2.0) 08/02/18 05:05 PT 9.7 SECONDS (9.5-11.5) 07/25/18 00:40 INR 0.93 (0.5-1.4) 07/25/18 00:40 PTT (Actin FS) 22.9 SECONDS (26.0-38.0) L 07/25/18 00:40 Sodium 133 mEq/L (136-145) L 08/02/18 05:05 Potassium 6.4 mEq/L (3.5-5.1) H* 08/02/18 05:05 Chloride 110 mEq/L (98-107) H 08/02/18 05:05 Carbon Dioxide 18.7 mEq/L (21.0-31.0) L 08/02/18 05:05 Anion Gap 10.7 (7.0-16.0) 08/02/18 05:05 BUN 23 mg/dL (7-25) 08/02/18 05:05 Creatinine 1.2 mg/dL (0.7-1.3) 08/02/18 05:05 Est GFR ( Amer) > 60.0 ml/min (>90) 08/02/18 05:05 Est GFR (Non-Af Amer) > 60.0 ml/min 08/02/18 05:05 BUN/Creatinine Ratio 19.2 08/02/18 05:05 Glucose 300 mg/dL (70-105) H D 08/02/18 05:05 POC Glucose 160 MG/DL (70 - 105) H 08/02/18 11:19 Calcium 8.0 mg/dL (8.6-10.3) L 08/02/18 05:05 Total Bilirubin 0.5 mg/dL (0.3-1.0) 07/28/18 06:00 AST 13 U/L (13-39) 07/28/18 06:00 ALT 10 U/L (7-52) 07/28/18 06:00 Alkaline Phosphatase 73 U/L (34-104) 07/28/18 06:00 Troponin I 0.01 ng/mL (0.01-0.05) 07/25/18 00:40 Total Protein 5.6 gm/dL (6.0-8.3) L 07/28/18 06:00 Albumin 3.6 gm/dL (4.2-5.5) L 07/28/18 06:00 Globulin 2.0 gm/dL 07/28/18 06:00 Albumin/Globulin Ratio 1.8 (1.0-1.8) 07/28/18 06:00 Urine Source CATH 07/25/18 00:40 Urine Color YELLOW 07/25/18 00:40 Urine Clarity CLEAR (CLEAR) 07/25/18 00:40 Urine pH 6.0 (4.6 - 8.0) 07/25/18 00:40 Ur Specific [place] 1.010 (1.005-1.030) 07/25/18 00:40 Urine Protein TRACE mg/dL (NEGATIVE) 07/25/18 00:40 Urine Glucose (UA) >=1000 mg/dL (NEGATIVE) H 07/25/18 00:40 Urine Ketones NEGATIVE mg/dL (NEGATIVE) 07/25/18 00:40 Urine Blood NEGATIVE (NEGATIVE) 07/25/18 00:40 Urine Nitrate NEGATIVE (NEGATIVE) 07/25/18 00:40 Urine Bilirubin NEGATIVE (NEGATIVE) 07/25/18 00:40 Urine Urobilinogen 0.2 E.U./dL (0.2 - 1.0) 07/25/18 00:40 Ur Leukocyte Esterase NEGATIVE (NEGATIVE) 07/25/18 00:40 Urine RBC NONE SEEN /hpf (0-5) 07/25/18 00:40 Urine WBC 0-2 /hpf (0-5) 07/25/18 00:40 Ur Epithelial Cells OCCASIONAL /lpf (FEW) 07/25/18 00:40 Urine Bacteria OCCASIONAL /hpf (NONE SEEN) 07/25/18 00:40 - Physical Exam Vitals and I&O: Vital Signs Temp 98.7 F 08/02/18 16:00 Pulse 104 08/02/18 16:00 Resp 18 08/02/18 16:00 BP 184/103 08/02/18 16:00 Pulse Ox 97 08/02/18 16:00 Intake & Output 08/02/18 08/02/18 08/03/18 06:59 18:59 06:59 Intake Total 300 1000 Output Total 950 Balance -650 1000 Weight (lbs) 54.431 kg Intake: Intake, IV Amount 1000 Sodium Chloride 0.9% 1, 1000 000 ml @ 60 mls/hr IV . [id number] [facility] Rx#:[id number] Oral 300 Output: Urine 950 Other: Stool Characteristics Liquid Liquid Brown Brown Weight Source Bedscale Active Medications: Current Medications Acetaminophen (Tylenol) 650 mg PO Q6H PRN PRN Reason: Pain or Fever >101 Stop: 09/23/18 11:16 Amlodipine Besylate (Norvasc) 10 mg PO DAILY PRN PRN Reason: SBP ABOVE 160 Stop: 09/25/18 08:59 Last Admin: 07/26/18 23:52 Dose: 10 mg Lipase/Protease/Amylase (Zenpep 5,000 U) 1 cap PO TIDWM [facility] Stop: 09/30/18 16:59 Last Admin: 08/02/18 16:12 Dose: 1 cap Bisacodyl (Dulcolax 10 Mg Supp) 10 mg RC DAILY PRN PRN Reason: Constipation Stop: 09/23/18 11:16 Carisoprodol (Soma) 350 mg PO Q8H PRN PRN Reason: MUSCLE RELAXANT Stop: 09/23/18 11:16 [place] Oil/[place] Balsam/Trypsin (Venelex) 1 appl TP DAILY [facility] Stop: 09/26/18 15:44 Last Admin: 08/02/18 13:21 Dose: 1 appl Clonazepam (Klonopin) 0.5 mg PO Q8H PRN; Protocol PRN Reason: Anxiety Stop: 09/23/18 11:16 Last Admin: 08/02/18 20:38 Dose: 0.5 mg Docusate Sodium (Colace) 100 mg PO DAILY [facility] Stop: 09/24/18 08:59 Last Admin: 08/02/18 12:17 Dose: Not Given Folic Acid (Folate) 1 mg PO DAILY [facility] Stop: 09/24/18 08:59 Last Admin: 08/02/18 08:47 Dose: 1 mg Gabapentin (Neurontin) 600 mg PO TID [facility] Stop: 09/23/18 13:59 Last Admin: 08/02/18 20:39 Dose: 600 mg Glucagon (Glucagen) 1 mg SUBQ PRN PRN PRN Reason: BS BELOW 60 & NOT TOLERATE PO Hydromorphone HCl (Dilaudid) 2 mg IVP Q3H PRN PRN Reason: Pain (Severe) Stop: 09/23/18 01:14 Last Admin: 08/02/18 20:01 Dose: 2 mg Sodium Chloride (Nacl 0.9%) 1,000 mls @ 60 mls/hr IV .[id number] [facility] Stop: 09/25/18 16:37 Last Admin: 08/02/18 13:12 Dose: 60 mls/hr Insulin Aspart (Novolog Insulin Sliding Scale) 0 units SUBQ ACHS [facility]; Protocol Stop: 09/23/18 11:29 Last Admin: 08/02/18 20:33 Dose: 14 units Insulin Detemir (Levemir Insulin) 6 units SUBQ [facility]; Protocol Stop: 09/23/18 20:59 Last Admin: 08/01/18 21:54 Dose: Not Given Lactobacillus Rhamnosus (Culturelle 15b) 1 each PO DAILY [facility] Stop: 09/24/18 08:59 Last Admin: 08/02/18 08:49 Dose: 1 each Levetiracetam (Keppra) 500 mg PO Q12H [facility] Stop: 09/23/18 11:29 Last Admin: 08/02/18 12:17 Dose: Not Given Lisinopril (Zestril) 2.5 mg PO DAILY [facility] Stop: 09/24/18 08:59 Last Admin: 08/02/18 08:45 Dose: 2.5 mg Loperamide HCl (Imodium) 2 mg PO Q6HR PRN PRN Reason: Diarrhea Stop: 09/29/18 16:06 Last Admin: 08/01/18 16:43 Dose: 2 mg Magnesium Chloride (Slow-Mag) 64 ect PO [facility] Stop: 09/23/18 20:59 Last Admin: 08/01/18 21:54 Dose: Not Given Magnesium Hydroxide (Milk Of Magnesia) 30 ml PO DAILY PRN PRN Reason: Constipation Stop: 09/23/18 11:19 Metoclopramide HCl (Reglan) 10 mg IVP Q8HR PRN PRN Reason: Nausea / Vomiting Stop: 09/26/18 09:21 Last Admin: 08/02/18 20:41 Dose: 10 mg Multivitamins/Vitamin C (Theragran) 1 tab PO DAILY [facility] Stop: 09/24/18 08:59 Last Admin: 08/02/18 08:48 Dose: 1 tab Nitroglycerin (Nitrostat) 0.4 mg SL Q5MIN PRN PRN Reason: Chest Pain Stop: 09/23/18 11:19 Oxcarbazepine (Trileptal) 300 mg PO BID [facility]; Protocol Stop: 09/23/18 16:59 Last Admin: 08/02/18 16:12 Dose: 300 mg Pantoprazole Sodium (Protonix) 40 mg PO DAILY [facility] Stop: 09/24/18 08:59 Last Admin: 08/02/18 08:49 Dose: 40 mg Quetiapine Fumarate (Seroquel) 100 mg PO HS [facility]; Protocol Stop: 09/23/18 20:59 Last Admin: 08/02/18 20:39 Dose: 100 mg Rifaximin (Xifaxan) 550 mg PO TID [facility] Stop: 09/30/18 20:59 Last Admin: 08/02/18 20:36 Dose: 550 mg Tamsulosin HCl (Flomax) 0.4 mg PO HS [facility] Stop: 09/23/18 20:59 Last Admin: 08/02/18 20:39 Dose: 0.4 mg Trazodone HCl (Desyrel) 100 mg PO HS PRN; Protocol PRN Reason: Insomnia Stop: 09/23/18 11:20 Last Admin: 08/01/18 20:32 Dose: 100 mg General: weak, lethargic, congested HEENT: PERRLA, EOMI Neck: Supple, No JVD, No thyromegaly Lungs: wheezing Abdomen: soft, non-distended - Procedures Procedures: Procedures Procedure Code Date EXCISION OF L FOOT SUBCU/FASCIA, OPEN APPROACH [id number] 06/22/18 Internal Medicine Assmt/Plan - Assessment Assessment: Severe diarrhea: stool for C. Diff; GI consult: colonoscopy. Hyperkalemia: 60gm Kayexalate po x1 ordered; repeat BMP 4h after. Leukopenia: resolved. OOC DM: pt is noncompliant with diet. Intractable pain/chronic pain syndrome exacerbation: understandable and multifactorial. adjusting pain med. Severe N&V: change to Reglan. s/p Fall: rt proximal humeral fracture. COPD: RT CAD: s/p UT Seizure: close monitoring. Nutritional Asmnt/Malnutr-PDOC - Dietary Evaluation Malnutrition Findings (Please click <Entered> for more info): Nutritional Asmnt/Malnutrition Start: 07/25/18 15: 07 Text: Status: Complete Freq: Protocol: Document 07/25/18 15:09 [email or web address] (Rec: 07/25/18 15:24 [email or web address]) Nutritional Asmnt/Malnutrition Patient General Information Nutritional Screening High Risk Diagnosis intractable shoulder pain, possible right shoulder Pertinent Medical Hx/Surgical Hx HTN, DM, asthma/COPD, CAD, seizures, RT BKA Subjective Information Pt was resting in bed, alert, but did not want to speak with RD at time of visit. Elevated glucose 351 noted. Current Diet Order/ Nutrition Support CCHO, cardiac, ensure clear BID Pertinent Medications colace, folate, glucagen, novolog, levemir, culturelle, slow-mag, theragran, protonix, seroquel Pertinent Labs Na 132, Cl 96, cr 1.4, glucose 351, ca 8.5, POC [phone] Nutritional Hx/Data Height 1.73 m Height (Calculated Centimeters) 172.7 Current Weight (lbs) 50.802 kg Weight (Calculated Kilograms) 50.8 Weight (Calculated Grams) 38921.3 [place] Body Weight 154 Body Mass Index (BMI) 17.0 Weight Status Underweight GI Symptoms GI Symptoms None Last BM 07/25 Difficult in: None Skin Integrity/Comment: right BKA, left foot ulceration Estimated Nutritional Goals BEE in Kcals: Using Current wt Calories/Kcals/Kg 30-35 Kcals Calculated [id number] Protein: Using Current wt Protein g/k.2 Protein Calculated 61 Fluid: ml [id number] (1ml/kcal) Nutritional Problem 1. Problem Problem altered nutrition related labs Etiology hyperglycemia Signs/Symptoms: glucose 351, POC [phone] Malnutrition Alert Is there a minimum of two criteria No selected? Query Text:Check all the applicable criteria. A minimum of two criteria are recommended for diagnosis of either severe or non-severe malnutrition. Malnutrition Related to Morbid Obesity Malnutrition related to morbid obesity No Intervention/Recommendation Comments 1. Continue with CCHO, cardiac diet with ensure clear BID as ordered. Will adjust protein needs after wound assessed. 2. MD to adjust insulin regimen for optimal glycemic control 2. Monitor PO intake, wt, labs and skin integrity 3. F/U as high risk in 2-3 days Expected Outcomes/Goals Expected Outcomes/Goals 1. PO intake to meet at least 75% of nutritional needs. 2. Wt stability, skin to remain intact, labs to approach WNL. Reviewed by Claribel Anand RD
[2018-08-02] MEDS: Insulin Detemir 100 units/mL 10mL Vial SUBQ SCH (20:50)
[2018-08-02] MEDS: Magnesium Chloride EC 64mg Tab PO SCH (22:33)
[2018-08-03] MEDS: HYDROmorphone 2 mg/mL 1mL Vial IVP PRN ×9 (00:31→23:15)
[2018-08-03] MEDS: Sodium Chloride 0.9% 1,000 ML IV SCH (06:37)
[2018-08-03 06:41] LABS: INR 0.92 (0.5-1.4); PROTHROMBIN TIME (TEST) 9.6 SECONDS (9.5-11.5)
[2018-08-03 06:43] LABS: % BASOPHILS 0.9 % (0.0-2.0); % EOSINOPHILS 2.1 % (0.0-5.0); % MONOCYTES 7.2 % (2.0-10.0); % NEUTROPHILS 73.8 % (40.0-80.0); BASOPHILE ABSOLUTE 0.1 Th/cumm (0-0.2); EOSINOPHILE ABSOLUTE 0.2 Th/cmm (0.1-0.4); HEMATOCRIT 24.5 % (41.0-60); HEMOGLOBIN 8.2 gm/dL (12-16); LYMPHOCYTE ABSOLUTE 1.3 Th/cmm (1.5-3.0); MEAN CELL VOLUME 94.3 fl (80-99); MEAN CORPUSCULAR HEMOGLOBIN 31.4 pg (26.0-30.0); MEAN CORPUSCULAR HGB CONC 33.3 pg (28.0-36.0); MEAN PLATELET VOLUME 7.5 fl; MONOCYTE ABSOLUTE 0.6 Th/cmm (0.3-1.0); NEUTROPHILE ABSOLUTE 5.9 Th/cmm (1.8-8.0); PLATELET COUNT 281 Th/cmm (150-400); RED CELL DISTRIBUTION WIDTH 14.6 % (11.5-20.0); WHITE BLOOD COUNT 8.1 Th/cmm (4.8-10.8)
[2018-08-03 06:59] LABS: ANION GAP 14.6 (7.0-16.0); BUN - UREA NITROGEN 16 mg/dL (7-25); CALCIUM SERUM 8.4 mg/dL (8.6-10.3); CARBON DIOXIDE 19.6 mEq/L (21.0-31.0); CHLORIDE 108 mEq/L (98-107); GFR AFRICAN-AMERICAN > 60.0 ml/min (>90); GFR NON AFRICAN-AMERICAN > 60.0 ml/min; GLUCOSE 84 mg/dL (70-105); SODIUM SERUM 138 mEq/L (136-145)
[2018-08-03 07:12] LABS: POTASSIUM SERUM 4.2 mEq/L (3.5-5.1)
[2018-08-03] MEDS: INSULIN ASPART SLIDING SCALE 100 UNITS/ML UNIT SUBQ SCH ×5 (08:52→22:01)
[2018-08-03] MEDS: Pantoprazole 40 mg EC Tab PO SCH (08:54)
[2018-08-03] MEDS: Multivitamin Tab PO SCH (08:54)
[2018-08-03] MEDS: Lactobacillus Rhamnosus GG 15 Billion CFU CAP.SPRINK PO SCH (08:54)
[2018-08-03] MEDS: Metoclopramide 5 mg/mL 2mL Vial IVP PRN ×3 (09:37→20:19)
[2018-08-03] MEDS: Venelex 60gm Tube TP SCH (11:27)
[2018-08-03] MEDS ORDERED: Propofol 10 mg/mL 20mL Vial **SURGERY USE ONLY IV ONE (12:35)
[2018-08-03] MEDS ORDERED: Lidocaine 2% Gel 5 mL TP ONE (12:35)
--- NOTE | 2018-08-03 13:03 | Internal Medicine Prog Note ---
Internal Medicine Subjective - Subjective Service Date: 08/03/18 Patient seen and examined:: without staff Patient is:: awake, interactive, in bed Patient Complaints of:: congestion, vomitting, diarrhea Per staff patient has:: no adverse event Internal Medicine Objective - Results Result Diagrams: 08/03/18 05:45 08/03/18 05:45 Recent Labs: Laboratory Last Values WBC 8.1 Th/cmm (4.8-10.8) 08/03/18 05:45 RBC 2.60 Mil/cmm (4.30-5.70) L 08/03/18 05:45 Hgb 8.2 gm/dL (12-16) L 08/03/18 05:45 Hct 24.5 % (41.0-60) L 08/03/18 05:45 MCV 94.3 fl (80-99) 08/03/18 05:45 MCH 31.4 pg (26.0-30.0) H 08/03/18 05:45 MCHC Differential 33.3 pg (28.0-36.0) 08/03/18 05:45 RDW 14.6 % (11.5-20.0) 08/03/18 05:45 Plt Count 281 Th/cmm (150-400) 08/03/18 05:45 MPV 7.5 fl 08/03/18 05:45 Neutrophils % 73.8 % (40.0-80.0) 08/03/18 05:45 Lymphocytes % 16.0 % (20.0-50.0) L 08/03/18 05:45 Monocytes % 7.2 % (2.0-10.0) 08/03/18 05:45 Eosinophils % 2.1 % (0.0-5.0) 08/03/18 05:45 Basophils % 0.9 % (0.0-2.0) 08/03/18 05:45 PT 9.6 SECONDS (9.5-11.5) 08/03/18 05:45 INR 0.92 (0.5-1.4) 08/03/18 05:45 PTT (Actin FS) 22.9 SECONDS (26.0-38.0) L 07/25/18 00:40 Sodium 138 mEq/L (136-145) 08/03/18 05:45 Potassium 4.2 mEq/L (3.5-5.1) D 08/03/18 05:45 Chloride 108 mEq/L (98-107) H 08/03/18 05:45 Carbon Dioxide 19.6 mEq/L (21.0-31.0) L 08/03/18 05:45 Anion Gap 14.6 (7.0-16.0) 08/03/18 05:45 BUN 16 mg/dL (7-25) 08/03/18 05:45 Creatinine 1.0 mg/dL (0.7-1.3) 08/03/18 05:45 Est GFR ( Amer) > 60.0 ml/min (>90) 08/03/18 05:45 Est GFR (Non-Af Amer) > 60.0 ml/min 08/03/18 05:45 BUN/Creatinine Ratio 16.0 08/03/18 05:45 Glucose 84 mg/dL (70-105) 08/03/18 05:45 POC Glucose 381 MG/DL (70 - 105) H 08/03/18 12:21 Calcium 8.4 mg/dL (8.6-10.3) L 08/03/18 05:45 Total Bilirubin 0.5 mg/dL (0.3-1.0) 07/28/18 06:00 AST 13 U/L (13-39) 07/28/18 06:00 ALT 10 U/L (7-52) 07/28/18 06:00 Alkaline Phosphatase 73 U/L (34-104) 07/28/18 06:00 Troponin I 0.01 ng/mL (0.01-0.05) 07/25/18 00:40 Total Protein 5.6 gm/dL (6.0-8.3) L 07/28/18 06:00 Albumin 3.6 gm/dL (4.2-5.5) L 07/28/18 06:00 Globulin 2.0 gm/dL 07/28/18 06:00 Albumin/Globulin Ratio 1.8 (1.0-1.8) 07/28/18 06:00 Urine Source CATH 07/25/18 00:40 Urine Color YELLOW 07/25/18 00:40 Urine Clarity CLEAR (CLEAR) 07/25/18 00:40 Urine pH 6.0 (4.6 - 8.0) 07/25/18 00:40 Ur Specific [place] 1.010 (1.005-1.030) 07/25/18 00:40 Urine Protein TRACE mg/dL (NEGATIVE) 07/25/18 00:40 Urine Glucose (UA) >=1000 mg/dL (NEGATIVE) H 07/25/18 00:40 Urine Ketones NEGATIVE mg/dL (NEGATIVE) 07/25/18 00:40 Urine Blood NEGATIVE (NEGATIVE) 07/25/18 00:40 Urine Nitrate NEGATIVE (NEGATIVE) 07/25/18 00:40 Urine Bilirubin NEGATIVE (NEGATIVE) 07/25/18 00:40 Urine Urobilinogen 0.2 E.U./dL (0.2 - 1.0) 07/25/18 00:40 Ur Leukocyte Esterase NEGATIVE (NEGATIVE) 07/25/18 00:40 Urine RBC NONE SEEN /hpf (0-5) 07/25/18 00:40 Urine WBC 0-2 /hpf (0-5) 07/25/18 00:40 Ur Epithelial Cells OCCASIONAL /lpf (FEW) 07/25/18 00:40 Urine Bacteria OCCASIONAL /hpf (NONE SEEN) 07/25/18 00:40 - Physical Exam Vitals and I&O: Vital Signs Temp 97.3 F 08/03/18 11:40 Pulse 83 08/03/18 11:40 Resp 18 08/03/18 11:40 BP 122/74 08/03/18 11:40 Pulse Ox 98 08/03/18 11:40 Intake & Output 08/02/18 08/03/18 08/03/18 18:59 06:59 18:59 Intake Total 1000 1000 Balance 1000 1000 Intake: Intake, IV Amount 1000 1000 Sodium Chloride 0.9% 1, 1000 1000 000 ml @ 60 mls/hr IV . [id number] [facility] Rx#:[id number] Other: Stool Characteristics Liquid Liquid Liquid Brown Brown Brown Active Medications: Current Medications Acetaminophen (Tylenol) 650 mg PO Q6H PRN PRN Reason: Pain or Fever >101 Stop: 09/23/18 11:16 Amlodipine Besylate (Norvasc) 10 mg PO DAILY PRN PRN Reason: SBP ABOVE 160 Stop: 09/25/18 08:59 Last Admin: 07/26/18 23:52 Dose: 10 mg Lipase/Protease/Amylase (Zenpep 5,000 U) 1 cap PO TIDWM [facility] Stop: 09/30/18 16:59 Last Admin: 08/03/18 13:01 Dose: Not Given Bisacodyl (Dulcolax 10 Mg Supp) 10 mg RC DAILY PRN PRN Reason: Constipation Stop: 09/23/18 11:16 Carisoprodol (Soma) 350 mg PO Q8H PRN PRN Reason: MUSCLE RELAXANT Stop: 09/23/18 11:16 [place] Oil/[place] Balsam/Trypsin (Venelex) 1 appl TP DAILY [facility] Stop: 09/26/18 15:44 Last Admin: 08/03/18 11:27 Dose: Not Given Clonazepam (Klonopin) 0.5 mg PO Q8H PRN; Protocol PRN Reason: Anxiety Stop: 09/23/18 11:16 Last Admin: 08/02/18 20:38 Dose: 0.5 mg Docusate Sodium (Colace) 100 mg PO DAILY [facility] Stop: 09/24/18 08:59 Last Admin: 08/03/18 08:53 Dose: Not Given Folic Acid (Folate) 1 mg PO DAILY [facility] Stop: 09/24/18 08:59 Last Admin: 08/03/18 08:53 Dose: Not Given Gabapentin (Neurontin) 600 mg PO TID [facility] Stop: 09/23/18 13:59 Last Admin: 08/03/18 08:54 Dose: Not Given Glucagon (Glucagen) 1 mg SUBQ PRN PRN PRN Reason: BS BELOW 60 & NOT TOLERATE PO Hydromorphone HCl (Dilaudid) 2 mg IVP Q3H PRN PRN Reason: Pain (Severe) Stop: 09/23/18 01:14 Last Admin: 08/03/18 09:37 Dose: 2 mg Sodium Chloride (Nacl 0.9%) 1,000 mls @ 60 mls/hr IV .[id number] [facility] Stop: 09/25/18 16:37 Last Admin: 08/03/18 06:37 Dose: 60 mls/hr Insulin Aspart (Novolog Insulin Sliding Scale) 0 units SUBQ ACHS [facility]; Protocol Stop: 09/23/18 11:29 Last Admin: 08/03/18 12:59 Dose: Not Given Insulin Detemir (Levemir Insulin) 6 units SUBQ HS [facility]; Protocol Stop: 09/23/18 20:59 Last Admin: 08/02/18 20:50 Dose: Not Given Lactobacillus Rhamnosus (Culturelle 15b) 1 each PO DAILY [facility] Stop: 09/24/18 08:59 Last Admin: 08/03/18 08:54 Dose: Not Given Levetiracetam (Keppra) 500 mg PO Q12H [facility] Stop: 09/23/18 11:29 Last Admin: 08/03/18 11:27 Dose: Not Given Lisinopril (Zestril) 2.5 mg PO DAILY [facility] Stop: 09/24/18 08:59 Last Admin: 08/03/18 08:54 Dose: Not Given Loperamide HCl (Imodium) 2 mg PO Q6HR PRN PRN Reason: Diarrhea Stop: 09/29/18 16:06 Last Admin: 08/01/18 16:43 Dose: 2 mg Magnesium Chloride (Slow-Mag) 64 ect PO [facility] Stop: 09/23/18 20:59 Last Admin: 08/02/18 22:33 Dose: 64 ect Magnesium Hydroxide (Milk Of Magnesia) 30 ml PO DAILY PRN PRN Reason: Constipation Stop: 09/23/18 11:19 Metoclopramide HCl (Reglan) 10 mg IVP Q8HR PRN PRN Reason: Nausea / Vomiting Stop: 09/26/18 09:21 Last Admin: 08/03/18 09:37 Dose: 10 mg Multivitamins/Vitamin C (Theragran) 1 tab PO DAILY [facility] Stop: 09/24/18 08:59 Last Admin: 08/03/18 08:54 Dose: Not Given Nitroglycerin (Nitrostat) 0.4 mg SL Q5MIN PRN PRN Reason: Chest Pain Stop: 09/23/18 11:19 Oxcarbazepine (Trileptal) 300 mg PO BID [facility]; Protocol Stop: 09/23/18 16:59 Last Admin: 08/03/18 08:54 Dose: Not Given Pantoprazole Sodium (Protonix) 40 mg PO DAILY [facility] Stop: 09/24/18 08:59 Last Admin: 08/03/18 08:54 Dose: Not Given Quetiapine Fumarate (Seroquel) 100 mg PO [facility]; Protocol Stop: 09/23/18 20:59 Last Admin: 08/02/18 20:39 Dose: 100 mg Rifaximin (Xifaxan) 550 mg PO TID [facility] Stop: 09/30/18 20:59 Last Admin: 08/03/18 08:54 Dose: Not Given Tamsulosin HCl (Flomax) 0.4 mg PO HS [facility] Stop: 09/23/18 20:59 Last Admin: 08/02/18 20:39 Dose: 0.4 mg Trazodone HCl (Desyrel) 100 mg PO HS PRN; Protocol PRN Reason: Insomnia Stop: 09/23/18 11:20 Last Admin: 08/02/18 22:33 Dose: 100 mg General: weak, lethargic, congested HEENT: PERRLA, EOMI Neck: Supple, No JVD, No thyromegaly Lungs: wheezing Abdomen: soft, non-distended - Procedures Procedures: Procedures Procedure Code Date EXCISION OF L FOOT SUBCU/FASCIA, OPEN APPROACH [id number] 06/22/18 Internal Medicine Assmt/Plan - Assessment Assessment: Severe N&V: change to Reglan. Severe diarrhea: stool for C. Diff; GI consult: colonoscopy later today. Hyperkalemia: s/p 60gm Kayexalate po x1 ordered; repeat BMP 4h after. Leukopenia: resolved. OOC DM: pt is noncompliant with diet. Intractable pain/chronic pain syndrome exacerbation: understandable and multifactorial. adjusting pain med. s/p Fall: rt proximal humeral fracture. COPD: RT CAD: s/p OK Seizure: close monitoring. Nutritional Asmnt/Malnutr-PDOC - Dietary Evaluation Malnutrition Findings (Please click <Entered> for more info): Nutritional Asmnt/Malnutrition Start: 07/25/18 15: 07 Text: Status: Complete Freq: Protocol: Document 07/25/18 15:09 [email or web address] (Rec: 07/25/18 15:24 [email or web address] MONY) Nutritional Asmnt/Malnutrition Patient General Information Nutritional Screening High Risk Diagnosis intractable shoulder pain, possible right shoulder Pertinent Medical Hx/Surgical Hx HTN, DM, asthma/COPD, CAD, seizures, RT BKA Subjective Information Pt was resting in bed, alert, but did not want to speak with RD at time of visit. Elevated glucose 351 noted. Current Diet Order/ Nutrition Support CCHO, cardiac, ensure clear BID Pertinent Medications colace, folate, glucagen, novolog, levemir, culturelle, slow-mag, theragran, protonix, seroquel Pertinent Labs Na 132, Cl 96, cr 1.4, glucose 351, ca 8.5, POC [phone] Nutritional Hx/Data Height 1.73 m Height (Calculated Centimeters) 172.7 Current Weight (lbs) 50.802 kg Weight (Calculated Kilograms) 50.8 Weight (Calculated Grams) 50769.3 [place] Body Weight 154 Body Mass Index (BMI) 17.0 Weight Status Underweight GI Symptoms GI Symptoms None Last BM 07/25 Difficult in: None Skin Integrity/Comment: right BKA, left foot ulceration Estimated Nutritional Goals BEE in Kcals: Using Current wt Calories/Kcals/Kg 30-35 Kcals Calculated 6029-8787 Protein: Using Current wt Protein g/k.2 Protein Calculated 61 Fluid: ml 6421-8727 (1ml/kcal) Nutritional Problem 1. Problem Problem altered nutrition related labs Etiology hyperglycemia Signs/Symptoms: glucose 351, POC [phone] Malnutrition Alert Is there a minimum of two criteria No selected? Query Text:Check all the applicable criteria. A minimum of two criteria are recommended for diagnosis of either severe or non-severe malnutrition. Malnutrition Related to Morbid Obesity Malnutrition related to morbid obesity No Intervention/Recommendation Comments 1. Continue with CCHO, cardiac diet with ensure clear BID as ordered. Will adjust protein needs after wound assessed. 2. MD to adjust insulin regimen for optimal glycemic control 2. Monitor PO intake, wt, labs and skin integrity 3. F/U as high risk in 2-3 days Expected Outcomes/Goals Expected Outcomes/Goals 1. PO intake to meet at least 75% of nutritional needs. 2. Wt stability, skin to remain intact, labs to approach WNL. Reviewed by Claribel Anand RD
--- NOTE | 2018-08-03 19:37 | Operative Report ---
DATE OF SURGERY: 08/03/2018 INPATIENT GASTROINTESTINAL PROCEDURE PROCEDURE: Colonoscopy with biopsy. REFERRING PHYSICIAN: Dr. Lira. REASON FOR PROCEDURE: Diarrhea. CONSENT: Risks, benefits, alternatives, nature, indication, possible outcomes were discussed. Mentioned bleeding, infection, perforation, , disability, cardiopulmonary distress and arrest, missed lesion and cancers, need for surgery. The patient expressed understanding and provided informed consent. PREOPERATIVE DIAGNOSIS: Diarrhea. POSTOPERATIVE DIAGNOSES: Diarrhea, also change in bowel habits. MEDICATIONS: MAC provided by anesthesiologist. DESCRIPTION OF PROCEDURE: The patient was placed in left side. Rectal exam was performed and normal. Pediatric colonoscope was advanced from the anus to the cecum confirmed by appendiceal orifice and ileocecal valve. Terminal ileum was intubated and appeared to be normal. Biopsies were taken of the terminal ileum as well as randomly throughout the colon. Once in the rectum, retroflexion was performed, scope straightening and removed along with air. COMPLICATIONS: None. FINDINGS: 1. Normal terminal ileum, status post biopsy. 2. Normal colonic mucosa, status post biopsy. 3. Areas of stool debris, smaller lesions could be missed. RECOMMENDATIONS: 1. Follow up on biopsy. 2. Consider repeating colonoscopy in 3 years or when it is age appropriate for screening. Thank you for allowing me to participate. Please call me if any questions. [facility]# [id number]
[2018-08-03] MEDS: Magnesium Chloride EC 64mg Tab PO SCH (20:13)
[2018-08-03] MEDS: Insulin Detemir 100 units/mL 10mL Vial SUBQ SCH (23:44)
[2018-08-04] MEDS: Sodium Chloride 0.9% 1,000 ML IV SCH ×2 (00:14→13:37)
[2018-08-04] MEDS: HYDROmorphone 2 mg/mL 1mL Vial IVP PRN ×7 (02:15→21:18)
[2018-08-04] MEDS: Metoclopramide 5 mg/mL 2mL Vial IVP PRN (02:17)
[2018-08-04 06:44] LABS: % BASOPHILS 1.1 % (0.0-2.0); % EOSINOPHILS 4.8 % (0.0-5.0); % LYMPHOCYTES 27.1 % (20.0-50.0); % MONOCYTES 6.9 % (2.0-10.0); % NEUTROPHILS 60.1 % (40.0-80.0); BASOPHILE ABSOLUTE 0.1 Th/cumm (0-0.2); EOSINOPHILE ABSOLUTE 0.3 Th/cmm (0.1-0.4); LYMPHOCYTE ABSOLUTE 1.5 Th/cmm (1.5-3.0); MEAN CELL VOLUME 95.5 fl (80-99); MEAN CORPUSCULAR HEMOGLOBIN 31.4 pg (26.0-30.0); MEAN CORPUSCULAR HGB CONC 32.8 pg (28.0-36.0); MEAN PLATELET VOLUME 7.7 fl; MONOCYTE ABSOLUTE 0.4 Th/cmm (0.3-1.0); NEUTROPHILE ABSOLUTE 3.4 Th/cmm (1.8-8.0); PLATELET COUNT 259 Th/cmm (150-400); RED BLOOD COUNT 2.49 Mil/cmm (4.30-5.70); RED CELL DISTRIBUTION WIDTH 14.8 % (11.5-20.0); WHITE BLOOD COUNT 5.7 Th/cmm (4.8-10.8)
[2018-08-04 06:49] LABS: HEMOGLOBIN 7.8 gm/dL (12-16)
[2018-08-04 06:50] LABS: HEMATOCRIT 23.8 % (41.0-60)
[2018-08-04] MEDS: INSULIN ASPART SLIDING SCALE 100 UNITS/ML UNIT SUBQ SCH ×4 (06:55→21:16)
[2018-08-04 07:09] LABS: ANION GAP 12.7 (7.0-16.0); BUN - UREA NITROGEN 15 mg/dL (7-25); CALCIUM SERUM 7.8 mg/dL (8.6-10.3); CARBON DIOXIDE 16.3 mEq/L (21.0-31.0); CHLORIDE 110 mEq/L (98-107); GFR AFRICAN-AMERICAN > 60.0 ml/min (>90); GFR NON AFRICAN-AMERICAN > 60.0 ml/min; SODIUM SERUM 134 mEq/L (136-145)
[2018-08-04 07:15] LABS: GLUCOSE 331 mg/dL (70-105)
[2018-08-04] MEDS: Lactobacillus Rhamnosus GG 15 Billion CFU CAP.SPRINK PO SCH (08:50)
[2018-08-04] MEDS: Multivitamin Tab PO SCH (08:50)
[2018-08-04] MEDS: Pantoprazole 40 mg EC Tab PO SCH (08:51)
[2018-08-04] MEDS: Venelex 60gm Tube TP SCH (08:52)
--- NOTE | 2018-08-04 12:36 | GI Progress Note ---
Subjective - Review of Systems Subjective: STILL HAS DIARRHEA Objective - Results Result Diagrams: 08/04/18 05:40 08/04/18 05:40 Recent Labs: Laboratory Last Values WBC 5.7 Th/cmm (4.8-10.8) 08/04/18 05:40 RBC 2.49 Mil/cmm (4.30-5.70) L 08/04/18 05:40 Hgb 7.8 gm/dL (12-16) L* 08/04/18 05:40 Hct 23.8 % (41.0-60) L 08/04/18 05:40 MCV 95.5 fl (80-99) 08/04/18 05:40 MCH 31.4 pg (26.0-30.0) H 08/04/18 05:40 MCHC Differential 32.8 pg (28.0-36.0) 08/04/18 05:40 RDW 14.8 % (11.5-20.0) 08/04/18 05:40 Plt Count 259 Th/cmm (150-400) 08/04/18 05:40 MPV 7.7 fl 08/04/18 05:40 Neutrophils % 60.1 % (40.0-80.0) 08/04/18 05:40 Lymphocytes % 27.1 % (20.0-50.0) 08/04/18 05:40 Monocytes % 6.9 % (2.0-10.0) 08/04/18 05:40 Eosinophils % 4.8 % (0.0-5.0) 08/04/18 05:40 Basophils % 1.1 % (0.0-2.0) 08/04/18 05:40 PT 9.6 SECONDS (9.5-11.5) 08/03/18 05:45 INR 0.92 (0.5-1.4) 08/03/18 05:45 PTT (Actin FS) 22.9 SECONDS (26.0-38.0) L 07/25/18 00:40 Sodium 134 mEq/L (136-145) L 08/04/18 05:40 Potassium 5.0 mEq/L (3.5-5.1) 08/04/18 05:40 Chloride 110 mEq/L (98-107) H 08/04/18 05:40 Carbon Dioxide 16.3 mEq/L (21.0-31.0) L 08/04/18 05:40 Anion Gap 12.7 (7.0-16.0) 08/04/18 05:40 BUN 15 mg/dL (7-25) 08/04/18 05:40 Creatinine 1.0 mg/dL (0.7-1.3) 08/04/18 05:40 Est GFR ( Amer) > 60.0 ml/min (>90) 08/04/18 05:40 Est GFR (Non-Af Amer) > 60.0 ml/min 08/04/18 05:40 BUN/Creatinine Ratio 15.0 08/04/18 05:40 Glucose 331 mg/dL (70-105) H D 08/04/18 05:40 POC Glucose 53 MG/DL (70 - 105) L 08/04/18 11:29 Calcium 7.8 mg/dL (8.6-10.3) L 08/04/18 05:40 Total Bilirubin 0.5 mg/dL (0.3-1.0) 07/28/18 06:00 AST 13 U/L (13-39) 07/28/18 06:00 ALT 10 U/L (7-52) 07/28/18 06:00 Alkaline Phosphatase 73 U/L (34-104) 07/28/18 06:00 Troponin I 0.01 ng/mL (0.01-0.05) 07/25/18 00:40 Total Protein 5.6 gm/dL (6.0-8.3) L 07/28/18 06:00 Albumin 3.6 gm/dL (4.2-5.5) L 07/28/18 06:00 Globulin 2.0 gm/dL 07/28/18 06:00 Albumin/Globulin Ratio 1.8 (1.0-1.8) 07/28/18 06:00 Urine Source CATH 07/25/18 00:40 Urine Color YELLOW 07/25/18 00:40 Urine Clarity CLEAR (CLEAR) 07/25/18 00:40 Urine pH 6.0 (4.6 - 8.0) 07/25/18 00:40 Ur Specific [place] 1.010 (1.005-1.030) 07/25/18 00:40 Urine Protein TRACE mg/dL (NEGATIVE) 07/25/18 00:40 Urine Glucose (UA) >=1000 mg/dL (NEGATIVE) H 07/25/18 00:40 Urine Ketones NEGATIVE mg/dL (NEGATIVE) 07/25/18 00:40 Urine Blood NEGATIVE (NEGATIVE) 07/25/18 00:40 Urine Nitrate NEGATIVE (NEGATIVE) 07/25/18 00:40 Urine Bilirubin NEGATIVE (NEGATIVE) 07/25/18 00:40 Urine Urobilinogen 0.2 E.U./dL (0.2 - 1.0) 07/25/18 00:40 Ur Leukocyte Esterase NEGATIVE (NEGATIVE) 07/25/18 00:40 Urine RBC NONE SEEN /hpf (0-5) 07/25/18 00:40 Urine WBC 0-2 /hpf (0-5) 07/25/18 00:40 Ur Epithelial Cells OCCASIONAL /lpf (FEW) 07/25/18 00:40 Urine Bacteria OCCASIONAL /hpf (NONE SEEN) 07/25/18 00:40 Blood Type O NEGATIVE 08/04/18 08:40 Antibody Screen NEGATIVE 08/04/18 08:40 Crossmatch See Detail 08/04/18 08:40 - Physical Exam Vitals and I&O: Vital Signs Temp 98.1 F 08/04/18 12:00 Pulse 86 08/04/18 12:00 Resp 18 08/04/18 12:00 BP 161/100 08/04/18 12:00 Pulse Ox 100 08/04/18 12:00 Intake & Output 08/03/18 08/04/18 08/04/18 18:59 06:59 18:59 Intake Total 500 1000 Output Total 1300 975 Balance -800 25 Weight (lbs) 52.163 kg 52.617 kg Intake: Intake, IV Amount 1000 Sodium Chloride 0.9% 1, 1000 000 ml @ 60 mls/hr IV . [id number] [facility] Rx#:[id number] Oral 500 Output: Urine 1300 975 Other: # Bowel Movements 0 8 Stool Characteristics Liquid Liquid Brown Brown Weight Source Bedscale Bedscale Active Medications: Current Medications Acetaminophen (Tylenol) 650 mg PO Q6H PRN PRN Reason: Pain or Fever >101 Stop: 09/23/18 11:16 Amlodipine Besylate (Norvasc) 10 mg PO DAILY PRN PRN Reason: SBP ABOVE 160 Stop: 09/25/18 08:59 Last Admin: 07/26/18 23:52 Dose: 10 mg Lipase/Protease/Amylase (Zenpep 5,000 U) 1 cap PO TIDWM [facility] Stop: 09/30/18 16:59 Last Admin: 08/04/18 12:02 Dose: 1 cap Bisacodyl (Dulcolax 10 Mg Supp) 10 mg RC DAILY PRN PRN Reason: Constipation Stop: 09/23/18 11:16 Carisoprodol (Soma) 350 mg PO Q8H PRN PRN Reason: MUSCLE RELAXANT Stop: 09/23/18 11:16 [place] Oil/[place] Balsam/Trypsin (Venelex) 1 appl TP DAILY [facility] Stop: 09/26/18 15:44 Last Admin: 08/04/18 08:52 Dose: Not Given Clonazepam (Klonopin) 0.5 mg PO Q8H PRN; Protocol PRN Reason: Anxiety Stop: 09/23/18 11:16 Last Admin: 08/03/18 23:15 Dose: 0.5 mg Docusate Sodium (Colace) 100 mg PO DAILY [facility] Stop: 09/24/18 08:59 Last Admin: 08/04/18 08:51 Dose: Not Given Folic Acid (Folate) 1 mg PO DAILY [facility] Stop: 09/24/18 08:59 Last Admin: 08/04/18 08:50 Dose: 1 mg Gabapentin (Neurontin) 600 mg PO TID [facility] Stop: 09/23/18 13:59 Last Admin: 08/04/18 08:50 Dose: 600 mg Glucagon (Glucagen) 1 mg SUBQ PRN PRN PRN Reason: BS BELOW 60 & NOT TOLERATE PO Hydromorphone HCl (Dilaudid) 2 mg IVP Q3H PRN PRN Reason: Pain (Severe) Stop: 09/23/18 01:14 Last Admin: 08/04/18 12:02 Dose: 2 mg Sodium Chloride (Nacl 0.9%) 1,000 mls @ 60 mls/hr IV .[id number] [facility] Stop: 09/25/18 16:37 Last Admin: 08/04/18 00:14 Dose: 60 mls/hr Insulin Aspart (Novolog Insulin Sliding Scale) 0 units SUBQ ACHS [facility]; Protocol Stop: 09/23/18 11:29 Last Admin: 08/04/18 11:36 Dose: Not Given Insulin Detemir (Levemir Insulin) 6 units SUBQ HS [facility]; Protocol Stop: 09/23/18 20:59 Last Admin: 08/03/18 23:44 Dose: Not Given Lactobacillus Rhamnosus (Culturelle 15b) 1 each PO DAILY [facility] Stop: 09/24/18 08:59 Last Admin: 08/04/18 08:50 Dose: 1 each Levetiracetam (Keppra) 500 mg PO Q12H [facility] Stop: 09/23/18 11:29 Last Admin: 08/04/18 10:42 Dose: Not Given Lisinopril (Zestril) 2.5 mg PO DAILY [facility] Stop: 09/24/18 08:59 Last Admin: 08/04/18 08:50 Dose: 2.5 mg Loperamide HCl (Imodium) 2 mg PO Q6HR PRN PRN Reason: Diarrhea Stop: 09/29/18 16:06 Last Admin: 08/01/18 16:43 Dose: 2 mg Magnesium Chloride (Slow-Mag) 64 ect PO HS [facility] Stop: 09/23/18 20:59 Last Admin: 08/03/18 20:13 Dose: 1 ect Magnesium Hydroxide (Milk Of Magnesia) 30 ml PO DAILY PRN PRN Reason: Constipation Stop: 09/23/18 11:19 Metoclopramide HCl (Reglan) 10 mg IVP Q8HR PRN PRN Reason: Nausea / Vomiting Stop: 09/26/18 09:21 Last Admin: 08/04/18 02:17 Dose: 10 mg Multivitamins/Vitamin C (Theragran) 1 tab PO DAILY [facility] Stop: 09/24/18 08:59 Last Admin: 08/04/18 08:50 Dose: 1 tab Nitroglycerin (Nitrostat) 0.4 mg SL Q5MIN PRN PRN Reason: Chest Pain Stop: 09/23/18 11:19 Oxcarbazepine (Trileptal) 300 mg PO BID [facility]; Protocol Stop: 09/23/18 16:59 Last Admin: 08/04/18 08:50 Dose: 300 mg Pantoprazole Sodium (Protonix) 40 mg PO DAILY [facility] Stop: 09/24/18 08:59 Last Admin: 08/04/18 08:51 Dose: Not Given Quetiapine Fumarate (Seroquel) 100 mg PO HS [facility]; Protocol Stop: 09/23/18 20:59 Last Admin: 08/03/18 20:13 Dose: 100 mg Rifaximin (Xifaxan) 600 mg PO TID [facility] Stop: 09/30/18 20:59 Last Admin: 08/04/18 08:55 Dose: Not Given Tamsulosin HCl (Flomax) 0.4 mg PO HS [facility] Stop: 09/23/18 20:59 Last Admin: 08/03/18 20:12 Dose: 0.4 mg Trazodone HCl (Desyrel) 100 mg PO HS PRN; Protocol PRN Reason: Insomnia Stop: 09/23/18 11:20 Last Admin: 08/02/18 22:33 Dose: 100 mg - Procedures Procedures: Procedures Procedure Code Date EXCISION OF ILEUM, ENDO, DIAGN 9SIM2PM 07/25/18 EXCISION OF L FOOT SUBCU/FASCIA, OPEN APPROACH [id number] 06/22/18 EXCISION OF LEFT LARGE INTESTINE, ENDO, DIAGN [id number] 07/25/18 EXCISION OF RIGHT LARGE INTESTINE, ENDO, DIAGN [id number] 07/25/18 Assessment/Plan - Assessment Assessment: 48 YO MALE WITH CHRONIC DIARRHEA CT SHOWED FLUID IN THE SMALL BOWEL CDIFF NEG COLO SHOWED NORMAL COLON AND TERMINAL ILEUM 1.CONT SUPP CARE 2.AWAIT BX 3.CONSIDER OUTPATIENT CAPSULE ENDOSCOPY 4.CONSIDER SMALL BOWEL SERIES TO R/O HIGH OUTPUT FISTULA AND OTHER SMALL BOWEL DZ 5.CONT PANC ENZYMES AND XIFAXAN FOR PANC EXOCRINE INSUFF AND IBS-D RESPECTIVELY
--- NOTE | 2018-08-04 14:47 | Pathology Report ---
[id number] Collection Date: 08/03/2018 Surgeon: Dr. Stephanie Scherer Specimen Description: 1. Random colon biopsy. 2. Terminal ileum biopsy. Gross Description: Part I: Received in formalin are two cortes soft tissue fragments ranging from 0.1 to 0.2 cm in greatest dimension. Totally submitted in one cassette labeled A. Gross Description: Part II: Received in formalin is a single cortes soft tissue fragment measuring 0.2 cm in greatest dimension. Totally submitted in one cassette labeled B. Microscopic Description: Part I: The histologic sections show benign colon mucosa with no significant inflammatory changes present. The number of intraepithelial inflammatory cells is less than 20%. The thickness of the subepithelial collagen layer does not appear to be increased. Diagnosis: Part I: No significant pathologic findings (random colon biopsy). Comment: There is no evidence for microscopic colitis. Microscopic Description: Part II: The histologic sections show benign intestinal mucosa with intact villous architecture, showing no significant pathologic changes. There is no evidence for increased inflammatory cells. Diagnosis: Part II: No significant pathologic findings (terminal ileum biopsy) . [facility]# [id number] DANIEL
--- NOTE | 2018-08-04 19:43 | Internal Medicine Prog Note ---
Internal Medicine Subjective - Subjective Service Date: 08/04/18 Patient seen and examined:: without staff Patient is:: awake, interactive, in bed Patient Complaints of:: congestion, vomitting, diarrhea Per staff patient has:: no adverse event Internal Medicine Objective - Results Result Diagrams: 08/04/18 05:40 08/04/18 05:40 Recent Labs: Laboratory Last Values WBC 5.7 Th/cmm (4.8-10.8) 08/04/18 05:40 RBC 2.49 Mil/cmm (4.30-5.70) L 08/04/18 05:40 Hgb 7.8 gm/dL (12-16) L* 08/04/18 05:40 Hct 23.8 % (41.0-60) L 08/04/18 05:40 MCV 95.5 fl (80-99) 08/04/18 05:40 MCH 31.4 pg (26.0-30.0) H 08/04/18 05:40 MCHC Differential 32.8 pg (28.0-36.0) 08/04/18 05:40 RDW 14.8 % (11.5-20.0) 08/04/18 05:40 Plt Count 259 Th/cmm (150-400) 08/04/18 05:40 MPV 7.7 fl 08/04/18 05:40 Neutrophils % 60.1 % (40.0-80.0) 08/04/18 05:40 Lymphocytes % 27.1 % (20.0-50.0) 08/04/18 05:40 Monocytes % 6.9 % (2.0-10.0) 08/04/18 05:40 Eosinophils % 4.8 % (0.0-5.0) 08/04/18 05:40 Basophils % 1.1 % (0.0-2.0) 08/04/18 05:40 PT 9.6 SECONDS (9.5-11.5) 08/03/18 05:45 INR 0.92 (0.5-1.4) 08/03/18 05:45 PTT (Actin FS) 22.9 SECONDS (26.0-38.0) L 07/25/18 00:40 Sodium 134 mEq/L (136-145) L 08/04/18 05:40 Potassium 5.0 mEq/L (3.5-5.1) 08/04/18 05:40 Chloride 110 mEq/L (98-107) H 08/04/18 05:40 Carbon Dioxide 16.3 mEq/L (21.0-31.0) L 08/04/18 05:40 Anion Gap 12.7 (7.0-16.0) 08/04/18 05:40 BUN 15 mg/dL (7-25) 08/04/18 05:40 Creatinine 1.0 mg/dL (0.7-1.3) 08/04/18 05:40 Est GFR ( Amer) > 60.0 ml/min (>90) 08/04/18 05:40 Est GFR (Non-Af Amer) > 60.0 ml/min 08/04/18 05:40 BUN/Creatinine Ratio 15.0 08/04/18 05:40 Glucose 331 mg/dL (70-105) H D 08/04/18 05:40 POC Glucose 379 MG/DL (70 - 105) H 08/04/18 16:40 Calcium 7.8 mg/dL (8.6-10.3) L 08/04/18 05:40 Total Bilirubin 0.5 mg/dL (0.3-1.0) 07/28/18 06:00 AST 13 U/L (13-39) 07/28/18 06:00 ALT 10 U/L (7-52) 07/28/18 06:00 Alkaline Phosphatase 73 U/L (34-104) 07/28/18 06:00 Troponin I 0.01 ng/mL (0.01-0.05) 07/25/18 00:40 Total Protein 5.6 gm/dL (6.0-8.3) L 07/28/18 06:00 Albumin 3.6 gm/dL (4.2-5.5) L 07/28/18 06:00 Globulin 2.0 gm/dL 07/28/18 06:00 Albumin/Globulin Ratio 1.8 (1.0-1.8) 07/28/18 06:00 Urine Source CATH 07/25/18 00:40 Urine Color YELLOW 07/25/18 00:40 Urine Clarity CLEAR (CLEAR) 07/25/18 00:40 Urine pH 6.0 (4.6 - 8.0) 07/25/18 00:40 Ur Specific [place] 1.010 (1.005-1.030) 07/25/18 00:40 Urine Protein TRACE mg/dL (NEGATIVE) 07/25/18 00:40 Urine Glucose (UA) >=1000 mg/dL (NEGATIVE) H 07/25/18 00:40 Urine Ketones NEGATIVE mg/dL (NEGATIVE) 07/25/18 00:40 Urine Blood NEGATIVE (NEGATIVE) 07/25/18 00:40 Urine Nitrate NEGATIVE (NEGATIVE) 07/25/18 00:40 Urine Bilirubin NEGATIVE (NEGATIVE) 07/25/18 00:40 Urine Urobilinogen 0.2 E.U./dL (0.2 - 1.0) 07/25/18 00:40 Ur Leukocyte Esterase NEGATIVE (NEGATIVE) 07/25/18 00:40 Urine RBC NONE SEEN /hpf (0-5) 07/25/18 00:40 Urine WBC 0-2 /hpf (0-5) 07/25/18 00:40 Ur Epithelial Cells OCCASIONAL /lpf (FEW) 07/25/18 00:40 Urine Bacteria OCCASIONAL /hpf (NONE SEEN) 07/25/18 00:40 Blood Type O NEGATIVE 08/04/18 08:40 Antibody Screen NEGATIVE 08/04/18 08:40 Crossmatch See Detail 08/04/18 08:40 - Physical Exam Vitals and I&O: Vital Signs Temp 98.1 F 08/04/18 15:44 Pulse 81 08/04/18 15:44 Resp 18 08/04/18 15:44 BP 159/94 08/04/18 15:44 Pulse Ox 98 08/04/18 15:44 Intake & Output 08/04/18 08/04/18 08/05/18 06:59 18:59 06:59 Intake Total 1000 2453 Output Total 975 2700 Balance 25 -247 Weight (lbs) 52.617 kg 54.431 kg Intake: Intake, IV Amount 1000 803 Sodium Chloride 0.9% 1, 1000 803 000 ml @ 60 mls/hr IV . [id number] [facility] Rx#:[id number] Oral 1400 Blood Product 250 Output: Urine 975 2700 Other: # Bowel Movements 8 1 Stool Characteristics Liquid Brown Weight Source Bedscale Bedscale Active Medications: Current Medications Acetaminophen (Tylenol) 650 mg PO Q6H PRN PRN Reason: Pain or Fever >101 Stop: 09/23/18 11:16 Amlodipine Besylate (Norvasc) 10 mg PO DAILY PRN PRN Reason: SBP ABOVE 160 Stop: 09/25/18 08:59 Last Admin: 07/26/18 23:52 Dose: 10 mg Lipase/Protease/Amylase (Zenpep 5,000 U) 1 cap PO TIDWM [facility] Stop: 09/30/18 16:59 Last Admin: 08/04/18 16:09 Dose: 1 cap Bisacodyl (Dulcolax 10 Mg Supp) 10 mg RC DAILY PRN PRN Reason: Constipation Stop: 09/23/18 11:16 Carisoprodol (Soma) 350 mg PO Q8H PRN PRN Reason: MUSCLE RELAXANT Stop: 09/23/18 11:16 [place] Oil/[place] Balsam/Trypsin (Venelex) 1 appl TP DAILY [facility] Stop: 09/26/18 15:44 Last Admin: 08/04/18 08:52 Dose: Not Given Clonazepam (Klonopin) 0.5 mg PO Q8H PRN; Protocol PRN Reason: Anxiety Stop: 09/23/18 11:16 Last Admin: 08/04/18 16:09 Dose: 0.5 mg Docusate Sodium (Colace) 100 mg PO DAILY [facility] Stop: 09/24/18 08:59 Last Admin: 08/04/18 08:51 Dose: Not Given Folic Acid (Folate) 1 mg PO DAILY [facility] Stop: 09/24/18 08:59 Last Admin: 08/04/18 08:50 Dose: 1 mg Gabapentin (Neurontin) 600 mg PO TID [facility] Stop: 09/23/18 13:59 Last Admin: 08/04/18 13:37 Dose: 600 mg Glucagon (Glucagen) 1 mg SUBQ PRN PRN PRN Reason: BS BELOW 60 & NOT TOLERATE PO Hydromorphone HCl (Dilaudid) 2 mg IVP Q3H PRN PRN Reason: Pain (Severe) Stop: 09/23/18 01:14 Last Admin: 08/04/18 18:18 Dose: 2 mg Sodium Chloride (Nacl 0.9%) 1,000 mls @ 60 mls/hr IV .[id number] [facility] Stop: 09/25/18 16:37 Last Admin: 08/04/18 13:37 Dose: 60 mls/hr Insulin Aspart (Novolog Insulin Sliding Scale) 0 units SUBQ ACHS [facility]; Protocol Stop: 09/23/18 11:29 Last Admin: 08/04/18 16:45 Dose: 10 units Insulin Detemir (Levemir Insulin) 6 units SUBQ HS [facility]; Protocol Stop: 09/23/18 20:59 Last Admin: 08/03/18 23:44 Dose: Not Given Lactobacillus Rhamnosus (Culturelle 15b) 1 each PO DAILY [facility] Stop: 09/24/18 08:59 Last Admin: 08/04/18 08:50 Dose: 1 each Levetiracetam (Keppra) 500 mg PO Q12H [facility] Stop: 09/23/18 11:29 Last Admin: 08/04/18 10:42 Dose: Not Given Lisinopril (Zestril) 2.5 mg PO DAILY [facility] Stop: 09/24/18 08:59 Last Admin: 08/04/18 08:50 Dose: 2.5 mg Loperamide HCl (Imodium) 2 mg PO Q6HR PRN PRN Reason: Diarrhea Stop: 09/29/18 16:06 Last Admin: 08/01/18 16:43 Dose: 2 mg Magnesium Chloride (Slow-Mag) 64 ect PO HS [facility] Stop: 09/23/18 20:59 Last Admin: 08/03/18 20:13 Dose: 1 ect Magnesium Hydroxide (Milk Of Magnesia) 30 ml PO DAILY PRN PRN Reason: Constipation Stop: 09/23/18 11:19 Metoclopramide HCl (Reglan) 10 mg IVP Q8HR PRN PRN Reason: Nausea / Vomiting Stop: 09/26/18 09:21 Last Admin: 08/04/18 02:17 Dose: 10 mg Multivitamins/Vitamin C (Theragran) 1 tab PO DAILY [facility] Stop: 09/24/18 08:59 Last Admin: 08/04/18 08:50 Dose: 1 tab Nitroglycerin (Nitrostat) 0.4 mg SL Q5MIN PRN PRN Reason: Chest Pain Stop: 09/23/18 11:19 Oxcarbazepine (Trileptal) 300 mg PO BID [facility]; Protocol Stop: 09/23/18 16:59 Last Admin: 08/04/18 16:09 Dose: 300 mg Pantoprazole Sodium (Protonix) 40 mg PO DAILY [facility] Stop: 09/24/18 08:59 Last Admin: 08/04/18 08:51 Dose: Not Given Quetiapine Fumarate (Seroquel) 100 mg PO HS [facility]; Protocol Stop: 09/23/18 20:59 Last Admin: 08/03/18 20:13 Dose: 100 mg Rifaximin (Xifaxan) 600 mg PO TID [facility] Stop: 09/30/18 20:59 Last Admin: 08/04/18 13:37 Dose: 600 mg Tamsulosin HCl (Flomax) 0.4 mg PO HS [facility] Stop: 09/23/18 20:59 Last Admin: 08/03/18 20:12 Dose: 0.4 mg Trazodone HCl (Desyrel) 100 mg PO HS PRN; Protocol PRN Reason: Insomnia Stop: 09/23/18 11:20 Last Admin: 08/02/18 22:33 Dose: 100 mg General: weak, lethargic, congested HEENT: PERRLA, EOMI Neck: Supple, No JVD, No thyromegaly Lungs: wheezing Abdomen: soft, non-distended - Procedures Procedures: Procedures Procedure Code Date EXCISION OF ILEUM, ENDO, DIAGN [id number] 07/25/18 EXCISION OF L FOOT SUBCU/FASCIA, OPEN APPROACH [id number] 06/22/18 EXCISION OF LEFT LARGE INTESTINE, ENDO, DIAGN [id number] 07/25/18 EXCISION OF RIGHT LARGE INTESTINE, ENDO, DIAGN [id number] 07/25/18 Internal Medicine Assmt/Plan - Assessment Assessment: Severe anemia: T&C, transfused 1 u PRBC; cbc in AM. Severe diarrhea: stool for C. Diff; GI consult: s/p colonoscopy: pending biopsy result. Hyperkalemia: s/p 60gm Kayexalate po x1 ordered; repeat BMP 4h after. Leukopenia: resolved. OOC DM: pt is noncompliant with diet. Intractable pain/chronic pain syndrome exacerbation: understandable and multifactorial. adjusting pain med. s/p Fall: rt proximal humeral fracture. COPD: RT CAD: s/p [place] Seizure: close monitoring. Nutritional Asmnt/Malnutr-PDOC - Dietary Evaluation Malnutrition Findings (Please click <Entered> for more info): Nutritional Asmnt/Malnutrition Start: 07/25/18 15: 07 Text: Status: Complete Freq: Protocol: Document 07/25/18 15:09 [email or web address] (Rec: 07/25/18 15:24 [email or web address]) Nutritional Asmnt/Malnutrition Patient General Information Nutritional Screening High Risk Diagnosis intractable shoulder pain, possible right shoulder Pertinent Medical Hx/Surgical Hx HTN, DM, asthma/COPD, CAD, seizures, RT BKA Subjective Information Pt was resting in bed, alert, but did not want to speak with RD at time of visit. Elevated glucose 351 noted. Current Diet Order/ Nutrition Support CCHO, cardiac, ensure clear BID Pertinent Medications colace, folate, glucagen, novolog, levemir, culturelle, slow-mag, theragran, protonix, seroquel Pertinent Labs Na 132, Cl 96, cr 1.4, glucose 351, ca 8.5, POC [phone] Nutritional Hx/Data Height 1.73 m Height (Calculated Centimeters) 172.7 Current Weight (lbs) 50.802 kg Weight (Calculated Kilograms) 50.8 Weight (Calculated Grams) 51685.3 [place] Body Weight 154 Body Mass Index (BMI) 17.0 Weight Status Underweight GI Symptoms GI Symptoms None Last BM 07/25 Difficult in: None Skin Integrity/Comment: right BKA, left foot ulceration Estimated Nutritional Goals BEE in Kcals: Using Current wt Calories/Kcals/Kg 30-35 Kcals Calculated 5556-5153 Protein: Using Current wt Protein g/k.2 Protein Calculated 61 Fluid: ml 0712-1349 (1ml/kcal) Nutritional Problem 1. Problem Problem altered nutrition related labs Etiology hyperglycemia Signs/Symptoms: glucose 351, POC [phone] Malnutrition Alert Is there a minimum of two criteria No selected? Query Text:Check all the applicable criteria. A minimum of two criteria are recommended for diagnosis of either severe or non-severe malnutrition. Malnutrition Related to Morbid Obesity Malnutrition related to morbid obesity No Intervention/Recommendation Comments 1. Continue with CCHO, cardiac diet with ensure clear BID as ordered. Will adjust protein needs after wound assessed. 2. MD to adjust insulin regimen for optimal glycemic control 2. Monitor PO intake, wt, labs and skin integrity 3. F/U as high risk in 2-3 days Expected Outcomes/Goals Expected Outcomes/Goals 1. PO intake to meet at least 75% of nutritional needs. 2. Wt stability, skin to remain intact, labs to approach WNL. Reviewed by Claribel Anand RD
[2018-08-04] MEDS: Insulin Detemir 100 units/mL 10mL Vial SUBQ SCH (21:15)
[2018-08-04] MEDS: Magnesium Chloride EC 64mg Tab PO SCH (21:15)
[2018-08-05] MEDS: HYDROmorphone 2 mg/mL 1mL Vial IVP PRN ×8 (00:18→21:44)
[2018-08-05 06:21] LABS: % BASOPHILS 1.4 % (0.0-2.0); % EOSINOPHILS 5.2 % (0.0-5.0); % LYMPHOCYTES 25.6 % (20.0-50.0); % MONOCYTES 7.1 % (2.0-10.0); % NEUTROPHILS 60.7 % (40.0-80.0); BASOPHILE ABSOLUTE 0.1 Th/cumm (0-0.2); EOSINOPHILE ABSOLUTE 0.3 Th/cmm (0.1-0.4); HEMATOCRIT 28.2 % (41.0-60); HEMOGLOBIN 9.5 gm/dL (12-16); LYMPHOCYTE ABSOLUTE 1.6 Th/cmm (1.5-3.0); MEAN CORPUSCULAR HEMOGLOBIN 31.8 pg (26.0-30.0); MEAN CORPUSCULAR HGB CONC 33.5 pg (28.0-36.0); MEAN PLATELET VOLUME 7.6 fl; MONOCYTE ABSOLUTE 0.4 Th/cmm (0.3-1.0); NEUTROPHILE ABSOLUTE 3.7 Th/cmm (1.8-8.0); PLATELET COUNT 242 Th/cmm (150-400); RED BLOOD COUNT 2.97 Mil/cmm (4.30-5.70); RED CELL DISTRIBUTION WIDTH 14.3 % (11.5-20.0); WHITE BLOOD COUNT 6.1 Th/cmm (4.8-10.8)
--- NOTE | 2018-08-05 07:50 | GI Progress Note ---
Subjective - Review of Systems Service Date: 08/05/18 Subjective: Pt continues to complain of diarrhea Objective - Results Result Diagrams: 08/05/18 05:50 08/04/18 05:40 Recent Labs: Laboratory Last Values WBC 6.1 Th/cmm (4.8-10.8) 08/05/18 05:50 RBC 2.97 Mil/cmm (4.30-5.70) L 08/05/18 05:50 Hgb 9.5 gm/dL (12-16) L 08/05/18 05:50 Hct 28.2 % (41.0-60) L 08/05/18 05:50 MCV 95.0 fl (80-99) 08/05/18 05:50 MCH 31.8 pg (26.0-30.0) H 08/05/18 05:50 MCHC Differential 33.5 pg (28.0-36.0) 08/05/18 05:50 RDW 14.3 % (11.5-20.0) 08/05/18 05:50 Plt Count 242 Th/cmm (150-400) 08/05/18 05:50 MPV 7.6 fl 08/05/18 05:50 Neutrophils % 60.7 % (40.0-80.0) 08/05/18 05:50 Lymphocytes % 25.6 % (20.0-50.0) 08/05/18 05:50 Monocytes % 7.1 % (2.0-10.0) 08/05/18 05:50 Eosinophils % 5.2 % (0.0-5.0) H 08/05/18 05:50 Basophils % 1.4 % (0.0-2.0) 08/05/18 05:50 PT 9.6 SECONDS (9.5-11.5) 08/03/18 05:45 INR 0.92 (0.5-1.4) 08/03/18 05:45 PTT (Actin FS) 22.9 SECONDS (26.0-38.0) L 07/25/18 00:40 Sodium 134 mEq/L (136-145) L 08/04/18 05:40 Potassium 5.0 mEq/L (3.5-5.1) 08/04/18 05:40 Chloride 110 mEq/L (98-107) H 08/04/18 05:40 Carbon Dioxide 16.3 mEq/L (21.0-31.0) L 08/04/18 05:40 Anion Gap 12.7 (7.0-16.0) 08/04/18 05:40 BUN 15 mg/dL (7-25) 08/04/18 05:40 Creatinine 1.0 mg/dL (0.7-1.3) 08/04/18 05:40 Est GFR ( Amer) > 60.0 ml/min (>90) 08/04/18 05:40 Est GFR (Non-Af Amer) > 60.0 ml/min 08/04/18 05:40 BUN/Creatinine Ratio 15.0 08/04/18 05:40 Glucose 331 mg/dL (70-105) H D 08/04/18 05:40 POC Glucose 299 MG/DL (70 - 105) H 08/05/18 06:27 Calcium 7.8 mg/dL (8.6-10.3) L 08/04/18 05:40 Total Bilirubin 0.5 mg/dL (0.3-1.0) 07/28/18 06:00 AST 13 U/L (13-39) 07/28/18 06:00 ALT 10 U/L (7-52) 07/28/18 06:00 Alkaline Phosphatase 73 U/L (34-104) 07/28/18 06:00 Troponin I 0.01 ng/mL (0.01-0.05) 07/25/18 00:40 Total Protein 5.6 gm/dL (6.0-8.3) L 07/28/18 06:00 Albumin 3.6 gm/dL (4.2-5.5) L 07/28/18 06:00 Globulin 2.0 gm/dL 07/28/18 06:00 Albumin/Globulin Ratio 1.8 (1.0-1.8) 07/28/18 06:00 Urine Source CATH 07/25/18 00:40 Urine Color YELLOW 07/25/18 00:40 Urine Clarity CLEAR (CLEAR) 07/25/18 00:40 Urine pH 6.0 (4.6 - 8.0) 07/25/18 00:40 Ur Specific [place] 1.010 (1.005-1.030) 07/25/18 00:40 Urine Protein TRACE mg/dL (NEGATIVE) 07/25/18 00:40 Urine Glucose (UA) >=1000 mg/dL (NEGATIVE) H 07/25/18 00:40 Urine Ketones NEGATIVE mg/dL (NEGATIVE) 07/25/18 00:40 Urine Blood NEGATIVE (NEGATIVE) 07/25/18 00:40 Urine Nitrate NEGATIVE (NEGATIVE) 07/25/18 00:40 Urine Bilirubin NEGATIVE (NEGATIVE) 07/25/18 00:40 Urine Urobilinogen 0.2 E.U./dL (0.2 - 1.0) 07/25/18 00:40 Ur Leukocyte Esterase NEGATIVE (NEGATIVE) 07/25/18 00:40 Urine RBC NONE SEEN /hpf (0-5) 07/25/18 00:40 Urine WBC 0-2 /hpf (0-5) 07/25/18 00:40 Ur Epithelial Cells OCCASIONAL /lpf (FEW) 07/25/18 00:40 Urine Bacteria OCCASIONAL /hpf (NONE SEEN) 07/25/18 00:40 Blood Type O NEGATIVE 08/04/18 08:40 Antibody Screen NEGATIVE 08/04/18 08:40 Crossmatch See Detail 08/04/18 08:40 - Physical Exam Vitals and I&O: Vital Signs Temp 98.4 F 08/05/18 04:00 Pulse 69 08/05/18 04:00 Resp 17 08/05/18 04:00 BP 132/81 08/05/18 04:00 Pulse Ox 97 08/05/18 04:00 Intake & Output 08/04/18 08/05/18 08/05/18 18:59 06:59 18:59 Intake Total 2453 600 Output Total 2700 900 Balance -247 -300 Weight (lbs) 54.431 kg 54.431 kg Intake: Intake, IV Amount 803 Sodium Chloride 0.9% 1, 803 000 ml @ 60 mls/hr IV . [id number] [facility] Rx#:[id number] Oral 1400 600 Blood Product 250 Output: Urine 2700 900 Other: # Bowel Movements 1 3 Weight Source Bedscale Bedscale Active Medications: Current Medications Acetaminophen (Tylenol) 650 mg PO Q6H PRN PRN Reason: Pain or Fever >101 Stop: 09/23/18 11:16 Amlodipine Besylate (Norvasc) 10 mg PO DAILY PRN PRN Reason: SBP ABOVE 160 Stop: 09/25/18 08:59 Last Admin: 07/26/18 23:52 Dose: 10 mg Lipase/Protease/Amylase (Zenpep 5,000 U) 1 cap PO TIDWM [facility] Stop: 09/30/18 16:59 Last Admin: 08/04/18 16:09 Dose: 1 cap Bisacodyl (Dulcolax 10 Mg Supp) 10 mg RC DAILY PRN PRN Reason: Constipation Stop: 09/23/18 11:16 Carisoprodol (Soma) 350 mg PO Q8H PRN PRN Reason: MUSCLE RELAXANT Stop: 09/23/18 11:16 [place] Oil/[place] Balsam/Trypsin (Venelex) 1 appl TP DAILY [facility] Stop: 09/26/18 15:44 Last Admin: 08/04/18 08:52 Dose: Not Given Clonazepam (Klonopin) 0.5 mg PO Q8H PRN; Protocol PRN Reason: Anxiety Stop: 09/23/18 11:16 Last Admin: 08/05/18 00:14 Dose: 0.5 mg Docusate Sodium (Colace) 100 mg PO DAILY [facility] Stop: 09/24/18 08:59 Last Admin: 08/04/18 08:51 Dose: Not Given Folic Acid (Folate) 1 mg PO DAILY [facility] Stop: 09/24/18 08:59 Last Admin: 08/04/18 08:50 Dose: 1 mg Gabapentin (Neurontin) 600 mg PO TID [facility] Stop: 09/23/18 13:59 Last Admin: 08/04/18 21:15 Dose: 600 mg Glucagon (Glucagen) 1 mg SUBQ PRN PRN PRN Reason: BS BELOW 60 & NOT TOLERATE PO Hydromorphone HCl (Dilaudid) 2 mg IVP Q3H PRN PRN Reason: Pain (Severe) Stop: 09/23/18 01:14 Last Admin: 08/05/18 06:18 Dose: 2 mg Sodium Chloride (Nacl 0.9%) 1,000 mls @ 60 mls/hr IV .[id number] [facility] Stop: 09/25/18 16:37 Last Admin: 08/04/18 13:37 Dose: 60 mls/hr Insulin Aspart (Novolog Insulin Sliding Scale) 0 units SUBQ ACHS [facility]; Protocol Stop: 09/23/18 11:29 Last Admin: 08/04/18 21:16 Dose: Not Given Insulin Detemir (Levemir Insulin) 6 units SUBQ HS [facility]; Protocol Stop: 09/23/18 20:59 Last Admin: 08/04/18 21:15 Dose: Not Given Lactobacillus Rhamnosus (Culturelle 15b) 1 each PO DAILY [facility] Stop: 09/24/18 08:59 Last Admin: 08/04/18 08:50 Dose: 1 each Levetiracetam (Keppra) 500 mg PO Q12H [facility] Stop: 09/23/18 11:29 Last Admin: 08/04/18 23:08 Dose: Not Given Lisinopril (Zestril) 2.5 mg PO DAILY [facility] Stop: 09/24/18 08:59 Last Admin: 08/04/18 08:50 Dose: 2.5 mg Loperamide HCl (Imodium) 2 mg PO Q6HR PRN PRN Reason: Diarrhea Stop: 09/29/18 16:06 Last Admin: 08/01/18 16:43 Dose: 2 mg Magnesium Chloride (Slow-Mag) 64 ect PO HS [facility] Stop: 09/23/18 20:59 Last Admin: 08/04/18 21:15 Dose: Not Given Magnesium Hydroxide (Milk Of Magnesia) 30 ml PO DAILY PRN PRN Reason: Constipation Stop: 09/23/18 11:19 Metoclopramide HCl (Reglan) 10 mg IVP Q8HR PRN PRN Reason: Nausea / Vomiting Stop: 09/26/18 09:21 Last Admin: 08/04/18 02:17 Dose: 10 mg Multivitamins/Vitamin C (Theragran) 1 tab PO DAILY [facility] Stop: 09/24/18 08:59 Last Admin: 08/04/18 08:50 Dose: 1 tab Nitroglycerin (Nitrostat) 0.4 mg SL Q5MIN PRN PRN Reason: Chest Pain Stop: 09/23/18 11:19 Oxcarbazepine (Trileptal) 300 mg PO BID [facility]; Protocol Stop: 09/23/18 16:59 Last Admin: 08/04/18 16:09 Dose: 300 mg Pantoprazole Sodium (Protonix) 40 mg PO DAILY [facility] Stop: 09/24/18 08:59 Last Admin: 08/04/18 08:51 Dose: Not Given Quetiapine Fumarate (Seroquel) 100 mg PO HS [facility]; Protocol Stop: 09/23/18 20:59 Last Admin: 08/04/18 21:15 Dose: 100 mg Rifaximin (Xifaxan) 600 mg PO TID [facility] Stop: 09/30/18 20:59 Last Admin: 08/04/18 21:14 Dose: 600 mg Tamsulosin HCl (Flomax) 0.4 mg PO HS [facility] Stop: 09/23/18 20:59 Last Admin: 08/04/18 21:15 Dose: 0.4 mg Trazodone HCl (Desyrel) 100 mg PO HS PRN; Protocol PRN Reason: Insomnia Stop: 09/23/18 11:20 Last Admin: 08/04/18 21:14 Dose: 100 mg General: Alert, Oriented x3 HEENT: Atraumatic Cardiovascular: Regular rate Abdomen: Bowel sounds, Soft, no Tender, no Hepatomegaly, no Splenomegaly, no Distended, no Rebound, no Mass, no Guarding Psych/Mental Status: Mental status NL - Procedures Procedures: Procedures Procedure Code Date EXCISION OF ILEUM, ENDO, DIAGN [id number] 07/25/18 EXCISION OF L FOOT SUBCU/FASCIA, OPEN APPROACH [id number] 06/22/18 EXCISION OF LEFT LARGE INTESTINE, ENDO, DIAGN [id number] 07/25/18 EXCISION OF RIGHT LARGE INTESTINE, ENDO, DIAGN [id number] 07/25/18 Assessment/Plan - Assessment Assessment: 48 YO MALE WITH CHRONIC DIARRHEA CT SHOWED FLUID IN THE SMALL BOWEL CDIFF NEG COLO SHOWED NORMAL COLON AND TERMINAL ILEUM At this point, I suspect either IBS-D or diabetic mediated diarrhea (ie neuropathy associated), or a combination of both. We will need to follow the colonoscopy pathology to rule out microscopic colitis, and we will get a small bowel follow through study to ensure there is no high output fistula (ie small bowel to colon). The pt is not cooperative, is not taking his insulin and not taking imodium. He is unlikely to improve if his blood sugars remain uncontrolled. Plan 1.CONT SUPP CARE 2.AWAIT BX from the colon 3.CONSIDER OUTPATIENT CAPSULE ENDOSCOPY 4.small series ordered to eval for high output fistua 5.CONT PANC ENZYMES AND XIFAXAN FOR PANC EXOCRINE INSUFF AND IBS-D RESPECTIVELY 6. Stop reglan, this can cause diarrhea 7. Pt needs to take imodium as this is a safe treatment for chronic diarrhea without infection 8. Pt needs to comply with his diabetes management, unlikely to improve with blood sugars constantly above 300
[2018-08-05] MEDS ORDERED: Diatrizoate Meglumine/Diatri 30 mL Sol PO ONE (08:00)
[2018-08-05] MEDS: Pantoprazole 40 mg EC Tab PO SCH (08:40)
[2018-08-05] MEDS: Multivitamin Tab PO SCH (08:42)
[2018-08-05] MEDS: Venelex 60gm Tube TP SCH (08:42)
[2018-08-05] MEDS: Lactobacillus Rhamnosus GG 15 Billion CFU CAP.SPRINK PO SCH (08:42)
[2018-08-05] MEDS: INSULIN ASPART SLIDING SCALE 100 UNITS/ML UNIT SUBQ SCH ×4 (08:42→20:20)
--- NOTE | 2018-08-05 12:37 | Diagnostic Imaging Report ---
Small bowel follow-through procedure History: Pain, possible fistula [facility] comparison: CT abdomen and pelvis on 08/01/2018 Technique/procedure: External material is seen overlying the right upper quadrant. Oral contrast was administered and multiple static images were obtained. There may be gastroesophageal reflux. Assessment for focal lesions is limited on this exam. Oral contrast is seen within the stomach and nondistended loops of bowel. There was transit of oral contrast to the large bowel within 2 hours. No gross fistulous connection identified IMPRESSION: Limited exam based on static the images provided. No gross fistulous connection or evidence of small bowel obstruction. Please correlate with clinical findings. If necessary CT with oral contrast may be of value. Possible gastroesophageal reflux.
--- NOTE | 2018-08-05 18:25 | Internal Medicine Prog Note ---
Internal Medicine Subjective - Subjective Service Date: 08/05/18 Patient seen and examined:: without staff Patient is:: awake, interactive, in bed Patient Complaints of:: congestion, vomitting, diarrhea Per staff patient has:: no adverse event Internal Medicine Objective - Results Result Diagrams: 08/05/18 05:50 08/04/18 05:40 Recent Labs: Laboratory Last Values WBC 6.1 Th/cmm (4.8-10.8) 08/05/18 05:50 RBC 2.97 Mil/cmm (4.30-5.70) L 08/05/18 05:50 Hgb 9.5 gm/dL (12-16) L 08/05/18 05:50 Hct 28.2 % (41.0-60) L 08/05/18 05:50 MCV 95.0 fl (80-99) 08/05/18 05:50 MCH 31.8 pg (26.0-30.0) H 08/05/18 05:50 MCHC Differential 33.5 pg (28.0-36.0) 08/05/18 05:50 RDW 14.3 % (11.5-20.0) 08/05/18 05:50 Plt Count 242 Th/cmm (150-400) 08/05/18 05:50 MPV 7.6 fl 08/05/18 05:50 Neutrophils % 60.7 % (40.0-80.0) 08/05/18 05:50 Lymphocytes % 25.6 % (20.0-50.0) 08/05/18 05:50 Monocytes % 7.1 % (2.0-10.0) 08/05/18 05:50 Eosinophils % 5.2 % (0.0-5.0) H 08/05/18 05:50 Basophils % 1.4 % (0.0-2.0) 08/05/18 05:50 PT 9.6 SECONDS (9.5-11.5) 08/03/18 05:45 INR 0.92 (0.5-1.4) 08/03/18 05:45 PTT (Actin FS) 22.9 SECONDS (26.0-38.0) L 07/25/18 00:40 Sodium 134 mEq/L (136-145) L 08/04/18 05:40 Potassium 5.0 mEq/L (3.5-5.1) 08/04/18 05:40 Chloride 110 mEq/L (98-107) H 08/04/18 05:40 Carbon Dioxide 16.3 mEq/L (21.0-31.0) L 08/04/18 05:40 Anion Gap 12.7 (7.0-16.0) 08/04/18 05:40 BUN 15 mg/dL (7-25) 08/04/18 05:40 Creatinine 1.0 mg/dL (0.7-1.3) 08/04/18 05:40 Est GFR ( Amer) > 60.0 ml/min (>90) 08/04/18 05:40 Est GFR (Non-Af Amer) > 60.0 ml/min 08/04/18 05:40 BUN/Creatinine Ratio 15.0 08/04/18 05:40 Glucose 331 mg/dL (70-105) H D 08/04/18 05:40 POC Glucose 185 MG/DL (70 - 105) H 08/05/18 17:05 Calcium 7.8 mg/dL (8.6-10.3) L 08/04/18 05:40 Total Bilirubin 0.5 mg/dL (0.3-1.0) 07/28/18 06:00 AST 13 U/L (13-39) 07/28/18 06:00 ALT 10 U/L (7-52) 07/28/18 06:00 Alkaline Phosphatase 73 U/L (34-104) 07/28/18 06:00 Troponin I 0.01 ng/mL (0.01-0.05) 07/25/18 00:40 Total Protein 5.6 gm/dL (6.0-8.3) L 07/28/18 06:00 Albumin 3.6 gm/dL (4.2-5.5) L 07/28/18 06:00 Globulin 2.0 gm/dL 07/28/18 06:00 Albumin/Globulin Ratio 1.8 (1.0-1.8) 07/28/18 06:00 Urine Source CATH 07/25/18 00:40 Urine Color YELLOW 07/25/18 00:40 Urine Clarity CLEAR (CLEAR) 07/25/18 00:40 Urine pH 6.0 (4.6 - 8.0) 07/25/18 00:40 Ur Specific [place] 1.010 (1.005-1.030) 07/25/18 00:40 Urine Protein TRACE mg/dL (NEGATIVE) 07/25/18 00:40 Urine Glucose (UA) >=1000 mg/dL (NEGATIVE) H 07/25/18 00:40 Urine Ketones NEGATIVE mg/dL (NEGATIVE) 07/25/18 00:40 Urine Blood NEGATIVE (NEGATIVE) 07/25/18 00:40 Urine Nitrate NEGATIVE (NEGATIVE) 07/25/18 00:40 Urine Bilirubin NEGATIVE (NEGATIVE) 07/25/18 00:40 Urine Urobilinogen 0.2 E.U./dL (0.2 - 1.0) 07/25/18 00:40 Ur Leukocyte Esterase NEGATIVE (NEGATIVE) 07/25/18 00:40 Urine RBC NONE SEEN /hpf (0-5) 07/25/18 00:40 Urine WBC 0-2 /hpf (0-5) 07/25/18 00:40 Ur Epithelial Cells OCCASIONAL /lpf (FEW) 07/25/18 00:40 Urine Bacteria OCCASIONAL /hpf (NONE SEEN) 07/25/18 00:40 Blood Type O NEGATIVE 08/04/18 08:40 Antibody Screen NEGATIVE 08/04/18 08:40 Crossmatch See Detail 08/04/18 08:40 - Physical Exam Vitals and I&O: Vital Signs Temp 97.7 F 08/05/18 15:34 Pulse 80 08/05/18 15:34 Resp 17 08/05/18 15:34 BP 140/88 08/05/18 15:34 Pulse Ox 97 08/05/18 15:34 Intake & Output 08/04/18 08/05/18 08/05/18 18:59 06:59 18:59 Intake Total 2453 600 Output Total 2700 900 Balance -247 -300 Weight (lbs) 54.431 kg 54.431 kg Intake: Intake, IV Amount 803 Sodium Chloride 0.9% 1, 803 000 ml @ 60 mls/hr IV . [id number] [facility] Rx#:[id number] Oral 1400 600 Blood Product 250 Output: Urine 2700 900 Other: # Bowel Movements 1 3 Stool Characteristics Liquid Brown Weight Source Bedscale Bedscale Active Medications: Current Medications Acetaminophen (Tylenol) 650 mg PO Q6H PRN PRN Reason: Pain or Fever >101 Stop: 09/23/18 11:16 Amlodipine Besylate (Norvasc) 10 mg PO DAILY PRN PRN Reason: SBP ABOVE 160 Stop: 09/25/18 08:59 Last Admin: 07/26/18 23:52 Dose: 10 mg Lipase/Protease/Amylase (Zenpep 5,000 U) 1 cap PO TIDWM [facility] Stop: 09/30/18 16:59 Last Admin: 08/05/18 17:15 Dose: 1 cap Carisoprodol (Soma) 350 mg PO Q8H PRN PRN Reason: MUSCLE RELAXANT Stop: 09/23/18 11:16 [place] Oil/[place] Balsam/Trypsin (Venelex) 1 appl TP DAILY [facility] Stop: 09/26/18 15:44 Last Admin: 08/05/18 08:42 Dose: Not Given Clonazepam (Klonopin) 0.5 mg PO Q8H PRN; Protocol PRN Reason: Anxiety Stop: 09/23/18 11:16 Last Admin: 08/05/18 08:50 Dose: 0.5 mg Docusate Sodium (Colace) 100 mg PO DAILY [facility] Stop: 09/24/18 08:59 Last Admin: 08/05/18 08:42 Dose: Not Given Folic Acid (Folate) 1 mg PO DAILY [facility] Stop: 09/24/18 08:59 Last Admin: 08/05/18 08:42 Dose: Not Given Gabapentin (Neurontin) 600 mg PO TID [facility] Stop: 09/23/18 13:59 Last Admin: 08/05/18 14:44 Dose: 600 mg Glucagon (Glucagen) 1 mg SUBQ PRN PRN PRN Reason: BS BELOW 60 & NOT TOLERATE PO Hydromorphone HCl (Dilaudid) 2 mg IVP Q3H PRN PRN Reason: Pain (Severe) Stop: 09/23/18 01:14 Last Admin: 08/05/18 15:51 Dose: 2 mg Sodium Chloride (Nacl 0.9%) 1,000 mls @ 60 mls/hr IV .[id number] [facility] Stop: 09/25/18 16:37 Last Admin: 08/04/18 13:37 Dose: 60 mls/hr Insulin Aspart (Novolog Insulin Sliding Scale) 0 units SUBQ ACHS [facility]; Protocol Stop: 09/23/18 11:29 Last Admin: 08/05/18 17:11 Dose: Not Given Insulin Detemir (Levemir Insulin) 6 units SUBQ HS [facility]; Protocol Stop: 09/23/18 20:59 Last Admin: 08/04/18 21:15 Dose: Not Given Lactobacillus Rhamnosus (Culturelle 15b) 1 each PO DAILY [facility] Stop: 09/24/18 08:59 Last Admin: 08/05/18 08:42 Dose: Not Given Levetiracetam (Keppra) 500 mg PO Q12H [facility] Stop: 09/23/18 11:29 Last Admin: 08/05/18 12:51 Dose: 500 mg Lisinopril (Zestril) 2.5 mg PO DAILY [facility] Stop: 09/24/18 08:59 Last Admin: 08/05/18 08:45 Dose: 2.5 mg Loperamide HCl (Imodium) 2 mg PO Q6HR PRN PRN Reason: Diarrhea Stop: 09/29/18 16:06 Last Admin: 08/05/18 12:50 Dose: 2 mg Magnesium Chloride (Slow-Mag) 64 ect PO [facility] Stop: 09/23/18 20:59 Last Admin: 08/04/18 21:15 Dose: Not Given Magnesium Hydroxide (Milk Of Magnesia) 30 ml PO DAILY PRN PRN Reason: Constipation Stop: 09/23/18 11:19 Multivitamins/Vitamin C (Theragran) 1 tab PO DAILY [facility] Stop: 09/24/18 08:59 Last Admin: 08/05/18 08:42 Dose: Not Given Nitroglycerin (Nitrostat) 0.4 mg SL Q5MIN PRN PRN Reason: Chest Pain Stop: 09/23/18 11:19 Oxcarbazepine (Trileptal) 300 mg PO BID [facility]; Protocol Stop: 09/23/18 16:59 Last Admin: 08/05/18 17:15 Dose: 300 mg Pantoprazole Sodium (Protonix) 40 mg PO DAILY [facility] Stop: 09/24/18 08:59 Last Admin: 08/05/18 08:40 Dose: 40 mg Quetiapine Fumarate (Seroquel) 100 mg PO [facility]; Protocol Stop: 09/23/18 20:59 Last Admin: 08/04/18 21:15 Dose: 100 mg Rifaximin (Xifaxan) 600 mg PO TID [facility] Stop: 09/30/18 20:59 Last Admin: 08/05/18 14:43 Dose: 600 mg Tamsulosin HCl (Flomax) 0.4 mg PO HS [facility] Stop: 09/23/18 20:59 Last Admin: 08/04/18 21:15 Dose: 0.4 mg Trazodone HCl (Desyrel) 100 mg PO HS PRN; Protocol PRN Reason: Insomnia Stop: 09/23/18 11:20 Last Admin: 08/04/18 21:14 Dose: 100 mg General: weak, lethargic, congested HEENT: PERRLA, EOMI Neck: Supple, No JVD, No thyromegaly Lungs: wheezing Abdomen: soft, non-distended - Procedures Procedures: Procedures Procedure Code Date EXCISION OF ILEUM, ENDO, DIAGN [id number] 07/25/18 EXCISION OF L FOOT SUBCU/FASCIA, OPEN APPROACH [id number] 06/22/18 EXCISION OF LEFT LARGE INTESTINE, ENDO, DIAGN [id number] 07/25/18 EXCISION OF RIGHT LARGE INTESTINE, ENDO, DIAGN [id number] 07/25/18 Internal Medicine Assmt/Plan - Assessment Assessment: Severe diarrhea: stool for C. Diff; GI consult: s/p colonoscopy: pending biopsy result. Severe anemia: better after 1 u PRBC. Hyperkalemia: s/p 60gm Kayexalate po x1 ordered; repeat BMP 4h after. Leukopenia: resolved. OOC DM: pt is noncompliant with diet. Intractable pain/chronic pain syndrome exacerbation: understandable and multifactorial. adjusting pain med. s/p Fall: rt proximal humeral fracture. COPD: RT CAD: s/p NC Seizure: close monitoring. Nutritional Asmnt/Malnutr-PDOC - Dietary Evaluation Malnutrition Findings (Please click <Entered> for more info): Nutritional Asmnt/Malnutrition Start: 07/25/18 15: 07 Text: Status: Complete Freq: Protocol: Document 07/25/18 15:09 [email or web address] (Rec: 07/25/18 15:24 [email or web address]) Nutritional Asmnt/Malnutrition Patient General Information Nutritional Screening High Risk Diagnosis intractable shoulder pain, possible right shoulder Pertinent Medical Hx/Surgical Hx HTN, DM, asthma/COPD, CAD, seizures, RT BKA Subjective Information Pt was resting in bed, alert, but did not want to speak with RD at time of visit. Elevated glucose 351 noted. Current Diet Order/ Nutrition Support CCHO, cardiac, ensure clear BID Pertinent Medications colace, folate, glucagen, novolog, levemir, culturelle, slow-mag, theragran, protonix, seroquel Pertinent Labs Na 132, Cl 96, cr 1.4, glucose 351, ca 8.5, POC [phone] Nutritional Hx/Data Height 1.73 m Height (Calculated Centimeters) 172.7 Current Weight (lbs) 50.802 kg Weight (Calculated Kilograms) 50.8 Weight (Calculated Grams) 86213.3 [place] Body Weight 154 Body Mass Index (BMI) 17.0 Weight Status Underweight GI Symptoms GI Symptoms None Last BM 07/25 Difficult in: None Skin Integrity/Comment: right BKA, left foot ulceration Estimated Nutritional Goals BEE in Kcals: Using Current wt Calories/Kcals/Kg 30-35 Kcals Calculated 3153-6553 Protein: Using Current wt Protein g/k.2 Protein Calculated 61 Fluid: ml 2003-7114 (1ml/kcal) Nutritional Problem 1. Problem Problem altered nutrition related labs Etiology hyperglycemia Signs/Symptoms: glucose 351, POC [phone] Malnutrition Alert Is there a minimum of two criteria No selected? Query Text:Check all the applicable criteria. A minimum of two criteria are recommended for diagnosis of either severe or non-severe malnutrition. Malnutrition Related to Morbid Obesity Malnutrition related to morbid obesity No Intervention/Recommendation Comments 1. Continue with CCHO, cardiac diet with ensure clear BID as ordered. Will adjust protein needs after wound assessed. 2. MD to adjust insulin regimen for optimal glycemic control 2. Monitor PO intake, wt, labs and skin integrity 3. F/U as high risk in 2-3 days Expected Outcomes/Goals Expected Outcomes/Goals 1. PO intake to meet at least 75% of nutritional needs. 2. Wt stability, skin to remain intact, labs to approach WNL. Reviewed by Claribel Anand RD
[2018-08-05] MEDS: Magnesium Chloride EC 64mg Tab PO SCH (20:28)
[2018-08-05] MEDS: Insulin Detemir 100 units/mL 10mL Vial SUBQ SCH (20:28)
[2018-08-05] MEDS ORDERED: Metoclopramide 5 mg/mL 2mL Vial IVP PRN (21:10)
[2018-08-06] MEDS: HYDROmorphone 2 mg/mL 1mL Vial IVP PRN ×8 (00:44→22:31)
[2018-08-06] MEDS: Sodium Chloride 0.9% 1,000 ML IV SCH (06:46)
--- NOTE | 2018-08-06 07:46 | GI Progress Note ---
Subjective - Review of Systems Service Date: 08/06/18 Subjective: Less diarrhea now after using ammonia Objective - Results Result Diagrams: 08/05/18 05:50 08/04/18 05:40 Recent Labs: Laboratory Last Values WBC 6.1 Th/cmm (4.8-10.8) 08/05/18 05:50 RBC 2.97 Mil/cmm (4.30-5.70) L 08/05/18 05:50 Hgb 9.5 gm/dL (12-16) L 08/05/18 05:50 Hct 28.2 % (41.0-60) L 08/05/18 05:50 MCV 95.0 fl (80-99) 08/05/18 05:50 MCH 31.8 pg (26.0-30.0) H 08/05/18 05:50 MCHC Differential 33.5 pg (28.0-36.0) 08/05/18 05:50 RDW 14.3 % (11.5-20.0) 08/05/18 05:50 Plt Count 242 Th/cmm (150-400) 08/05/18 05:50 MPV 7.6 fl 08/05/18 05:50 Neutrophils % 60.7 % (40.0-80.0) 08/05/18 05:50 Lymphocytes % 25.6 % (20.0-50.0) 08/05/18 05:50 Monocytes % 7.1 % (2.0-10.0) 08/05/18 05:50 Eosinophils % 5.2 % (0.0-5.0) H 08/05/18 05:50 Basophils % 1.4 % (0.0-2.0) 08/05/18 05:50 PT 9.6 SECONDS (9.5-11.5) 08/03/18 05:45 INR 0.92 (0.5-1.4) 08/03/18 05:45 PTT (Actin FS) 22.9 SECONDS (26.0-38.0) L 07/25/18 00:40 Sodium 134 mEq/L (136-145) L 08/04/18 05:40 Potassium 5.0 mEq/L (3.5-5.1) 08/04/18 05:40 Chloride 110 mEq/L (98-107) H 08/04/18 05:40 Carbon Dioxide 16.3 mEq/L (21.0-31.0) L 08/04/18 05:40 Anion Gap 12.7 (7.0-16.0) 08/04/18 05:40 BUN 15 mg/dL (7-25) 08/04/18 05:40 Creatinine 1.0 mg/dL (0.7-1.3) 08/04/18 05:40 Est GFR ( Amer) > 60.0 ml/min (>90) 08/04/18 05:40 Est GFR (Non-Af Amer) > 60.0 ml/min 08/04/18 05:40 BUN/Creatinine Ratio 15.0 08/04/18 05:40 Glucose 331 mg/dL (70-105) H D 08/04/18 05:40 POC Glucose 74 MG/DL (70 - 105) 08/06/18 06:44 Calcium 7.8 mg/dL (8.6-10.3) L 08/04/18 05:40 Total Bilirubin 0.5 mg/dL (0.3-1.0) 07/28/18 06:00 AST 13 U/L (13-39) 07/28/18 06:00 ALT 10 U/L (7-52) 07/28/18 06:00 Alkaline Phosphatase 73 U/L (34-104) 07/28/18 06:00 Troponin I 0.01 ng/mL (0.01-0.05) 07/25/18 00:40 Total Protein 5.6 gm/dL (6.0-8.3) L 07/28/18 06:00 Albumin 3.6 gm/dL (4.2-5.5) L 07/28/18 06:00 Globulin 2.0 gm/dL 07/28/18 06:00 Albumin/Globulin Ratio 1.8 (1.0-1.8) 07/28/18 06:00 Urine Source CATH 07/25/18 00:40 Urine Color YELLOW 07/25/18 00:40 Urine Clarity CLEAR (CLEAR) 07/25/18 00:40 Urine pH 6.0 (4.6 - 8.0) 07/25/18 00:40 Ur Specific [place] 1.010 (1.005-1.030) 07/25/18 00:40 Urine Protein TRACE mg/dL (NEGATIVE) 07/25/18 00:40 Urine Glucose (UA) >=1000 mg/dL (NEGATIVE) H 07/25/18 00:40 Urine Ketones NEGATIVE mg/dL (NEGATIVE) 07/25/18 00:40 Urine Blood NEGATIVE (NEGATIVE) 07/25/18 00:40 Urine Nitrate NEGATIVE (NEGATIVE) 07/25/18 00:40 Urine Bilirubin NEGATIVE (NEGATIVE) 07/25/18 00:40 Urine Urobilinogen 0.2 E.U./dL (0.2 - 1.0) 07/25/18 00:40 Ur Leukocyte Esterase NEGATIVE (NEGATIVE) 07/25/18 00:40 Urine RBC NONE SEEN /hpf (0-5) 07/25/18 00:40 Urine WBC 0-2 /hpf (0-5) 07/25/18 00:40 Ur Epithelial Cells OCCASIONAL /lpf (FEW) 07/25/18 00:40 Urine Bacteria OCCASIONAL /hpf (NONE SEEN) 07/25/18 00:40 Blood Type O NEGATIVE 08/04/18 08:40 Antibody Screen NEGATIVE 08/04/18 08:40 Crossmatch See Detail 08/04/18 08:40 - Physical Exam Vitals and I&O: Vital Signs Temp 98.1 F 08/06/18 04:00 Pulse 83 08/06/18 04:00 Resp 17 08/06/18 04:00 BP 102/60 08/06/18 04:00 Pulse Ox 96 08/06/18 04:00 Intake & Output 08/05/18 08/06/18 08/06/18 18:59 06:59 18:59 Other: Stool Characteristics Liquid Liquid Brown Brown Active Medications: Current Medications Acetaminophen (Tylenol) 650 mg PO Q6H PRN PRN Reason: Pain or Fever >101 Stop: 09/23/18 11:16 Amlodipine Besylate (Norvasc) 10 mg PO DAILY PRN PRN Reason: SBP ABOVE 160 Stop: 09/25/18 08:59 Last Admin: 07/26/18 23:52 Dose: 10 mg Lipase/Protease/Amylase (Zenpep 5,000 U) 1 cap PO TIDWM [facility] Stop: 09/30/18 16:59 Last Admin: 08/05/18 17:15 Dose: 1 cap Carisoprodol (Soma) 350 mg PO Q8H PRN PRN Reason: MUSCLE RELAXANT Stop: 09/23/18 11:16 Last Admin: 08/05/18 18:53 Dose: 350 mg [place] Oil/[place] Balsam/Trypsin (Venelex) 1 appl TP DAILY [facility] Stop: 09/26/18 15:44 Last Admin: 08/05/18 08:42 Dose: Not Given Clonazepam (Klonopin) 0.5 mg PO Q8H PRN; Protocol PRN Reason: Anxiety Stop: 09/23/18 11:16 Last Admin: 08/05/18 18:53 Dose: 0.5 mg Docusate Sodium (Colace) 100 mg PO DAILY [facility] Stop: 09/24/18 08:59 Last Admin: 08/05/18 08:42 Dose: Not Given Folic Acid (Folate) 1 mg PO DAILY [facility] Stop: 09/24/18 08:59 Last Admin: 08/05/18 08:42 Dose: Not Given Gabapentin (Neurontin) 600 mg PO TID [facility] Stop: 09/23/18 13:59 Last Admin: 08/05/18 20:21 Dose: 600 mg Glucagon (Glucagen) 1 mg SUBQ PRN PRN PRN Reason: BS BELOW 60 & NOT TOLERATE PO Hydromorphone HCl (Dilaudid) 2 mg IVP Q3H PRN PRN Reason: Pain (Severe) Stop: 09/23/18 01:14 Last Admin: 08/06/18 06:45 Dose: 2 mg Sodium Chloride (Nacl 0.9%) 1,000 mls @ 60 mls/hr IV .[id number] [facility] Stop: 09/25/18 16:37 Last Admin: 08/06/18 06:46 Dose: 60 mls/hr Insulin Aspart (Novolog Insulin Sliding Scale) 0 units SUBQ ACHS [facility]; Protocol Stop: 09/23/18 11:29 Last Admin: 08/05/18 20:20 Dose: 14 units Insulin Detemir (Levemir Insulin) 6 units SUBQ HS [facility]; Protocol Stop: 09/23/18 20:59 Last Admin: 08/05/18 20:28 Dose: Not Given Lactobacillus Rhamnosus (Culturelle 15b) 1 each PO DAILY [facility] Stop: 09/24/18 08:59 Last Admin: 08/05/18 08:42 Dose: Not Given Levetiracetam (Keppra) 500 mg PO Q12H [facility] Stop: 09/23/18 11:29 Last Admin: 08/05/18 22:57 Dose: Not Given Lisinopril (Zestril) 2.5 mg PO DAILY [facility] Stop: 09/24/18 08:59 Last Admin: 08/05/18 08:45 Dose: 2.5 mg Loperamide HCl (Imodium) 2 mg PO Q6HR PRN PRN Reason: Diarrhea Stop: 09/29/18 16:06 Last Admin: 08/05/18 20:21 Dose: 2 mg Magnesium Chloride (Slow-Mag) 64 ect PO HS [facility] Stop: 09/23/18 20:59 Last Admin: 08/05/18 20:28 Dose: Not Given Magnesium Hydroxide (Milk Of Magnesia) 30 ml PO DAILY PRN PRN Reason: Constipation Stop: 09/23/18 11:19 Metoclopramide HCl (Reglan) 10 mg IVP Q6H PRN PRN Reason: Nausea Stop: 10/04/18 21:09 Multivitamins/Vitamin C (Theragran) 1 tab PO DAILY [facility] Stop: 09/24/18 08:59 Last Admin: 08/05/18 08:42 Dose: Not Given Nitroglycerin (Nitrostat) 0.4 mg SL Q5MIN PRN PRN Reason: Chest Pain Stop: 09/23/18 11:19 Oxcarbazepine (Trileptal) 300 mg PO BID [facility]; Protocol Stop: 09/23/18 16:59 Last Admin: 08/05/18 17:15 Dose: 300 mg Pantoprazole Sodium (Protonix) 40 mg PO DAILY [facility] Stop: 09/24/18 08:59 Last Admin: 08/05/18 08:40 Dose: 40 mg Quetiapine Fumarate (Seroquel) 100 mg PO HS [facility]; Protocol Stop: 09/23/18 20:59 Last Admin: 08/05/18 20:21 Dose: 100 mg Rifaximin (Xifaxan) 600 mg PO TID [facility] Stop: 09/30/18 20:59 Last Admin: 08/05/18 20:22 Dose: 600 mg Tamsulosin HCl (Flomax) 0.4 mg PO HS [facility] Stop: 09/23/18 20:59 Last Admin: 02/01/19 20:21 Dose: 0.4 mg Trazodone HCl (Desyrel) 100 mg PO HS PRN; Protocol PRN Reason: Insomnia Stop: 09/23/18 11:20 Last Admin: 08/05/18 20:21 Dose: 100 mg General: Alert, Oriented x3 HEENT: Atraumatic Cardiovascular: Regular rate Abdomen: Bowel sounds, Soft, no Tender, no Hepatomegaly, no Splenomegaly, no Distended, no Rebound, no Mass, no Guarding Psych/Mental Status: Mental status NL - Procedures Procedures: Procedures Procedure Code Date EXCISION OF ILEUM, ENDO, DIAGN [id number] 07/25/18 EXCISION OF L FOOT SUBCU/FASCIA, OPEN APPROACH [id number] 06/22/18 EXCISION OF LEFT LARGE INTESTINE, ENDO, DIAGN [id number] 07/25/18 EXCISION OF RIGHT LARGE INTESTINE, ENDO, DIAGN [id number] 07/25/18 Assessment/Plan - Assessment Assessment: 48 YO MALE WITH CHRONIC DIARRHEA CT SHOWED FLUID IN THE SMALL BOWEL CDIFF NEG COLO SHOWED NORMAL COLON AND TERMINAL ILEUM At this point, I suspect either IBS-D or diabetic mediated diarrhea (ie neuropathy associated), or a combination of both. Colon pathology is negative for microscopic colitis. SBFT is negative for any small bowel fistula. The pt is not cooperative, is not taking his insulin and not taking imodium. Now that he has been taking imodium, the diarrhea is better Plan: -CONT SUPP CARE -AWAIT BX from the colon -CONSIDER OUTPATIENT CAPSULE ENDOSCOPY -CONT PANC ENZYMES AND XIFAXAN FOR PANC EXOCRINE INSUFF AND IBS-D RESPECTIVELY - Stop reglan, this can cause diarrhea - Pt needs to take imodium as this is a safe treatment for chronic diarrhea without infection - Pt needs to comply with his diabetes management, unlikely to improve with blood sugars constantly above 300 Stable from a GI perspective
[2018-08-06] MEDS: INSULIN ASPART SLIDING SCALE 100 UNITS/ML UNIT SUBQ SCH ×4 (08:01→21:15)
[2018-08-06] MEDS: Pantoprazole 40 mg EC Tab PO SCH (08:53)
[2018-08-06] MEDS: Lactobacillus Rhamnosus GG 15 Billion CFU CAP.SPRINK PO SCH (09:09)
[2018-08-06] MEDS: Multivitamin Tab PO SCH (09:10)
[2018-08-06] MEDS: Venelex 60gm Tube TP SCH ×2 (10:08→10:38)
--- NOTE | 2018-08-06 18:41 | Internal Medicine Prog Note ---
Internal Medicine Subjective - Subjective Service Date: 08/06/18 Patient seen and examined:: without staff Patient is:: awake, interactive, in bed Patient Complaints of:: congestion, vomitting, diarrhea Per staff patient has:: no adverse event Internal Medicine Objective - Results Result Diagrams: 08/05/18 05:50 08/04/18 05:40 Recent Labs: Laboratory Last Values WBC 6.1 Th/cmm (4.8-10.8) 08/05/18 05:50 RBC 2.97 Mil/cmm (4.30-5.70) L 08/05/18 05:50 Hgb 9.5 gm/dL (12-16) L 08/05/18 05:50 Hct 28.2 % (41.0-60) L 08/05/18 05:50 MCV 95.0 fl (80-99) 08/05/18 05:50 MCH 31.8 pg (26.0-30.0) H 08/05/18 05:50 MCHC Differential 33.5 pg (28.0-36.0) 08/05/18 05:50 RDW 14.3 % (11.5-20.0) 08/05/18 05:50 Plt Count 242 Th/cmm (150-400) 08/05/18 05:50 MPV 7.6 fl 08/05/18 05:50 Neutrophils % 60.7 % (40.0-80.0) 08/05/18 05:50 Lymphocytes % 25.6 % (20.0-50.0) 08/05/18 05:50 Monocytes % 7.1 % (2.0-10.0) 08/05/18 05:50 Eosinophils % 5.2 % (0.0-5.0) H 08/05/18 05:50 Basophils % 1.4 % (0.0-2.0) 08/05/18 05:50 PT 9.6 SECONDS (9.5-11.5) 08/03/18 05:45 INR 0.92 (0.5-1.4) 08/03/18 05:45 PTT (Actin FS) 22.9 SECONDS (26.0-38.0) L 07/25/18 00:40 Sodium 134 mEq/L (136-145) L 08/04/18 05:40 Potassium 5.0 mEq/L (3.5-5.1) 08/04/18 05:40 Chloride 110 mEq/L (98-107) H 08/04/18 05:40 Carbon Dioxide 16.3 mEq/L (21.0-31.0) L 08/04/18 05:40 Anion Gap 12.7 (7.0-16.0) 08/04/18 05:40 BUN 15 mg/dL (7-25) 08/04/18 05:40 Creatinine 1.0 mg/dL (0.7-1.3) 08/04/18 05:40 Est GFR ( Amer) > 60.0 ml/min (>90) 08/04/18 05:40 Est GFR (Non-Af Amer) > 60.0 ml/min 08/04/18 05:40 BUN/Creatinine Ratio 15.0 08/04/18 05:40 Glucose 331 mg/dL (70-105) H D 08/04/18 05:40 POC Glucose 230 MG/DL (70 - 105) H 08/06/18 16:27 Calcium 7.8 mg/dL (8.6-10.3) L 08/04/18 05:40 Total Bilirubin 0.5 mg/dL (0.3-1.0) 07/28/18 06:00 AST 13 U/L (13-39) 07/28/18 06:00 ALT 10 U/L (7-52) 07/28/18 06:00 Alkaline Phosphatase 73 U/L (34-104) 07/28/18 06:00 Troponin I 0.01 ng/mL (0.01-0.05) 07/25/18 00:40 Total Protein 5.6 gm/dL (6.0-8.3) L 07/28/18 06:00 Albumin 3.6 gm/dL (4.2-5.5) L 07/28/18 06:00 Globulin 2.0 gm/dL 07/28/18 06:00 Albumin/Globulin Ratio 1.8 (1.0-1.8) 07/28/18 06:00 Urine Source CATH 07/25/18 00:40 Urine Color YELLOW 07/25/18 00:40 Urine Clarity CLEAR (CLEAR) 07/25/18 00:40 Urine pH 6.0 (4.6 - 8.0) 07/25/18 00:40 Ur Specific [place] 1.010 (1.005-1.030) 07/25/18 00:40 Urine Protein TRACE mg/dL (NEGATIVE) 07/25/18 00:40 Urine Glucose (UA) >=1000 mg/dL (NEGATIVE) H 07/25/18 00:40 Urine Ketones NEGATIVE mg/dL (NEGATIVE) 07/25/18 00:40 Urine Blood NEGATIVE (NEGATIVE) 07/25/18 00:40 Urine Nitrate NEGATIVE (NEGATIVE) 07/25/18 00:40 Urine Bilirubin NEGATIVE (NEGATIVE) 07/25/18 00:40 Urine Urobilinogen 0.2 E.U./dL (0.2 - 1.0) 07/25/18 00:40 Ur Leukocyte Esterase NEGATIVE (NEGATIVE) 07/25/18 00:40 Urine RBC NONE SEEN /hpf (0-5) 07/25/18 00:40 Urine WBC 0-2 /hpf (0-5) 07/25/18 00:40 Ur Epithelial Cells OCCASIONAL /lpf (FEW) 07/25/18 00:40 Urine Bacteria OCCASIONAL /hpf (NONE SEEN) 07/25/18 00:40 Blood Type O NEGATIVE 08/04/18 08:40 Antibody Screen NEGATIVE 08/04/18 08:40 Crossmatch See Detail 08/04/18 08:40 - Physical Exam Vitals and I&O: Vital Signs Temp 98.6 F 08/06/18 15:46 Pulse 79 08/06/18 15:46 Resp 18 08/06/18 15:46 BP 118/78 08/06/18 15:46 Pulse Ox 100 08/06/18 15:46 Intake & Output 08/05/18 08/06/18 08/06/18 18:59 06:59 18:59 Intake Total 800 Output Total 1275 Balance -475 Weight (lbs) 54.431 kg Intake: Oral 800 Output: Urine 1275 Other: Stool Characteristics Liquid Liquid Liquid Brown Brown Brown Weight Source Bedscale Active Medications: Current Medications Acetaminophen (Tylenol) 650 mg PO Q6H PRN PRN Reason: Pain or Fever >101 Stop: 09/23/18 11:16 Amlodipine Besylate (Norvasc) 10 mg PO DAILY PRN PRN Reason: SBP ABOVE 160 Stop: 09/25/18 08:59 Last Admin: 07/26/18 23:52 Dose: 10 mg Lipase/Protease/Amylase (Zenpep 5,000 U) 1 cap PO TIDWM [facility] Stop: 09/30/18 16:59 Last Admin: 08/06/18 16:20 Dose: 1 cap Carisoprodol (Soma) 350 mg PO Q8H PRN PRN Reason: MUSCLE RELAXANT Stop: 09/23/18 11:16 Last Admin: 08/06/18 10:30 Dose: 350 mg [place] Oil/[place] Balsam/Trypsin (Venelex) 1 appl TP DAILY [facility] Stop: 09/26/18 15:44 Last Admin: 08/06/18 10:38 Dose: 1 appl Clonazepam (Klonopin) 0.5 mg PO Q8H PRN; Protocol PRN Reason: Anxiety Stop: 09/23/18 11:16 Last Admin: 08/06/18 10:30 Dose: 0.5 mg Docusate Sodium (Colace) 100 mg PO DAILY [facility] Stop: 09/24/18 08:59 Last Admin: 08/06/18 09:09 Dose: Not Given Folic Acid (Folate) 1 mg PO DAILY [facility] Stop: 09/24/18 08:59 Last Admin: 08/06/18 08:53 Dose: 1 mg Gabapentin (Neurontin) 600 mg PO TID [facility] Stop: 09/23/18 13:59 Last Admin: 08/06/18 14:05 Dose: 600 mg Glucagon (Glucagen) 1 mg SUBQ PRN PRN PRN Reason: BS BELOW 60 & NOT TOLERATE PO Hydromorphone HCl (Dilaudid) 2 mg IVP Q3H PRN PRN Reason: Pain (Severe) Stop: 09/23/18 01:14 Last Admin: 08/06/18 16:05 Dose: 2 mg Sodium Chloride (Nacl 0.9%) 1,000 mls @ 60 mls/hr IV .[id number] [facility] Stop: 09/25/18 16:37 Last Admin: 08/06/18 06:46 Dose: 60 mls/hr Insulin Aspart (Novolog Insulin Sliding Scale) 0 units SUBQ ACHS [facility]; Protocol Stop: 09/23/18 11:29 Last Admin: 08/06/18 16:34 Dose: 5 units Insulin Detemir (Levemir Insulin) 6 units SUBQ HS [facility]; Protocol Stop: 09/23/18 20:59 Last Admin: 08/05/18 20:28 Dose: Not Given Lactobacillus Rhamnosus (Culturelle 15b) 1 each PO DAILY [facility] Stop: 09/24/18 08:59 Last Admin: 08/06/18 09:09 Dose: Not Given Levetiracetam (Keppra) 500 mg PO Q12H [facility] Stop: 09/23/18 11:29 Last Admin: 08/06/18 12:00 Dose: 500 mg Lisinopril (Zestril) 2.5 mg PO DAILY [facility] Stop: 09/24/18 08:59 Last Admin: 08/06/18 12:38 Dose: 2.5 mg Loperamide HCl (Imodium) 2 mg PO Q6HR PRN PRN Reason: Diarrhea Stop: 09/29/18 16:06 Last Admin: 08/06/18 08:53 Dose: 2 mg Magnesium Chloride (Slow-Mag) 64 ect PO [facility] Stop: 09/23/18 20:59 Last Admin: 08/05/18 20:28 Dose: Not Given Magnesium Hydroxide (Milk Of Magnesia) 30 ml PO DAILY PRN PRN Reason: Constipation Stop: 09/23/18 11:19 Metoclopramide HCl (Reglan) 10 mg IVP Q6H PRN PRN Reason: Nausea Stop: 10/04/18 21:09 Multivitamins/Vitamin C (Theragran) 1 tab PO DAILY [facility] Stop: 09/24/18 08:59 Last Admin: 08/06/18 09:10 Dose: Not Given Nitroglycerin (Nitrostat) 0.4 mg SL Q5MIN PRN PRN Reason: Chest Pain Stop: 09/23/18 11:19 Oxcarbazepine (Trileptal) 300 mg PO BID [facility]; Protocol Stop: 09/23/18 16:59 Last Admin: 08/06/18 16:21 Dose: 300 mg Pantoprazole Sodium (Protonix) 40 mg PO DAILY [facility] Stop: 09/24/18 08:59 Last Admin: 08/06/18 08:53 Dose: 40 mg Quetiapine Fumarate (Seroquel) 100 mg PO [facility]; Protocol Stop: 09/23/18 20:59 Last Admin: 08/05/18 20:21 Dose: 100 mg Rifaximin (Xifaxan) 600 mg PO TID [facility] Stop: 09/30/18 20:59 Last Admin: 08/06/18 14:22 Dose: 600 mg Tamsulosin HCl (Flomax) 0.4 mg PO HS [facility] Stop: 09/23/18 20:59 Last Admin: 08/05/18 20:21 Dose: 0.4 mg Trazodone HCl (Desyrel) 100 mg PO HS PRN; Protocol PRN Reason: Insomnia Stop: 09/23/18 11:20 Last Admin: 08/05/18 20:21 Dose: 100 mg General: weak, lethargic, congested HEENT: PERRLA, EOMI Neck: Supple, No JVD, No thyromegaly Lungs: wheezing Abdomen: soft, non-distended - Procedures Procedures: Procedures Procedure Code Date EXCISION OF ILEUM, ENDO, DIAGN [id number] 07/25/18 EXCISION OF L FOOT SUBCU/FASCIA, OPEN APPROACH [id number] 06/22/18 EXCISION OF LEFT LARGE INTESTINE, ENDO, DIAGN [id number] 07/25/18 EXCISION OF RIGHT LARGE INTESTINE, ENDO, DIAGN [id number] 07/25/18 Internal Medicine Assmt/Plan - Assessment Assessment: Intractable pain/chronic pain syndrome exacerbation: understandable and multifactorial. adjusting pain med. s/p Fall: rt proximal humeral fracture. Diarrhea: stool for C. Diff; GI consult: s/p colonoscopy: biopsy result is negative. Severe anemia: better after 1 u PRBC. Hyperkalemia: s/p 60gm Kayexalate po x1 ordered; repeat BMP 4h after. Leukopenia: resolved. OOC DM: pt is noncompliant with diet. COPD: RT CAD: s/p MT Seizure: close monitoring. Nutritional Asmnt/Malnutr-PDOC - Dietary Evaluation Malnutrition Findings (Please click <Entered> for more info): Nutritional Asmnt/Malnutrition Start: 07/25/18 15: 07 Text: Status: Complete Freq: Protocol: Document 07/25/18 15:09 [email or web address] (Rec: 07/25/18 15:24 [email or web address]) Nutritional Asmnt/Malnutrition Patient General Information Nutritional Screening High Risk Diagnosis intractable shoulder pain, possible right shoulder Pertinent Medical Hx/Surgical Hx HTN, DM, asthma/COPD, CAD, seizures, RT BKA Subjective Information Pt was resting in bed, alert, but did not want to speak with RD at time of visit. Elevated glucose 351 noted. Current Diet Order/ Nutrition Support CCHO, cardiac, ensure clear BID Pertinent Medications colace, folate, glucagen, novolog, levemir, culturelle, slow-mag, theragran, protonix, seroquel Pertinent Labs Na 132, Cl 96, cr 1.4, glucose 351, ca 8.5, POC [phone] Nutritional Hx/Data Height 1.73 m Height (Calculated Centimeters) 172.7 Current Weight (lbs) 50.802 kg Weight (Calculated Kilograms) 50.8 Weight (Calculated Grams) 68277.3 [place] Body Weight 154 Body Mass Index (BMI) 17.0 Weight Status Underweight GI Symptoms GI Symptoms None Last BM 07/25 Difficult in: None Skin Integrity/Comment: right BKA, left foot ulceration Estimated Nutritional Goals BEE in Kcals: Using Current wt Calories/Kcals/Kg 30-35 Kcals Calculated 1962-8362 Protein: Using Current wt Protein g/k.2 Protein Calculated 61 Fluid: ml 2443-7477 (1ml/kcal) Nutritional Problem 1. Problem Problem altered nutrition related labs Etiology hyperglycemia Signs/Symptoms: glucose 351, POC [phone] Malnutrition Alert Is there a minimum of two criteria No selected? Query Text:Check all the applicable criteria. A minimum of two criteria are recommended for diagnosis of either severe or non-severe malnutrition. Malnutrition Related to Morbid Obesity Malnutrition related to morbid obesity No Intervention/Recommendation Comments 1. Continue with CCHO, cardiac diet with ensure clear BID as ordered. Will adjust protein needs after wound assessed. 2. MD to adjust insulin regimen for optimal glycemic control 2. Monitor PO intake, wt, labs and skin integrity 3. F/U as high risk in 2-3 days Expected Outcomes/Goals Expected Outcomes/Goals 1. PO intake to meet at least 75% of nutritional needs. 2. Wt stability, skin to remain intact, labs to approach WNL. Reviewed by Claribel Anand RD
[2018-08-06] MEDS: Magnesium Chloride EC 64mg Tab PO SCH (21:14)
[2018-08-06] MEDS: Insulin Detemir 100 units/mL 10mL Vial SUBQ SCH (21:16)
[2018-08-07] MEDS: HYDROmorphone 2 mg/mL 1mL Vial IVP PRN ×5 (01:31→16:55)
[2018-08-07] MEDS: Sodium Chloride 0.9% 1,000 ML IV SCH ×2 (04:36→20:43)
[2018-08-07 06:05] LABS: % BASOPHILS 0.9 % (0.0-2.0); % EOSINOPHILS 3.1 % (0.0-5.0); % LYMPHOCYTES 15.7 % (20.0-50.0); % MONOCYTES 7.8 % (2.0-10.0); % NEUTROPHILS 72.5 % (40.0-80.0); EOSINOPHILE ABSOLUTE 0.2 Th/cmm (0.1-0.4); HEMATOCRIT 30.2 % (41.0-60); HEMOGLOBIN 10.2 gm/dL (12-16); LYMPHOCYTE ABSOLUTE 0.8 Th/cmm (1.5-3.0); MEAN CELL VOLUME 94.1 fl (80-99); MEAN CORPUSCULAR HEMOGLOBIN 31.6 pg (26.0-30.0); MEAN CORPUSCULAR HGB CONC 33.6 pg (28.0-36.0); MEAN PLATELET VOLUME 7.5 fl; MONOCYTE ABSOLUTE 0.4 Th/cmm (0.3-1.0); NEUTROPHILE ABSOLUTE 3.7 Th/cmm (1.8-8.0); PLATELET COUNT 262 Th/cmm (150-400); RED BLOOD COUNT 3.21 Mil/cmm (4.30-5.70); RED CELL DISTRIBUTION WIDTH 14.4 % (11.5-20.0); WHITE BLOOD COUNT 5.1 Th/cmm (4.8-10.8)
[2018-08-07 06:27] LABS: ANION GAP 13.1 (7.0-16.0); BUN - UREA NITROGEN 30 mg/dL (7-25); CALCIUM SERUM 8.3 mg/dL (8.6-10.3); CARBON DIOXIDE 22.6 mEq/L (21.0-31.0); CHLORIDE 106 mEq/L (98-107); CREATININE - SERUM 1.2 mg/dL (0.7-1.3); GFR AFRICAN-AMERICAN > 60.0 ml/min (>90); GFR NON AFRICAN-AMERICAN > 60.0 ml/min; POTASSIUM SERUM 5.7 mEq/L (3.5-5.1); SODIUM SERUM 136 mEq/L (136-145)
[2018-08-07 06:31] LABS: GLUCOSE 493 mg/dL (70-105)
[2018-08-07] MEDS: INSULIN ASPART SLIDING SCALE 100 UNITS/ML UNIT SUBQ SCH ×4 (06:37→20:44)
--- NOTE | 2018-08-07 07:43 | GI Progress Note ---
Subjective - Review of Systems Service Date: 08/07/18 Subjective: Two BMs last night, last had imodium yesterday morning Objective - Results Result Diagrams: 08/07/18 05:45 08/07/18 05:45 Recent Labs: Laboratory Last Values WBC 5.1 Th/cmm (4.8-10.8) 08/07/18 05:45 RBC 3.21 Mil/cmm (4.30-5.70) L 08/07/18 05:45 Hgb 10.2 gm/dL (12-16) L 08/07/18 05:45 Hct 30.2 % (41.0-60) L 08/07/18 05:45 MCV 94.1 fl (80-99) 08/07/18 05:45 MCH 31.6 pg (26.0-30.0) H 08/07/18 05:45 MCHC Differential 33.6 pg (28.0-36.0) 08/07/18 05:45 RDW 14.4 % (11.5-20.0) 08/07/18 05:45 Plt Count 262 Th/cmm (150-400) 08/07/18 05:45 MPV 7.5 fl 08/07/18 05:45 Neutrophils % 72.5 % (40.0-80.0) 08/07/18 05:45 Lymphocytes % 15.7 % (20.0-50.0) L 08/07/18 05:45 Monocytes % 7.8 % (2.0-10.0) 08/07/18 05:45 Eosinophils % 3.1 % (0.0-5.0) 08/07/18 05:45 Basophils % 0.9 % (0.0-2.0) 08/07/18 05:45 PT 9.6 SECONDS (9.5-11.5) 08/03/18 05:45 INR 0.92 (0.5-1.4) 08/03/18 05:45 PTT (Actin FS) 22.9 SECONDS (26.0-38.0) L 07/25/18 00:40 Sodium 136 mEq/L (136-145) 08/07/18 05:45 Potassium 5.7 mEq/L (3.5-5.1) H 08/07/18 05:45 Chloride 106 mEq/L (98-107) 08/07/18 05:45 Carbon Dioxide 22.6 mEq/L (21.0-31.0) 08/07/18 05:45 Anion Gap 13.1 (7.0-16.0) 08/07/18 05:45 BUN 30 mg/dL (7-25) H 08/07/18 05:45 Creatinine 1.2 mg/dL (0.7-1.3) 08/07/18 05:45 Est GFR ( Amer) > 60.0 ml/min (>90) 08/07/18 05:45 Est GFR (Non-Af Amer) > 60.0 ml/min 08/07/18 05:45 BUN/Creatinine Ratio 25.0 08/07/18 05:45 Glucose 493 mg/dL (70-105) H* 08/07/18 05:45 POC Glucose 381 MG/DL (70 - 105) H 08/07/18 06:40 Calcium 8.3 mg/dL (8.6-10.3) L 08/07/18 05:45 Total Bilirubin 0.5 mg/dL (0.3-1.0) 07/28/18 06:00 AST 13 U/L (13-39) 07/28/18 06:00 ALT 10 U/L (7-52) 07/28/18 06:00 Alkaline Phosphatase 73 U/L (34-104) 07/28/18 06:00 Troponin I 0.01 ng/mL (0.01-0.05) 07/25/18 00:40 Total Protein 5.6 gm/dL (6.0-8.3) L 07/28/18 06:00 Albumin 3.6 gm/dL (4.2-5.5) L 07/28/18 06:00 Globulin 2.0 gm/dL 07/28/18 06:00 Albumin/Globulin Ratio 1.8 (1.0-1.8) 07/28/18 06:00 Urine Source CATH 07/25/18 00:40 Urine Color YELLOW 07/25/18 00:40 Urine Clarity CLEAR (CLEAR) 07/25/18 00:40 Urine pH 6.0 (4.6 - 8.0) 07/25/18 00:40 Ur Specific [place] 1.010 (1.005-1.030) 07/25/18 00:40 Urine Protein TRACE mg/dL (NEGATIVE) 07/25/18 00:40 Urine Glucose (UA) >=1000 mg/dL (NEGATIVE) H 07/25/18 00:40 Urine Ketones NEGATIVE mg/dL (NEGATIVE) 07/25/18 00:40 Urine Blood NEGATIVE (NEGATIVE) 07/25/18 00:40 Urine Nitrate NEGATIVE (NEGATIVE) 07/25/18 00:40 Urine Bilirubin NEGATIVE (NEGATIVE) 07/25/18 00:40 Urine Urobilinogen 0.2 E.U./dL (0.2 - 1.0) 07/25/18 00:40 Ur Leukocyte Esterase NEGATIVE (NEGATIVE) 07/25/18 00:40 Urine RBC NONE SEEN /hpf (0-5) 07/25/18 00:40 Urine WBC 0-2 /hpf (0-5) 07/25/18 00:40 Ur Epithelial Cells OCCASIONAL /lpf (FEW) 07/25/18 00:40 Urine Bacteria OCCASIONAL /hpf (NONE SEEN) 07/25/18 00:40 Blood Type O NEGATIVE 08/04/18 08:40 Antibody Screen NEGATIVE 08/04/18 08:40 Crossmatch See Detail 08/04/18 08:40 - Physical Exam Vitals and I&O: Vital Signs Temp 98.5 F 08/07/18 04:00 Pulse 81 08/07/18 04:00 Resp 18 08/07/18 04:00 BP 116/72 08/07/18 04:00 Pulse Ox 97 08/07/18 04:00 Intake & Output 08/06/18 08/07/18 08/07/18 18:59 06:59 18:59 Intake Total 800 1580 Output Total 1275 1400 Balance -475 180 Weight (lbs) 54.431 kg 44.996 kg Intake: Intake, IV Amount 1000 Sodium Chloride 0.9% 1, 1000 000 ml @ 60 mls/hr IV . [id number] [facility] Rx#:[id number] Oral 800 580 Output: Urine 1275 1400 Other: # Bowel Movements 2 Stool Characteristics Liquid Brown Weight Source Bedscale Bedscale Active Medications: Current Medications Acetaminophen (Tylenol) 650 mg PO Q6H PRN PRN Reason: Pain or Fever >101 Stop: 09/23/18 11:16 Amlodipine Besylate (Norvasc) 10 mg PO DAILY PRN PRN Reason: SBP ABOVE 160 Stop: 09/25/18 08:59 Last Admin: 07/26/18 23:52 Dose: 10 mg Lipase/Protease/Amylase (Zenpep 5,000 U) 1 cap PO TIDWM [facility] Stop: 09/30/18 16:59 Last Admin: 08/06/18 16:20 Dose: 1 cap Carisoprodol (Soma) 350 mg PO Q8H PRN PRN Reason: MUSCLE RELAXANT Stop: 09/23/18 11:16 Last Admin: 08/06/18 23:07 Dose: 350 mg [place] Oil/[place] Balsam/Trypsin (Venelex) 1 appl TP DAILY [facility] Stop: 09/26/18 15:44 Last Admin: 08/06/18 10:38 Dose: 1 appl Clonazepam (Klonopin) 0.5 mg PO Q8H PRN; Protocol PRN Reason: Anxiety Stop: 09/23/18 11:16 Last Admin: 08/06/18 21:27 Dose: 0.5 mg Docusate Sodium (Colace) 100 mg PO DAILY [facility] Stop: 09/24/18 08:59 Last Admin: 08/06/18 09:09 Dose: Not Given Folic Acid (Folate) 1 mg PO DAILY [facility] Stop: 09/24/18 08:59 Last Admin: 08/06/18 08:53 Dose: 1 mg Gabapentin (Neurontin) 600 mg PO TID [facility] Stop: 09/23/18 13:59 Last Admin: 08/06/18 21:14 Dose: 600 mg Glucagon (Glucagen) 1 mg SUBQ PRN PRN PRN Reason: BS BELOW 60 & NOT TOLERATE PO Hydromorphone HCl (Dilaudid) 2 mg IVP Q3H PRN PRN Reason: Pain (Severe) Stop: 09/23/18 01:14 Last Admin: 08/07/18 04:35 Dose: 2 mg Sodium Chloride (Nacl 0.9%) 1,000 mls @ 60 mls/hr IV .[id number] [facility] Stop: 09/25/18 16:37 Last Admin: 08/07/18 04:36 Dose: 60 mls/hr Insulin Aspart (Novolog Insulin Sliding Scale) 0 units SUBQ ACHS [facility]; Protocol Stop: 09/23/18 11:29 Last Admin: 08/07/18 06:37 Dose: 14 units Insulin Detemir (Levemir Insulin) 6 units SUBQ [facility]; Protocol Stop: 09/23/18 20:59 Last Admin: 08/06/18 21:16 Dose: Not Given Lactobacillus Rhamnosus (Culturelle 15b) 1 each PO DAILY [facility] Stop: 09/24/18 08:59 Last Admin: 08/06/18 09:09 Dose: Not Given Levetiracetam (Keppra) 500 mg PO Q12H [facility] Stop: 09/23/18 11:29 Last Admin: 08/06/18 23:07 Dose: Not Given Lisinopril (Zestril) 2.5 mg PO DAILY [facility] Stop: 09/24/18 08:59 Last Admin: 08/06/18 12:38 Dose: 2.5 mg Loperamide HCl (Imodium) 2 mg PO Q6HR PRN PRN Reason: Diarrhea Stop: 09/29/18 16:06 Last Admin: 08/06/18 08:53 Dose: 2 mg Magnesium Chloride (Slow-Mag) 64 ect PO [facility] Stop: 09/23/18 20:59 Last Admin: 08/06/18 21:14 Dose: 64 ect Magnesium Hydroxide (Milk Of Magnesia) 30 ml PO DAILY PRN PRN Reason: Constipation Stop: 09/23/18 11:19 Metoclopramide HCl (Reglan) 10 mg IVP Q6H PRN PRN Reason: Nausea Stop: 10/04/18 21:09 Multivitamins/Vitamin C (Theragran) 1 tab PO DAILY [facility] Stop: 09/24/18 08:59 Last Admin: 08/06/18 09:10 Dose: Not Given Nitroglycerin (Nitrostat) 0.4 mg SL Q5MIN PRN PRN Reason: Chest Pain Stop: 09/23/18 11:19 Oxcarbazepine (Trileptal) 300 mg PO BID [facility]; Protocol Stop: 09/23/18 16:59 Last Admin: 08/06/18 16:21 Dose: 300 mg Pantoprazole Sodium (Protonix) 40 mg PO DAILY [facility] Stop: 09/24/18 08:59 Last Admin: 08/06/18 08:53 Dose: 40 mg Quetiapine Fumarate (Seroquel) 100 mg PO [facility]; Protocol Stop: 09/23/18 20:59 Last Admin: 08/06/18 21:15 Dose: 100 mg Rifaximin (Xifaxan) 600 mg PO TID [facility] Stop: 09/30/18 20:59 Last Admin: 08/06/18 21:14 Dose: 600 mg Tamsulosin HCl (Flomax) 0.4 mg PO HS [facility] Stop: 09/23/18 20:59 Last Admin: 08/06/18 21:14 Dose: 0.4 mg Trazodone HCl (Desyrel) 100 mg PO HS PRN; Protocol PRN Reason: Insomnia Stop: 09/23/18 11:20 Last Admin: 08/06/18 21:31 Dose: 100 mg General: Alert, Oriented x3 HEENT: Atraumatic Cardiovascular: Regular rate Abdomen: Bowel sounds, Soft, no Tender, no Hepatomegaly, no Splenomegaly, no Distended, no Rebound, no Mass, no Guarding Psych/Mental Status: Mental status NL - Procedures Procedures: Procedures Procedure Code Date EXCISION OF ILEUM, ENDO, DIAGN [id number] 07/25/18 EXCISION OF L FOOT SUBCU/FASCIA, OPEN APPROACH [id number] 06/22/18 EXCISION OF LEFT LARGE INTESTINE, ENDO, DIAGN [id number] 07/25/18 EXCISION OF RIGHT LARGE INTESTINE, ENDO, DIAGN [id number] 07/25/18 Assessment/Plan - Assessment Assessment: 48 YO MALE WITH CHRONIC DIARRHEA CT SHOWED FLUID IN THE SMALL BOWEL CDIFF NEG COLO SHOWED NORMAL COLON AND TERMINAL ILEUM At this point, I suspect either IBS-D or diabetic mediated diarrhea (ie neuropathy associated), or a combination of both. Colon pathology is negative for microscopic colitis. SBFT is negative for any small bowel fistula. The pt is not cooperative, is not taking his insulin and not taking imodium. Now that he has been taking imodium, the diarrhea is better Plan: -CONT SUPP CARE -AWAIT BX from the colon -CONSIDER OUTPATIENT CAPSULE ENDOSCOPY -CONT PANC ENZYMES AND XIFAXAN FOR PANC EXOCRINE INSUFF AND IBS-D RESPECTIVELY - Stop reglan, this can cause diarrhea - Pt needs to take imodium as this is a safe treatment for chronic diarrhea without infection - Pt needs to comply with his diabetes management, unlikely to improve with blood sugars constantly above 300 Stable from a GI perspective
[2018-08-07] MEDS: Lactobacillus Rhamnosus GG 15 Billion CFU CAP.SPRINK PO SCH (08:20)
[2018-08-07] MEDS: Pantoprazole 40 mg EC Tab PO SCH (08:20)
[2018-08-07] MEDS: Multivitamin Tab PO SCH (08:25)
[2018-08-07] MEDS: Venelex 60gm Tube TP SCH (09:00)
--- NOTE | 2018-08-07 12:16 | Internal Medicine Prog Note ---
Internal Medicine Subjective - Subjective Service Date: 08/07/18 Patient seen and examined:: with staff Patient is:: awake, interactive, in bed Patient Complaints of:: congestion, vomitting, diarrhea Per staff patient has:: no adverse event Internal Medicine Objective - Results Result Diagrams: 08/07/18 05:45 08/07/18 05:45 Recent Labs: Laboratory Last Values WBC 5.1 Th/cmm (4.8-10.8) 08/07/18 05:45 RBC 3.21 Mil/cmm (4.30-5.70) L 08/07/18 05:45 Hgb 10.2 gm/dL (12-16) L 08/07/18 05:45 Hct 30.2 % (41.0-60) L 08/07/18 05:45 MCV 94.1 fl (80-99) 08/07/18 05:45 MCH 31.6 pg (26.0-30.0) H 08/07/18 05:45 MCHC Differential 33.6 pg (28.0-36.0) 08/07/18 05:45 RDW 14.4 % (11.5-20.0) 08/07/18 05:45 Plt Count 262 Th/cmm (150-400) 08/07/18 05:45 MPV 7.5 fl 08/07/18 05:45 Neutrophils % 72.5 % (40.0-80.0) 08/07/18 05:45 Lymphocytes % 15.7 % (20.0-50.0) L 08/07/18 05:45 Monocytes % 7.8 % (2.0-10.0) 08/07/18 05:45 Eosinophils % 3.1 % (0.0-5.0) 08/07/18 05:45 Basophils % 0.9 % (0.0-2.0) 08/07/18 05:45 PT 9.6 SECONDS (9.5-11.5) 08/03/18 05:45 INR 0.92 (0.5-1.4) 08/03/18 05:45 PTT (Actin FS) 22.9 SECONDS (26.0-38.0) L 07/25/18 00:40 Sodium 136 mEq/L (136-145) 08/07/18 05:45 Potassium 5.7 mEq/L (3.5-5.1) H 08/07/18 05:45 Chloride 106 mEq/L (98-107) 08/07/18 05:45 Carbon Dioxide 22.6 mEq/L (21.0-31.0) 08/07/18 05:45 Anion Gap 13.1 (7.0-16.0) 08/07/18 05:45 BUN 30 mg/dL (7-25) H 08/07/18 05:45 Creatinine 1.2 mg/dL (0.7-1.3) 08/07/18 05:45 Est GFR ( Amer) > 60.0 ml/min (>90) 08/07/18 05:45 Est GFR (Non-Af Amer) > 60.0 ml/min 08/07/18 05:45 BUN/Creatinine Ratio 25.0 08/07/18 05:45 Glucose 493 mg/dL (70-105) H* 08/07/18 05:45 POC Glucose 232 MG/DL (70 - 105) H 08/07/18 11:41 Calcium 8.3 mg/dL (8.6-10.3) L 08/07/18 05:45 Total Bilirubin 0.5 mg/dL (0.3-1.0) 07/28/18 06:00 AST 13 U/L (13-39) 07/28/18 06:00 ALT 10 U/L (7-52) 07/28/18 06:00 Alkaline Phosphatase 73 U/L (34-104) 07/28/18 06:00 Troponin I 0.01 ng/mL (0.01-0.05) 07/25/18 00:40 Total Protein 5.6 gm/dL (6.0-8.3) L 07/28/18 06:00 Albumin 3.6 gm/dL (4.2-5.5) L 07/28/18 06:00 Globulin 2.0 gm/dL 07/28/18 06:00 Albumin/Globulin Ratio 1.8 (1.0-1.8) 07/28/18 06:00 Urine Source CATH 07/25/18 00:40 Urine Color YELLOW 07/25/18 00:40 Urine Clarity CLEAR (CLEAR) 07/25/18 00:40 Urine pH 6.0 (4.6 - 8.0) 07/25/18 00:40 Ur Specific [place] 1.010 (1.005-1.030) 07/25/18 00:40 Urine Protein TRACE mg/dL (NEGATIVE) 07/25/18 00:40 Urine Glucose (UA) >=1000 mg/dL (NEGATIVE) H 07/25/18 00:40 Urine Ketones NEGATIVE mg/dL (NEGATIVE) 07/25/18 00:40 Urine Blood NEGATIVE (NEGATIVE) 07/25/18 00:40 Urine Nitrate NEGATIVE (NEGATIVE) 07/25/18 00:40 Urine Bilirubin NEGATIVE (NEGATIVE) 07/25/18 00:40 Urine Urobilinogen 0.2 E.U./dL (0.2 - 1.0) 07/25/18 00:40 Ur Leukocyte Esterase NEGATIVE (NEGATIVE) 07/25/18 00:40 Urine RBC NONE SEEN /hpf (0-5) 07/25/18 00:40 Urine WBC 0-2 /hpf (0-5) 07/25/18 00:40 Ur Epithelial Cells OCCASIONAL /lpf (FEW) 07/25/18 00:40 Urine Bacteria OCCASIONAL /hpf (NONE SEEN) 07/25/18 00:40 Blood Type O NEGATIVE 08/04/18 08:40 Antibody Screen NEGATIVE 08/04/18 08:40 Crossmatch See Detail 08/04/18 08:40 - Physical Exam Vitals and I&O: Vital Signs Temp 99.4 F 08/07/18 08:00 Pulse 87 08/07/18 08:21 Resp 18 08/07/18 08:00 BP 117/71 08/07/18 08:21 Pulse Ox 98 08/07/18 08:00 Intake & Output 08/06/18 08/07/18 08/07/18 18:59 06:59 18:59 Intake Total 800 1580 Output Total 1275 1400 Balance -475 180 Weight (lbs) 54.431 kg 44.996 kg Intake: Intake, IV Amount 1000 Sodium Chloride 0.9% 1, 1000 000 ml @ 60 mls/hr IV . [id number] [facility] Rx#:[id number] Oral 800 580 Output: Urine 1275 1400 Other: # Bowel Movements 2 Stool Characteristics Liquid Liquid Brown Brown Weight Source Bedscale Bedscale Active Medications: Current Medications Acetaminophen (Tylenol) 650 mg PO Q6H PRN PRN Reason: Pain or Fever >101 Stop: 09/23/18 11:16 Amlodipine Besylate (Norvasc) 10 mg PO DAILY PRN PRN Reason: SBP ABOVE 160 Stop: 09/25/18 08:59 Last Admin: 07/26/18 23:52 Dose: 10 mg Lipase/Protease/Amylase (Zenpep 5,000 U) 1 cap PO TIDWM [facility] Stop: 09/30/18 16:59 Last Admin: 08/07/18 12:01 Dose: 1 cap Carisoprodol (Soma) 350 mg PO Q8H PRN PRN Reason: MUSCLE RELAXANT Stop: 09/23/18 11:16 Last Admin: 08/07/18 08:20 Dose: 350 mg [place] Oil/[place] Balsam/Trypsin (Venelex) 1 appl TP DAILY [facility] Stop: 09/26/18 15:44 Last Admin: 08/07/18 09:00 Dose: 1 appl Clonazepam (Klonopin) 0.5 mg PO Q8H PRN; Protocol PRN Reason: Anxiety Stop: 09/23/18 11:16 Last Admin: 08/07/18 08:21 Dose: 0.5 mg Docusate Sodium (Colace) 100 mg PO DAILY [facility] Stop: 09/24/18 08:59 Last Admin: 08/07/18 08:25 Dose: Not Given Folic Acid (Folate) 1 mg PO DAILY [facility] Stop: 09/24/18 08:59 Last Admin: 08/07/18 08:21 Dose: 1 mg Gabapentin (Neurontin) 600 mg PO TID [facility] Stop: 09/23/18 13:59 Last Admin: 08/07/18 08:21 Dose: 600 mg Glucagon (Glucagen) 1 mg SUBQ PRN PRN PRN Reason: BS BELOW 60 & NOT TOLERATE PO Hydromorphone HCl (Dilaudid) 2 mg IVP Q3H PRN PRN Reason: Pain (Severe) Stop: 09/23/18 01:14 Last Admin: 08/07/18 11:55 Dose: 2 mg Sodium Chloride (Nacl 0.9%) 1,000 mls @ 60 mls/hr IV .[id number] [facility] Stop: 09/25/18 16:37 Last Admin: 08/07/18 04:36 Dose: 60 mls/hr Insulin Aspart (Novolog Insulin Sliding Scale) 0 units SUBQ ACHS [facility]; Protocol Stop: 09/23/18 11:29 Last Admin: 08/07/18 11:51 Dose: 5 units Insulin Detemir (Levemir Insulin) 6 units SUBQ HS [facility]; Protocol Stop: 09/23/18 20:59 Last Admin: 08/06/18 21:16 Dose: Not Given Lactobacillus Rhamnosus (Culturelle 15b) 1 each PO DAILY [facility] Stop: 09/24/18 08:59 Last Admin: 08/07/18 08:20 Dose: 1 each Levetiracetam (Keppra) 500 mg PO Q12H [facility] Stop: 09/23/18 11:29 Last Admin: 08/07/18 12:01 Dose: 500 mg Lisinopril (Zestril) 2.5 mg PO DAILY [facility] Stop: 09/24/18 08:59 Last Admin: 08/07/18 08:21 Dose: 2.5 mg Loperamide HCl (Imodium) 2 mg PO Q6HR PRN PRN Reason: Diarrhea Stop: 09/29/18 16:06 Last Admin: 08/07/18 08:20 Dose: 2 mg Magnesium Chloride (Slow-Mag) 64 ect PO HS [facility] Stop: 09/23/18 20:59 Last Admin: 08/06/18 21:14 Dose: 64 ect Magnesium Hydroxide (Milk Of Magnesia) 30 ml PO DAILY PRN PRN Reason: Constipation Stop: 09/23/18 11:19 Metoclopramide HCl (Reglan) 10 mg IVP Q6H PRN PRN Reason: Nausea Stop: 10/04/18 21:09 Multivitamins/Vitamin C (Theragran) 1 tab PO DAILY [facility] Stop: 09/24/18 08:59 Last Admin: 08/07/18 08:25 Dose: Not Given Nitroglycerin (Nitrostat) 0.4 mg SL Q5MIN PRN PRN Reason: Chest Pain Stop: 09/23/18 11:19 Oxcarbazepine (Trileptal) 300 mg PO BID [facility]; Protocol Stop: 09/23/18 16:59 Last Admin: 08/07/18 08:20 Dose: 300 mg Pantoprazole Sodium (Protonix) 40 mg PO DAILY [facility] Stop: 09/24/18 08:59 Last Admin: 08/07/18 08:20 Dose: 40 mg Quetiapine Fumarate (Seroquel) 100 mg PO HS [facility]; Protocol Stop: 09/23/18 20:59 Last Admin: 08/06/18 21:15 Dose: 100 mg Rifaximin (Xifaxan) 600 mg PO TID [facility] Stop: 09/30/18 20:59 Last Admin: 08/07/18 08:20 Dose: 600 mg Sodium Polystyrene Sulfonate (Kayexalate) 45 gm PO X1 ONE Stop: 08/07/18 12:15 Tamsulosin HCl (Flomax) 0.4 mg PO HS [facility] Stop: 09/23/18 20:59 Last Admin: 08/06/18 21:14 Dose: 0.4 mg Trazodone HCl (Desyrel) 100 mg PO HS PRN; Protocol PRN Reason: Insomnia Stop: 09/23/18 11:20 Last Admin: 08/06/18 21:31 Dose: 100 mg General: weak, lethargic, congested HEENT: PERRLA, EOMI Neck: Supple, No JVD, No thyromegaly Lungs: wheezing Abdomen: soft, non-distended - Procedures Procedures: Procedures Procedure Code Date EXCISION OF ILEUM, ENDO, DIAGN [id number] 07/25/18 EXCISION OF L FOOT SUBCU/FASCIA, OPEN APPROACH [id number] 06/22/18 EXCISION OF LEFT LARGE INTESTINE, ENDO, DIAGN [id number] 07/25/18 EXCISION OF RIGHT LARGE INTESTINE, ENDO, DIAGN [id number] 07/25/18 Internal Medicine Assmt/Plan - Assessment Assessment: Hyperkalemia: 45gm Kayexalate po x1 ordered; repeat BMP in AM. Intractable pain/chronic pain syndrome exacerbation: understandable and multifactorial. adjusting pain med. s/p Fall: rt proximal humeral fracture. Diarrhea: stool for C. Diff; GI consult: s/p colonoscopy: biopsy result is negative. Severe anemia: better after 1 u PRBC. Leukopenia: resolved. OOC DM: pt is noncompliant with diet. COPD: RT CAD: s/p [place] Seizure: close monitoring. Nutritional Asmnt/Malnutr-PDOC - Dietary Evaluation Malnutrition Findings (Please click <Entered> for more info): Nutritional Asmnt/Malnutrition Start: 07/25/18 15: 07 Text: Status: Complete Freq: Protocol: Document 07/25/18 15:09 [email or web address] (Rec: 07/25/18 15:24 [email or web address]) Nutritional Asmnt/Malnutrition Patient General Information Nutritional Screening High Risk Diagnosis intractable shoulder pain, possible right shoulder Pertinent Medical Hx/Surgical Hx HTN, DM, asthma/COPD, CAD, seizures, RT BKA Subjective Information Pt was resting in bed, alert, but did not want to speak with RD at time of visit. Elevated glucose 351 noted. Current Diet Order/ Nutrition Support CCHO, cardiac, ensure clear BID Pertinent Medications colace, folate, glucagen, novolog, levemir, culturelle, slow-mag, theragran, protonix, seroquel Pertinent Labs Na 132, Cl 96, cr 1.4, glucose 351, ca 8.5, POC [phone] Nutritional Hx/Data Height 1.73 m Height (Calculated Centimeters) 172.7 Current Weight (lbs) 50.802 kg Weight (Calculated Kilograms) 50.8 Weight (Calculated Grams) 79930.3 [place] Body Weight 154 Body Mass Index (BMI) 17.0 Weight Status Underweight GI Symptoms GI Symptoms None Last BM 07/25 Difficult in: None Skin Integrity/Comment: right BKA, left foot ulceration Estimated Nutritional Goals BEE in Kcals: Using Current wt Calories/Kcals/Kg 30-35 Kcals Calculated 4203-8794 Protein: Using Current wt Protein g/k.2 Protein Calculated 61 Fluid: ml 8883-1011 (1ml/kcal) Nutritional Problem 1. Problem Problem altered nutrition related labs Etiology hyperglycemia Signs/Symptoms: glucose 351, POC [phone] Malnutrition Alert Is there a minimum of two criteria No selected? Query Text:Check all the applicable criteria. A minimum of two criteria are recommended for diagnosis of either severe or non-severe malnutrition. Malnutrition Related to Morbid Obesity Malnutrition related to morbid obesity No Intervention/Recommendation Comments 1. Continue with CCHO, cardiac diet with ensure clear BID as ordered. Will adjust protein needs after wound assessed. 2. MD to adjust insulin regimen for optimal glycemic control 2. Monitor PO intake, wt, labs and skin integrity 3. F/U as high risk in 2-3 days Expected Outcomes/Goals Expected Outcomes/Goals 1. PO intake to meet at least 75% of nutritional needs. 2. Wt stability, skin to remain intact, labs to approach WNL. Reviewed by Claribel Anand RD
[2018-08-07 18:33] LABS: HEMATOCRIT 29.4 % (41.0-60); HEMOGLOBIN 9.9 gm/dL (12-16); LYMPHOCYTE ABSOLUTE 0.3 Th/cmm (1.5-3.0); MEAN CELL VOLUME 93.7 fl (80-99); MEAN CORPUSCULAR HEMOGLOBIN 31.5 pg (26.0-30.0); MEAN CORPUSCULAR HGB CONC 33.6 pg (28.0-36.0); MEAN PLATELET VOLUME 7.3 fl; MONOCYTE ABSOLUTE 0.2 Th/cmm (0.3-1.0); NEUTROPHILE ABSOLUTE 1.1 Th/cmm (1.8-8.0); PLATELET COUNT 273 Th/cmm (150-400); RED BLOOD COUNT 3.13 Mil/cmm (4.30-5.70); RED CELL DISTRIBUTION WIDTH 14.2 % (11.5-20.0)
[2018-08-07 18:37] LABS: URINE SOURCE FOLEY PORT
[2018-08-07 18:49] LABS: ALB/GLOB RATIO 1.5 (1.0-1.8); ALBUMIN 3.1 gm/dL (4.2-5.5); ALKALINE PHOSPHATASE 152 U/L (34-104); ANION GAP 13.9 (7.0-16.0); BILIRUBIN,TOTAL 0.4 mg/dL (0.3-1.0); BUN - UREA NITROGEN 29 mg/dL (7-25); CALCIUM SERUM 8.4 mg/dL (8.6-10.3); CARBON DIOXIDE 22.8 mEq/L (21.0-31.0); CHLORIDE 109 mEq/L (98-107); CREATININE - SERUM 1.1 mg/dL (0.7-1.3); GFR AFRICAN-AMERICAN > 60.0 ml/min (>90); GFR NON AFRICAN-AMERICAN > 60.0 ml/min; SGOT 277 U/L (13-39); SGPT/ALT 153 U/L (7-52); SODIUM SERUM 142 mEq/L (136-145); TOTAL PROTEIN,SERUM 5.2 gm/dL (6.0-8.3)
[2018-08-07 18:50] LABS: URINE BILIRUBIN NEGATIVE (NEGATIVE); URINE BLOOD LARGE (NEGATIVE); URINE GLUCOSE (UA) NEGATIVE (NEGATIVE); URINE KETONE NEGATIVE (NEGATIVE); URINE LEUKOCYTE ESTERASE LARGE (NEGATIVE); URINE MICROSCOPIC INDICATED? YES; URINE NITRATE NEGATIVE (NEGATIVE); URINE PROTEIN 30 mg/dL (NEGATIVE); URINE UROBILINOGEN 0.2 E.U./dL (0.2 - 1.0)
[2018-08-07 19:07] LABS: GLUCOSE 118 mg/dL (70-105); POTASSIUM SERUM 3.7 mEq/L (3.5-5.1)
[2018-08-07 19:13] LABS: WHITE BLOOD COUNT 1.6 Th/cmm (4.8-10.8)
[2018-08-07 20:22] LABS: URINE CLARITY CLOUDY (CLEAR); URINE COLOR LIGHT YELLOW
[2018-08-07 20:25] LABS: URINE WBC 25-50 /hpf (0-5)
[2018-08-07 20:26] LABS: URINE BACTERIA MANY /hpf (NONE SEEN); URINE EPITHELIAL CELLS NONE SEEN /lpf (FEW)
[2018-08-07] MEDS: Insulin Detemir 100 units/mL 10mL Vial SUBQ SCH (20:44)
[2018-08-07 21:30] LABS: BAND NEUTROPHILE 1 % (0-10); EOSINOPHIL 0 % (0-5); LYMPHOCYTE 20 % (20-50)
[2018-08-07 21:31] LABS: NEUTROPHILS 69 % (40-80)
[2018-08-07 21:32] LABS: MONOCYTE 10 % (2-10)
[2018-08-07] MEDS: Magnesium Chloride EC 64mg Tab PO SCH (23:30)
[2018-08-07] MEDS ORDERED: Levofloxacin 750mg/150mL 750 MG/150 ML BAG IV ONE (23:42)
[2018-08-08] MEDS ORDERED: Levofloxacin 750mg/150mL 750 MG/150 ML BAG IV SCH
[2018-08-08] MEDS: HYDROmorphone 2 mg/mL 1mL Vial IVP PRN ×6 (00:24→16:18)
[2018-08-08] MEDS: Magnesium Chloride EC 64mg Tab PO SCH (00:36)
[2018-08-08] MEDS: INSULIN ASPART SLIDING SCALE 100 UNITS/ML UNIT SUBQ SCH ×3 (06:10→16:27)
[2018-08-08 06:29] LABS: % BASOPHILS 0.4 % (0.0-2.0); % EOSINOPHILS 0.4 % (0.0-5.0); % LYMPHOCYTES 13.5 % (20.0-50.0); % MONOCYTES 7.9 % (2.0-10.0); % NEUTROPHILS 77.8 % (40.0-80.0); HEMATOCRIT 28.4 % (41.0-60); HEMOGLOBIN 9.5 gm/dL (12-16); MEAN CELL VOLUME 94.8 fl (80-99); MEAN CORPUSCULAR HEMOGLOBIN 31.6 pg (26.0-30.0); MEAN CORPUSCULAR HGB CONC 33.3 pg (28.0-36.0); MEAN PLATELET VOLUME 7.7 fl; MONOCYTE ABSOLUTE 0.6 Th/cmm (0.3-1.0); NEUTROPHILE ABSOLUTE 6.1 Th/cmm (1.8-8.0); PLATELET COUNT 235 Th/cmm (150-400); RED BLOOD COUNT 2.99 Mil/cmm (4.30-5.70); WHITE BLOOD COUNT 7.7 Th/cmm (4.8-10.8)
[2018-08-08 06:39] LABS: ANION GAP 13.9 (7.0-16.0); BUN - UREA NITROGEN 27 mg/dL (7-25); CARBON DIOXIDE 23.3 mEq/L (21.0-31.0); CHLORIDE 101 mEq/L (98-107); CREATININE - SERUM 1.1 mg/dL (0.7-1.3); GFR AFRICAN-AMERICAN > 60.0 ml/min (>90); GFR NON AFRICAN-AMERICAN > 60.0 ml/min; POTASSIUM SERUM 4.2 mEq/L (3.5-5.1); SODIUM SERUM 134 mEq/L (136-145)
[2018-08-08 07:00] LABS: GLUCOSE 572 mg/dL (70-105)
[2018-08-08] MEDS: Pantoprazole 40 mg EC Tab PO SCH (08:16)
[2018-08-08] MEDS: Lactobacillus Rhamnosus GG 15 Billion CFU CAP.SPRINK PO SCH (08:17)
[2018-08-08] MEDS: Multivitamin Tab PO SCH ×2 (08:17→09:02)
[2018-08-08 08:36] LABS: ALB/GLOB RATIO 1.4 (1.0-1.8); ALKALINE PHOSPHATASE 134 U/L (34-104); BILIRUBIN,TOTAL 0.5 mg/dL (0.3-1.0); LDH = LACTIC DEHYDROGENASE 174 U/L (140-271); SGOT 154 U/L (13-39); SGPT/ALT 139 U/L (7-52); TOTAL PROTEIN,SERUM 5.1 gm/dL (6.0-8.3)
--- NOTE | 2018-08-08 08:47 | GI Progress Note ---
Subjective - Review of Systems Service Date: 08/08/18 Subjective: Less frequent loose stool, although still loose Objective - Results Result Diagrams: 08/08/18 05:50 08/08/18 05:50 Recent Labs: Laboratory Last Values WBC 7.7 Th/cmm (4.8-10.8) D 08/08/18 05:50 RBC 2.99 Mil/cmm (4.30-5.70) L 08/08/18 05:50 Hgb 9.5 gm/dL (12-16) L 08/08/18 05:50 Hct 28.4 % (41.0-60) L 08/08/18 05:50 MCV 94.8 fl (80-99) 08/08/18 05:50 MCH 31.6 pg (26.0-30.0) H 08/08/18 05:50 MCHC Differential 33.3 pg (28.0-36.0) 08/08/18 05:50 RDW 14.0 % (11.5-20.0) 08/08/18 05:50 Plt Count 235 Th/cmm (150-400) 08/08/18 05:50 MPV 7.7 fl 08/08/18 05:50 Add Manual Diff YES 08/07/18 17:30 Neutrophils % 77.8 % (40.0-80.0) 08/08/18 05:50 Band Neutrophils % 1 % (0-10) 08/07/18 17:30 Lymphocytes % 13.5 % (20.0-50.0) L 08/08/18 05:50 Monocytes % 7.9 % (2.0-10.0) 08/08/18 05:50 Eosinophils % 0.4 % (0.0-5.0) 08/08/18 05:50 Basophils % 0.4 % (0.0-2.0) 08/08/18 05:50 Neutrophils (Manual) 69 % (40-80) 08/07/18 17:30 Lymphocytes 20 % (20-50) 08/07/18 17:30 Monocytes 10 % (2-10) 08/07/18 17:30 Eosinophils 0 % (0-5) 08/07/18 17:30 PT 9.6 SECONDS (9.5-11.5) 08/03/18 05:45 INR 0.92 (0.5-1.4) 08/03/18 05:45 PTT (Actin FS) 22.9 SECONDS (26.0-38.0) L 07/25/18 00:40 Sodium 134 mEq/L (136-145) L 08/08/18 05:50 Potassium 4.2 mEq/L (3.5-5.1) 08/08/18 05:50 Chloride 101 mEq/L (98-107) 08/08/18 05:50 Carbon Dioxide 23.3 mEq/L (21.0-31.0) 08/08/18 05:50 Anion Gap 13.9 (7.0-16.0) 08/08/18 05:50 BUN 27 mg/dL (7-25) H 08/08/18 05:50 Creatinine 1.1 mg/dL (0.7-1.3) 08/08/18 05:50 Est GFR ( Amer) > 60.0 ml/min (>90) 08/08/18 05:50 Est GFR (Non-Af Amer) > 60.0 ml/min 08/08/18 05:50 BUN/Creatinine Ratio 24.5 08/08/18 05:50 Glucose 572 mg/dL (70-105) H* 08/08/18 05:50 POC Glucose 424 MG/DL (70 - 105) H 08/08/18 05:59 Whole Bld Lactic Acid 0.84 mmol/L (0.60-1.99) 08/08/18 05:50 Calcium 8.0 mg/dL (8.6-10.3) L 08/08/18 05:50 Total Bilirubin 0.5 mg/dL (0.3-1.0) 08/08/18 05:50 AST 154 U/L (13-39) H 08/08/18 05:50 ALT 139 U/L (7-52) H 08/08/18 05:50 Alkaline Phosphatase 134 U/L (34-104) H 08/08/18 05:50 Lactate Dehydrogenase 174 U/L (140-271) 08/08/18 05:50 Troponin I 0.01 ng/mL (0.01-0.05) 07/25/18 00:40 Total Protein 5.1 gm/dL (6.0-8.3) L 08/08/18 05:50 Albumin 3.0 gm/dL (4.2-5.5) L 08/08/18 05:50 Globulin 2.1 gm/dL 08/08/18 05:50 Albumin/Globulin Ratio 1.4 (1.0-1.8) 08/08/18 05:50 Urine Source [place] 08/07/18 17:30 Urine Color LIGHT YELLOW 08/07/18 17:30 Urine Clarity CLOUDY (CLEAR) 08/07/18 17:30 Urine pH 6.0 (4.6 - 8.0) 08/07/18 17:30 Ur Specific [place] 1.020 (1.005-1.030) 08/07/18 17:30 Urine Protein 30 mg/dL (NEGATIVE) H 08/07/18 17:30 Urine Glucose (UA) NEGATIVE mg/dL (NEGATIVE) 08/07/18 17:30 Urine Ketones NEGATIVE mg/dL (NEGATIVE) 08/07/18 17:30 Urine Blood LARGE (NEGATIVE) H 08/07/18 17:30 Urine Nitrate NEGATIVE (NEGATIVE) 08/07/18 17:30 Urine Bilirubin NEGATIVE (NEGATIVE) 08/07/18 17:30 Urine Urobilinogen 0.2 E.U./dL (0.2 - 1.0) 08/07/18 17:30 Ur Leukocyte Esterase LARGE (NEGATIVE) H 08/07/18 17:30 Urine RBC 2-5 /hpf (0-5) H 08/07/18 17:30 Urine WBC 25-50 /hpf (0-5) H 08/07/18 17:30 Ur Epithelial Cells NONE SEEN /lpf (FEW) 08/07/18 17:30 Urine Bacteria MANY /hpf (NONE SEEN) H 08/07/18 17:30 Blood Type O NEGATIVE 08/04/18 08:40 Antibody Screen NEGATIVE 08/04/18 08:40 Crossmatch See Detail 08/04/18 08:40 - Physical Exam Vitals and I&O: Vital Signs Temp 96.3 F 08/08/18 07:41 Pulse 77 08/08/18 08:17 Resp 16 08/08/18 08:14 BP 112/74 08/08/18 08:17 Pulse Ox 99 08/08/18 08:14 Intake & Output 08/07/18 08/08/1819 18:59 06:59 18:59 Intake Total 1887 Output Total 2300 Balance -413 Weight (lbs) 42.411 kg Intake: Intake, IV Amount 1167 Aztreonam 1 gm In 50 Dextrose 5% 50 ml @ 100 mls/hr IV Q8H [facility] Rx#: [id number] Levofloxacin 750mg/150mL 150 750 mg In 150 ml @ 100 mls/hr IV Q24H [facility] Rx#: [id number] Sodium Chloride 0.9% 1, 967 000 ml @ 60 mls/hr IV . [id number] [facility] Rx#:[id number] Oral 720 Output: Urine 2300 Other: # Bowel Movements 2 Stool Characteristics Liquid Liquid Brown Brown Weight Source Bedscale Active Medications: Current Medications Acetaminophen (Tylenol) 650 mg PO Q6H PRN PRN Reason: Pain or Fever >101 Stop: 09/23/18 11:16 Last Admin: 08/07/18 15:22 Dose: 650 mg Amlodipine Besylate (Norvasc) 10 mg PO DAILY PRN PRN Reason: SBP ABOVE 160 Stop: 09/25/18 08:59 Last Admin: 07/26/18 23:52 Dose: 10 mg Lipase/Protease/Amylase (Zenpep 5,000 U) 1 cap PO TIDWM [facility] Stop: 09/30/18 16:59 Last Admin: 08/08/18 08:17 Dose: 1 cap Carisoprodol (Soma) 350 mg PO Q8H PRN PRN Reason: MUSCLE RELAXANT Stop: 09/23/18 11:16 Last Admin: 08/08/18 00:37 Dose: 350 mg [place] Oil/[place] Balsam/Trypsin (Venelex) 1 appl TP DAILY [facility] Stop: 09/26/18 15:44 Last Admin: 08/07/18 09:00 Dose: 1 appl Clonazepam (Klonopin) 0.5 mg PO Q8H PRN; Protocol PRN Reason: Anxiety Stop: 09/23/18 11:16 Last Admin: 08/08/18 00:41 Dose: 0.5 mg Docusate Sodium (Colace) 100 mg PO DAILY [facility] Stop: 09/24/18 08:59 Last Admin: 08/08/18 08:16 Dose: 100 mg Folic Acid (Folate) 1 mg PO DAILY [facility] Stop: 09/24/18 08:59 Last Admin: 08/08/18 08:17 Dose: 1 mg Gabapentin (Neurontin) 600 mg PO TID [facility] Stop: 09/23/18 13:59 Last Admin: 08/08/18 08:17 Dose: 600 mg Glucagon (Glucagen) 1 mg SUBQ PRN PRN PRN Reason: BS BELOW 60 & NOT TOLERATE PO Hydromorphone HCl (Dilaudid) 2 mg IVP Q3H PRN PRN Reason: Pain (Severe) Stop: 09/23/18 01:14 Last Admin: 08/08/18 08:17 Dose: 2 mg Sodium Chloride (Nacl 0.9%) 1,000 mls @ 60 mls/hr IV .[id number] [facility] Stop: 09/25/18 16:37 Last Admin: 08/07/18 20:43 Dose: 60 mls/hr Levofloxacin (Levaquin Pb) 750 mg in 150 mls @ 100 mls/hr IV Q24H [facility] Stop: 10/07/18 00:00 Last Infusion: 08/08/18 02:30 Dose: Infused Aztreonam 1 gm/ Dextrose 50 mls @ 100 mls/hr IV Q8H [facility] Stop: 10/07/18 02:59 Last Infusion: 08/08/18 03:45 Dose: Infused Insulin Aspart (Novolog Insulin Sliding Scale) 0 units SUBQ ACHS [facility]; Protocol Stop: 09/23/18 11:29 Last Admin: 08/08/18 06:10 Dose: 14 units Insulin Detemir (Levemir Insulin) 6 units SUBQ HS [facility]; Protocol Stop: 09/23/18 20:59 Last Admin: 08/07/18 20:44 Dose: Not Given Lactobacillus Rhamnosus (Culturelle 15b) 1 each PO DAILY [facility] Stop: 09/24/18 08:59 Last Admin: 08/08/18 08:17 Dose: 1 each Levetiracetam (Keppra) 500 mg PO Q12H [facility] Stop: 09/23/18 11:29 Last Admin: 08/07/18 23:50 Dose: Not Given Lisinopril (Zestril) 2.5 mg PO DAILY [facility] Stop: 09/24/18 08:59 Last Admin: 08/08/18 08:17 Dose: 2.5 mg Loperamide HCl (Imodium) 2 mg PO Q6HR PRN PRN Reason: Diarrhea Stop: 09/29/18 16:06 Last Admin: 08/07/18 19:45 Dose: 2 mg Magnesium Chloride (Slow-Mag) 64 ect PO HS [facility] Stop: 09/23/18 20:59 Last Admin: 08/08/18 00:36 Dose: 64 ect Magnesium Hydroxide (Milk Of Magnesia) 30 ml PO DAILY PRN PRN Reason: Constipation Stop: 09/23/18 11:19 Metoclopramide HCl (Reglan) 10 mg IVP Q6H PRN PRN Reason: Nausea Stop: 10/04/18 21:09 Multivitamins/Vitamin C (Theragran) 1 tab PO DAILY [facility] Stop: 09/24/18 08:59 Last Admin: 08/07/18 08:25 Dose: Not Given Nitroglycerin (Nitrostat) 0.4 mg SL Q5MIN PRN PRN Reason: Chest Pain Stop: 09/23/18 11:19 Oxcarbazepine (Trileptal) 300 mg PO BID [facility]; Protocol Stop: 09/23/18 16:59 Last Admin: 08/08/18 08:16 Dose: 300 mg Pantoprazole Sodium (Protonix) 40 mg PO DAILY [facility] Stop: 09/24/18 08:59 Last Admin: 08/08/18 08:16 Dose: 40 mg Quetiapine Fumarate (Seroquel) 100 mg PO [facility]; Protocol Stop: 09/23/18 20:59 Last Admin: 08/08/18 00:37 Dose: 100 mg Rifaximin (Xifaxan) 600 mg PO TID [facility] Stop: 09/30/18 20:59 Last Admin: 08/08/18 08:16 Dose: 600 mg Tamsulosin HCl (Flomax) 0.4 mg PO [facility] Stop: 09/23/18 20:59 Last Admin: 08/08/18 00:36 Dose: 0.4 mg Trazodone HCl (Desyrel) 100 mg PO HS PRN; Protocol PRN Reason: Insomnia Stop: 09/23/18 11:20 Last Admin: 08/06/18 21:31 Dose: 100 mg General: Alert, Oriented x3 HEENT: Atraumatic Cardiovascular: Regular rate Abdomen: Bowel sounds, Soft, no Tender, no Hepatomegaly, no Splenomegaly, no Distended, no Rebound, no Mass, no Guarding Psych/Mental Status: Mental status NL - Procedures Procedures: Procedures Procedure Code Date EXCISION OF ILEUM, ENDO, DIAGN [id number] 07/25/18 EXCISION OF L FOOT SUBCU/FASCIA, OPEN APPROACH [id number] 06/22/18 EXCISION OF LEFT LARGE INTESTINE, ENDO, DIAGN [id number] 07/25/18 EXCISION OF RIGHT LARGE INTESTINE, ENDO, DIAGN [id number] 07/25/18 Assessment/Plan - Assessment Assessment: 48 YO MALE WITH CHRONIC DIARRHEA CT SHOWED FLUID IN THE SMALL BOWEL CDIFF NEG COLO SHOWED NORMAL COLON AND TERMINAL ILEUM At this point, I suspect either IBS-D or diabetic mediated diarrhea (ie neuropathy associated), or a combination of both. Colon pathology is negative for microscopic colitis. SBFT is negative for any small bowel fistula. His blood sugars remain out of control, and he will likely continue to have diarrhea at this level of glucose control The pt is not cooperative, is not taking his insulin and not taking imodium. Now that he has been taking imodium, the diarrhea is better Plan: -CONT SUPP CARE -AWAIT BX from the colon -CONSIDER OUTPATIENT CAPSULE ENDOSCOPY -CONT PANC ENZYMES AND XIFAXAN FOR PANC EXOCRINE INSUFF AND IBS-D RESPECTIVELY - Stop reglan, this can cause diarrhea - Pt needs to take imodium as this is a safe treatment for chronic diarrhea without infection - Pt needs to comply with his diabetes management, unlikely to improve with blood sugars constantly above 300 Stable from a GI perspective
--- NOTE | 2018-08-08 08:53 | Diagnostic Imaging Report ---
Renal ultrasound HISTORY: Hydronephrosis, pyelonephritis. COMPARISON: CT abdomen and pelvis on 08/01/2018 Technique: Sonography of the kidneys and urinary bladder was performed in multiple planes. FINDINGS: The right kidney measures 11.2 x 6.5 cm. The Left kidney measures 10.4 x 6.2 cm. No evidence of focal lesions or hydronephrosis. The kidneys demonstrate normal echogenicity. The left renal calcifications seen on recent CT examination was not identified sonographically. Trace right perinephric fluid fluid is noted. The urinary bladder is collapsed containing a Snyder catheter, limiting its evaluation. IMPRESSION: No evidence of hydronephrosis. The left renal calcifications seen on recent CT abdomen and pelvis was not identified sonographically Trace right perinephric fluid.
--- NOTE | 2018-08-08 10:04 | Diagnostic Imaging Report ---
CHEST X-RAY: AP view INDICATION: Fever, shortness of breath COMPARISON: Chest x-ray 06/22/2018 FINDINGS: Hazy right lower lung zone densities are noted. No effusions. Heart size is normal. IMPRESSION: Hazy right lower lung zone densities. Faint infiltrates cannot be excluded. Please correlate clinically.
[2018-08-08] MEDS: Venelex 60gm Tube TP SCH (14:07)
--- NOTE | 2018-08-08 16:57 | Consultation ---
DATE OF CONSULTATION: 08/07/2018 INFECTIOUS DISEASE CONSULTATION REFERRING PHYSICIAN: Dr. Lira. REASON FOR CONSULTATION: UTI. HISTORY OF PRESENT ILLNESS: The patient is 48-year-old male with a past medical history of diabetes mellitus type 2, cachexia, osteoporosis, rheumatoid arthritis, IBS causing chronic diarrhea, cachexia, was brought to the hospital for chronic diarrhea. Stool for C. diff was negative. The patient also found to have right BKA. He also had an injury to his right shoulder and x-ray has revealed fracture of the neck of the right humerus with slight angulation. The patient was fitted with a shoulder immobilizer. No surgical intervention applied. Coloscopy was done. Biopsy showed no significant finding. After his prolonged stay, urine showed large leukoesterase, WBC 25-50 and many bacteria. Urine culture is pending. ID consult was called for further antibiotic management. Meanwhile, the patient was started on Levaquin for UTI. PAST MEDICAL HISTORY: Includes IBS, cachectic, recent history of right humerus fracture, COPD, coronary artery disease, had LA x 4, congestive heart failure status post cerebrovascular accident x 5, UTI, sepsis, anemia, diabetes mellitus type 2, peripheral vascular disease, left heel diabetic wound, right BKA. PAST SURGICAL HISTORY: Includes right BKA, multiple left wound debridements. MEDICATIONS: Per medication reconciliation sheet. Antibiotic mcbride, the patient is on Levaquin. ALLERGIES: MULTIPLE ALLERGIES INCLUDING SULFA, PENICILLIN, CEPHALEXIN, ACETAMINOPHEN, ADHESIVES, KETOROLAC, LATEX, MILK, PEPPER, SUMATRIPTAN, VANCOMYCIN, AND WALNUT. SOCIAL HISTORY: The patient lives at nursing facility. No history of smoking, alcohol or drug use. The patient is not , no children. Mother and sister live in _[facility]. The patient had a history of smoking in the past, active smoker. No alcohol, no drug use. FAMILY HISTORY: Noncontributory. REVIEW OF SYSTEMS: GENERAL: The patient has developed fevers, chills and has generalized weakness. HEENT: No diplopia, no photophobia, no sore throat. RESPIRATORY: No cough, no shortness of breath. CARDIOVASCULAR: No chest pain. No palpitation. GASTROINTESTINAL: No nausea. No vomiting. Has diarrhea. No constipation. GENITOURINARY: No dysuria. Complains of dysuria, no hematuria. NEUROLOGICAL: No headache, no dizziness, no focal weakness. MUSCULOSKELETAL: The patient has a fracture of the right humerus. PHYSICAL EXAMINATION: CURRENT VITAL SIGNS: Shows temperature is 99.4 degrees Fahrenheit, T-max of 102.4 degrees Fahrenheit, pulse 90, respirations 18, blood pressure 93/60, oxygen saturation 100%. GENERAL: The patient is comfortable lying in the bed, cachectic. HEENT: Head is normocephalic, atraumatic. Oral cavity is moist, pink tongue. NECK: Supple, no JVD, no carotid bruit. Trachea in midline. CHEST: Bilateral breath sounds. No crackles or wheezing. HEART: S1, S2 within normal limits. Regular rhythm. No murmur, no gallop. ABDOMEN: Soft, nontender and scaphoid. Bowel sounds present. EXTREMITIES: No cyanosis, no clubbing, no edema. Right BKA. Right upper extremity immobilizer. NEUROLOGIC: Alert and awake, communicates well. LABORATORY DATA: Current lab shows WBC count is 1600 with neutrophil 69%, hemoglobin 9.9, hematocrit 29.4, platelets are 273,000. Sodium is 142, potassium 3.7, chloride 109, bicarbonate is 23, BUN is 29, creatinine 1.1 and glucose 118. AST is 277, total bilirubin 0.4, ALT is 153, alkaline phosphatase 152, albumin 3.1. Urinalysis showed large leukoesterase with WBC 25-50 and many bacteria. MRSA screen is negative. Stool for C. diff is negative. IMPRESSION: 1. Sepsis. 2. Urinary tract infection, rule out pyelonephritis. 3. Neutropenia. 4. Fracture of the right humerus. 5. Protein-calorie malnutrition, cachexia. 6. Coronary artery disease with a history of myocardial infarction. 7. History of cerebrovascular accident. 8. History of irritable bowel syndrome. 9. Anemia. 10. Chronic obstructive pulmonary disease. 11. Diabetic wound clean. 12. Right below-knee amputation. Stump is clean. PLAN AND RECOMMENDATIONS: We will continue Levaquin and add Azactam. Check the blood cultures. Check the lactic acid. Depending on the culture reports, we will define final antibiotic therapy. Thank you, Dr. Lira, for involving me in taking care of this patient. JOB# [id number]
[2018-08-10 15:09] LABS: ANTI-NUCLEAR AB SCREEN Negative; FOLIC ACID >20.0 ng/mL (>3.0)
== END 2018-08-08 18:15 | DRG 871 ==
LOC: ER 00:05 → MSI 01:05 → TELE 23:24 → MSI 07-31 08:26
PROVIDERS: ADMIT Internal Medicine; ATTEND Internal Medicine
PROC: 0DBB8ZX Excision of Ileum, Via Natural or Artificial Opening Endoscopic, Diagnostic (ICD-10-PCS; principal; 2018-08-03)
PROC: 0DBF8ZX Excision of Right Large Intestine, Via Natural or Artificial Opening Endoscopic, Diagnostic (ICD-10-PCS; 2018-08-03)
PROC: 0DBG8ZX Excision of Left Large Intestine, Via Natural or Artificial Opening Endoscopic, Diagnostic (ICD-10-PCS; 2018-08-03)
PROC: 30233N1 Transfusion of Nonautologous Red Blood Cells into Peripheral Vein, Percutaneous Approach (ICD-10-PCS; 2018-08-04)
DX: A41.9 Sepsis, unspecified organism (principal); E43 Unspecified severe protein-calorie malnutrition; S42.211A Unspecified displaced fracture of surgical neck of right humerus, initial encounter for closed fracture; R64 Cachexia; Z68.1 Body mass index [BMI] 19.9 or less, adult; N39.0 Urinary tract infection, site not specified; G89.4 Chronic pain syndrome; D63.8 Anemia in other chronic diseases classified elsewhere; J44.9 Chronic obstructive pulmonary disease, unspecified; I25.2 Old myocardial infarction; I25.10 Atherosclerotic heart disease of native coronary artery without angina pectoris; E11.40 Type 2 diabetes mellitus with diabetic neuropathy, unspecified; I50.9 Heart failure, unspecified; I11.0 Hypertensive heart disease with heart failure; E11.51 Type 2 diabetes mellitus with diabetic peripheral angiopathy without gangrene; E11.649 Type 2 diabetes mellitus with hypoglycemia without coma; M81.0 Age-related osteoporosis without current pathological fracture; M06.9 Rheumatoid arthritis, unspecified; K52.9 Noninfective gastroenteritis and colitis, unspecified; E87.5 Hyperkalemia; D70.9 Neutropenia, unspecified; W18.30XA Fall on same level, unspecified, initial encounter; Y93.89 Activity, other specified; Y92.89 Other specified places as the place of occurrence of the external cause; Y99.8 Other external cause status; Z86.73 Personal history of transient ischemic attack (TIA), and cerebral infarction without residual deficits; Z86.718 Personal history of other venous thrombosis and embolism; Z89.511 Acquired absence of right leg below knee; Z88.0 Allergy status to penicillin; Z88.2 Allergy status to sulfonamides; Z88.8 Allergy status to other drugs, medicaments and biological substances; Z88.1 Allergy status to other antibiotic agents; Z91.012 Allergy to eggs; Z91.040 Latex allergy status; Z91.011 Allergy to milk products; Z91.018 Allergy to other foods
CPT/HCPCS: 36415-UA; 71045-TC; 73000-TC-RT; 73030-TC-RT; 74250-TC; 76770-TC; 80048-TC; 80053-TC; 81001-TC; 82607-90; 82746-90; 82947-TC; 82948-90; 83036-90; 83605; 83615-TC; 84484-TC; 85007-TC; 85025-TC; 85610-TC; 86021-90; 86038-90; 86671-90; 86850-TC; 86900-TC; 86901-TC; 86922-TC; 87086-90; 87230-TC; 90799; 93005; 94760; 96374; J1170; J1815; J1956; J2405; J2704; J2765; J3490; J7030; J7040; J7042; J7799; P9016; Z7610